=== PATIENT | female | born 1950 | race Caucasian/White ===

== ENCOUNTER 2017-02-06 09:18 | Inpatient (IN) | payer MEDICARE ==
[~2017-02-06] VITALS: Ht 154.9 cm; Wt 45.0 kg
[2017-02-06 09:20] VITALS: BP 134/80; PULSE 88; RESP 16; TEMP 98.4; O2SAT 97
--- NOTE | 2017-02-06 09:35 | PD ---
HPI Chief Complaint: General Weakness Time Seen by Provider: 09:32 Travel History International Travel<30 days: No Contact w/Intl Traveler<30days: No Traveled to known affect area: No History of Present Illness HPI 66-year-old female patient with history of anxiety, hypertension, presents to the ER today because she states that she hasn't moved to [place] from [place] 2 months ago and "things are not going right". She has been depressed, not feeling like eating, has decreased appetite, and states she has diarrhea although she states she only has one episode daily. She denies any black stools or blood in the stools, fevers, chest pains, shortness of breath, or any other symptoms. She does not yet have a primary care doctor in the area. She denies any suicidal or homicidal ideation. She states she rings more than she should at times, states she drinks wine. Modifying Factors: None Associated Signs & Symptoms: Depression, poor appetite, drinking alcohol Risk Factors: History of anxiety PFSH Social History Alcohol Use: Yes (daily/wine 1-2) Tobacco Use: Yes (1-1 1/2 ppd) Substance Use: No Allergies-Medications (Allergen,Severity, Reaction): Coded Allergies: Penicillins (Verified Allergy, Severe, Hives, 02/06/17) Sulfa (Sulfonamide Antibiotics) (Verified Adverse Reaction, Severe, Nausea /Vomiting, 02/06/17) diphenhydramine (Verified Adverse Reaction, Unknown, Drowsiness, 02/06/17) Review of Systems Except as stated in HPI: all other systems reviewed are Neg Physical Exam Narrative GENERAL: Well-developed elderly white female patient currently in mild distress at awake and oriented 3. Tearful on discussion of issues. SKIN: Focused skin assessment warm/dry. HEAD: Atraumatic. Normocephalic. EYES: Pupils equal and round. No scleral icterus. No injection or drainage. ENT: No nasal bleeding or discharge. Mucous membranes pink and moist. NECK: Trachea midline. No JVD. CARDIOVASCULAR: Regular rate and rhythm. No murmur appreciated. RESPIRATORY: No accessory muscle use. Clear to auscultation. Breath sounds equal bilaterally. GASTROINTESTINAL: Abdomen soft, non-tender, nondistended. Hepatic and splenic margins not palpable. MUSCULOSKELETAL: No obvious deformities. No clubbing. No cyanosis. No edema. NEUROLOGICAL: Awake and alert. No obvious cranial nerve deficits. Motor grossly within normal limits. Normal speech. PSYCHIATRIC: Appropriate mood and affect; insight and judgment normal. Data Data Last Documented VS Vital Signs Date Time Temp Pulse Resp B/P (MAP) Pulse Ox O2 Delivery O2 Flow Rate FiO2 02/06/17 09:20 98.4 88 16 134/80 (98) 97 Room Air Orders Orders Complete Blood Count With Diff (02/06/17 09:32) Comprehensive Metabolic Panel (02/06/17 09:32) Thyroid Stimulating Hormone (02/06/17 09:32) Urinalysis - C+S If Indicated (02/06/17 09:32) Psych Screen (02/06/17 09:32) Drug Screen, Random Urine (02/06/17 09:32) Alcohol (Ethanol) (02/06/17 09:32) Ns + Kcl 40 Meq Inj (Ns + Kcl 40 Meq Inj (02/06/17 10:30) Us Abdomen Gallbladder (02/06/17 10:30) Ondansetron Inj (Zofran Inj) (02/06/17 10:30) Labs Laboratory Tests Test 02/06/17 09:39 White Blood Count 8.2 TH/MM3 Red Blood Count 4.33 MIL/MM3 Hemoglobin 15.2 GM/DL Hematocrit 42.5 % Mean Corpuscular Volume 98.3 FL Mean Corpuscular Hemoglobin 35.1 PG Mean Corpuscular Hemoglobin Concent 35.8 % Red Cell Distribution Width 14.2 % Platelet Count 273 TH/MM3 Mean Platelet Volume 7.8 FL Neutrophils (%) (Auto) 71.5 % Lymphocytes (%) (Auto) 15.0 % Monocytes (%) (Auto) 12.5 % Eosinophils (%) (Auto) 0.4 % Basophils (%) (Auto) 0.6 % Neutrophils # (Auto) 5.9 TH/MM3 Lymphocytes # (Auto) 1.2 TH/MM3 Monocytes # (Auto) 1.0 TH/MM3 Eosinophils # (Auto) 0.0 TH/MM3 Basophils # (Auto) 0.0 TH/MM3 CBC Comment DIFF FINAL Differential Comment Blood Urea Nitrogen 4 MG/DL Creatinine 1.05 MG/DL Random Glucose 152 MG/DL Total Protein 7.8 GM/DL Albumin 4.1 GM/DL Calcium Level 9.8 MG/DL Alkaline Phosphatase 96 U/L Aspartate Amino Transf (AST/SGOT) 178 U/L Alanine Aminotransferase (ALT/SGPT) 135 U/L Total Bilirubin 1.6 MG/DL Sodium Level 120 MEQ/L Potassium Level 3.0 MEQ/L Chloride Level 79 MEQ/L Carbon Dioxide Level 32.8 MEQ/L Anion Gap 8 MEQ/L Estimat Glomerular Filtration Rate 52 ML/MIN Thyroid Stimulating Hormone 3rd Gen 0.844 uIU/ML Ethyl Alcohol Level LESS THAN 3 MG/DL MDM Medical Decision Making Medical Screen Exam Complete: Yes Emergency Medical Condition: Yes Medical Record Reviewed: Yes Interpretation(s) Laboratory Tests Test 02/06/17 09:39 Mean Corpuscular Hemoglobin 35.1 PG (27.0-34.0) Neutrophils (%) (Auto) 71.5 % (16.0-70.0) Monocytes (%) (Auto) 12.5 % (0.0-8.0) Monocytes # (Auto) 1.0 TH/MM3 (0-0.9) Blood Urea Nitrogen 4 MG/DL (7-18) Creatinine 1.05 MG/DL (0.50-1.00) Random Glucose 152 MG/DL (74-106) Aspartate Amino Transf (AST/SGOT) 178 U/L (15-37) Alanine Aminotransferase (ALT/SGPT) 135 U/L (10-53) Total Bilirubin 1.6 MG/DL (0.2-1.0) Sodium Level 120 MEQ/L (136-145) Potassium Level 3.0 MEQ/L (3.5-5.1) Chloride Level 79 MEQ/L (98-107) Carbon Dioxide Level 32.8 MEQ/L (21.0-32.0) Estimat Glomerular Filtration Rate 52 ML/MIN (>89) Differential Diagnosis Depression, poor appetite: Rule out metabolic issues versus dehydration Narrative Course Lab work shows significant hyponatremia and hypokalemia. IV fluids with normal saline and potassium has been given in the ER. Abdomen is fairly benign but liver enzymes are mildly elevated, questionable whether this is drinking related. Right upper quadrant ultrasound has also been ordered. At this point , my plan would be to medically admit her for further evaluation. She can receive psychiatric evaluation while she is here as well. She is not homicidal or suicidal, does not meet Rodgers act criteria. Case was at this point discussed with family practice resident service for admission. Diagnosis Primary Impression: Depression Additional Impressions: Poor appetite Hyponatremia Hypokalemia Admitting Information Admitting Physician Requests: Admit Michele Coleman MD Feb 06, 2017 09:35
[2017-02-06 09:52] LABS: AUTOMATED NEUTROPHIL # 5.9 TH/MM3 (1.8-7.7); BASOPHIL % 0.6 % (0.0-2.0); EOSINOPHIL % 0.4 % (0.0-4.0); HEMATOCRIT 42.5 % (35.0-46.0); HEMO FLAGS DIFF FINAL; LYMPHOCYTE # 1.2 TH/MM3 (1.0-4.8); MEAN CELL VOLUME 98.3 FL (80.0-100.0); MEAN CORPUSCULAR HEMOGLOBIN 35.1 PG (27.0-34.0); MEAN CORPUSCULAR HGB CONC 35.8 % (32.0-36.0); MONO % 12.5 % (0.0-8.0); NEUT % 71.5 % (16.0-70.0); PLATELET COUNT 273 TH/MM3 (150-450); RED BLOOD COUNT 4.33 MIL/MM3 (4.00-5.30); RED CELL DISTRIBUTION WIDTH 14.2 % (11.6-17.2); WHITE BLOOD COUNT 8.2 TH/MM3 (4.0-11.0)
[2017-02-06 10:19] LABS: ALKALINE PHOSPHATASE 96 U/L (45-117); ALT (GPT) 135 U/L (10-53); ANION GAP 8 MEQ/L (5-15); AST (GOT) 178 U/L (15-37); BICARBONATE 32.8 MEQ/L (21.0-32.0); BLOOD UREA NITROGEN 4 MG/DL (7-18); CHLORIDE 79 MEQ/L (98-107); GLOMERULAR FILTRATION RATE 52 ML/MIN (>89); TOTAL BILIRUBIN ADULT 1.6 MG/DL (0.2-1.0)
[2017-02-06 10:21] LABS: ALCOHOL LESS THAN 3 MG/DL (0-5)
[2017-02-06 10:23] LABS: SODIUM (NA) 120 MEQ/L (136-145)
[2017-02-06 10:30] VITALS: BP 149/77; PULSE 86; RESP 16; O2SAT 98
[2017-02-06] MEDS ORDERED: ONDANSETRON HCL 4 MG/2 ML VIAL IV PUSH ONE (10:30)
[2017-02-06] MEDS: NS + KCL 40 MEQ INJ 1,000 ML IV SCH ×2 (10:46→12:39)
--- NOTE | 2017-02-06 11:12 | HHI.HP ---
[facility] Service Family Medicine Primary Care Physician No Primary Care Physician Admission Diagnosis hyponatremia/hypokalemia/dehydration Diagnoses: International Travel<30 Days: No Contact w/Intl Traveler<30days: No Known Affected Area: No History of Present Illness Ms. Prieto is a 66-year-old white female with past medical history of depression and anxiety presenting today with generalized weakness. She states that this episode started 2 weeks ago with having no appetite and then progressed to feeling overall weak and shaky. She also states that she has been feeling nauseous, but not having any vomiting. She was dry heaving. She has had early satiety, but no trouble swallowing. She describes her weakness as generalized. No specificity to one particular side. She feels particularly weak in her knees. She states that she was afraid to decorator street and building her shower because it was slippery. No falls. No changes in gait. No vertigo or dizziness. She states that she has felt lightheaded. She admits that she has been drinking too much alcohol the past couple of weeks. She usually drinks white Zinfandel wine, about 4-5 glasses a day (36 ounces/day). She has been feeling unhappy and not quite right. She thought moving here from [place] would help her with her mood but it has not. She does not like her living situation. She lives alone. Lately, she has not felt like going anywhere or doing anything. She feels like drinking numbs her pain and limits her not feel as sad. She does have a history of alcohol which all 2 years ago. She was not hospitalized. No SI/HI. She does take citalopram for her anxiety. She has been diagnosed with depression before. Review of Systems Constitutional: DENIES: Fever, Weight gain, Weight loss, Chills, Night Sweats Endocrine: DENIES: Polydipsia, Polyuria Eyes: DENIES: Blurred vision Ears, nose, mouth, throat: COMPLAINS OF: Running Nose, DENIES: Vertigo Respiratory: COMPLAINS OF: Shortness of breath Cardiovascular: COMPLAINS OF: Dyspnea on Exertion, DENIES: Chest pain Gastrointestinal: COMPLAINS OF: Nausea, DENIES: Abdominal pain, Black stools, Bloody stools, Constipation, Diarrhea, Vomiting Musculoskeletal: DENIES: Muscle aches Integumentary: DENIES: Rash Hematologic/lymphatic: DENIES: Bruising Neurologic: COMPLAINS OF: Tremor, DENIES: Localized weakness, Paresthesias, Seizures Psychiatric: COMPLAINS OF: Depression, DENIES: Confusion, Hallucinations, Suicidal Ideation, Homicidal Ideation Past Family Social History Past Medical History Depression Anxiety HTN Past Surgical History Tonsillectomy at 6yo Cataract surgery with lens replacement bilaterally- Feb,Mar 2016 Reported Medications Atenolol-Chlorthalidone 50-25mg, 1/2 tab a day Citalopram 20mg qD Allergies: Coded Allergies: Penicillins (Verified Allergy, Severe, Hives, 02/06/17) Sulfa (Sulfonamide Antibiotics) (Verified Adverse Reaction, Severe, Nausea /Vomiting, 02/06/17) diphenhydramine (Verified Adverse Reaction, Unknown, Drowsiness, 02/06/17) Active Ordered Medications Current Medications Medications (Trade) Dose Ordered Sig/Juliet Route Start Time Stop Time Status Last Admin Potassium Chloride/Sodium Chloride 1,000 ml @ 125 mls/hr Q8H IV 02/06/17 10:30 02/06/17 10:46 Family History Sister- breast cancer, diagnosed at 50, now decreased at 59 Father- Alzheimer Mother- "rapid heart beat", DM, glaucoma, depression Social History Now , no children Does not have a health care surrogate designated Tobacco- 1/2-1ppd for 46 yrs, on and off Alcohol- had quit drinking 2 yrs ago, but started back up recently, interested in quitting Illicit drugs- None Physical Exam Vital Signs Vital Signs Date Time Temp Pulse Resp B/P (MAP) Pulse Ox O2 Delivery O2 Flow Rate FiO2 02/06/17 09:20 98.4 88 16 134/80 (98) 97 Room Air Physical Exam GENERAL: This is a well-nourished, well-developed patient, in no apparent distress. SKIN: No rashes, ecchymoses or lesions. Cool and dry. HEAD: Atraumatic. Normocephalic. No temporal or scalp tenderness. EYES: Pupils equal round and reactive. Extraocular motions intact. No scleral icterus. No injection or drainage. ENT: Nose without bleeding, purulent drainage or septal hematoma. Throat without erythema, tonsillar hypertrophy or exudate. Uvula midline. Airway patent. Tongue is dry NECK: Trachea midline. No JVD or lymphadenopathy. Supple, nontender, no meningeal signs. CARDIOVASCULAR: Regular rate and rhythm without murmurs, gallops, or rubs. RESPIRATORY: Clear to auscultation. Breath sounds equal bilaterally. No rales, or rhonchi. Diffuse soft wheezes bilaterally. GASTROINTESTINAL: Abdomen soft, non-tender, nondistended. No hepato-splenomegaly , or palpable masses. No guarding. MUSCULOSKELETAL: Extremities without clubbing, cyanosis, or edema. No joint tenderness, effusion, or edema noted. No calf tenderness. Negative Homans sign bilaterally. NEUROLOGICAL: Awake and alert. Motor and sensory grossly within normal limits. Five out of 5 muscle strength in all muscle groups. Normal speech. Laboratory Laboratory Tests Test 02/06/17 09:39 White Blood Count 8.2 Red Blood Count 4.33 Hemoglobin 15.2 Hematocrit 42.5 Mean Corpuscular Volume 98.3 Mean Corpuscular Hemoglobin 35.1 Mean Corpuscular Hemoglobin Concent 35.8 Red Cell Distribution Width 14.2 Platelet Count 273 Mean Platelet Volume 7.8 Neutrophils (%) (Auto) 71.5 Lymphocytes (%) (Auto) 15.0 Monocytes (%) (Auto) 12.5 Eosinophils (%) (Auto) 0.4 Basophils (%) (Auto) 0.6 Neutrophils # (Auto) 5.9 Lymphocytes # (Auto) 1.2 Monocytes # (Auto) 1.0 Eosinophils # (Auto) 0.0 Basophils # (Auto) 0.0 CBC Comment DIFF FINAL Differential Comment Blood Urea Nitrogen 4 Creatinine 1.05 Random Glucose 152 Total Protein 7.8 Albumin 4.1 Calcium Level 9.8 Alkaline Phosphatase 96 Aspartate Amino Transf (AST/SGOT) 178 Alanine Aminotransferase (ALT/SGPT) 135 Total Bilirubin 1.6 Sodium Level 120 Potassium Level 3.0 Chloride Level 79 Carbon Dioxide Level 32.8 Anion Gap 8 Estimat Glomerular Filtration Rate 52 Thyroid Stimulating Hormone 3rd Gen 0.844 Ethyl Alcohol Level LESS THAN 3 Result Diagram: 02/06/1739 02/06/1739 Imaging Last Impressions Gall Bladder Ultrasound 02/06/17 1030 Signed Impressions: Service Date/Time: Monday, February 06, 2017 15:09 - CONCLUSION: 1. The common bile duct is at the upper range of normal for patient of this age measuring 6 mm. No choledocholithiasis is appreciated. No intrahepatic ductal dilatation. Macho Neff Jr., MD Chest X-Ray 02/06/17 0000 Signed Impressions: Service Date/Time: Monday, February 06, 2017 11:39 - CONCLUSION: Hyperinflated lungs. MD Juan Rico VTE Risk Assessment Caprini VTE Risk Assessment: Mod/High Risk (score >= 2) Caprini Risk Assessment Model Point Value = 1 Point Value = 2 Point Value = 3 Point Value = 5 Age 41-60 Minor surgery BMI > 25 kg/m2 Swollen legs Varicose veins or History of unexplained or recurrent spontaneous Oral contraceptives or hormone replacement Sepsis (< 1 month) Serious lung disease, including pneumonia (< 1 month) Abnormal pulmonary function Acute myocardial infarction Congestive heart failure (< 1 month) History of inflammatory bowel disease Medical patient at bed rest Age 61-74 Arthroscopic surgery Major open surgery (> 45 min) Laparoscopic surgery (> 45 min) Malignancy Confined to bed (> 72 hours) Immobilizing plaster cast Central venous access Age >= 75 History of VTE Family history of VTE Factor V Leiden Prothrombin [id number] Lupus anticoagulant Anticardiolipin antibodies Elevated serum homocysteine Heparin-induced thrombocytopenia Other congenital or acquired thrombophilia Stroke (< 1 month) Elective arthroplasty Hip, pelvis, or leg fracture Acute spinal cord injury (< 1 month) Prophylaxis Regimen Total Risk Factor Score Risk Level Prophylaxis Regimen 0-1 Low Early ambulation 2 Moderate Order ONE of the following: *Sequential Compression Device (SCD) *Heparin 5000 units SQ BID 3-4 Higher Order ONE of the following medications: *Heparin 5000 units SQ TID *Enoxaparin/Lovenox 40 mg SQ daily (WT < 150 kg, CrCl > 30 mL/min) *Enoxaparin/Lovenox 30 mg SQ daily (WT < 150 kg, CrCl > 10-29 mL/min) *Enoxaparin/Lovenox 30 mg SQ BID (WT < 150 kg, CrCl > 30 mL/min) AND/OR *Sequential Compression Device (SCD) 5 or more Highest Order ONE of the following medications: *Heparin 5000 units SQ TID (Preferred with Epidurals) *Enoxaparin/Lovenox 40 mg SQ daily (WT < 150 kg, CrCl > 30 mL/min) *Enoxaparin/Lovenox 30 mg SQ daily (WT < 150 kg, CrCl > 10-29 mL/min) *Enoxaparin/Lovenox 30 mg SQ BID (WT < 150 kg, CrCl > 30 mL/min) AND *Sequential Compression Device (SCD) Assessment and Plan Assessment and Plan Ms. Prieto is a 66yo white friend with a PMH of HTN, anxiety, and depression presenting with generalized weakness. On CMP she was found to be hyponatremic at 120 which most likely is the contributing factor for her weakness. She admits to indulging in alcohol for the past few weeks and has a history of withdrawal so will monitor for her withdrawal during her hospital stay. Code Status Full code Discussed Condition With DSW: Dr. Samira Odonnell Problem List: (1) Hyponatremia ICD Codes: E87.1 - Hypo-osmolality and hyponatremia Status: Acute Plan: Sodium level 120 upon admission to ED. Patient has hypo-osmolarity at 250. * continue NS+KCl 40meq IV at 125 ml/hr * recheck BMP at 1400 to ensure Na level do not rise too quickly * check urine sodium * CXR to ensure no lesions that may be secreting ADH * negative * Fluid restriction to 1500ml (2) Hypokalemia ICD Codes: E87.6 - Hypokalemia Status: Acute Plan: Potassium level 3.0 upon admission to ED. * Pt receiving IVF with 40meq of K (3) Generalized weakness ICD Codes: R53.1 - Weakness Status: Acute Plan: Generalized weakness of 2 weeks duration. Pt has full strength and no signs of any neurological deficits on physical exam. May be due to hyponatremia. * see plan above * Neuro checks q4h (4) Alcohol abuse ICD Codes: F10.10 - Alcohol abuse, uncomplicated Status: Acute Plan: Pt admits to increasing her alcohol intake the past few weeks because of depressive sx. She has a hx of withdrawal. LFTs are elevated on labs, AST>ALT ( ED ordered gall bladder US to ensure no other etiology, showed common bile duct at upper range of normal, no choledocholithiasis). Total bilirubin elevated at 1.6. * EtOH level <3 * CIAZ protocol, continue to monitor, escalate care as needed * Oral multivitamins * Neuro checks (5) Anxiety and depression ICD Codes: F41.8 - Other specified anxiety disorders Status: Chronic Plan: Pt has a PMH of anxiety and depression. She is currently on Citalopram 20mg po QD. She states that her depression has gotten worse over the past few weeks with sx like low energy, anhedonia. No SI/HI * Continue at home medication of citalopram. * Consult psychiatry (6) Tobacco abuse ICD Codes: Z72.0 - Tobacco use Status: Chronic Plan: Pt has about a 46 pack year history. She is interested in quitting. * CXR shows hyperinflated lungs, suggesting possible COPD * Nicotine patch * Will refer to the [place] Quit line (7) Hypertension ICD Codes: I10 - Essential (primary) hypertension Status: Chronic Plan: * Continue at home medication of Atenolol- Chlorthalidone. (8) FEN, ppx Status: Acute Plan: Fluids: NS + KCl at 125 mls/hr Electrolytes: Monitor and replete as needed Nutrition: Heart healthy diet DVT ppx: Lovenox GI ppx: PRN meds Pain: Tylenol Physician Certification 2 Midnight Certification Type: Admission for Inpatient Services Order for Inpatient Services The services are ordered in accordance with Medicare regulations or non- Medicare payer requirements, as applicable. In the case of services not specified as inpatient-only, they are appropriately provided as inpatient services in accordance with the 2-midnight benchmark. Estimated LOS (days): 2 days is the estimated time the patient will need to remain in the hospital, assuming treatment plan goals are met and no additional complications. Post-Hospital Plan: Home Problem Qualifiers (1) Hypertension: Qualified Codes: I10 - Essential (primary) hypertension Alyssa Gonzalez MD R1 Feb 06, 2017 11:12
[2017-02-06 11:30] VITALS: BP 108/60; PULSE 76; RESP 18; O2SAT 99
[2017-02-06] MEDS ORDERED: LORazepam 2 MG TAB PO PRN (11:30)
[2017-02-06] MEDS ORDERED: LORazepam 2 MG/ML VIAL IV PUSH PRN ×4 (11:30)
[2017-02-06] MEDS ORDERED: SODIUM CHLORIDE 0.9% FLUSH 10 ML FLUSH IV FLUSH PRN (11:30)
[2017-02-06] MEDS ORDERED: BISACODYL 10 MG SUPP RECTAL PRN (11:30)
[2017-02-06] MEDS ORDERED: FLUMAZENIL 0.5 MG/5 ML VIAL IV PUSH PRN (11:30)
[2017-02-06] MEDS ORDERED: ONDANSETRON HCL 4 MG/2 ML VIAL IVP PRN (11:30)
[2017-02-06] MEDS ORDERED: LACTULOSE SYRUP 20 GM/30 ML CUP PO PRN (11:30)
[2017-02-06] MEDS ORDERED: NALOXONE HCL 0.4 MG/ML AMP IV PUSH PRN (11:30)
[2017-02-06] MEDS ORDERED: ACETAMINOPHEN 325 MG TAB PO PRN (11:30)
[2017-02-06] MEDS ORDERED: LORazepam 1 MG TAB PO PRN (11:30)
[2017-02-06] MEDS ORDERED: SENNOSIDES 8.6 MG TAB PO PRN (11:30)
[2017-02-06] MEDS ORDERED: ZOLPIDEM TARTRATE 5 MG TAB PO PRN (11:30)
[2017-02-06] MEDS ORDERED: MAGNESIUM HYDROXIDE SUSP 30 ML CUP PO PRN (11:30)
[2017-02-06] MEDS ORDERED: CITA20TA4 PO (11:41)
[2017-02-06] MEDS ORDERED: ATEN50TA7 PO (11:42)
--- NOTE | 2017-02-06 11:53 | RADRPT ---
EXAM DATE/TIME: 02/06/2017 11:39 [facility] COMPARISON: No previous studies available for comparison. INDICATIONS : Short of breath when she walks. MEDICAL HISTORY : None. SURGICAL HISTORY : None. ENCOUNTER: Initial ACUITY: 1 day PAIN SCORE: 0/10 LOCATION: Bilateral chest FINDINGS: The heart size is normal. The lungs are hyperinflated. The lungs do appear clear. No effusion is seen . CONCLUSION: Hyperinflated lungs. Mono Durán MD on February 06, 2017 at 11:51 Board Certified Radiologist. This report was verified electronically.
[2017-02-06] MEDS: ENOXAPARIN SODIUM 40 MG/0.4 ML SYRINGE SQ SCH (12:39)
[2017-02-06] MEDS: FOLIC ACID 1 MG TAB PO SCH (12:39)
[2017-02-06] MEDS: NICOTINE 14 MG/24 HR PATCH T-DERMAL SCH (12:39)
[2017-02-06] MEDS: MULTIVITAMIN TAB PO SCH (12:39)
[2017-02-06] MEDS: THIAMINE HCL 100 MG TAB PO SCH (12:40)
[2017-02-06] MEDS ORDERED: PILL SPLITTER OTHER PRN (13:45)
--- NOTE | 2017-02-06 15:43 | RADRPT ---
EXAM DATE/TIME: 02/06/2017 15:09 [facility] COMPARISON: No previous studies available for comparison. INDICATIONS : Right upper quadrant. MEDICAL HISTORY : Hypertension. Right upper quadrant pain. SURGICAL HISTORY : ENCOUNTER: Initial ACUITY: 1 day PAIN SCORE: 04/28 LOCATION: Right upper quadrant MEASUREMENTS: LIVER: 12.3 cm length COMMON DUCT: 7 mm RIGHT KIDNEY: 9.2 x 3.5 x 4.0 cm FINDINGS: LIVER: Normal echotexture without focal lesion or ductal dilatation. COMMON DUCT: No intraluminal mass or stone visualized. GALLBLADDER: Contains no stones, demonstrates no wall thickening or pericholecystic fluid. PANCREAS: The visualized portions are within normal limits. RIGHT KIDNEY: No evidence of hydronephrosis, stone, or mass. CONCLUSION: 1. The common bile duct is at the upper range of normal for patient of this age measuring 6 mm. No ch oledocholithiasis is appreciated. No intrahepatic ductal dilatation. Macho Neff Jr., MD on February 06, 2017 at 15:40 Board Certified Radiologist. This report was verified electronically.
[2017-02-06 16:00] VITALS: BP 100/60; PULSE 77; RESP 20; TEMP 98.1; O2SAT 97
[2017-02-06 16:56] LABS: BICARBONATE 29.9 MEQ/L (21.0-32.0)
[2017-02-06 17:03] LABS: BACTERIA, URINE RARE /hpf; BLOOD, URINE NEG (NEG); GLUCOSE,URINE NEG (NEG); KETONE, URINE TRACE mg/dL (NEG); MUCUS URINE FEW /lpf (OCC); NITRITE,URINE NEG (NEG); PH, URINE 7.5 (5.0-8.5); SQUAMOUS EPITHELIAL CELL URINE 3 /hpf (0-5); URINE COLOR YELLOW (YELLW/STRAW)
[2017-02-06 17:04] LABS: COMMENT (UR) CULT NOT INDICATED; CULTURE IF INDICATED CULT NOT INDICATED
[2017-02-06] MEDS ORDERED: POTASSIUM CHLORIDE 10 MEQ CONTROLLED RELEASE TAB PO ONE (19:30)
[2017-02-06 20:00] VITALS: BP 118/53; PULSE 78; RESP 18; TEMP 98.1; O2SAT 95
[2017-02-06 20:05] VITALS: PULSE 74
[2017-02-06] MEDS: SODIUM CHLORIDE 0.9% FLUSH 10 ML FLUSH IV FLUSH SCH (20:07)
[2017-02-06] MEDS: DOCUSATE SODIUM 50 MG/SENNA 8.6 MG TAB PO SCH (20:07)
[2017-02-07] VITALS (7 sets, daily range): BP systolic 101–127; BP diastolic 54–59; PULSE 71–83; RESP 16–18; TEMP 97.8–98.2; O2SAT 94–97
[2017-02-07] MEDS: DOCUSATE SODIUM 50 MG/SENNA 8.6 MG TAB PO SCH ×2 (08:35→20:17)
[2017-02-07] MEDS: ATENOLOL/CHLORTHALIDONE 50/25 TAB PO SCH (08:36)
[2017-02-07] MEDS: NICOTINE 14 MG/24 HR PATCH T-DERMAL SCH (08:36)
[2017-02-07] MEDS: REMOVE OLD PATCH T-DERMAL SCH (08:36)
[2017-02-07] MEDS: MULTIVITAMIN TAB PO SCH (08:37)
[2017-02-07] MEDS: FOLIC ACID 1 MG TAB PO SCH (08:37)
[2017-02-07] MEDS: THIAMINE HCL 100 MG TAB PO SCH (08:37)
[2017-02-07] MEDS: SODIUM CHLORIDE 0.9% FLUSH 10 ML FLUSH IV FLUSH SCH ×2 (08:38→20:17)
[2017-02-07] MEDS ORDERED: CITALOPRAM HYDROBROMIDE 20 MG TAB PO SCH (09:00)
[2017-02-07 09:09] LABS: AUTOMATED NEUTROPHIL # 3.9 TH/MM3 (1.8-7.7); BASOPHIL % 0.8 % (0.0-2.0); EOSINOPHIL % 0.6 % (0.0-4.0); HEMATOCRIT 38.9 % (35.0-46.0); HEMO FLAGS DIFF FINAL; LYMPH % 23.7 % (9.0-44.0); LYMPHOCYTE # 1.5 TH/MM3 (1.0-4.8); MEAN CELL VOLUME 99.7 FL (80.0-100.0); MEAN CORPUSCULAR HEMOGLOBIN 34.3 PG (27.0-34.0); MEAN CORPUSCULAR HGB CONC 34.4 % (32.0-36.0); MONO % 12.8 % (0.0-8.0); NEUT % 62.1 % (16.0-70.0); PLATELET COUNT 235 TH/MM3 (150-450); RED BLOOD COUNT 3.91 MIL/MM3 (4.00-5.30); RED CELL DISTRIBUTION WIDTH 14.2 % (11.6-17.2); WHITE BLOOD COUNT 6.2 TH/MM3 (4.0-11.0)
[2017-02-07 09:34] LABS: ALKALINE PHOSPHATASE 78 U/L (45-117); ALT (GPT) 103 U/L (10-53); ANION GAP 11 MEQ/L (5-15); AST (GOT) 119 U/L (15-37); BLOOD UREA NITROGEN 7 MG/DL (7-18); CHLORIDE 92 MEQ/L (98-107); GLOMERULAR FILTRATION RATE 80 ML/MIN (>89); MAGNESIUM 1.5 MG/DL (1.5-2.5); POTASSIUM 3.2 MEQ/L (3.5-5.1); SODIUM (NA) 128 MEQ/L (136-145); TOTAL BILIRUBIN ADULT 1.8 MG/DL (0.2-1.0)
--- NOTE | 2017-02-07 10:20 | PD.PSY.CON ---
Provisional Diagnosis Admission Date Feb 06, 2017 at 10:42 [place] I. 1. Major depressive disorder, single episode, currently moderate 2. Other anxiety disorder 3. Alcohol abuse [place] II. Deferred History of Present Illness Service Psychiatry Consult Requested By Dr. Gonzalez Reason for Consult History of anxiety and depression with worsening depressive symptoms. Self- medicating with alcohol. Primary Care Physician No Primary Care Physician HPI Paula kinney a 66-year-old female with a reported history of anxiety treated in the outpatient setting with Celexa 20 mg daily who presented to the emergency department with complaints of weakness. She was found to be significantly hypokalemic and hyponatremic. She has been admitted to the medical floor for further management. Reviewing the electronic medical record, I note this is patient's first visit to [facility]. Patient seen and examined. Chart reviewed. Case discussed with nursing staff. On my examination today, the patient reports that she came into the hospital because she was nauseated and couldn't eat. She says that she moved down from [place] about a month and a half ago and has limited supports in the area. She reports that her Celexa, which she has been on at stable doses for the last 15 years, stopped working about 6 months ago. She has been experiencing worsening mood with associated poor sleep and poor appetite. She describes anhedonia saying "I've lost a lot of interest in things." Endorses lack of motivation and low energy. No hopelessness. She does describe some morbid guilt and ruminates on having to put her elderly father with Alzheimer's into a nursing facility, although this occurred many years ago. She adamantly denies any suicidal ideation, intent or plan on direct questioning and contracts for safety. She says that she would never hurt herself because the idea of scares her and also because of her Yazidism fritz. She describes chiefly generalized anxiety at this point and says that she worries about being alone and getting sick and not having anyone to help. Some anxious rumination but no obsessive or compulsive symptoms. She denies any recent issues with panic. I can elicit no current or prior symptoms of hypomania/lazaro. She denies any audiovisual hallucinations and I can elicit no delusional material. She does describe a series of losses over the last several years including of her sister , her niece Zeina who of pancreatic cancer and Zeina's daughter who was killed by a drunk flatbed company driver in June. The remainder of the psychiatric ROS is negative. She presently complains of some nausea. Past psychiatric history: The patient reports a history of anxiety. From the history that she gives, it sounds like this was initially panicky in nature although it has grown generalized over the years. She was started on Celexa 20 mg daily by her primary care doctor 15 years ago and has done well with this medication until about 6 months ago as noted above. She denies any history of psychiatric admissions or suicide attempts. She denies any history of nonsuicidal self-injurious behavior. Besides the Celexa, she has only tried some Ativan in the past which made her markedly hypotensive and Valium which she did not like the way it made her feel. Family history: The patient reports that her sister struggle with depression and attempted suicide although she did not by suicide. She did receive electroconvulsive therapy. Mother also had depression. She denies any family history of substance use disorder. Chemical dependency history: Patient does admit to alcohol use, increased over the last 2 weeks or so. She estimates that she is drinking between a half and a full bottle of wine a day. She denies any history of blackouts, DTs or seizures. Her longest sober time is about 6 months. She smokes a pack a day of cigarettes. She denies any other substance use. Social history: The patient was born in [place] and raised in [place]. She lives alone. She is . She has no children. She has no pets. She has 2 years of college education. She had several jobs during her career before retiring. 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 She denies any or legal history. She denies any access to guns or firearms. She denies any history of trauma. She is a Yazidism. Review of Systems Except as stated in HPI: all other systems reviewed are Neg Past Family Social History Coded Allergies: Penicillins (Verified Allergy, Severe, Hives, 02/06/17) Sulfa (Sulfonamide Antibiotics) (Verified Adverse Reaction, Severe, Nausea /Vomiting, 02/06/17) diphenhydramine (Verified Adverse Reaction, Unknown, Drowsiness, 02/06/17) Past Medical History See electronic medical record Reported Medications Atenolol-Chlorthalidone (Atenolol-Chlorthalidone) 50-25 Mg Tab, 0.5 TAB PO DAILY for Blood Pressure Management, #30 TAB 0 Refills 02/06/17 Citalopram (Citalopram) 20 Mg Tab, 20 MG PO DAILY for Control Depression, #30 TAB 0 Refills 02/06/17 Current Medications Medications (Trade) Dose Ordered Sig/Juliet Route Start Time Stop Time Status Last Admin (NS Flush) 2 ml UNSCH PRN IV FLUSH 02/06/17 11:30 (NS Flush) 2 ml BID IV FLUSH 02/06/17 21:00 02/07/17 08:38 (Romazicon Inj) 0.2 mg Q1M PRN IV PUSH 02/06/17 11:30 (Ativan) 1 mg Q4H PRN PO 02/06/17 11:30 (Ativan Inj) 1 mg Q4H PRN IV PUSH 02/06/17 11:30 (Ativan) 2 mg Q2H PRN PO 02/06/17 11:30 (Ativan Inj) 2 mg Q2H PRN IV PUSH 02/06/17 11:30 (Ativan Inj) 2 mg Q1H PRN IV PUSH 02/06/17 11:30 (Ativan Inj) 2 mg Q15M PRN IV PUSH 02/06/17 11:30 (Theragran) 1 tab DAILY PO 02/06/17 12:00 02/07/17 08:37 (Vitamin B1) 100 mg DAILY PO 02/06/17 12:00 02/07/17 08:37 (Folate) 1 mg DAILY PO 02/06/17 12:00 02/07/17 08:37 (Tylenol) 650 mg Q4H PRN PO 02/06/17 11:30 (Zofran Inj) 4 mg Q6H PRN IVP 02/06/17 11:30 02/07/17 02:22 (Ambien) 5 mg HS PRN PO 02/06/17 11:30 (Lovenox Inj) 40 mg Q24H SQ 02/06/17 12:00 02/06/17 12:39 (Narcan Inj) 0.4 mg UNSCH PRN IV PUSH 02/06/17 11:30 (Tabatha-Colace) 1 tab BID PO 02/06/17 21:00 02/06/17 20:07 (Milk Of Magnesia Liq) 30 ml Q12H PRN PO 02/06/17 11:30 (Senokot) 17.2 mg Q12H PRN PO 02/06/17 11:30 (Dulcolax Supp) 10 mg DAILY PRN RECTAL 02/06/17 11:30 (Lactulose Liq) 30 ml DAILY PRN PO 02/06/17 11:30 (Habitrol 14 Mg Patch.24 Hr) 1 patch DAILY T-DERMAL 02/06/17 12:00 02/07/17 08:36 Miscellaneous Information 1 DAILY T-DERMAL 02/07/17 09:00 02/07/17 08:36 (Tenoretic 50-25 Mg) 0.5 tab DAILY PO 02/07/17 09:00 (CeleXA) 20 mg DAILY PO 02/07/17 09:00 02/07/17 08:37 (Pill Splitter) 1 ea UNSCH PRN OTHER 02/06/17 13:45 Family Psych History see above Social History See above Patient's Strengths (min. 2) Good response to antidepressant in past. Verbally fluent. Physical Exam Physical exam completed by primary team. On my examination today, the patient appears to be in no acute physical distress. No motor abnormalities noted. No signs of GABAergic withdrawal noted. Labs and vitals reviewed: Vital Signs Vital Signs Date Time Temp Pulse Resp B/P (MAP) Pulse Ox O2 Delivery O2 Flow Rate FiO2 02/07/17 08:00 97.8 83 18 103/55 (71) 94 02/07/17 08:00 Room Air Lab Results Test 02/06/17 15:46 02/06/17 16:05 02/07/17 08:00 Blood Urea Nitrogen 6 MG/DL 7 MG/DL Creatinine 0.85 MG/DL 0.73 MG/DL Random Glucose 103 MG/DL 84 MG/DL Calcium Level 9.0 MG/DL 9.1 MG/DL Sodium Level 124 MEQ/L 128 MEQ/L Potassium Level 3.0 MEQ/L 3.2 MEQ/L Chloride Level 86 MEQ/L 92 MEQ/L Carbon Dioxide Level 29.9 MEQ/L 25.0 MEQ/L Anion Gap 8 MEQ/L 11 MEQ/L Estimat Glomerular Filtration Rate 67 ML/MIN 80 ML/MIN Urine Color YELLOW Urine Turbidity CLEAR Urine pH 7.5 Urine Specific Dewitt 1.007 Urine Protein NEG mg/dL Urine Glucose (UA) NEG mg/dL Urine Ketones TRACE mg/dL Urine Occult Blood NEG Urine Nitrite NEG Urine Bilirubin NEG Urine Urobilinogen LESS THAN 2.0 MG/DL Urine Leukocyte Esterase NEG Urine RBC LESS THAN 1 /hpf Urine WBC 1 /hpf Urine Squamous Epithelial Cells 3 /hpf Urine Bacteria RARE /hpf Urine Mucus FEW /lpf Microscopic Urinalysis Comment CULT NOT INDICATED Urine Random Sodium 25 MEQ/L Urine Opiates Screen NEG Urine Barbiturates Screen NEG Urine Amphetamines Screen NEG Urine Benzodiazepines Screen NEG Urine Cocaine Screen NEG Urine Cannabinoids Screen NEG White Blood Count 6.2 TH/MM3 Red Blood Count 3.91 MIL/MM3 Hemoglobin 13.4 GM/DL Hematocrit 38.9 % Mean Corpuscular Volume 99.7 FL Mean Corpuscular Hemoglobin 34.3 PG Mean Corpuscular Hemoglobin Concent 34.4 % Red Cell Distribution Width 14.2 % Platelet Count 235 TH/MM3 Mean Platelet Volume 8.1 FL Neutrophils (%) (Auto) 62.1 % Lymphocytes (%) (Auto) 23.7 % Monocytes (%) (Auto) 12.8 % Eosinophils (%) (Auto) 0.6 % Basophils (%) (Auto) 0.8 % Neutrophils # (Auto) 3.9 TH/MM3 Lymphocytes # (Auto) 1.5 TH/MM3 Monocytes # (Auto) 0.8 TH/MM3 Eosinophils # (Auto) 0.0 TH/MM3 Basophils # (Auto) 0.0 TH/MM3 CBC Comment DIFF FINAL Differential Comment Total Protein 6.4 GM/DL Albumin 3.4 GM/DL Phosphorus Level 1.8 MG/DL Magnesium Level 1.5 MG/DL Alkaline Phosphatase 78 U/L Aspartate Amino Transf (AST/SGOT) 119 U/L Alanine Aminotransferase (ALT/SGPT) 103 U/L Total Bilirubin 1.8 MG/DL Electrolyte abnormalities noted. TSH within normal limits. Mental Status Examination Appearance: Appropriate Consciousness: Alert Orientation: x4 Motor Activity: Other (motor exam as above) Speech: Unremarkable Language: Adequate Fund of Knowledge: Adequate Attention and Concentration: Adequate Memory: Unremarkable (registration is 3 out of 3 in recall is 3 out of 3 at 3 minutes. She is oriented to person place and date. She is able to spell the word world forward and backwards with no errors. She is able to name 2 items and repeat a phrase. She is able to name the current president and the preceding president.) Mood: Anxious (anxious), Other (depressed) Affect: Other (somewhat restricted and consistent with stated mood) Thought Process & Associations: Logical, Goal directed, Linear Thought Content: Appropriate Hallucination Type: None Delusion Type: None Suicidal Ideation: No Suicidal Plan: No Suicidal Intention: No Homicidal Ideation: No Homicidal Plan: No Homicidal Intention: No Insight: Adequate Judgment: Adequate Assessment & Plan Problem List: (1) Major depressive disorder, single episode, moderate ICD Codes: F32.1 - Major depressive disorder, single episode, moderate (2) Other mixed anxiety disorders ICD Codes: F41.3 - Other mixed anxiety disorders (3) Alcohol abuse ICD Codes: F10.10 - Alcohol abuse, uncomplicated Status: Acute Assessment & Plan 66-year-old female with psychiatric history as detailed above who presents with generalized weakness, found to have significant electrolyte abnormalities. Presently admitted to the medical floor. Psychiatry is consulted for management of anxiety and depression. TSH within normal limits. Patient describes a history of antidepressant tachyphylaxis starting 6 months ago to her Celexa. She describes current depressive symptoms including poor sleep, lack of energy, anhedonia and morbid guilt. The last of these is the most disabling for her, she says. She denies suicidal ideation currently and articulates a fear of and says that she would not hurt herself on account of her life-affirming confucianist beliefs. Suicide risk assessment of the acute, chronic, and protective factors suggests lower imminent risk of harm to self at this time. She also describes chiefly generalized anxiety. She has had recent increase in her alcohol consumption. I have discussed with the patient her pharmacotherapeutic options for management of her current psychiatric symptoms including titration of her Celexa, augmentation with another agent, or transition to a different antidepressant entirely. I have spoken with the primary team, and there is some concern that her SSRI is contributing to her hyponatremia through the SIADH. After discussion of the risks and benefits of her various options, I think it is most prudent at this juncture to discontinue the Celexa and replace it with Remeron 15 mg at bedtime, and the patient agrees. I think that the patient would benefit from outpatient psychiatric referral, and I will ask our psychiatric discharge planners to assist after the weekend. I did offer her voluntary psychiatric hospitalization, for example transfer to the medical psychiatric unit, but she has declined, and I do not feel that inpatient psychiatric stabilization is obligatory at this juncture. I have also recommended outpatient chemical dependency evaluation and treatment. I have counseled the patient regarding warning signs for need to return to the psychiatric emergency room as part of a general safety plan, and the patient does contract for safety as I said. Case d/w primary team. Thank you very much for this consultation. Please call or page with questions. I will plan to follow up no later than Wednesday. Discharge Planning Per primary team. Request HC Surrog/Guard Advoc?: No Ricki Haywood MD Feb 07, 2017 10:20
--- NOTE | 2017-02-07 10:48 | HHI.FPPN ---
Subjective Remarks Patient is feeling better this morning. No more weakness. She has been getting up using the restroom by herself. PT saw her and said everything was fine. She denies dizziness or lightheadedness. Denies fevers chills, sob or chest pain. She denies tremors or visual hallucinations. No swelling in her extremities. She had just been seen by Psychiatry. She admits that the alcohol has made her depression worse. She reports it is hard being in [place] by herself. She hopes to get established with a psychiatrist as an outpatient. (Alyssa Gonzalez MD R1) Objective Vitals Vital Signs Date Time Temp Pulse Resp B/P (MAP) Pulse Ox O2 Delivery O2 Flow Rate FiO2 02/07/17 08:00 97.8 83 18 103/55 (71) 94 02/07/17 08:00 72 02/07/17 08:00 Room Air 02/07/17 04:00 Room Air 02/07/17 04:00 98.2 71 16 126/57 (80) 96 02/07/17 00:00 Room Air 02/07/17 00:00 98.2 74 18 101/54 (70) 96 02/06/17 20:05 74 02/06/17 20:00 98.1 78 18 118/53 (74) 95 02/06/17 20:00 Room Air 02/06/17 16:00 98.1 77 20 100/60 (73) 97 02/06/17 15:09 Room Air 02/06/17 12:00 02/06/17 11:30 76 18 108/60 (76) 99 Room Air I/O 02/06/17 02/06/17 02/06/17 02/07/17 02/07/17 02/07/17 07:00 15:00 23:00 07:00 15:00 23:00 Intake Total 194 ml Balance 194 ml Intake IV Total 194 ml # Voids 1 (Alyssa Gonzalez MD R1) Result Diagram: 02/07/17 0800 02/07/17 0800 Imaging Last Impressions Gall Bladder Ultrasound 02/06/17 1030 Signed Impressions: Service Date/Time: Monday, February 06, 2017 15:09 - CONCLUSION: 1. The common bile duct is at the upper range of normal for patient of this age measuring 6 mm. No choledocholithiasis is appreciated. No intrahepatic ductal dilatation. Macho Neff Jr., MD Chest X-Ray 02/06/17 0000 Signed Impressions: Service Date/Time: Wednesday, February 06, 2017 11:39 - CONCLUSION: Hyperinflated lungs. Mono Durán MD Objective Remarks GENERAL: Well-nourished, well-developed thin female patient, sitting in bed, in no acute distress. SKIN: Warm and dry. HEAD: Normocephalic. EYES: No scleral icterus. No injection or drainage. NECK: Supple, trachea midline. No JVD or lymphadenopathy. CARDIOVASCULAR: Regular rate and rhythm without murmurs, gallops, or rubs. RESPIRATORY: Breath sounds equal bilaterally. No accessory muscle use. Diffuse soft wheezes. GASTROINTESTINAL: Abdomen soft, non-tender, nondistended. EXTREMITIES: No cyanosis, or edema. NEUROLOGICAL: Awake, alert, and oriented x 3. Non-focal. (Alyssa Gonzalez MD R1) A/P Assessment and Plan Ms. Prieto is a 66yo white friend with a PMH of HTN, anxiety, and depression presenting with generalized weakness. On CMP she was found to be hyponatremic at 120 which most likely is the contributing factor for her weakness. She admits to indulging in alcohol for the past few weeks and has a history of withdrawal so will monitor for her withdrawal during her hospital stay. Discharge Planning Upon normalization of sodium levels. (Alyssa Gonzalez MD R1) Attending Attestation Table rounds were conducted about patients admission with Dr Fields, Dr Odonnell, Dr Gonzalez and Dr Hernández, EMR reviewed, patient was then seen and examined, Agree with contents os note, See Orders. (Riccardo Melchor MD) Problem List: (1) Hyponatremia ICD Codes: E87.1 - Hypo-osmolality and hyponatremia Status: Acute Plan: Sodium level 120 upon admission to ED. Patient has hypo-osmolarity at 250. Repeat BMP showed increase to 124. Urine sodium was 25, suggesting euvolemia. Sodium level 128 this morning. CXR showed hyperinflation of the lungs, but no lesions. Patient has been on Citalopram for 15 years. 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 Psychiatry has switched her medication, see below. Patient has also been increasing her alcohol intake which can contribute to hyponatremia. * continue NS+KCl 40meq IV at 125 ml/hr- d/c'd on 02/06 evening after 2nd BMP results of 124 * Continue fluid restriction to 1500ml * Citalopram d/c'd by psychiatry and switched to Remeron. (2) Hypokalemia ICD Codes: E87.6 - Hypokalemia Status: Resolved Plan: Potassium level 3.0 upon admission to ED. * Pt receiving IVF with 40meq of K (3) Generalized weakness ICD Codes: R53.1 - Weakness Status: Resolved Plan: Generalized weakness of 2 weeks duration. Pt has full strength and no signs of any neurological deficits on physical exam. May be due to hyponatremia. * see plan above * Neuro checks q4h (4) Alcohol abuse ICD Codes: F10.10 - Alcohol abuse, uncomplicated Status: Chronic Plan: Pt admits to increasing her alcohol intake the past few weeks because of depressive sx. She has a hx of withdrawal. LFTs are elevated on labs, AST>ALT ( ED ordered gall bladder US to ensure no other etiology, showed common bile duct at upper range of normal, no choledocholithiasis). Total bilirubin elevated at 1.6. * EtOH level <3 * [facility] protocol, continue to monitor, escalate care as needed- 0,0,1,0 overnight * Oral multivitamins * Neuro checks (5) Anxiety and depression ICD Codes: F41.8 - Other specified anxiety disorders Status: Chronic Plan: Pt has a PMH of anxiety and depression. She is currently on Citalopram 20mg po QD. She states that her depression has gotten worse over the past few weeks with sx like low energy, anhedonia. No SI/HI * Continue at home medication of citalopram. * Consult Psychiatry, I appreciate your recommendations * patient has experienced tachyphylaxis with Citalopram as of 6 months ago, will switch to Remeron * pt would benefit from outpatient psychiatric referral * offered hospitalization, but patient declined * recommended outpatient chemical dependency evaluation and treatment * will plan to follow up no later than Wednesday (6) Tobacco abuse ICD Codes: Z72.0 - Tobacco use Status: Chronic Plan: Pt has about a 46 pack year history. She is interested in quitting. * CXR shows hyperinflated lungs, suggesting possible COPD * Nicotine patch * Will refer to the [place] Quit line (7) Hypertension ICD Codes: I10 - Essential (primary) hypertension Status: Chronic Plan: * Continue at home medication of Atenolol- Chlorthalidone. (8) FEN, ppx Status: Acute Plan: Fluids: NS + KCl at 125 mls/hr Electrolytes: Monitor and replete as needed Nutrition: Heart healthy diet DVT ppx: Lovenox GI ppx: PRN meds Pain: Tylenol (Alyssa Gonzalez MD R1) Problem Qualifiers (1) Hypertension: Qualified Codes: I10 - Essential (primary) hypertension Alyssa Gonzalez MD R1 Feb 07, 2017 10:48 Riccardo Melchor MD Feb 08, 2017 18:47
[2017-02-07] MEDS ORDERED: POTASSIUM CHLORIDE 10 MEQ CONTROLLED RELEASE TAB PO ONE (12:45)
[2017-02-07] MEDS: ENOXAPARIN SODIUM 40 MG/0.4 ML SYRINGE SQ SCH (12:45)
[2017-02-07] MEDS ORDERED: POTASSIUM PHOSPHATE MONOBASIC 500 MG TAB PO ONE (13:00)
[2017-02-07 14:06] LABS: HEMOGLOBIN A1a 1.4 %; HEMOGLOBIN A1b 1.3 %; HEMOGLOBIN Ao 84.5 %; HEMOGLOBIN F 0.4 %; HEMOGLOBIN LA1C 2.7 %; HEMOGLOBIN P3 3.8 %
[2017-02-07] MEDS ORDERED: MIRTAZAPINE 15 MG TAB PO SCH (21:00)
[2017-02-08] VITALS: BP 117/70; PULSE 67; RESP 16; TEMP 98; O2SAT 95
[2017-02-08 04:00] VITALS: BP 106/54; PULSE 74; RESP 16; TEMP 98.2; O2SAT 95
[2017-02-08 08:00] VITALS: BP 137/66; PULSE 102; PULSE 106; RESP 20; TEMP 97.1; O2SAT 95
[2017-02-08 08:08] LABS: AUTOMATED NEUTROPHIL # 3.2 TH/MM3 (1.8-7.7); BASOPHIL # 0.1 TH/MM3 (0-0.2); BASOPHIL % 0.9 % (0.0-2.0); EOSINOPHIL # 0.1 TH/MM3 (0-0.4); EOSINOPHIL % 1.5 % (0.0-4.0); HEMATOCRIT 41.4 % (35.0-46.0); HEMO FLAGS DIFF FINAL; LYMPH % 27.4 % (9.0-44.0); LYMPHOCYTE # 1.6 TH/MM3 (1.0-4.8); MEAN CELL VOLUME 101.6 FL (80.0-100.0); MEAN CORPUSCULAR HEMOGLOBIN 34.8 PG (27.0-34.0); MEAN CORPUSCULAR HGB CONC 34.2 % (32.0-36.0); MONO % 14.2 % (0.0-8.0); PLATELET COUNT 216 TH/MM3 (150-450); RED BLOOD COUNT 4.07 MIL/MM3 (4.00-5.30); RED CELL DISTRIBUTION WIDTH 14.5 % (11.6-17.2); WHITE BLOOD COUNT 5.7 TH/MM3 (4.0-11.0)
[2017-02-08 08:59] LABS: ALT (GPT) 109 U/L (10-53); ANION GAP 8 MEQ/L (5-15); AST (GOT) 132 U/L (15-37); BICARBONATE 26.3 MEQ/L (21.0-32.0); BLOOD UREA NITROGEN 8 MG/DL (7-18); CHLORIDE 98 MEQ/L (98-107); GLOMERULAR FILTRATION RATE 85 ML/MIN (>89); MAGNESIUM 1.5 MG/DL (1.5-2.5); POTASSIUM 3.6 MEQ/L (3.5-5.1); SODIUM (NA) 132 MEQ/L (136-145)
[2017-02-08 09:01] LABS: ALKALINE PHOSPHATASE 74 U/L (45-117); TOTAL BILIRUBIN ADULT 1.3 MG/DL (0.2-1.0)
[2017-02-08] MEDS: MULTIVITAMIN TAB PO SCH (09:41)
[2017-02-08] MEDS: FOLIC ACID 1 MG TAB PO SCH (09:41)
[2017-02-08] MEDS: ATENOLOL/CHLORTHALIDONE 50/25 TAB PO SCH (09:41)
[2017-02-08] MEDS: THIAMINE HCL 100 MG TAB PO SCH (09:41)
[2017-02-08] MEDS: DOCUSATE SODIUM 50 MG/SENNA 8.6 MG TAB PO SCH (09:41)
[2017-02-08] MEDS: NICOTINE 14 MG/24 HR PATCH T-DERMAL SCH (09:42)
[2017-02-08] MEDS: REMOVE OLD PATCH T-DERMAL SCH (09:42)
[2017-02-08] MEDS: SODIUM CHLORIDE 0.9% FLUSH 10 ML FLUSH IV FLUSH SCH (09:44)
[2017-02-08] MEDS ORDERED: POTASSIUM CHLORIDE 10 MEQ CONTROLLED RELEASE TAB PO ONE (09:45)
--- NOTE | 2017-02-08 11:02 | HHI.FPPN ---
Subjective Remarks Patient was seen and examined this morning. She feels great and wants to go home today. She is eager to follow-up with a PCP and asks to follow-up with the [facility]. She saw psychiatrist yesterday and was switched to Remeron which she states might be improving her appetite. She denies fevers, chills, chest pain, shortness of breath. She is eating without any difficulty. No bowel or bladder issues. Objective Vitals Vital Signs Date Time Temp Pulse Resp B/P (MAP) Pulse Ox O2 Delivery O2 Flow Rate FiO2 02/08/17 08:00 102 02/08/17 08:00 97.1 106 20 137/66 (89) 95 02/08/17 08:00 Room Air 02/08/17 04:00 Room Air 02/08/17 04:00 98.2 74 16 106/54 (71) 95 02/08/17 00:00 Room Air 02/08/17 00:00 98.0 67 16 117/70 (86) 95 02/07/17 20:00 98.0 79 16 125/59 (81) 96 02/07/17 20:00 Room Air 02/07/17 19:51 76 02/07/17 16:00 Room Air 02/07/17 16:00 98.0 77 18 127/58 (81) 97 02/07/17 12:00 98.2 78 18 113/59 (77) 96 02/07/17 12:00 Room Air I/O 02/07/17 02/07/17 02/07/17 02/08/17 02/08/17 02/08/17 07:00 15:00 23:00 07:00 15:00 23:00 Intake Total 760 ml 240 ml Output Total 600 ml 500 ml Balance 160 ml -260 ml Intake Oral 760 ml 240 ml Output Urine Total 600 ml 500 ml # Bowel Movements 1 0 Result Diagram: 02/08/17 0700 02/08/17 07 Imaging Last Impressions Gall Bladder Ultrasound 02/06/17 1030 Signed Impressions: Service Date/Time: Monday, February 06, 2017 15:09 - CONCLUSION: 1. The common bile duct is at the upper range of normal for patient of this age measuring 6 mm. No choledocholithiasis is appreciated. No intrahepatic ductal dilatation. Macho Neff Jr., MD Chest X-Ray 02/06/17 0000 Signed Impressions: Service Date/Time: Monday, February 06, 2017 11:39 - CONCLUSION: Hyperinflated lungs. Mono Durán MD Objective Remarks GENERAL: Well-nourished, well-developed thin female patient, sitting in bed, in no acute distress. SKIN: Warm and dry. No rashes or ecchymosis. HEAD: Normocephalic. Atraumatic. EYES: No scleral icterus. No injection or drainage. NECK: Supple, trachea midline. No JVD or lymphadenopathy. CARDIOVASCULAR: Regular rate and rhythm without murmurs, gallops, or rubs. RESPIRATORY: Breath sounds equal bilaterally. No accessory muscle use. No wheezes or rhonchi. GASTROINTESTINAL: Abdomen soft, non-tender, nondistended. Normal bowel sounds. EXTREMITIES: No cyanosis, or edema. NEUROLOGICAL: Awake, alert, and oriented x 3. Non-focal. PSYCHIATRIC: Appropriate mood and affect; insight and judgment normal. Not responding to internal stimuli. Mood is better today. Medications and IVs Inpatient Medications Acetaminophen (Tylenol) 650 mg Q4H PRN PO TEMP > 100.4; Start 02/06/17 at 11: 30 Atenolol/ Chlorthalidone (Tenoretic 50-25 Mg) 0.5 tab DAILY PO Last administered on 02/08/17 09:41; Start 02/07/17 at 09:00 Bisacodyl (Dulcolax Supp) 10 mg DAILY PRN RECTAL SEVERE CONSITIPATION; Start 02/06/17 at 11:30 Citalopram Hydrobromide (CeleXA) 20 mg DAILY PO Last administered on 08:37; Start 02/07/17 at 09:00; Stop 02/07/17 at 10:33; Status DC Enoxaparin Sodium (Lovenox Inj) 40 mg Q24H SQ Last administered on 02/07/17 12:45; Start 02/06/17 at 12:00 Flumazenil (Romazicon Inj) 0.2 mg Q1M PRN IV PUSH SEE LABEL COMMENTS; Start at 11:30 Folic Acid (Folate) 1 mg DAILY PO Last administered on 02/08/17 09:41; Start 02/06/17 at 12:00 Lactulose (Lactulose Liq) 30 ml DAILY PRN PO SEVERE CONSITIPATION; Start 02/06 at 11:30 Lorazepam (Ativan Inj) 2 mg Q15M PRN IV PUSH CIWA > 20; Start 02/06/17 at 11: 30 Lorazepam (Ativan) 2 mg Q2H PRN PO CIWA 11-14; Start 02/06/17 at 11:30 Magnesium Hydroxide (Milk Of Magnesia Liq) 30 ml Q12H PRN PO Mild constipation ; Start 02/06/17 at 11:30 Mirtazapine (Remeron) 15 mg HS PO Last administered on 02/07/17 20:17; Start 02/07/17 at 21:00 Miscellaneous (Pill Splitter) 1 ea UNSCH PRN OTHER SEE LABEL COMMENTS; Start 02/06/17 at 13:45 Miscellaneous Information 1 DAILY T-DERMAL Last administered on 02/08/17 09: 42; Start 02/07/17 at 09:00 Multivitamins (Theragran) 1 tab DAILY PO Last administered on 02/08/17 09:41 ; Start 02/06/17 at 12:00 Naloxone HCl (Narcan Inj) 0.4 mg UNSCH PRN IV PUSH SEE LABEL COMMENTS; Start 02/06/17 at 11:30 Nicotine (Habitrol 14 Mg Patch.24 Hr) 1 patch DAILY T-DERMAL Last administered on 02/08/17 09:42; Start 02/06/17 at 12:00 Ondansetron HCl (Zofran Inj) 4 mg Q6H PRN IVP NAUSEA OR VOMITING Last administered on 02/07/17 02:22; Start 02/06/17 at 11:30 Potassium Chloride/Sodium Chloride 1,000 ml @ 125 mls/hr Q8H IV Last administered on 02/06/17 12:39; Start 02/06/17 at 10:30; Stop 02/06/17 at 19 :18; Status DC Potassium Phosphate (K-Phos) 500 mg ONCE ONCE PO Last administered on 12:45; Start 02/07/17 at 13:00; Stop 02/07/17 at 13:01; Status DC Potassium Chloride (KCl) 30 meq ONCE ONCE PO Last administered on 02/08/17 10:21; Start 02/08/17 at 09:45; Stop 02/08/17 at 10:13; Status DC Senna/Docusate Sodium (Tabatha-Colace) 1 tab BID PO Last administered on 20:17; Start 02/06/17 at 21:00 Sennosides (Senokot) 17.2 mg Q12H PRN PO Moderate constipation; Start at 11:30 Sodium Chloride (NS Flush) 2 ml BID IV FLUSH Last administered on 02/08/17 09 :44; Start 02/06/17 at 21:00 Thiamine HCl (Vitamin B1) 100 mg DAILY PO Last administered on 02/08/17 09:41 ; Start 02/06/17 at 12:00 Zolpidem Tartrate (Ambien) 5 mg HS PRN PO INSOMNIA; Start 02/06/17 at 11:30 Urinary Catheter: No Vascular Central Line Catheter: No A/P Assessment and Plan Ms. Prieto is a 66 year old female with a PMH of HTN, anxiety, and depression presenting with generalized weakness. On admission CMP she was found to be hyponatremic at 120 which most likely is the contributing factor for her weakness. She admits to indulging in alcohol for the past few weeks and has a history of withdrawal so will monitor for her withdrawal during her hospital stay. Discharge Planning She has sodium and potassium levels pending this afternoon. We will discharge to home this afternoon if continuing to improve. Problem List: (1) Hyponatremia ICD Codes: E87.1 - Hypo-osmolality and hyponatremia Status: Acute Plan: Sodium level is improving. We will monitor again this afternoon, discharge home if normalized. Etiology suspected to be SSRI versus alcohol use. Hospital course: Sodium level 120 upon admission to ED. Patient has hypo-osmolarity at 250. Repeat BMP showed increase to 124. Urine sodium was 25, suggesting euvolemia. Sodium level 128 this morning. CXR showed hyperinflation of the lungs, but no lesions. Patient has been on Citalopram for 15 years. 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 Psychiatry has switched her medication, see below. Patient has also been increasing her alcohol intake which can contribute to hyponatremia. * NS+KCl 40meq IV at 125 ml/hr- d/c'd on 02/06 evening after 2nd BMP results of 124 * Initially fluid restricted, now will continue regular diet * Citalopram d/c'd by psychiatry and switched to Remeron, tolerating (2) Hypokalemia ICD Codes: E87.6 - Hypokalemia Status: Resolved Plan: Potassium level 3.0 upon admission to ED. interventions included IV fluids with added potassium, by mouth supplementation. We'll continue to monitor , initial hypokalemia likely related to diet (3) Generalized weakness ICD Codes: R53.1 - Weakness Status: Resolved Plan: Generalized weakness of 2 weeks duration. Pt has full strength and no signs of any neurological deficits on physical exam. May be due to hyponatremia. * see plan above * Neuro checks q4h (4) Alcohol abuse ICD Codes: F10.10 - Alcohol abuse, uncomplicated Status: Chronic Plan: Pt admits to increasing her alcohol intake the past few weeks because of depressive sx. She has a hx of mild withdrawal. LFTs are elevated on labs, AST> ALT (ED ordered gall bladder US to ensure no other etiology, showed common bile duct at upper range of normal, no choledocholithiasis). Total bilirubin elevated at 1.6. * EtOH level <3 * [facility] protocol and place, not requiring any assistance with withdrawal * Oral multivitamins * Neuro checks (5) Anxiety and depression ICD Codes: F41.8 - Other specified anxiety disorders Status: Chronic Plan: Pt has a PMH of anxiety and depression. She is currently on Citalopram 20mg po QD. She states that her depression has gotten worse over the past few weeks with sx like low energy, anhedonia. No SI/HI * Continue at home medication of citalopram. * Consult Psychiatry, I appreciate your recommendations * patient has experienced tachyphylaxis with Citalopram as of 6 months ago, will switch to Remeron * pt would benefit from outpatient psychiatric referral * offered hospitalization, but patient declined * recommended outpatient chemical dependency evaluation and treatment * will plan to follow up no later than Wednesday (6) Tobacco abuse ICD Codes: Z72.0 - Tobacco use Status: Chronic Plan: Pt has about a 46 pack year history. She is interested in quitting. * CXR shows hyperinflated lungs, suggesting possible COPD * Nicotine patch * Will refer to the [place] Quit line (7) Hypertension ICD Codes: I10 - Essential (primary) hypertension Status: Chronic Plan: * Continue at home medication of Atenolol- Chlorthalidone. (8) FEN, ppx Status: Acute Plan: Fluids: By mouth hydration Electrolytes: Monitor and replete as needed Nutrition: Heart healthy diet DVT ppx: Lovenox GI ppx: PRN meds Pain: Tylenol Problem Qualifiers (1) Hypertension: Qualified Codes: I10 - Essential (primary) hypertension Samira Odonnell MD R2 Feb 08, 2017 11:02
[2017-02-08] MEDS ORDERED: NICO14DI23 T-DERMAL (11:04)
[2017-02-08] MEDS ORDERED: MIRTA15 PO (11:04)
[2017-02-08] MEDS ORDERED: ATEN50TA7 PO (11:04)
--- NOTE | 2017-02-08 11:04 | HHI.DCPOC ---
Discharge Care Plan Diagnosis: (1) Generalized weakness (2) Hypokalemia (3) Hyponatremia (4) Depression Goals to Promote Your Health * To prevent worsening of your condition and complications * To maintain your health at the optimal level Directions to Meet Your Goals Take your medications as prescribed Follow your dietary instruction Follow activity as directed Keep your appointments as scheduled Take your immunizations and boosters as scheduled If your symptoms worsen call your PCP, if no PCP go to Urgent Care Center or Emergency Room Smoking is Dangerous to Your Health. Avoid second hand smoke Call the 24-hour hour crisis hotline for domestic abuse at Samira Odonnell MD R2 Feb 08, 2017 11:04
[2017-02-08 12:00] VITALS: BP 106/56; PULSE 76; RESP 20; TEMP 98.4; O2SAT 92
[2017-02-08] MEDS: ENOXAPARIN SODIUM 40 MG/0.4 ML SYRINGE SQ SCH (12:37)
[2017-02-08 16:01] VITALS: BP 104/59; PULSE 84; RESP 20; TEMP 98.5; O2SAT 96
[2017-02-08 16:14] LABS: POTASSIUM 4.4 MEQ/L (3.5-5.1)
--- NOTE | 2017-02-08 16:31 | HHI.DS ---
Discharge Summary Admission Date Feb 06, 2017 at 10:42 Discharge Date: Feb 08, 2017 Admitting Diagnosis hyponatremia/hypokalemia/dehydration (1) Hyponatremia Plan: Sodium level is improving. We will monitor again this afternoon, discharge home if normalized. Etiology suspected to be SSRI versus alcohol use. Hospital course: Sodium level 120 upon admission to ED. Patient has hypo-osmolarity at 250. Repeat BMP showed increase to 124. Urine sodium was 25, suggesting euvolemia. Sodium level 128 this morning. CXR showed hyperinflation of the lungs, but no lesions. Patient has been on Citalopram for 15 years. 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 Psychiatry has switched her medication, see below. Patient has also been increasing her alcohol intake which can contribute to hyponatremia. * NS+KCl 40meq IV at 125 ml/hr- d/c'd on 02/06 evening after 2nd BMP results of 124 * Initially fluid restricted, now will continue regular diet * Citalopram d/c'd by psychiatry and switched to Remeron, tolerating ICD Codes: E87.1 - Hypo-osmolality and hyponatremia Status: Acute (2) Hypokalemia Plan: Potassium level 3.0 upon admission to ED. interventions included IV fluids with added potassium, by mouth supplementation. We'll continue to monitor , initial hypokalemia likely related to diet ICD Codes: E87.6 - Hypokalemia Status: Resolved (3) Generalized weakness Plan: Generalized weakness of 2 weeks duration. Pt has full strength and no signs of any neurological deficits on physical exam. May be due to hyponatremia. * see plan above * Neuro checks q4h ICD Codes: R53.1 - Weakness Status: Resolved (4) Alcohol abuse Plan: Pt admits to increasing her alcohol intake the past few weeks because of depressive sx. She has a hx of mild withdrawal. LFTs are elevated on labs, AST> ALT (ED ordered gall bladder US to ensure no other etiology, showed common bile duct at upper range of normal, no choledocholithiasis). Total bilirubin elevated at 1.6. * EtOH level <3 * [facility] protocol and place, not requiring any assistance with withdrawal * Oral multivitamins * Neuro checks ICD Codes: F10.10 - Alcohol abuse, uncomplicated Status: Chronic (5) Anxiety and depression Plan: Pt has a PMH of anxiety and depression. She is currently on Citalopram 20mg po QD. She states that her depression has gotten worse over the past few weeks with sx like low energy, anhedonia. No SI/HI * Continue at home medication of citalopram. * Consult Psychiatry, I appreciate your recommendations * patient has experienced tachyphylaxis with Citalopram as of 6 months ago, will switch to Remeron * pt would benefit from outpatient psychiatric referral * offered hospitalization, but patient declined * recommended outpatient chemical dependency evaluation and treatment * will plan to follow up no later than Wednesday ICD Codes: F41.8 - Other specified anxiety disorders Status: Chronic (6) Tobacco abuse Plan: Pt has about a 46 pack year history. She is interested in quitting. * CXR shows hyperinflated lungs, suggesting possible COPD * Nicotine patch * Will refer to the [place] Quit line ICD Codes: Z72.0 - Tobacco use Status: Chronic (7) Hypertension Plan: * Continue at home medication of Atenolol- Chlorthalidone. ICD Codes: I10 - Essential (primary) hypertension Status: Chronic (8) FEN, ppx Plan: Fluids: By mouth hydration Electrolytes: Monitor and replete as needed Nutrition: Heart healthy diet DVT ppx: Lovenox GI ppx: PRN meds Pain: Tylenol Status: Acute Brief History Ms. Prieto is a 66-year-old white female with past medical history of depression and anxiety presenting today with generalized weakness. She states that this episode started 2 weeks ago with having no appetite and then progressed to feeling overall weak and shaky. She also states that she has been feeling nauseous, but not having any vomiting. She was dry heaving. She has had early satiety, but no trouble swallowing. She describes her weakness as generalized. No specificity to one particular side. She feels particularly weak in her knees. 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 No falls. No changes in gait. No vertigo or dizziness. She states that she has felt lightheaded. She admits that she has been drinking too much alcohol the past couple of weeks. She usually drinks white Zinfandel wine, about 4-5 glasses a day (36 ounces/day). She has been feeling unhappy and not quite right. She thought moving here from [place] would help her with her mood but it has not. She does not like her living situation. She lives alone. Lately, she has not felt like going anywhere or doing anything. She feels like drinking numbs her pain and limits her not feel as sad. She does have a history of alcohol which all 2 years ago. She was not hospitalized. No SI/HI. She does take citalopram for her anxiety. She has been diagnosed with depression before. CBC/BMP: 02/08/17 0700 02/08/17 1456 Significant Findings Laboratory Tests Test 02/06/17 09:39 02/06/17 15:46 02/06/17 16:05 02/07/17 08:00 Mean Corpuscular Hemoglobin 35.1 PG (27.0-34.0) 34.3 PG (27.0-34.0) Neutrophils (%) (Auto) 71.5 % (16.0-70.0) Monocytes (%) (Auto) 12.5 % (0.0-8.0) 12.8 % (0.0-8.0) Monocytes # (Auto) 1.0 TH/MM3 (0-0.9) Blood Urea Nitrogen 4 MG/DL (7-18) 6 MG/DL (7-18) Creatinine 1.05 MG/DL (0.50-1.00) Random Glucose 152 MG/DL (74-106) Aspartate Amino Transf (AST/SGOT) 178 U/L (15-37) 119 U/L (15-37) Alanine Aminotransferase (ALT/SGPT) 135 U/L (10-53) 103 U/L (10-53) Total Bilirubin 1.6 MG/DL (0.2-1.0) 1.8 MG/DL (0.2-1.0) Sodium Level 120 MEQ/L (136-145) 124 MEQ/L (136-145) 128 MEQ/L (136-145) Potassium Level 3.0 MEQ/L (3.5-5.1) 3.0 MEQ/L (3.5-5.1) 3.2 MEQ/L (3.5-5.1) Chloride Level 79 MEQ/L (98-107) 86 MEQ/L (98-107) 92 MEQ/L (98-107) Carbon Dioxide Level 32.8 MEQ/L (21.0-32.0) Estimat Glomerular Filtration Rate 52 ML/MIN (>89) 67 ML/MIN (>89) 80 ML/MIN (>89) Urine Ketones TRACE mg/dL (NEG) Urine Bacteria RARE /hpf (NONE) Urine Mucus FEW /lpf (OCC) Red Blood Count 3.91 MIL/MM3 (4.00-5.30) Phosphorus Level 1.8 MG/DL (2.5-4.9) Acetaminophen Level LESS THAN 2.0 MCG/ML Test 02/08/17 07:00 02/08/17 14:56 Mean Corpuscular Volume 101.6 FL (80.0-100.0) Mean Corpuscular Hemoglobin 34.8 PG (27.0-34.0) Monocytes (%) (Auto) 14.2 % (0.0-8.0) Random Glucose 64 MG/DL (74-106) Total Protein 6.1 GM/DL (6.4-8.2) Albumin 3.1 GM/DL (3.4-5.0) Phosphorus Level 2.0 MG/DL (2.5-4.9) Aspartate Amino Transf (AST/SGOT) 132 U/L (15-37) Alanine Aminotransferase (ALT/SGPT) 109 U/L (10-53) Total Bilirubin 1.3 MG/DL (0.2-1.0) Sodium Level 132 MEQ/L (136-145) 130 MEQ/L (136-145) Estimat Glomerular Filtration Rate 85 ML/MIN (>89) PE at Discharge GENERAL: Well-nourished, well-developed thin female patient, sitting in bed, in no acute distress. SKIN: Warm and dry. No rashes or ecchymosis. HEAD: Normocephalic. Atraumatic. EYES: No scleral icterus. No injection or drainage. NECK: Supple, trachea midline. No JVD or lymphadenopathy. CARDIOVASCULAR: Regular rate and rhythm without murmurs, gallops, or rubs. RESPIRATORY: Breath sounds equal bilaterally. No accessory muscle use. No wheezes or rhonchi. GASTROINTESTINAL: Abdomen soft, non-tender, nondistended. Normal bowel sounds. EXTREMITIES: No cyanosis, or edema. NEUROLOGICAL: Awake, alert, and oriented x 3. Non-focal. PSYCHIATRIC: Appropriate mood and affect; insight and judgment normal. Not responding to internal stimuli. Mood is better today. Hospital Course Ms. Prieto is a 66yo white female with a PMH of HTN, anxiety, and depression presenting with generalized weakness. On CMP she was found to be hyponatremic at 120 which most likely is the contributing factor for her weakness. She admitted to indulging in alcohol for the past few weeks and has a history of withdrawal so she was monitored for withdrawal. She was placed on IVF until her Na increased to 124 then was placed on fluid restriction. We also consulted Psychiatry for her hx of anxiety and depression. She was switched from Citalopram to Remeron due to tachyphylaxis and the SSRI likely causing SIADH. She was discharged on 02/08 with her Na at 130 being advised to add more salt to her diet (up to 3g/day) and to follow up with me in the [facility] building. She should also follow up with Psych as an outpatient. Pt Condition on Discharge: Stable Discharge Disposition: Discharge Home Discharge Instructions DIET: Follow Instructions for: As Tolerated, No Restrictions Additional Diet Instructions: eat extra salt, about 3g of salt daily Activities you can perform: Regular-No Restrictions Follow up Referrals: PCP Follow-up - 1 Week with Alyssa Gonzalez MD R1 Psychiatry Adult - 2 Weeks New Orders: BASIC METABOLIC PROF - 3-5 Days New Medications: Mirtazapine (Mirtazapine) 15 Mg Tab 15 MG PO HS, #30 TAB Nicotine (Eq Nicotine) 14 Mg/24 Hour Dis 1 PATCH T-DERMAL DAILY, #30 PATCH Continued Medications: Atenolol-Chlorthalidone (Atenolol-Chlorthalidone) 50-25 Mg Tab 0.5 TAB PO DAILY for Blood Pressure Management, #30 TAB 0 Refills (This prescription has been renewed) Discontinued Medications: Citalopram (Citalopram) 20 Mg Tab 20 MG PO DAILY for Control Depression, #30 TAB 0 Refills Alyssa Gonzalez MD R1 Feb 08, 2017 16:31
== END 2017-02-08 17:56 | disposition home or self-care (01) | DRG 644 ==
LOC: NEPC 09:18 → NEDA 10:42 → N04B 12:10
PROVIDERS: ADMIT Family Medicine; ATTEND Family Medicine
DX: E22.2 Syndrome of inappropriate secretion of antidiuretic hormone (principal); F32.1 Major depressive disorder, single episode, moderate; I10 Essential (primary) hypertension; T43.225A Adverse effect of selective serotonin reuptake inhibitors, initial encounter; E86.0 Dehydration; E87.6 Hypokalemia; R63.0 Anorexia; R68.81 Early satiety; R79.89 Other specified abnormal findings of blood chemistry; F17.210 Nicotine dependence, cigarettes, uncomplicated; F41.3 Other mixed anxiety disorders; F10.10 Alcohol abuse, uncomplicated; Z81.8 Family history of other mental and behavioral disorders; Y90.0 Blood alcohol level of less than 20 mg/100 ml; Z88.0 Allergy status to penicillin; Z88.2 Allergy status to sulfonamides
CPT/HCPCS: 71020; 76705; 80048; 80053; 80307; 81001; 83036; 83735; 84100; 84132; 84295; 84300; 84443; 85025; J1650; J2405; J3480

== ENCOUNTER 2017-02-25 06:43 | Observation (INO) | payer MEDICARE ==
[~2017-02-25] VITALS: Ht 152.4 cm; Wt 45.5 kg
[2017-02-25] VITALS (13 sets, daily range): BP systolic 110–183; BP diastolic 55–95; PULSE 73–105; RESP 16–28; TEMP 97.5–98.5; O2SAT 95–98
[~2017-02-25 06:43] MED LIST: ATEN50TA7 PO; NICO14DI23 T-DERMAL; PROZ20CA11 PO
[2017-02-25] MEDS ORDERED: SODIUM CHLOR 0.9% 1000 ML INJ 1,000 ML IV SCH (07:01)
--- NOTE | 2017-02-25 07:06 | PD ---
HPI Chief Complaint: GI Complaint Time Seen by Provider: 06:51 Travel History International Travel<30 days: No Contact w/Intl Traveler<30days: No Traveled to known affect area: No History of Present Illness HPI The patient is a 66-year-old female who presents to the emergency department for nausea. The patient was admitted to the hospital January for decreased appetite with nausea. The patient was found to have hyponatremia and hypokalemia. The patient received IV fluids and was subsequent discharged home. The patient does note a history of depression and was on Remeron, was changed from Remeron to Prilosec by her general practitioner, Dr. Odonnell, last week. However, the patient notes 4 days of nausea with poor oral intake. She denies any vomiting, has been moving her bowels without difficulty. She denies any subsequent abdominal pain, dysuria, frequency, or urgency. She denies any associated chest pain, shortness of breath, fever, chills, or sweats. Symptoms are moderate, there are no current alleviating or exacerbating factors. The patient does state she drinks one to 2 glasses of wine per day, last glass of wine was last night. PFSH Past Medical History Anxiety: No Depression: No Cancer: No Cardiovascular Problems: No Endocrine: No Genitourinary: No Immune Disorder: No Musculoskeletal: No Neurologic: No Psychiatric: No Reproductive: No Respiratory: No ?: Not Past Surgical History Abdominal Surgery: Yes (tonselectomy) Eye Surgery: Yes (cataract surgery) Social History Alcohol Use: Yes (daily/wine 1-2) Tobacco Use: Yes (1-1 1/2 ppd) Substance Use: No Allergies-Medications (Allergen,Severity, Reaction): Coded Allergies: Penicillins (Verified Allergy, Severe, Hives, 02/25/17) Sulfa (Sulfonamide Antibiotics) (Verified Adverse Reaction, Severe, Nausea /Vomiting, 02/25/17) diphenhydramine (Verified Adverse Reaction, Unknown, Drowsiness, 02/25/17) Reported Meds & Prescriptions Reported Meds & Active Scripts Active Prozac (Fluoxetine HCl) 20 Mg Cap 20 Mg PO DAILY Atenolol-Chlorthalidone 50-25 Mg Tab 0.5 Tab PO DAILY Review of Systems Except as stated in HPI: all other systems reviewed are Neg General / Constitutional: No: Fever HENT: No: Lightheadedness Cardiovascular: No: Chest Pain or Discomfort Respiratory: No: Shortness of Breath Gastrointestinal: Positive: Nausea, No: Vomiting, Diarrhea, Abdominal Pain Genitourinary: No: Dysuria Musculoskeletal: Positive: Weakness Neurologic: No: Dizziness Psychiatric: Positive: Depression Physical Exam Narrative GENERAL: Awake, alert, pleasant 66-year-old female who appears her stated age and is in no acute respiratory distress. SKIN: Focused skin assessment warm/dry. HEAD: Atraumatic. Normocephalic. EYES: Pupils equal and round. No scleral icterus. No injection or drainage. ENT: No nasal bleeding or discharge. Upper dentures in place. Dry mucous membranes. NECK: Trachea midline. No JVD. CARDIOVASCULAR: Regular, tachycardic with a heart rate of 105. No audible murmur. RESPIRATORY: No accessory muscle use. Clear to auscultation. Breath sounds equal bilaterally. GASTROINTESTINAL: Abdomen soft, non-tender, nondistended. No rebound tenderness , guarding, or rigidity. MUSCULOSKELETAL: No obvious deformities. No clubbing. No cyanosis. No edema. NEUROLOGICAL: Awake and alert. No obvious cranial nerve deficits. Motor grossly within normal limits. Normal speech. Nonfocal. PSYCHIATRIC: Appropriate mood and affect; insight and judgment normal. Data Data Last Documented VS Vital Signs Date Time Temp Pulse Resp B/P (MAP) Pulse Ox O2 Delivery O2 Flow Rate FiO2 02/25/17 08:34 99 24 141/84 (103) 97 Room Air 02/25/17 06:45 97.5 Orders Orders Complete Blood Count With Diff (02/25/17 07:01) Comprehensive Metabolic Panel (02/25/17 07:01) Lipase (02/25/17 07:01) Lactic Acid (02/25/17 07:01) Urinalysis - C+S If Indicated (02/25/17 07:01) Iv Access Insert/Monitor (02/25/17 07:01) Ecg Monitoring (02/25/17 07:01) Oximetry (02/25/17 07:01) Ondansetron Inj (Zofran Inj) (02/25/17 07:15) Sodium Chlor 0.9% 1000 Ml Inj (Ns 1000 M (02/25/17 07:01) Sodium Chloride 0.9% Flush (Ns Flush) (02/25/17 07:15) Electrocardiogram (02/25/17 07:01) Famotidine Inj (Pepcid Inj) (02/25/17 07:15) Potassium Chlor 20 Meq Premix (Kcl 20 Me (02/25/17 08:15) Potassium Chloride Eff (K-Lyte Cl Eff) (02/25/17 08:15) Admit Order (Ed Use Only) (02/25/17 09:08) Labs Laboratory Tests Test 02/25/17 07:20 White Blood Count 7.1 TH/MM3 Red Blood Count 4.61 MIL/MM3 Hemoglobin 15.8 GM/DL Hematocrit 45.1 % Mean Corpuscular Volume 97.8 FL Mean Corpuscular Hemoglobin 34.2 PG Mean Corpuscular Hemoglobin Concent 35.0 % Red Cell Distribution Width 14.2 % Platelet Count 411 TH/MM3 Mean Platelet Volume 7.8 FL Neutrophils (%) (Auto) 75.5 % Lymphocytes (%) (Auto) 14.4 % Monocytes (%) (Auto) 8.7 % Eosinophils (%) (Auto) 0.6 % Basophils (%) (Auto) 0.8 % Neutrophils # (Auto) 5.4 TH/MM3 Lymphocytes # (Auto) 1.0 TH/MM3 Monocytes # (Auto) 0.6 TH/MM3 Eosinophils # (Auto) 0.0 TH/MM3 Basophils # (Auto) 0.1 TH/MM3 CBC Comment DIFF FINAL Differential Comment Blood Urea Nitrogen 5 MG/DL Creatinine 0.82 MG/DL Random Glucose 131 MG/DL Total Protein 7.9 GM/DL Albumin 4.0 GM/DL Calcium Level 9.8 MG/DL Alkaline Phosphatase 94 U/L Aspartate Amino Transf (AST/SGOT) 51 U/L Alanine Aminotransferase (ALT/SGPT) 47 U/L Total Bilirubin 1.4 MG/DL Sodium Level 125 MEQ/L Potassium Level 2.8 MEQ/L Chloride Level 84 MEQ/L Carbon Dioxide Level 28.5 MEQ/L Anion Gap 13 MEQ/L Estimat Glomerular Filtration Rate 70 ML/MIN Lactic Acid Level 1.9 mmol/L Lipase 168 U/L [facility] Medical Decision Making Medical Screen Exam Complete: Yes Emergency Medical Condition: Yes Medical Record Reviewed: Yes Interpretation(s) EKG reveals normal sinus rhythm with a rate in 92. No ischemic changes noted. Laboratory Tests Test 02/25/17 07:20 White Blood Count 7.1 TH/MM3 Red Blood Count 4.61 MIL/MM3 Hemoglobin 15.8 GM/DL Hematocrit 45.1 % Mean Corpuscular Volume 97.8 FL Mean Corpuscular Hemoglobin 34.2 PG Mean Corpuscular Hemoglobin Concent 35.0 % Red Cell Distribution Width 14.2 % Platelet Count 411 TH/MM3 Mean Platelet Volume 7.8 FL Neutrophils (%) (Auto) 75.5 % Lymphocytes (%) (Auto) 14.4 % Monocytes (%) (Auto) 8.7 % Eosinophils (%) (Auto) 0.6 % Basophils (%) (Auto) 0.8 % Neutrophils # (Auto) 5.4 TH/MM3 Lymphocytes # (Auto) 1.0 TH/MM3 Monocytes # (Auto) 0.6 TH/MM3 Eosinophils # (Auto) 0.0 TH/MM3 Basophils # (Auto) 0.1 TH/MM3 CBC Comment DIFF FINAL Differential Comment Blood Urea Nitrogen 5 MG/DL Creatinine 0.82 MG/DL Random Glucose 131 MG/DL Total Protein 7.9 GM/DL Albumin 4.0 GM/DL Calcium Level 9.8 MG/DL Alkaline Phosphatase 94 U/L Aspartate Amino Transf (AST/SGOT) 51 U/L Alanine Aminotransferase (ALT/SGPT) 47 U/L Total Bilirubin 1.4 MG/DL Sodium Level 125 MEQ/L Potassium Level 2.8 MEQ/L Chloride Level 84 MEQ/L Carbon Dioxide Level 28.5 MEQ/L Anion Gap 13 MEQ/L Estimat Glomerular Filtration Rate 70 ML/MIN Lactic Acid Level 1.9 mmol/L Lipase 168 U/L Differential Diagnosis Differential diagnosis includes hyponatremia, hypokalemia, gastritis, depression , hypothyroidism, UTI. Narrative Course IV was established, labs are drawn and sent, and the patient was placed on cardiac telemetry monitoring and continuous pulse oximetry monitoring. EKG was ordered and interpreted. The patient was administered Zofran, Pepcid, and IV fluids. The patient's potassium was 2.8, therefore, was replaced intravenously and orally. Patient's sodium was noted to be 125, previous admission was 120, when up to 132. However, her sodium is once again fallen with secondary nausea and vomiting. Patient does drink alcohol, unsure if the hyponatremia is related to alcohol use versus other underlying pathology. The patient's primary physician is Dr. Odonnell with the resident service, therefore, the residents were paged for 23 hour observation at 8 AM. Physician Communication Physician Communication The residents were paged for 23 hour observation. I discussed the patient with Dr. Curry who agrees with [address] White. Diagnosis Primary Impression: Hyponatremia Additional Impression: Hypokalemia Condition: Stable Kodi Perez MD Feb 25, 2017 07:06
[2017-02-25] MEDS ORDERED: SODIUM CHLORIDE 0.9% FLUSH 10 ML FLUSH IV FLUSH PRN ×3 (07:15→10:45)
[2017-02-25] MEDS ORDERED: ONDANSETRON HCL 4 MG/2 ML VIAL IVP ONE (07:15)
[2017-02-25] MEDS ORDERED: FAMOTIDINE 20 MG/2 ML VIAL IV PUSH ONE (07:15)
[2017-02-25 07:36] LABS: AUTOMATED NEUTROPHIL # 5.4 TH/MM3 (1.8-7.7); BASOPHIL # 0.1 TH/MM3 (0-0.2); BASOPHIL % 0.8 % (0.0-2.0); EOSINOPHIL % 0.6 % (0.0-4.0); HEMATOCRIT 45.1 % (35.0-46.0); HEMO FLAGS DIFF FINAL; LYMPH % 14.4 % (9.0-44.0); MEAN CELL VOLUME 97.8 FL (80.0-100.0); MEAN CORPUSCULAR HEMOGLOBIN 34.2 PG (27.0-34.0); MONO % 8.7 % (0.0-8.0); NEUT % 75.5 % (16.0-70.0); PLATELET COUNT 411 TH/MM3 (150-450); RED BLOOD COUNT 4.61 MIL/MM3 (4.00-5.30); RED CELL DISTRIBUTION WIDTH 14.2 % (11.6-17.2); WHITE BLOOD COUNT 7.1 TH/MM3 (4.0-11.0)
[2017-02-25 08:01] LABS: ALKALINE PHOSPHATASE 94 U/L (45-117); ALT (GPT) 47 U/L (10-53); ANION GAP 13 MEQ/L (5-15); AST (GOT) 51 U/L (15-37); BICARBONATE 28.5 MEQ/L (21.0-32.0); BLOOD UREA NITROGEN 5 MG/DL (7-18); CHLORIDE 84 MEQ/L (98-107); GLOMERULAR FILTRATION RATE 70 ML/MIN (>89); SODIUM (NA) 125 MEQ/L (136-145); TOTAL BILIRUBIN ADULT 1.4 MG/DL (0.2-1.0)
[2017-02-25 08:04] LABS: POTASSIUM 2.8 MEQ/L (3.5-5.1)
[2017-02-25] MEDS ORDERED: POTASSIUM CHLORIDE 25 MEQ EFFERVESCENT TAB PO ONE (08:15)
[2017-02-25] MEDS: POTASSIUM CHLOR 20 MEQ PREMIX 100 ML IV SCH ×2 (08:28→13:12)
--- NOTE | 2017-02-25 09:17 | HHI.HP ---
[facility] Service Family Medicine Primary Care Physician Satnam Odonnell MD Admission Diagnosis hyponatremia, hypokalemia, dehydration Diagnoses: International Travel<30 Days: No Contact w/Intl Traveler<30days: No Known Affected Area: No History of Present Illness Ms. Prieto is a 66-year-old female with a past medical history of depression and hypertension presenting to the emergency department with 4 days of anorexia secondary to nausea. She states that on Wednesday she started having intermittent episodes of nausea every 4 hours that continued until this morning. This morning she noticed that the nausea never went away has been continuous until presenting to the emergency department. She denies any vomiting with her nausea , but has had up to 2 episodes of diarrhea per day. She denies any fevers, chills, shortness of breath, chest pain, black/bloody stools, or calf tenderness. She states that ambulating makes the nausea worse, and nothing has alleviated her symptoms. She states that over the last 24 hours she is only been able to drink 2-4 glasses of wine for a total of approximately 30 ounces. She denies any withdrawal symptoms including hallucinations, tremor, weakness, or other neurological symptoms. Otherwise she has no complaints. Of note, patient was recently admitted to the hospital for hyponatremia with hypokalemia. She was admitted for 2 days and given IV fluids and potassium 2 resolved her electrolyte abnormalities. During that hospitalization she was evaluated by psychiatry who transitioned her from citalopram to Remeron to assist with her depression as well as increase her appetite. After discharge she followed up with Dr. Poppy Odonnell at the [facility] where the Remeron was discontinued secondary to nightmares. She was then started on Prozac for her depression. She states that the Remeron was "working better"than the Prozac, but she refuses to restart the Remeron as she "cannot stand the night terrors." Review of Systems Constitutional: DENIES: Fever, Weight gain, Weight loss Eyes: DENIES: Blurred vision Ears, nose, mouth, throat: COMPLAINS OF: Running Nose, DENIES: Throat pain Respiratory: DENIES: Cough, Shortness of breath Cardiovascular: DENIES: Chest pain Gastrointestinal: COMPLAINS OF: Diarrhea, Nausea, DENIES: Black stools, Bloody stools, Vomiting, Difficulty Swallowing Genitourinary: DENIES: Dysuria Musculoskeletal: DENIES: Back pain Integumentary: DENIES: Rash Hematologic/lymphatic: DENIES: Lymphadenopathy Neurologic: DENIES: Headache Psychiatric: COMPLAINS OF: Depression Past Family Social History Past Medical History Depression Anxiety HTN Past Surgical History Tonsillectomy at 6yo Cataract surgery with lens replacement bilaterally- Feb,Mar 2016 Reported Medications Reported Meds & Active Scripts Active Prozac (Fluoxetine HCl) 20 Mg Cap 20 Mg PO DAILY Atenolol-Chlorthalidone 50-25 Mg Tab 0.5 Tab PO DAILY Allergies: Coded Allergies: Penicillins (Verified Allergy, Severe, Hives, 02/25/17) Sulfa (Sulfonamide Antibiotics) (Verified Adverse Reaction, Severe, Nausea /Vomiting, 02/25/17) diphenhydramine (Verified Adverse Reaction, Unknown, Drowsiness, 02/25/17) Active Ordered Medications Inpatient Medications Albuterol/ Ipratropium (Duoneb Neb) 1 ampule Q6HR NEB PRN NEB SOB/WHEEZING; Start 02/25/17 at 10:45; Status UNV Atenolol (Tenormin) 50 mg DAILY PO ; Start 02/25/17 at 10:45; Status UNV Clonidine (Catapres) 0.1 mg Q6H PRN PO SBP> OR = 180, DBP> OR = 100; Start 02/25/17 at 10:45; Status UNV Famotidine (Pepcid Inj) 20 mg ONCE ONCE IV PUSH Last administered on t 07:49; Start 02/25/17 at 07:15; Stop 02/25/17 at 07:16; Status DC Flumazenil (Romazicon Inj) 0.2 mg Q1M PRN IV PUSH SEE LABEL COMMENTS; Start at 10:45; Status UNV Heparin Sodium (Porcine) (Heparin Inj) 5,000 units Q8H SQ ; Start 02/25/17 at 10 :45; Status UNV Hydroxyzine HCl (Atarax) 50 mg HS PRN PO INSOMNIA; Start 02/25/17 at 10:45; Status UNV Ibuprofen (Motrin) 400 mg Q6H PRN PO HEADACHE OR TEMP > 101 F; Start 02/25/17 at 10:45; Status UNV Lorazepam (Ativan Inj) 2 mg Q15M PRN IV PUSH CIWA > 20; Start 02/25/17 at 10:45 ; Status UNV Lorazepam (Ativan) 2 mg Q2H PRN PO CIWA 11-14; Start 02/25/17 at 10:45; Status UNV Naloxone HCl (Narcan Inj) 0.4 mg UNSCH PRN IV PUSH SEE LABEL COMMENTS; Start 02/25/17 at 10:45; Status UNV Ondansetron HCl (Zofran Odt) 4 mg Q4H PRN PO NAUSEA OR VOMITING; Start at 10:45; Status UNV Ondansetron HCl (Zofran Inj) 4 mg ONCE ONCE IVP Last administered on 07:26; Start 02/25/17 at 07:15; Stop 02/25/17 at 07:16; Status DC Potassium Bicarb/ Potassium Chloride (K-Lyte Cl Eff) 25 meq ONCE ONCE PO Last administered on 02/25/17t 08:28; Start 02/25/17 at 08:15; Stop 02/25/17 at 08:16; Status DC Potassium Chloride (KCl) 40 meq ONCE ONCE PO ; Start 02/25/17 at 14:00; Stop 02/25/17 at 14:01; Status UNV Psyllium Hydrophilic Mucilloid (Metamucil Smooth Texture Sf/ Gf Pkt) 1 pkt BID PO ; Start 02/25/17 at 21:00; Status UNV Ranitidine HCl (Zantac Liq) 150 mg Q12HR PO ; Start 02/25/17 at 21:00; Status UNV Sodium Chloride 1,000 ml @ 84 mls/hr [id number] IV ; Start 02/25/17 at 10:45; Status UNV Sodium Chloride (NS Flush) 2 ml BID IV FLUSH ; Start 02/25/17 at 21:00; Status UNV Family History Sister- breast cancer, diagnosed at 50, now decreased at 59 Father- Alzheimer Mother- "rapid heart beat", DM, glaucoma, depression Social History Now , no children Does not have a health care surrogate designated Tobacco- 1/2-1ppd for 46 yrs, on and off Alcohol- had quit drinking 2 yrs ago, but started back up recently, interested in quitting Illicit drugs- None Physical Exam Vital Signs Vital Signs Date Time Temp Pulse Resp B/P (MAP) Pulse Ox O2 Delivery O2 Flow Rate FiO2 02/25/17 08:34 99 24 141/84 (103) 97 Room Air 02/25/17 07:42 97 Room Air 02/25/17 07:42 94 22 140/95 (110) 97 Room Air 02/25/17 06:45 97.5 105 16 126/68 (87) 96 Room Air Physical Exam GENERAL: Well-nourished, well-developed elderly female lying in bed in no acute distress. SKIN: No rashes, ecchymoses or lesions. Cool and dry. HEENT: Atraumatic, normocephalic with EOMI. PERRLA. Oropharynx clear without erythema or exudate. Dry mucous membranes. No rhinorrhea. No LAD, JVD, or thyroid abnormality appreciated. CARDIOVASCULAR: Tachycardic with regular rhythm. No murmurs, gallops, or rubs. 2 + pulses in all 4 extremities. RESPIRATORY: Fine wheezes at the bilateral bases. No crackles or rhonchi. No increased work of breathing. GASTROINTESTINAL: Abdomen soft, non-tender, nondistended with positive bowel sounds. No masses appreciated. MUSCULOSKELETAL: Extremities without cyanosis or edema.. No joint tenderness, effusion, or edema noted. No calf tenderness. NEUROLOGICAL: AAO 3. Cranial nerves grossly intact. Motor and sensory grossly within normal limits. Five out of 5 muscle strength in all muscle groups. Normal speech and judgment. Laboratory Laboratory Tests Test 02/25/17 07:20 White Blood Count 7.1 Red Blood Count 4.61 Hemoglobin 15.8 Hematocrit 45.1 Mean Corpuscular Volume 97.8 Mean Corpuscular Hemoglobin 34.2 Mean Corpuscular Hemoglobin Concent 35.0 Red Cell Distribution Width 14.2 Platelet Count 411 Mean Platelet Volume 7.8 Neutrophils (%) (Auto) 75.5 Lymphocytes (%) (Auto) 14.4 Monocytes (%) (Auto) 8.7 Eosinophils (%) (Auto) 0.6 Basophils (%) (Auto) 0.8 Neutrophils # (Auto) 5.4 Lymphocytes # (Auto) 1.0 Monocytes # (Auto) 0.6 Eosinophils # (Auto) 0.0 Basophils # (Auto) 0.1 CBC Comment DIFF FINAL Differential Comment Blood Urea Nitrogen 5 Creatinine 0.82 Random Glucose 131 Total Protein 7.9 Albumin 4.0 Calcium Level 9.8 Alkaline Phosphatase 94 Aspartate Amino Transf (AST/SGOT) 51 Alanine Aminotransferase (ALT/SGPT) 47 Total Bilirubin 1.4 Sodium Level 125 Potassium Level 2.8 Chloride Level 84 Carbon Dioxide Level 28.5 Anion Gap 13 Estimat Glomerular Filtration Rate 70 Lactic Acid Level 1.9 Lipase 168 Result Diagram: 02/25/1771902/25/17719 Caprini VTE Risk Assessment Caprini VTE Risk Assessment: Mod/High Risk (score >= 2) Caprini Risk Assessment Model Point Value = 1 Point Value = 2 Point Value = 3 Point Value = 5 Age 41-60 Minor surgery BMI > 25 kg/m2 Swollen legs Varicose veins or History of unexplained or recurrent spontaneous Oral contraceptives or hormone replacement Sepsis (< 1 month) Serious lung disease, including pneumonia (< 1 month) Abnormal pulmonary function Acute myocardial infarction Congestive heart failure (< 1 month) History of inflammatory bowel disease Medical patient at bed rest Age 61-74 Arthroscopic surgery Major open surgery (> 45 min) Laparoscopic surgery (> 45 min) Malignancy Confined to bed (> 72 hours) Immobilizing plaster cast Central venous access Age >= 75 History of VTE Family history of VTE Factor V Leiden Prothrombin [id number] Lupus anticoagulant Anticardiolipin antibodies Elevated serum homocysteine Heparin-induced thrombocytopenia Other congenital or acquired thrombophilia Stroke (< 1 month) Elective arthroplasty Hip, pelvis, or leg fracture Acute spinal cord injury (< 1 month) Prophylaxis Regimen Total Risk Factor Score Risk Level Prophylaxis Regimen 0-1 Low Early ambulation 2 Moderate Order ONE of the following: *Sequential Compression Device (SCD) *Heparin 5000 units SQ BID 3-4 Higher Order ONE of the following medications: *Heparin 5000 units SQ TID *Enoxaparin/Lovenox 40 mg SQ daily (WT < 150 kg, CrCl > 30 mL/min) *Enoxaparin/Lovenox 30 mg SQ daily (WT < 150 kg, CrCl > 10-29 mL/min) *Enoxaparin/Lovenox 30 mg SQ BID (WT < 150 kg, CrCl > 30 mL/min) AND/OR *Sequential Compression Device (SCD) 5 or more Highest Order ONE of the following medications: *Heparin 5000 units SQ TID (Preferred with Epidurals) *Enoxaparin/Lovenox 40 mg SQ daily (WT < 150 kg, CrCl > 30 mL/min) *Enoxaparin/Lovenox 30 mg SQ daily (WT < 150 kg, CrCl > 10-29 mL/min) *Enoxaparin/Lovenox 30 mg SQ BID (WT < 150 kg, CrCl > 30 mL/min) AND *Sequential Compression Device (SCD) Assessment and Plan Assessment and Plan Ms. Prieto is a 66-year-old female with past medical history of depression and hypertension presenting to the emergency department with anorexia secondary to nausea and found to have hypokalemia with hyponatremia. Code Status FULL Discussed Condition With Dr. White Problem List: (1) Nausea ICD Codes: R11.0 - Nausea Status: Acute Plan: Patient presented to the ER with 4 days of anorexia and diarrhea secondary to nausea likely related to electrolyte abnormalities. -CMP: Total protein 7.9, albumin 4.0 -Lipase: 168 -Lactic acid: 1.9 -Regular diet as tolerated Medications: -Electrolyte replenishment as below -Zofran 4 mg every 4 hours when necessary for nausea or vomiting -Famotidine 20 mg given in ER -Ranitidine 150 mg twice a day -Metamucil twice a day to assist with bulking stool (2) Hyponatremia ICD Codes: E87.1 - Hypo-osmolality and hyponatremia Status: Acute Plan: Patient presenting with anorexia and nausea likely secondary to electrolyte abnormalities including hyponatremia to 125. -Exam: Patient is mildly dehydrated with dry mucous membranes and tachycardia on exam consistent with mild dehydration. Exam within normal limits otherwise without neurological symptoms -CMP: Sodium 125, potassium 2.8, glucose 131, bilirubin 1.4, AST 51 -EKG: Sinus tachycardia to 92 bpm. Regular intervals without ST elevation or depression. (Per Medical Team Read) -Neuro checks with vital signs every 4 hours -Repeat CMP 1600 Medications: -Patient given 1 L normal saline in ER -Repeat 1 L normal saline ordered (3) Hypokalemia ICD Codes: E87.6 - Hypokalemia Status: Acute Plan: Patient presenting with anorexia and nausea likely secondary to electrolyte abnormalities including hypokalemia to 2.8. -Exam: Patient currently with regular rate and rhythm, exam otherwise within normal limits -CMP: Sodium 125, potassium 2.8, glucose 131, bilirubin 1.4, AST 51 -EKG: Pending -Magnesium level added to blood in lab: Pending -Repeat CMP at 1600 Medications: -Patient given 25 mEq potassium by mouth and 40 mEq by IV -Potassium chloride 40 mEq to be administered at 1400 (4) Hypertension ICD Codes: I10 - Essential (primary) hypertension Status: Chronic Plan: Patient with history of hypertension currently on atenolol with chlorthalidone. -BP: 126/68-141/84 in ER -Discontinue chlorthalidone as it is likely contributing to hypokalemia and hyponatremia -Continue to monitor hypertension Medications: -Atenolol 50 mg daily ordered -Clonidine 0.1 mg every 6 hours when necessary for BP greater than 180/100 (5) Anxiety and depression ICD Codes: F41.8 - Other specified anxiety disorders Status: Chronic Plan: Patient with chronic history of anxiety with depression. -Patient with recent transition of medication from Remeron to Prozac as she was unable to tolerate the night terrors associated with Remeron administration -Patient states that currently her depression is "at its baseline" Medications: -Continue Prozac 20 mg daily (6) Alcohol abuse ICD Codes: F10.10 - Alcohol abuse, uncomplicated Status: Chronic Plan: Patient with history of alcohol abuse per chart review -Alcohol level: Pending -CIWA protocol in place (7) FEN, ppx Status: Acute Plan: Diet: Regular as tolerated Electrolytes: Please see above Fluids: Patient received 2 L normal saline, otherwise tolerating fluids by mouth Prophylaxis: DuoNeb's when necessary for shortness of breath, clonidine when necessary for hypertension, Zofran when necessary for nausea or vomiting, constipation protocol held due to diarrhea, ranitidine for reflux, hydroxyzine as needed for insomnia, ibuprofen as needed for headache or fever (8) No contraindication to deep vein thrombosis (DVT) prophylaxis ICD Codes: Z78.9 - Other specified health status Status: Acute Plan: -Heparin 5000 units every 8 hours -SCD/TEDs Problem Qualifiers (1) Hypertension: Qualified Codes: I10 - Essential (primary) hypertension Skyler Curry MD R2 Feb 25, 2017 09:17
[2017-02-25] MEDS ORDERED: LORazepam 1 MG TAB PO PRN (10:45)
[2017-02-25] MEDS ORDERED: NALOXONE HCL 0.4 MG/ML AMP IV PUSH PRN (10:45)
[2017-02-25] MEDS ORDERED: FLUMAZENIL 0.5 MG/5 ML VIAL IV PUSH PRN (10:45)
[2017-02-25] MEDS ORDERED: LORazepam 2 MG TAB PO PRN (10:45)
[2017-02-25] MEDS ORDERED: LORazepam 2 MG/ML VIAL IV PUSH PRN ×4 (10:45)
[2017-02-25 11:33] LABS: BACTERIA, URINE RARE /hpf; BLOOD, URINE NEG (NEG); COMMENT (UR) CULT NOT INDICATED; CULTURE IF INDICATED CULT NOT INDICATED; GLUCOSE,URINE NEG (NEG); HYALINE CAST, URINE 3 /lpf (RARE); KETONE, URINE 10 mg/dL (NEG); MUCUS URINE FEW /lpf (OCC); NITRITE,URINE NEG (NEG); PH, URINE 6.5 (5.0-8.5); SQUAMOUS EPITHELIAL CELL URINE 3 /hpf (0-5); URINE COLOR LIGHT-YELLOW (YELLW/STRAW)
[2017-02-25] MEDS ORDERED: RESP: ALBUTEROL 2.5 MG/IPRATROPIUM 0.5 MG NEB (PRN) NEB (12:00)
[2017-02-25] MEDS ORDERED: IBUPROFEN 400 MG TAB PO PRN (12:00)
[2017-02-25] MEDS ORDERED: ONDANSETRON ODT 4 MG TAB PO PRN (12:00)
[2017-02-25] MEDS: ATENOLOL 50 MG TAB PO SCH (12:00)
[2017-02-25] MEDS ORDERED: cloNIDine HCL 0.1 MG TAB PO PRN (12:00)
[2017-02-25] MEDS: SODIUM CHLOR 0.9% 1000 ML INJ 1,000 ML IV SCH (13:12)
[2017-02-25 13:13] LABS: MAGNESIUM 1.4 MG/DL (1.5-2.5)
[2017-02-25 13:15] LABS: ALCOHOL LESS THAN 3 MG/DL (0-5)
--- NOTE | 2017-02-25 13:54 | EKG ---
Date Performed: 02/25/2017 Time Performed: 07:33:54 PTAGE: 66 years EKG: Sinus rhythm POSSIBLE RIGHT ATRIAL ENLARGEMENT POSSIBLE LEFT ATRIAL ENLARGEMENT POSSIBLE RIGHT VENTRICULAR CONDUC TION DELAY BORDERLINE ECG NO PREVIOUS TRACING DOCTOR: Sergo Ramsey Interpretating Date/Time 02/25/2017 13:52:29
[2017-02-25] MEDS ORDERED: POTASSIUM CHLORIDE 10 MEQ CONTROLLED RELEASE TAB PO ONE (14:00)
[2017-02-25] MEDS: HEPARIN SODIUM - SQ 10,000 UNITS/ML VIAL SQ SCH ×3 (14:40→21:19)
[2017-02-25] MEDS: MAGNESIUM SULFATE 1 GM PREMIX 100 ML IV SCH ×3 (15:55→17:09)
[2017-02-25 16:27] LABS: ALKALINE PHOSPHATASE 85 U/L (45-117); ALT (GPT) 44 U/L (10-53); ANION GAP 9 MEQ/L (5-15); AST (GOT) 41 U/L (15-37); BICARBONATE 26.2 MEQ/L (21.0-32.0); BLOOD UREA NITROGEN 6 MG/DL (7-18); CHLORIDE 95 MEQ/L (98-107); GLOMERULAR FILTRATION RATE 75 ML/MIN (>89); POTASSIUM 4.4 MEQ/L (3.5-5.1); SODIUM (NA) 130 MEQ/L (136-145); TOTAL BILIRUBIN ADULT 1.5 MG/DL (0.2-1.0)
[2017-02-25] MEDS ORDERED: hydrOXYzine HCL 50 MG TAB PO PRN (21:00)
[2017-02-25] MEDS: PSYLLIUM FIBER SF/GF 6 GM POWD PKT PO SCH (21:00)
[2017-02-25] MEDS: SODIUM CHLORIDE 0.9% FLUSH 10 ML FLUSH IV FLUSH SCH (21:00)
[2017-02-25] MEDS ORDERED: SODIUM CHLORIDE 0.9% FLUSH 10 ML FLUSH IV FLUSH SCH (21:00)
[2017-02-25] MEDS ORDERED: MIRTAZAPINE 15 MG TAB PO SCH (21:00)
[2017-02-25] MEDS ORDERED: PRAZOSIN HCL 1 MG CAP PO SCH (21:00)
[2017-02-25] MEDS ORDERED: RANITIDINE HCL SYRUP 150 MG/10 ML UDC PO SCH (21:00)
[2017-02-25] MEDS: FAMOTIDINE 20 MG TAB PO SCH (21:15)
[2017-02-26 03:11] VITALS: BP 111/63; PULSE 84; RESP 16; TEMP 98.7; O2SAT 99
[2017-02-26] MEDS: HEPARIN SODIUM - SQ 10,000 UNITS/ML VIAL SQ SCH (06:39)
[2017-02-26 07:05] LABS: AUTOMATED NEUTROPHIL # 3.1 TH/MM3 (1.8-7.7); BASOPHIL % 0.9 % (0.0-2.0); EOSINOPHIL # 0.1 TH/MM3 (0-0.4); EOSINOPHIL % 1.6 % (0.0-4.0); HEMATOCRIT 36.9 % (35.0-46.0); HEMO FLAGS DIFF FINAL; LYMPHOCYTE # 1.6 TH/MM3 (1.0-4.8); MEAN CELL VOLUME 100.4 FL (80.0-100.0); MEAN CORPUSCULAR HEMOGLOBIN 34.9 PG (27.0-34.0); MEAN CORPUSCULAR HGB CONC 34.7 % (32.0-36.0); MONO % 12.1 % (0.0-8.0); NEUT % 56.4 % (16.0-70.0); PLATELET COUNT 288 TH/MM3 (150-450); RED BLOOD COUNT 3.67 MIL/MM3 (4.00-5.30); RED CELL DISTRIBUTION WIDTH 14.3 % (11.6-17.2); WHITE BLOOD COUNT 5.4 TH/MM3 (4.0-11.0)
[2017-02-26 07:23] VITALS: BP 138/72; PULSE 74; RESP 16; TEMP 97.9; O2SAT 97
[2017-02-26 07:42] LABS: BLOOD UREA NITROGEN 5 MG/DL (7-18); GLOMERULAR FILTRATION RATE 75 ML/MIN (>89)
[2017-02-26 07:43] LABS: ALKALINE PHOSPHATASE 64 U/L (45-117); ALT (GPT) 36 U/L (10-53); ANION GAP 6 MEQ/L (5-15); AST (GOT) 49 U/L (15-37); CHLORIDE 101 MEQ/L (98-107); MAGNESIUM 1.9 MG/DL (1.5-2.5); POTASSIUM 4.3 MEQ/L (3.5-5.1); SODIUM (NA) 134 MEQ/L (136-145); TOTAL BILIRUBIN ADULT 1.6 MG/DL (0.2-1.0)
[2017-02-26 08:31] VITALS: O2SAT 93
[2017-02-26] MEDS: SODIUM CHLORIDE 0.9% FLUSH 10 ML FLUSH IV FLUSH SCH (09:00)
[2017-02-26] MEDS: PSYLLIUM FIBER SF/GF 6 GM POWD PKT PO SCH (09:00)
[2017-02-26] MEDS ORDERED: FLUoxetine HCL 20 MG CAP PO SCH (09:00)
--- NOTE | 2017-02-26 09:17 | HHI.FPPN ---
Subjective Remarks Patient slept well overnight with remeron and prazosin. No nightmares. Mood is stable. No SI or HI. Sodium corrected from 125 --> 134 in past 24 hours, since stopping the Prozac ( SSRI) and chlorthalidone. Patient no longer nauseated. Will try eating breakfast this AM. Reports diarrhea for past 1-2 days which may be contributing to hyponatremia. AFVSS. (Faizan Avilez MD, R3) Objective Vitals Vital Signs Date Time Temp Pulse Resp B/P (MAP) Pulse Ox O2 Delivery O2 Flow Rate FiO2 02/26/17 08:31 93 21 02/26/17 07:23 97.9 74 16 138/72 (94) 97 02/26/17 03:11 98.7 84 16 111/63 (79) 99 02/25/17 23:49 98.3 73 17 110/69 (83) 97 02/25/17 20:57 96 21 02/25/17 20:35 98.5 80 18 124/59 (80) 97 02/25/17 18:50 97 02/25/17 18:33 02/25/17 16:30 92 28 124/55 (78) 97 Room Air 02/25/17 15:15 90 26 151/67 (95) 98 Room Air 02/25/17 13:00 100 24 122/68 (86) 98 Room Air 02/25/17 12:00 92 22 119/56 (77) 96 Room Air 02/25/17 11:00 98 27 183/73 (109) 96 Room Air 02/25/17 10:00 98 26 124/72 (89) 95 Room Air I/O 02/25/17 02/25/17 02/25/17 02/26/17 02/26/17 02/26/17 07:00 15:00 23:00 07:00 15:00 23:00 Intake Total 1100 ml 200 ml Balance 1100 ml 200 ml Intake IV Total 1100 ml 200 ml # Voids 1 (Faizan Avilez MD, R3) Result Diagram: 02/26/1760402/26/17604 Objective Remarks GEN: no acute distress resting comfortably HEENT: Missing several teeth, perrl, eomi CV: RRR, faint heart soudns RESP: Diffuse wheezes throughout on expiration, barrel chest, no crackles. EXT: No calf tenderness, no edema. (Faizan Avilez MD, R3) A/P Assessment and Plan Ms. Prieto is a 66-year-old female with past medical history of depression and hypertension presenting to the emergency department with anorexia secondary to nausea and found to have hypokalemia with hyponatremia. (Faizan Avilez MD, R3) Attending Attestation Patient seen and examined. Case reviewed and discussed with the resident team. Agree with plan of care as discussed with me and documented in the resident note. she is taking chlorthalidone plus an SSRI which both can cause hyponatremia. hopefully stopping both meds will work to prevent future problems (Yara White MD) Problem List: (1) Nausea ICD Codes: R11.0 - Nausea Status: Acute Plan: Patient presented to the ER with 4 days of anorexia and diarrhea secondary to nausea likely related to electrolyte abnormalities. Medications: -Electrolyte replenishment as below -Zofran 4 mg every 4 hours when necessary for nausea or vomiting -Famotidine 20 mg given in ER -Ranitidine 150 mg twice a day -Metamucil twice a day to assist with bulking stool (2) Hyponatremia ICD Codes: E87.1 - Hypo-osmolality and hyponatremia Status: Acute Plan: Patient presenting with anorexia and nausea likely secondary to electrolyte abnormalities including hyponatremia to 125. Corrected to 134 with IVF NS 1 L bolus. -Exam: Patient is mildly dehydrated with dry mucous membranes and tachycardia on exam consistent with mild dehydration. Exam within normal limits otherwise without neurological symptoms -CMP: Sodium 125, potassium 2.8. Repeat CMP showed sodium of 134 and K+ of 4.3. -EKG: Sinus tachycardia to 92 bpm. Regular intervals without ST elevation or depression. (Per Medical Team Read) Medications: -Patient given 1 L normal saline in ER -Stop chlorthalidone, and SSRI. (3) Hypokalemia ICD Codes: E87.6 - Hypokalemia Status: Acute Plan: Patient presenting with anorexia and nausea likely secondary to electrolyte abnormalities including hypokalemia to 2.8. -Exam: Patient currently with regular rate and rhythm, exam otherwise within normal limits -CMP: Sodium 125, potassium 2.8, corrected as above. Has received 40 meQ PO potassium, 40 mEq IV KCL, and 2 g IV magnesium. Mag improved from 1.4 --> 1.9. Sodium improved from 125 --> 134. (4) Hypertension ICD Codes: I10 - Essential (primary) hypertension Status: Chronic Plan: Patient with history of hypertension currently on atenolol with chlorthalidone. -BP: 126/68-141/84 in ER -Discontinue chlorthalidone as it is likely contributing to hypokalemia and hyponatremia -Continue to monitor hypertension Medications: -Atenolol 50 mg daily ordered -Clonidine 0.1 mg every 6 hours when necessary for BP greater than 180/100 (5) Anxiety and depression ICD Codes: F41.8 - Other specified anxiety disorders Status: Chronic Plan: Patient with chronic history of anxiety with depression. -Patient with recent transition of medication from Remeron to Prozac as she was unable to tolerate the night terrors associated with Remeron administration -Patient states that currently her depression is "at its baseline" Medications: -Discontinue Prozac 20 mg daily (6) Alcohol abuse ICD Codes: F10.10 - Alcohol abuse, uncomplicated Status: Chronic Plan: Patient with history of alcohol abuse per chart review -Alcohol level: <3 -CIWA protocol in place (7) FEN, ppx Status: Acute Plan: Diet: Regular as tolerated Electrolytes: Please see above Fluids: Patient received 2 L normal saline, otherwise tolerating fluids by mouth Prophylaxis: DuoNeb's when necessary for shortness of breath, clonidine when necessary for hypertension, Zofran when necessary for nausea or vomiting, constipation protocol held due to diarrhea, ranitidine for reflux, hydroxyzine as needed for insomnia, ibuprofen as needed for headache or fever. (8) No contraindication to deep vein thrombosis (DVT) prophylaxis ICD Codes: Z78.9 - Other specified health status Status: Acute Plan: -Heparin 5000 units every 8 hours -SCD/TEDs DW Dr. White. (Faizan Avilez MD, R3) Problem Qualifiers (1) Hypertension: Qualified Codes: I10 - Essential (primary) hypertension Faizan Avilez MD, R3 Feb 26, 2017 09:17 Yara White MD Feb 27, 2017 15:26
[2017-02-26] MEDS ORDERED: ONDA4TAB7 PO (09:20)
[2017-02-26] MEDS ORDERED: FAMO20TA2 PO (09:20)
[2017-02-26] MEDS ORDERED: PRAZ1 PO (09:20)
[2017-02-26] MEDS ORDERED: ATEN50TA PO (09:20)
[2017-02-26] MEDS ORDERED: MIRTA15 PO (09:20)
--- NOTE | 2017-02-26 09:20 | HHI.DCPOC ---
Discharge Care Plan Diagnosis: (1) Generalized weakness (2) Hypokalemia (3) Hyponatremia (4) Hypertension (5) Anxiety and depression (6) FEN, ppx Goals to Promote Your Health * To prevent worsening of your condition and complications * To maintain your health at the optimal level Directions to Meet Your Goals Take your medications as prescribed Follow your dietary instruction Follow activity as directed Keep your appointments as scheduled Take your immunizations and boosters as scheduled If your symptoms worsen call your PCP, if no PCP go to Urgent Care Center or Emergency Room Smoking is Dangerous to Your Health. Avoid second hand smoke Call the 24-hour hour crisis hotline for domestic abuse at Faizan Avilez MD, R3 Feb 26, 2017 09:20
[2017-02-26] MEDS ORDERED: SODI1TAB PO (09:24)
[2017-02-26] MEDS: SODIUM CHLOR 0.9% 1000 ML INJ 1,000 ML IV SCH (10:35)
[2017-02-26] MEDS: ATENOLOL 50 MG TAB PO SCH (11:05)
[2017-02-26] MEDS: FAMOTIDINE 20 MG TAB PO SCH (11:05)
[2017-02-26 17:00] VITALS: PULSE 69
== END 2017-02-26 14:03 | disposition home or self-care (01) ==
LOC: NEPC 06:43 → NEDA 09:09 → NEPGCP 18:53
PROVIDERS: ADMIT Family Medicine; ATTEND Family Medicine
DX: R11.2 Nausea with vomiting, unspecified (principal); E87.1 Hypo-osmolality and hyponatremia; E87.6 Hypokalemia; E86.0 Dehydration; R63.0 Anorexia; R19.7 Diarrhea, unspecified; I10 Essential (primary) hypertension; F41.8 Other specified anxiety disorders; F10.10 Alcohol abuse, uncomplicated; F32.9 Major depressive disorder, single episode, unspecified; F17.200 Nicotine dependence, unspecified, uncomplicated
CPT/HCPCS: 80053; 80307; 81001; 83605; 83690; 83735; 85025; 93005; 96361; 96365; 96366; 96367; 96368; 96372; 96375; 99285; G0378; J1644; J2405; J3475; J3480; J7030

== ENCOUNTER 2017-04-22 07:14 | Inpatient (IN) | payer MEDICARE ==
[~2017-04-22] VITALS: Ht 152.4 cm; Wt 45.9 kg
[~2017-04-22 07:14] MED LIST changes: +ATEN50TA PO; -ATEN50TA7 PO; +BUSP1TAB PO; +FAMO20TA2 PO; -NICO14DI23 T-DERMAL; +ONDA4TAB7 PO; -PROZ20CA11 PO; +SODI1TAB PO
[2017-04-22 07:16] VITALS: BP 168/104; PULSE 128; RESP 20; TEMP 98.2; O2SAT 98
[2017-04-22] MEDS ORDERED: SODIUM CHLOR 0.9% 1000 ML INJ 1,000 ML IV SCH (07:44)
[2017-04-22] MEDS ORDERED: SODIUM CHLORIDE 0.9% FLUSH 10 ML FLUSH IV FLUSH PRN ×2 (07:45→12:30)
[2017-04-22] MEDS ORDERED: ONDANSETRON HCL 4 MG/2 ML VIAL IVP ONE (07:45)
--- NOTE | 2017-04-22 07:47 | PD ---
HPI Chief Complaint: GI Complaint Time Seen by Provider: 07:44 Travel History International Travel<30 days: No Contact w/Intl Traveler<30days: No Traveled to known affect area: No History of Present Illness HPI 66-year-old female patient with history of hypertension, depression, presents to the ER today for a few days history of nausea, vomiting, watery diarrhea, states she has not been eating very well the last few days. She states that her teeth have recently been done and she is also having trouble eating because of that. She states that she doesn't feel like eating very much. She denies any fevers, abdominal pain, or other symptoms. She denies any homicidal or suicidal ideation. However, she states she is feeling depressed and is currently waiting for her primary care physician's office to get psychiatry set up. She is currently on antipsychotic medications but she states that that is not working well. Modifying Factors: None Associated Signs & Symptoms: Nausea, vomiting, diarrhea, poor by mouth intake, depression Risk Factors: History of depression PFSH Past Medical History Anxiety: No Depression: Yes Cancer: No Cardiovascular Problems: Yes Diminished Hearing: No Endocrine: No Genitourinary: No Hypertension: Yes Immune Disorder: No Musculoskeletal: No Neurologic: No Psychiatric: Yes Reproductive: No Respiratory: No Menopausal: Yes Past Surgical History Abdominal Surgery: Yes Eye Surgery: Yes (cataract surgery) Tonsillectomy: Yes Social History Alcohol Use: Yes (daily/wine 1-2) Tobacco Use: Yes (1/2 ppd) Substance Use: No Allergies-Medications (Allergen,Severity, Reaction): Coded Allergies: Penicillins (Verified Allergy, Severe, Hives, 04/22/17) Sulfa (Sulfonamide Antibiotics) (Verified Adverse Reaction, Severe, Nausea /Vomiting, 04/22/17) diphenhydramine (Verified Adverse Reaction, Unknown, Drowsiness, 04/22/17) Reported Meds & Prescriptions Reported Meds & Active Scripts Active Buspirone (Buspirone HCl) 7.5 Mg Tab 7.5 Mg PO BID Sodium Chloride 1 Gram Tab 1 Gm PO DAILY Famotidine 20 Mg Tab 20 Mg PO BID Atenolol 50 Mg Tab 50 Mg PO DAILY Ondansetron Odt 4 Mg Tab 4 Mg PO Q4H PRN Review of Systems Except as stated in HPI: all other systems reviewed are Neg Physical Exam Narrative GENERAL: Well-developed elderly white female patient currently in mild distress. Awake and oriented 3. SKIN: Focused skin assessment warm/dry. HEAD: Atraumatic. Normocephalic. EYES: Pupils equal and round. No scleral icterus. No injection or drainage. ENT: No nasal bleeding or discharge. Mucous membranes pink and moist. NECK: Trachea midline. No JVD. Supple. CARDIOVASCULAR: Regular rate and rhythm. No murmur appreciated. RESPIRATORY: No accessory muscle use. Clear to auscultation. Breath sounds equal bilaterally. GASTROINTESTINAL: Abdomen soft, non-tender, nondistended. Hepatic and splenic margins not palpable. MUSCULOSKELETAL: No obvious deformities. No clubbing. No cyanosis. No edema. NEUROLOGICAL: Awake and alert. No obvious cranial nerve deficits. Motor grossly within normal limits. Normal speech. PSYCHIATRIC: Appropriate mood and affect; insight and judgment normal. Data Data Last Documented VS Vital Signs Date Time Temp Pulse Resp B/P (MAP) Pulse Ox O2 Delivery O2 Flow Rate FiO2 04/22/17 08:32 114 18 157/106 (123) 97 Room Air 04/22/17 07:16 98.2 Orders Orders Complete Blood Count With Diff (04/22/17 07:44) Comprehensive Metabolic Panel (04/22/17 07:44) Lipase (04/22/17 07:44) Urinalysis - C+S If Indicated (04/22/17 07:44) Iv Access Insert/Monitor (04/22/17 07:44) Ecg Monitoring (04/22/17 07:44) Oximetry (04/22/17 07:44) Ondansetron Inj (Zofran Inj) (04/22/17 07:45) Sodium Chlor 0.9% 1000 Ml Inj (Ns 1000 M (04/22/17 07:44) Sodium Chloride 0.9% Flush (Ns Flush) (04/22/17 07:45) Hydromorphone Pf Inj (Dilaudid Pf Inj) (04/22/17 08:15) Us Abdomen Gallbladder (04/22/17 08:52) Ct Abd/Pel W Iv Contrast(Rout) (04/22/17 10:04) Iohexol 350 Inj (Omnipaque 350 Inj) (04/22/17 10:30) Labs Laboratory Tests Test 04/22/17 07:30 04/22/17 08:00 Urine Color YELLOW Urine Turbidity CLEAR Urine pH 5.0 Urine Specific Adrian 1.015 Urine Protein TRACE mg/dL Urine Glucose (UA) NEG mg/dL Urine Ketones NEG mg/dL Urine Occult Blood TRACE Urine Nitrite NEG Urine Bilirubin NEG Urine Urobilinogen 0.2 MG/DL Urine Leukocyte Esterase TRACE Urine RBC 2 /hpf Urine WBC 1 /hpf Urine Squamous Epithelial Cells 9 /hpf Urine Amorphous Sediment RARE Urine Bacteria FEW /hpf Urine Hyaline Casts 35 /lpf Urine Mucus FEW /lpf Microscopic Urinalysis Comment CULT NOT INDICATED White Blood Count 5.1 TH/MM3 Red Blood Count 3.90 MIL/MM3 Hemoglobin 14.1 GM/DL Hematocrit 40.7 % Mean Corpuscular Volume 104.3 FL Mean Corpuscular Hemoglobin 36.0 PG Mean Corpuscular Hemoglobin Concent 34.5 % Red Cell Distribution Width 15.9 % Platelet Count 319 TH/MM3 Mean Platelet Volume 7.9 FL Neutrophils (%) (Auto) 62.5 % Lymphocytes (%) (Auto) 21.3 % Monocytes (%) (Auto) 13.2 % Eosinophils (%) (Auto) 2.0 % Basophils (%) (Auto) 1.0 % Neutrophils # (Auto) 3.2 TH/MM3 Lymphocytes # (Auto) 1.1 TH/MM3 Monocytes # (Auto) 0.7 TH/MM3 Eosinophils # (Auto) 0.1 TH/MM3 Basophils # (Auto) 0.1 TH/MM3 CBC Comment DIFF FINAL Differential Comment Blood Urea Nitrogen 3 MG/DL Creatinine 0.97 MG/DL Random Glucose 100 MG/DL Total Protein 6.6 GM/DL Albumin 3.3 GM/DL Calcium Level 9.2 MG/DL Alkaline Phosphatase 125 U/L Aspartate Amino Transf (AST/SGOT) 407 U/L Alanine Aminotransferase (ALT/SGPT) 355 U/L Total Bilirubin 0.8 MG/DL Sodium Level 137 MEQ/L Potassium Level 3.8 MEQ/L Chloride Level 102 MEQ/L Carbon Dioxide Level 24.1 MEQ/L Anion Gap 11 MEQ/L Estimat Glomerular Filtration Rate 57 ML/MIN Lipase 216 U/L [facility] Medical Decision Making Medical Screen Exam Complete: Yes Emergency Medical Condition: Yes Medical Record Reviewed: Yes Interpretation(s) Laboratory Tests Test 04/22/17 07:30 04/22/17 08:00 Urine Occult Blood TRACE (NEG) Urine Bacteria FEW /hpf (NONE) Urine Mucus FEW /lpf (OCC) Red Blood Count 3.90 MIL/MM3 (4.00-5.30) Mean Corpuscular Volume 104.3 FL (80.0-100.0) Mean Corpuscular Hemoglobin 36.0 PG (27.0-34.0) Monocytes (%) (Auto) 13.2 % (0.0-8.0) Blood Urea Nitrogen 3 MG/DL (7-18) Albumin 3.3 GM/DL (3.4-5.0) Alkaline Phosphatase 125 U/L (45-117) Aspartate Amino Transf (AST/SGOT) 407 U/L (15-37) Alanine Aminotransferase (ALT/SGPT) 355 U/L (10-53) Estimat Glomerular Filtration Rate 57 ML/MIN (>89) Differential Diagnosis Nausea, vomiting, diarrhea, decreased by mouth intake: Gastroenteritis versus pancreatitis versus dehydration versus metabolic issues Narrative Course Lab work shows significant liver enzyme elevations concern etiology. An ultrasound was done which shows mild common bile duct dilatation. No obvious stones were found. Pancreatic head was not visualized. A CAT scan was done for further evaluation as well, shows fatty liver but did not show any other signs of acute intra-abdominal processes. At this point, patient has been doing poorly at home and came in tachycardic and I suspect underlying dehydration. IV fluids and nausea medications have been given in the ER. My plan would be to admit her for further evaluation of the nausea and vomiting and liver enzyme elevations, with possibility of biliary obstruction is still on the differential. At this point, case was discussed with family practice resident service for admission. Diagnosis Primary Impression: Nausea and vomiting Additional Impression: Liver enzyme elevation Admitting Information Admitting Physician Requests: Admit Michele Colemna MD Apr 22, 2017 07:46
[2017-04-22] MEDS ORDERED: HYDROmorphone HCL PF 2 MG/ML VIAL IV PUSH ONE (08:15)
[2017-04-22 08:32] VITALS: BP 157/106; PULSE 114; RESP 18; O2SAT 97
[2017-04-22 08:34] LABS: AUTOMATED NEUTROPHIL # 3.2 TH/MM3 (1.8-7.7); BASOPHIL # 0.1 TH/MM3 (0-0.2); EOSINOPHIL # 0.1 TH/MM3 (0-0.4); HEMATOCRIT 40.7 % (35.0-46.0); HEMOGLOBIN 14.1 GM/DL (11.6-15.3); LYMPH % 21.3 % (9.0-44.0); LYMPHOCYTE # 1.1 TH/MM3 (1.0-4.8); MEAN CELL VOLUME 104.3 FL (80.0-100.0); MEAN CORPUSCULAR HGB CONC 34.5 % (32.0-36.0); MEAN PLATELET VOLUME 7.9 FL (7.0-11.0); MONO % 13.2 % (0.0-8.0); MONOCYTE # 0.7 TH/MM3 (0-0.9); NEUT % 62.5 % (16.0-70.0); PLATELET COUNT 319 TH/MM3 (150-450); RED CELL DISTRIBUTION WIDTH 15.9 % (11.6-17.2); WHITE BLOOD COUNT 5.1 TH/MM3 (4.0-11.0)
[2017-04-22 08:42] LABS: ALBUMIN 3.3 GM/DL (3.4-5.0); AST (GOT) 407 U/L (15-37); BICARBONATE 24.1 MEQ/L (21.0-32.0); BLOOD UREA NITROGEN 3 MG/DL (7-18); CALCIUM 9.2 MG/DL (8.5-10.1); CHLORIDE 102 MEQ/L (98-107); CREATININE 0.97 MG/DL (0.50-1.00); GLOMERULAR FILTRATION RATE 57 ML/MIN (>89); GLUCOSE,RANDOM 100 MG/DL (74-106); SODIUM (NA) 137 MEQ/L (136-145)
[2017-04-22 08:45] LABS: BILIRUBIN, URINE NEG (NEG); GLUCOSE,URINE NEG (NEG); KETONE, URINE NEG (NEG); NITRITE,URINE NEG (NEG); URINE COLOR YELLOW (YELLW/STRAW); URINE LEUKOCYTE ESTERASE TRACE (NEG)
[2017-04-22 08:49] LABS: ALKALINE PHOSPHATASE 125 U/L (45-117); ALT (GPT) 355 U/L (10-53); LIPASE 216 U/L (73-393); TOTAL BILIRUBIN ADULT 0.8 MG/DL (0.2-1.0); TOTAL PROTEIN 6.6 GM/DL (6.4-8.2)
[2017-04-22 08:51] LABS: AMORPHOUS SEDIMENT, URINE RARE; BACTERIA, URINE FEW /hpf; HYALINE CAST, URINE 35 /lpf (RARE); MUCUS URINE FEW /lpf (OCC); SQUAMOUS EPITHELIAL CELL URINE 9 /hpf (0-5)
[2017-04-22 08:52] LABS: BLOOD, URINE TRACE (NEG)
--- NOTE | 2017-04-22 09:42 | RADRPT ---
EXAM DATE/TIME: 04/22/2017 09:18 [facility] COMPARISON: US ABDOMEN - GALLBLADDER, February 06, 2017, 15:09. INDICATIONS : Nausea and vomiting. MEDICAL HISTORY : Hypertension. SURGICAL HISTORY : Tonsillectomy. ENCOUNTER: Subsequent ACUITY: 3 days PAIN SCORE: 0/10 LOCATION: Right upper quadrant MEASUREMENTS: LIVER: 12.8 cm length COMMON DUCT: 7 mm RIGHT KIDNEY: 8.8 x 4.7 x 3.8 cm FINDINGS: Ultrasound of the upper abdomen demonstrates normal echogenicity of the liver. No intrahepatic or ext ra hepatic ductal dilatation is seen. There is hepatopedal flow through the portal vein. Only the ozzie dy and tail the pancreas are seen. The pancreatic head is not visualized secondary to bowel gas. Ther e is mild dilatation of the common duct without stones. The gallbladder is normal without wall thicke karlos or pericholecystic fluid. The right kidney is unremarkable. CONCLUSION: 1. Mild dilatation the common duct with nonvisualization of the pancreatic head. No evidence of ravi lithiasis. 2. CT scan can be performed for further evaluation of the pancreas. Ricki Pappas MD on April 22, 2017 at 9:35 Board Certified Radiologist. This report was verified electronically.
[2017-04-22] MEDS ORDERED: IOHEXOL 350 MG/ML 10 ML VIAL (for RAD DIAG) IVCONTRAST ONE (10:30)
--- NOTE | 2017-04-22 10:56 | RADRPT ---
EXAM DATE/TIME: 04/22/2017 10:26 [facility] COMPARISON: No previous studies available for comparison. INDICATIONS : Nausea and vomiting for three days. IV CONTRAST: 75 cc Omnipaque 350 (iohexol) IV ORAL CONTRAST: No oral contrast ingested. RADIATION DOSE: 4.49 CTDIvol (mGy) MEDICAL HISTORY : Hypertension. SURGICAL HISTORY : None. ENCOUNTER: Initial ACUITY: 1 day PAIN SCALE: 5/10 LOCATION: abdomen TECHNIQUE: Volumetric scanning of the abdomen and pelvis was performed. Using automated exposure control and adjustment of the mA and/or kV according to patient size, radiation dose was kept as low as reasonably achievable to obtain optimal diagnostic quality images. DICOM format image data is av ailable electronically for review and comparison. FINDINGS: CT Abdomen: The spleen, pancreas, kidneys, adrenals are unremarkable. The liver is fatty without foca l lesions or technique. There is no evidence for any appreciable pathological adenopathy, free fluid, or bowel obstruction. There may be a small sliding hiatal hernia. Chronic vascular calcifications a re present involving the aorta, iliac arteries without any significant stenosis or aneurysmal dilatat ions for technique. CT pelvis: There is an approximate 2.1 cm cyst in the left ovary nonspecific most likely benign with a calcified fibroid exophytic on the right posterolateral measures 1.5 cm. CONCLUSION: 1. Fatty liver. 2. Left ovarian cyst and calcified fibroid within the uterus. Raimundo Venegas MD on April 22, 2017 at 10:50 Board Certified Radiologist. This report was verified electronically.
--- NOTE | 2017-04-22 11:55 | HHI.HP ---
[facility] Service [facility] Medicine Primary Care Physician Satnam Odonnell MD Admission Diagnosis nausea vomiting/liver enzyme elevations Diagnoses: International Travel<30 Days: No Contact w/Intl Traveler<30days: No Known Affected Area: No History of Present Illness 66 year old female, patient of Dr. Satnam Odonnell in the [facility] , presents with nausea, diarrhea, decreased appetite, and poor PO intake. She notes that she has nausea and diarrhea intermittently over a long period of time and has not been diagnosed with any cause. Symptoms started three days ago. She is having 7 to 8 episodes of watery diarrhea without mucous or blood each day. She has no vomiting but has daily persistent nausea with dry heaving. She has been taking Zofran but with little benefit. She has poor appetite and poor PO intake over the last few days. She has no abdominal pain. She has no fevers, night sweats, or weight loss. She has no chest pain or shortness of breath. She has no calf swelling or tenderness. She also notes that she has increasing depression and anxiety. She is currently being treated with Buspirone and notes that the medication is not helping. She feels her moods are interfering with her sleep. She does not report a history of psychosis or lazaro. She does not have suicidal ideation or homicidal ideation. Depression has been present since 2008 and anxiety has been present since she was a child. She also notes that she had dental extraction of 6 bottom teeth on April 07 and is having some pain from that. She does not note any abscesses or drainage from her gingiva. She now has dentures but has not gotten used to using them and has difficulty eating. She is requesting a soft diet to accommodate. Review of Systems Constitutional: COMPLAINS OF: Fatigue, Change in appetite, DENIES: Fever, Weight gain, Weight loss, Night Sweats Endocrine: DENIES: Polydipsia, Polyuria Eyes: DENIES: Diplopia, Double Vision Ears, nose, mouth, throat: COMPLAINS OF: Running Nose, DENIES: Nasal discharge Respiratory: DENIES: Cough, Wheezing, Sputum production, Shortness of breath Cardiovascular: DENIES: Chest pain, Dyspnea on Exertion, Lower Extremity Edema Gastrointestinal: COMPLAINS OF: Diarrhea, Nausea, DENIES: Abdominal pain, Black stools, Bloody stools, Constipation, Vomiting, Difficulty Swallowing Genitourinary: DENIES: Urinary frequency, Urinary incontinence, Urgency, Hematuria, Dysuria Musculoskeletal: DENIES: Joint pain, Neck pain Integumentary: DENIES: Rash Hematologic/lymphatic: DENIES: Lymphadenopathy Immunologic/allergic: DENIES: Eczema Neurologic: DENIES: Abnormal gait, Localized weakness, Seizures, Poor Balance Psychiatric: COMPLAINS OF: Anxiety, Mood changes, Depression, DENIES: Confusion , Hallucinations, Suicidal Ideation, Homicidal Ideation Past Family Social History Past Medical History Depression Anxiety Hypertension Osteoporosis Hyponatremia chronic Health maintenance: Mammogram: in 2014, she had a biopsy done, benign Colonoscopy: Ordered 01/2017 Pap smear: 3 years ago, normal Flu shots: declined 01/2017 Pneumonia vaccine: Due Shingles vaccine: 2016 HIV test: Never Hep C: Never Dexa scan: 2003 Past Surgical History Dental extractions 6 teeth on bottom Cataracts removed last year Tonsillectomy Reported Medications Reported Meds & Active Scripts Active Buspirone (Buspirone HCl) 7.5 Mg Tab 7.5 Mg PO BID Sodium Chloride 1 Gram Tab 1 Gm PO DAILY Famotidine 20 Mg Tab 20 Mg PO BID Atenolol 50 Mg Tab 50 Mg PO DAILY Ondansetron Odt 4 Mg Tab 4 Mg PO Q4H PRN Allergies: Coded Allergies: Penicillins (Verified Allergy, Severe, Hives, 04/22/17) Sulfa (Sulfonamide Antibiotics) (Verified Adverse Reaction, Severe, Nausea /Vomiting, 04/22/17) diphenhydramine (Verified Adverse Reaction, Unknown, Drowsiness, 04/22/17) Active Ordered Medications Inpatient Medications Atenolol (Tenormin) 50 mg DAILY PO ; Start 04/22/17 at 13:00 Bisacodyl (Dulcolax Supp) 10 mg DAILY PRN RECTAL SEVERE CONSITIPATION; Start at 12:30 Buspirone HCl (Buspar) 7.5 mg BID PO ; Start 04/22/17 at 13:00 Enoxaparin Sodium (Lovenox Inj) 40 mg Q24H SQ ; Start 04/22/17 at 13:00 Famotidine (Pepcid) 20 mg BID PO ; Start 04/22/17 at 13:00 Flumazenil (Romazicon Inj) 0.2 mg Q1M PRN IV PUSH SEE LABEL COMMENTS; Start 04/22/17 at 12:45 Folic Acid (Folate) 1 mg DAILY PO ; Start 04/22/17 at 12:45; Stop 04/27/17 at 12: 44 Hydromorphone HCl (Dilaudid Pf Inj) 1 mg ONCE ONCE IV PUSH ; Start 04/22/17 at 08:15; Stop 04/22/17 at 08:22; Status DC Ibuprofen (Motrin) 400 mg Q6HR PO ; Start 04/22/17 at 12:45 Lactulose (Lactulose Liq) 30 ml DAILY PRN PO SEVERE CONSITIPATION; Start at 12:30 Lorazepam (Ativan Inj) 2 mg Q15M PRN IV PUSH CIWA > 20; Start 04/22/17 at 12:45 Lorazepam (Ativan) 2 mg Q2H PRN PO CIWA 11-14; Start 04/22/17 at 12:45 Magnesium Hydroxide (Milk Of Magnesia Liq) 30 ml Q12H PRN PO Mild constipation ; Start 04/22/17 at 12:30 Miscellaneous (Pill Splitter) 1 ea UNSCH PRN OTHER SEE LABEL COMMENTS; Start at 13:15 Multivitamins/ Minerals Therapeutic (Theragran M Tab) 1 tab DAILY PO ; Start 04/22/17 at 12:45; Stop 04/27/17 at 12:44 Naloxone HCl (Narcan Inj) 0.4 mg UNSCH PRN IV PUSH SEE LABEL COMMENTS; Start at 12:30 Ondansetron HCl (Zofran Inj) 4 mg Q6H PRN IVP NAUSEA OR VOMITING; Start at 12:30 Senna/Docusate Sodium (Tabatha-Colace) 1 tab BID PO ; Start 04/22/17 at 21:00 Sennosides (Senokot) 17.2 mg Q12H PRN PO Moderate constipation; Start 04/22/17 at 12:30 Sodium Chloride (NS Flush) 2 ml BID IV FLUSH ; Start 04/22/17 at 21:00 Thiamine HCl (Vitamin B1) 100 mg DAILY PO ; Start 04/22/17 at 12:45 Family History Mother: colon cancer age 50's, tachycardia, DM, glaucoma, depression, after gallbladder surgery at 88 Father: Alzheimers, at 79 Sister: breast cancer in her 50's, age 59 Social History Live in apartment in [facility] Lives by herself Retired: was automotive accounting office, tag and title, billing [place] Smoking: pack per day, tried patches, didn't work. 1/2 PPD for 25-30 years. Alcohol: 4 to 5 glasses of wine a day, sometimes more if depressed Drug use: none, no history of injections Physical Exam Vital Signs Vital Signs Date Time Temp Pulse Resp B/P (MAP) Pulse Ox O2 Delivery O2 Flow Rate FiO2 04/22/17 08:32 114 18 157/106 (123) 97 Room Air 04/22/17 07:16 98.2 128 20 168/104 (125) 98 Room Air Physical Exam General: Thin female, lying in bed, no distress Skin: No rashes or lesions, no jaundice, normal skin turgor HEENT: Normocephalic, no conjunctivitis or scleral icterus, no nasal discharge, normal pharynx, has lower teeth extractions, diffuse soft tissue swelling but no abscess or drainage, somewhat dry mucous membranes Neck: No thyromegaly or lymphadenopathy CV: tachycardic, regular rhythm, no murmurs, rubs, or gallops, rapid pulse, normal cap refill Lungs: CTAB Abdomen: Soft, nontender, nondistended, normal bowel sounds, no organomegaly, no masses, negative Ferguson sign Ext: No swelling, fair range of motion Neuro: Awake, alert, no distress Psych: Appropriate affect, no suicidal ideation, logical thought processes, fair insight Laboratory Laboratory Tests Test 04/22/17 07:30 04/22/17 08:00 Urine Color YELLOW Urine Turbidity CLEAR Urine pH 5.0 Urine Specific [place] 1.015 Urine Protein TRACE Urine Glucose (UA) NEG Urine Ketones NEG Urine Occult Blood TRACE Urine Nitrite NEG Urine Bilirubin NEG Urine Urobilinogen 0.2 Urine Leukocyte Esterase TRACE Urine RBC 2 Urine WBC 1 Urine Squamous Epithelial Cells 9 Urine Amorphous Sediment RARE Urine Bacteria FEW Urine Hyaline Casts 35 Urine Mucus FEW Microscopic Urinalysis Comment CULT NOT INDICATED White Blood Count 5.1 Red Blood Count 3.90 Hemoglobin 14.1 Hematocrit 40.7 Mean Corpuscular Volume 104.3 Mean Corpuscular Hemoglobin 36.0 Mean Corpuscular Hemoglobin Concent 34.5 Red Cell Distribution Width 15.9 Platelet Count 319 Mean Platelet Volume 7.9 Neutrophils (%) (Auto) 62.5 Lymphocytes (%) (Auto) 21.3 Monocytes (%) (Auto) 13.2 Eosinophils (%) (Auto) 2.0 Basophils (%) (Auto) 1.0 Neutrophils # (Auto) 3.2 Lymphocytes # (Auto) 1.1 Monocytes # (Auto) 0.7 Eosinophils # (Auto) 0.1 Basophils # (Auto) 0.1 CBC Comment DIFF FINAL Differential Comment Blood Urea Nitrogen 3 Creatinine 0.97 Random Glucose 100 Total Protein 6.6 Albumin 3.3 Calcium Level 9.2 Alkaline Phosphatase 125 Aspartate Amino Transf (AST/SGOT) 407 Alanine Aminotransferase (ALT/SGPT) 355 Total Bilirubin 0.8 Sodium Level 137 Potassium Level 3.8 Chloride Level 102 Carbon Dioxide Level 24.1 Anion Gap 11 Estimat Glomerular Filtration Rate 57 Lipase 216 Result Diagram: 04/22/17 0800 04/22/17 0800 Imaging Last 72 hours Impressions Abdomen/Pelvis CT 04/22/17 1004 Signed Impressions: Service Date/Time: April 10:26 - CONCLUSION: 1. Fatty liver. 2. Left ovarian cyst and calcified fibroid within the uterus. Raimundo Venegas MD Gall Bladder Ultrasound 04/22/17 0852 Signed Impressions: Service Date/Time: April 09:18 - CONCLUSION: 1. Mild dilatation the common duct with nonvisualization of the pancreatic head. No evidence of cholelithiasis. 2. CT scan can be performed for further evaluation of the pancreas. Ricki Pappas MD Septic Shock Reassessment Septic shock perfusion: reassessment completed Caprini VTE Risk Assessment Caprini VTE Risk Assessment: Mod/High Risk (score >= 2) Caprini Risk Assessment Model Point Value = 1 Point Value = 2 Point Value = 3 Point Value = 5 Age 41-60 Minor surgery BMI > 25 kg/m2 Swollen legs Varicose veins or History of unexplained or recurrent spontaneous Oral contraceptives or hormone replacement Sepsis (< 1 month) Serious lung disease, including pneumonia (< 1 month) Abnormal pulmonary function Acute myocardial infarction Congestive heart failure (< 1 month) History of inflammatory bowel disease Medical patient at bed rest Age 61-74 Arthroscopic surgery Major open surgery (> 45 min) Laparoscopic surgery (> 45 min) Malignancy Confined to bed (> 72 hours) Immobilizing plaster cast Central venous access Age >= 75 History of VTE Family history of VTE Factor V Leiden Prothrombin [id number] Lupus anticoagulant Anticardiolipin antibodies Elevated serum homocysteine Heparin-induced thrombocytopenia Other congenital or acquired thrombophilia Stroke (< 1 month) Elective arthroplasty Hip, pelvis, or leg fracture Acute spinal cord injury (< 1 month) Prophylaxis Regimen Total Risk Factor Score Risk Level Prophylaxis Regimen 0-1 Low Early ambulation 2 Moderate Order ONE of the following: *Sequential Compression Device (SCD) *Heparin 5000 units SQ BID 3-4 Higher Order ONE of the following medications: *Heparin 5000 units SQ TID *Enoxaparin/Lovenox 40 mg SQ daily (WT < 150 kg, CrCl > 30 mL/min) *Enoxaparin/Lovenox 30 mg SQ daily (WT < 150 kg, CrCl > 10-29 mL/min) *Enoxaparin/Lovenox 30 mg SQ BID (WT < 150 kg, CrCl > 30 mL/min) AND/OR *Sequential Compression Device (SCD) 5 or more Highest Order ONE of the following medications: *Heparin 5000 units SQ TID (Preferred with Epidurals) *Enoxaparin/Lovenox 40 mg SQ daily (WT < 150 kg, CrCl > 30 mL/min) *Enoxaparin/Lovenox 30 mg SQ daily (WT < 150 kg, CrCl > 10-29 mL/min) *Enoxaparin/Lovenox 30 mg SQ BID (WT < 150 kg, CrCl > 30 mL/min) AND *Sequential Compression Device (SCD) Assessment and Plan Assessment and Plan 66 year old female presents with Code Status FULL CODE Discussed Condition With Will discuss with Dr. Melchor Problem List: (1) Transaminitis ICD Codes: R74.0 - Nonspecific elevation of levels of transaminase and lactic acid dehydrogenase [LDH] Status: Acute Plan: New onset transaminitis. Initial AST/ALT is 407/355. ALP is 125, mildly elevated. Total bilirubin is normal. Gallbladder ultrasound shows mild dilatation of the common duct. CT abdomen shows fatty liver. She also has increased alcohol abuse lately. She does not report significant amounts of Tylenol use. No new recent medications. Does not report drug use. MCV elevated to 104. - Consult gastroenterology for new onset transaminitis, appreciate recommendations. - May benefit from ERCP or MRCP for further evaluation of the biliary tract, will defer to gastroenterology. - Follow up on coagulation panel. - Check iron profile, ferritin level. - Check tissue transglutaminase antibodies to rule out celiac disease. - Counseling on alcohol abuse, consult case management. - Avoid hepatotoxic agents. - Further workup depending on results of the above and liver functioning trends. (2) Dehydration, moderate ICD Codes: E86.0 - Dehydration Status: Acute Plan: Acute dehydration due to 7 to 8 episodes of diarrhea per day. Electrolytes stable, GFR somewhat reduced, likely prerenal. Urine specific gravity 1.015. Tachycardic on exam. Blood pressures actually high. - Received liter bolus of normal saline in ED. - Continue with NS at maintenance, assess hydration status. - Encourage good PO intake, monitor I's and O's. (3) Nausea alone ICD Codes: R11.0 - Nausea Status: Acute Plan: Acute nausea with diarrhea, no abdominal pain. Lipase normal. CT showing fatty liver, gallbladder ultrasound showing slightly dilated common duct. - Give Zofran 4 mg IV q6hrs for nausea. - See plans above. (4) Diarrhea ICD Codes: R19.7 - Diarrhea, unspecified Status: Acute Plan: 7-8 bouts of diarrhea daily for the past few days. Watery, no blood or mucous present. CT just showing fatty liver, gallbladder ultrasound showing dilated CBD. - Give NS at maintenance. - Monitor hydration status, encourage good PO intake. - Stool studies only if persistent. (5) Depression with anxiety ICD Codes: F41.8 - Other specified anxiety disorders Status: Chronic Plan: Recent increase in depression and anxiety, currently being treated with buspirone. Had good effect with citalopram in the past. - Will start low dose Citalopram at 20 mg daily. - Can continue Buspirone for augmentation with concomitant anxiety, but the evidence for augmentation with Buspirone being very effective is weak. May consider just discontinuing it. Could also contribute to nausea and diarrhea. - Temazepam at night for insomnia. (6) Pain, dental ICD Codes: K08.89 - Other specified disorders of teeth and supporting structures Status: Acute Plan: Acute dental pains secondary to bottom teeth extraction, 6 teeth on the bottom. No signs of dental infection. - Ibuprofen 400 mg [id number] scheduled for pain. - Titrate pain medication to effect. (7) Alcohol abuse ICD Codes: F10.10 - Alcohol abuse, uncomplicated Status: Chronic Plan: Recent increase in drinking habits, may help explain transaminitis and nausea episodes. - [facility] protocol - Thiamine, folic acid, multivitamin daily - Counseling on alcohol abuse - Consult case management, would benefit from outpatient services. (8) Smoker ICD Codes: F17.200 - Nicotine dependence, unspecified, uncomplicated Status: Chronic Plan: Chronic pack per day smoker, has tried patches in the past. - Encourage quitting smoking, educate on options for assistance. (9) Nutrition, metabolism, and development symptoms ICD Codes: R63.8 - Other symptoms and signs concerning food and fluid intake Status: Acute Plan: IV fluids with normal saline at maintenance, monitor hydration status Monitor electrolytes and renal function Soft regular diet for recent dental extraction (10) No contraindication to deep vein thrombosis (DVT) prophylaxis ICD Codes: Z78.9 - Other specified health status Status: Acute Plan: Continue Lovenox 40 mg daily Encourage mobilization Physician Certification 2 Midnight Certification Type: Admission for Inpatient Services Order for Inpatient Services The services are ordered in accordance with Medicare regulations or non- Medicare payer requirements, as applicable. In the case of services not specified as inpatient-only, they are appropriately provided as inpatient services in accordance with the 2-midnight benchmark. Estimated LOS (days): 3 days is the estimated time the patient will need to remain in the hospital, assuming treatment plan goals are met and no additional complications. Post-Hospital Plan: Home Problem Qualifiers (1) Diarrhea: Qualified Codes: R19.7 - Diarrhea, unspecified Ernie Singh MD R3 Apr 22, 2017 11:55
[2017-04-22] MEDS ORDERED: BISACODYL 10 MG SUPP RECTAL PRN (12:30)
[2017-04-22] MEDS ORDERED: NALOXONE HCL 0.4 MG/ML AMP IV PUSH PRN (12:30)
[2017-04-22] MEDS ORDERED: MAGNESIUM HYDROXIDE SUSP 30 ML CUP PO PRN (12:30)
[2017-04-22] MEDS ORDERED: LACTULOSE SYRUP 20 GM/30 ML CUP PO PRN (12:30)
[2017-04-22] MEDS ORDERED: SENNOSIDES 8.6 MG TAB PO PRN (12:30)
[2017-04-22 12:43] VITALS: O2SAT 97
[2017-04-22] MEDS ORDERED: FLUMAZENIL 0.5 MG/5 ML VIAL IV PUSH PRN (12:45)
[2017-04-22] MEDS ORDERED: LORazepam 2 MG TAB PO PRN (12:45)
[2017-04-22] MEDS ORDERED: LORazepam 2 MG/ML VIAL IV PUSH PRN ×4 (12:45)
[2017-04-22] MEDS ORDERED: busPIRone HCL 5 MG TAB PO SCH (13:00)
[2017-04-22] MEDS ORDERED: PILL SPLITTER OTHER PRN (13:15)
[2017-04-22 13:41] LABS: INTERNATIONAL NORMALIZED RATIO 1.1 RATIO; PROTHROMBIN TIME - PATIENT 10.7 SEC (9.8-11.6)
[2017-04-22] MEDS: FOLIC ACID 1 MG TAB PO SCH (13:53)
[2017-04-22] MEDS: ENOXAPARIN SODIUM 40 MG/0.4 ML SYRINGE SQ SCH (13:53)
[2017-04-22] MEDS: ONDANSETRON HCL 4 MG/2 ML VIAL IVP PRN ×2 (13:53→20:08)
[2017-04-22] MEDS: FAMOTIDINE 20 MG TAB PO SCH ×2 (13:54→20:08)
[2017-04-22] MEDS: IBUPROFEN 400 MG TAB PO SCH ×2 (13:54→17:07)
--- NOTE | 2017-04-22 14:15 | PD.CONS ---
HPI History of Present Illness This is a 66 year old F who presented to the emergency department this morning with complaints of nausea and diarrhea that has been ongoing for the past few days. She reports multiple episodes of diarrhea a day. Denies any BRBPPR or black, tarry stools. Denies abdominal pain, unintentional weight loss, acid reflux, vomiting. Recent travel to [place] approx a week ago, denies any travel out of the country. Denies fever, chills, sick contacts, recent antibiotic use. Pt was found to have elevated liver enzymes and CT showing fatty liver and this was the reason for the GI consult. Pt has never seen GI doctor before. Denies previous diagnosis of liver issues. Has never had EGD or colonoscopy. Has recently started seeing a PCP and had multiple medications changed. She was recently admitted to the hospital and found to have low sodium , she is now on sodium chloride tablets and her diuretics have been discontinued. Current list of medication include Buspirone, Zofran, Atenolol, Famotidine, and Sodium Chloride. She reports taking Advil as needed but not on a frequent basis. Denies taking Tylenol, herbs, or supplements. Does reports excessive ETOH intake, approx 4-5 glasses of wine since she was 21 years old. Also current smoker, pack a day. Denies illicit drug use. Does have family history significant for colon cancer, mother diagnosed in her early 50s, she was successfully treated. [facility] Past Medical History Depression Anxiety Hypertension Osteoporosis Hyponatremia Past Surgical History Dental extractions Cataracts Tonsillectomy Coded Allergies: Penicillins (Verified Allergy, Severe, Hives, 04/22/17) Sulfa (Sulfonamide Antibiotics) (Verified Adverse Reaction, Severe, Nausea /Vomiting, 04/22/17) diphenhydramine (Verified Adverse Reaction, Unknown, Drowsiness, 04/22/17) Medications Per attending Family History Mother- colon cancer Sister- breast cancer Social History ETOH- heavy- 4-5 drinks of glass a wine since 21 years old Smoker- pack a day Denies illicit drug use Review of Systems Gastrointestinal: COMPLAINS OF: Diarrhea, Nausea, DENIES: Abdominal pain, Black stools, Bloody stools, Constipation, Vomiting, Difficulty Swallowing, Anorexia, Odynophagia, Swelling of Abdomen, Heartburn, Hematemesis GI Exam Vitals I&O Vital Signs Date Time Temp Pulse Resp B/P (MAP) Pulse Ox O2 Delivery O2 Flow Rate FiO2 04/22/17 12:43 97 21 04/22/17 08:32 114 18 157/106 (123) 97 Room Air 04/22/17 07:16 98.2 128 20 168/104 (125) 98 Room Air I/O 04/21/17 04/21/17 04/21/17 04/22/17 04/22/17 04/22/17 07:00 15:00 23:00 07:00 15:00 23:00 Intake Total 1000 ml Balance 1000 ml Intake IV Total 1000 ml # Voids 1 Imaging Last Impressions Abdomen/Pelvis CT 04/22/17 1004 Signed Impressions: Service Date/Time: April 10:26 - CONCLUSION: 1. Fatty liver. 2. Left ovarian cyst and calcified fibroid within the uterus. Raimundo Venegas MD Gall Bladder Ultrasound 04/22/17 0852 Signed Impressions: Service Date/Time: April 09:18 - CONCLUSION: 1. Mild dilatation the common duct with nonvisualization of the pancreatic head. No evidence of cholelithiasis. 2. CT scan can be performed for further evaluation of the pancreas. Ricki Pappas MD Laboratory Test 04/22/17 07:30 04/22/17 08:00 04/22/17 13:05 Urine Color YELLOW Urine Turbidity CLEAR Urine pH 5.0 Urine Specific [place] 1.015 Urine Protein TRACE mg/dL Urine Glucose (UA) NEG mg/dL Urine Ketones NEG mg/dL Urine Occult Blood TRACE Urine Nitrite NEG Urine Bilirubin NEG Urine Urobilinogen 0.2 MG/DL Urine Leukocyte Esterase TRACE Urine RBC 2 /hpf Urine WBC 1 /hpf Urine Squamous Epithelial Cells 9 /hpf Urine Amorphous Sediment RARE Urine Bacteria FEW /hpf Urine Hyaline Casts 35 /lpf Urine Mucus FEW /lpf Microscopic Urinalysis Comment CULT NOT INDICATED White Blood Count 5.1 TH/MM3 Red Blood Count 3.90 MIL/MM3 Hemoglobin 14.1 GM/DL Hematocrit 40.7 % Mean Corpuscular Volume 104.3 FL Mean Corpuscular Hemoglobin 36.0 PG Mean Corpuscular Hemoglobin Concent 34.5 % Red Cell Distribution Width 15.9 % Platelet Count 319 TH/MM3 Mean Platelet Volume 7.9 FL Neutrophils (%) (Auto) 62.5 % Lymphocytes (%) (Auto) 21.3 % Monocytes (%) (Auto) 13.2 % Eosinophils (%) (Auto) 2.0 % Basophils (%) (Auto) 1.0 % Neutrophils # (Auto) 3.2 TH/MM3 Lymphocytes # (Auto) 1.1 TH/MM3 Monocytes # (Auto) 0.7 TH/MM3 Eosinophils # (Auto) 0.1 TH/MM3 Basophils # (Auto) 0.1 TH/MM3 CBC Comment DIFF FINAL Differential Comment Blood Urea Nitrogen 3 MG/DL Creatinine 0.97 MG/DL Random Glucose 100 MG/DL Total Protein 6.6 GM/DL Albumin 3.3 GM/DL Calcium Level 9.2 MG/DL Alkaline Phosphatase 125 U/L Aspartate Amino Transf (AST/SGOT) 407 U/L Alanine Aminotransferase (ALT/SGPT) 355 U/L Total Bilirubin 0.8 MG/DL Sodium Level 137 MEQ/L Potassium Level 3.8 MEQ/L Chloride Level 102 MEQ/L Carbon Dioxide Level 24.1 MEQ/L Anion Gap 11 MEQ/L Estimat Glomerular Filtration Rate 57 ML/MIN Lipase 216 U/L Prothrombin Time 10.7 SEC Prothromb Time International Ratio 1.1 RATIO Activated Partial Thromboplast Time 24.2 SEC Physical Examination HEENT: Normocephalic; atraumatic CHEST: Expiratory wheezing CARDIAC: RRR ABDOMEN: Soft, nondistended, nontender; bowel sounds active x 4 EXTREMITIES: No clubbing, cyanosis, or edema. SKIN: Normal; no rash UC ARCHITECT: No focal deficits; alert and oriented times three. Assessment and Plan Plan Assessment: - Transaminitis- Pt denies history of liver issues. However, just started seeing a PCP recently and has never seen a GI doctor. Reports heavy ETOH, 4-5 drinks of wine a day since she was 21 years old. Denies Tylenol use, herbs, supplements. Has recently been started on multiple new medications as per HPI. Symptoms currently nausea and diarrhea. Denies fever, chills, sick contacts, abdominal pain, vomiting. Recent travel to [place], denies out of the country travel. Currently AST-407 ALT-355 Alk phos-125 T bili- 0.8. CT abdomen and pelvis W IV contrast (04/22) --> Fatty liver. Left ovarian cyst and calcified fibroid within the uterus. Gallbladder US (04/22) --> Mild dilation of the common duct with nonvisualization of the pancreatic head. No evidence of cholelithiasis. DF is 5, no indication for steroids at this time. Lipase-216. Although elevation likely secondary to ETOH, will order further liver CHIU to rule out other causes Plan: - Liver work (VALERIO, ASMA, AMA, hepatitis panel, Ceruloplasmin, TIBC and ferritin , alpha-1 antitrypsin) - Avoid hepatotoxic agents - Discussed with patient importance of avoiding ETOH - Supportive care - Further recommendations to follow based on results of above Pt has been seen and examined by myself and Dr. Rhoades and this note is written on his behalf Luisa Ospina Apr 22, 2017 14:15
[2017-04-22] MEDS: THIAMINE HCL 100 MG TAB PO SCH (15:00)
[2017-04-22] MEDS: ATENOLOL 50 MG TAB PO SCH (15:00)
[2017-04-22] MEDS: MULTIVITAMINS/MINERALS THERAPEUTIC TAB PO SCH (15:00)
[2017-04-22] MEDS: SODIUM CHLOR 0.9% 1000 ML INJ 1,000 ML IV SCH (15:01)
[2017-04-22 15:02] VITALS: BP 202/83; PULSE 109; RESP 16; O2SAT 98
[2017-04-22 16:00] VITALS: BP 143/67; PULSE 79; RESP 18; TEMP 98.2; O2SAT 96
[2017-04-22] MEDS: CITALOPRAM HYDROBROMIDE 20 MG TAB PO SCH (17:04)
[2017-04-22 18:05] LABS: IRON (FE) 196 MCG/DL (50-170)
[2017-04-22 18:14] LABS: % SATURATION IRON PROFILE 90.9 % (20-50); FERRITIN 1302 NG/ML (8-252); TOTAL IRON BINDING CAPACITY 216 MCG/DL (250-450)
[2017-04-22 18:30] LABS: FOLATE GREATER THAN 20.0 NG/ML (3.1-17.5)
[2017-04-22 20:00] VITALS: BP 130/71; PULSE 80; RESP 19; TEMP 97; O2SAT 97
[2017-04-22] MEDS: SODIUM CHLORIDE 0.9% FLUSH 10 ML FLUSH IV FLUSH SCH (20:16)
[2017-04-22] MEDS: DOCUSATE SODIUM 50 MG/SENNA 8.6 MG TAB PO SCH (20:16)
[2017-04-22] MEDS ORDERED: TEMAZEPAM 15 MG CAP PO PRN (21:00)
[2017-04-23] VITALS (7 sets, daily range): BP systolic 109–165; BP diastolic 55–73; PULSE 69–76; RESP 16–18; TEMP 96.8–98; O2SAT 94–97
[2017-04-23] MEDS: SODIUM CHLOR 0.9% 1000 ML INJ 1,000 ML IV SCH ×3 (00:28→23:46)
[2017-04-23] MEDS: IBUPROFEN 400 MG TAB PO SCH ×4 (00:28→18:06)
[2017-04-23 07:32] LABS: AUTOMATED NEUTROPHIL # 2.9 TH/MM3 (1.8-7.7); BASOPHIL # 0.1 TH/MM3 (0-0.2); BASOPHIL % 1.1 % (0.0-2.0); EOSINOPHIL # 0.3 TH/MM3 (0-0.4); EOSINOPHIL % 5.4 % (0.0-4.0); HEMATOCRIT 35.5 % (35.0-46.0); HEMOGLOBIN 11.9 GM/DL (11.6-15.3); LYMPH % 23.4 % (9.0-44.0); LYMPHOCYTE # 1.2 TH/MM3 (1.0-4.8); MEAN CELL VOLUME 103.4 FL (80.0-100.0); MEAN CORPUSCULAR HEMOGLOBIN 34.8 PG (27.0-34.0); MEAN CORPUSCULAR HGB CONC 33.6 % (32.0-36.0); MONO % 14.1 % (0.0-8.0); MONOCYTE # 0.7 TH/MM3 (0-0.9); PLATELET COUNT 260 TH/MM3 (150-450); RED BLOOD COUNT 3.44 MIL/MM3 (4.00-5.30); RED CELL DISTRIBUTION WIDTH 15.6 % (11.6-17.2); WHITE BLOOD COUNT 5.2 TH/MM3 (4.0-11.0)
[2017-04-23 07:40] LABS: INTERNATIONAL NORMALIZED RATIO 1.1 RATIO; PROTHROMBIN TIME - PATIENT 10.7 SEC (9.8-11.6)
[2017-04-23 08:05] LABS: ALT (GPT) 221 U/L (10-53); AST (GOT) 178 U/L (15-37); BICARBONATE 23.6 MEQ/L (21.0-32.0); BLOOD UREA NITROGEN 5 MG/DL (7-18); CALCIUM 8.3 MG/DL (8.5-10.1); CHLORIDE 106 MEQ/L (98-107); CREATININE 0.81 MG/DL (0.50-1.00); GLOMERULAR FILTRATION RATE 71 ML/MIN (>89); GLUCOSE,RANDOM 77 MG/DL (74-106); SODIUM (NA) 138 MEQ/L (136-145)
[2017-04-23 08:14] LABS: ALKALINE PHOSPHATASE 100 U/L (45-117); TOTAL BILIRUBIN ADULT 1.7 MG/DL (0.2-1.0); TOTAL PROTEIN 5.6 GM/DL (6.4-8.2)
[2017-04-23] MEDS: SODIUM CHLORIDE 0.9% FLUSH 10 ML FLUSH IV FLUSH SCH ×2 (08:48→20:08)
[2017-04-23] MEDS: ATENOLOL 50 MG TAB PO SCH (08:48)
[2017-04-23] MEDS: DOCUSATE SODIUM 50 MG/SENNA 8.6 MG TAB PO SCH ×2 (08:48→20:13)
[2017-04-23] MEDS: FOLIC ACID 1 MG TAB PO SCH (08:48)
[2017-04-23] MEDS: MULTIVITAMINS/MINERALS THERAPEUTIC TAB PO SCH (08:48)
[2017-04-23] MEDS: FAMOTIDINE 20 MG TAB PO SCH ×2 (08:48→20:08)
[2017-04-23] MEDS: THIAMINE HCL 100 MG TAB PO SCH (08:48)
[2017-04-23] MEDS: CITALOPRAM HYDROBROMIDE 20 MG TAB PO SCH (08:48)
[2017-04-23] MEDS: ONDANSETRON HCL 4 MG/2 ML VIAL IVP PRN (09:00)
[2017-04-23] MEDS: LORazepam 1 MG TAB PO PRN ×2 (09:00→20:13)
[2017-04-23 10:16] LABS: HEPATITIS A AB IGM NEGATIVE (NEGATIVE); HEPATITIS B CORE AB IGM NEGATIVE (NEGATIVE); HEPATITIS B SURFACE ANTIGEN NEGATIVE (NEGATIVE); HEPATITIS C AB IgG NEGATIVE (NEGATIVE)
[2017-04-23] MEDS: ENOXAPARIN SODIUM 40 MG/0.4 ML SYRINGE SQ SCH (11:23)
--- NOTE | 2017-04-23 11:39 | HHI.FPPN ---
Subjective Remarks Sitting up in bed. Still feels nauseous but no vomiting. Continues to have watery diarrhea. Feels only slightly better. No headache, blurry vision, chest pain, shortness of breath, abdominal pain. No calf tenderness or swelling. Tachycardia resolved with IV fluids. (Ernie Singh MD R3) Objective Vitals Vital Signs Date Time Temp Pulse Resp B/P (MAP) Pulse Ox O2 Delivery O2 Flow Rate FiO2 04/23/17 08:00 97.9 72 18 109/55 (73) 96 04/23/17 03:20 20 04/23/17 00:26 97.7 76 16 133/73 (93) 94 04/22/17 20:00 97.0 80 19 130/71 (90) 97 04/22/17 16:00 98.2 79 18 143/67 (92) 96 04/22/17 15:06 04/22/17 15:02 109 16 202/83 (122) 98 Room Air 04/22/17 12:43 97 21 I/O 04/22/17 04/22/17 04/22/17 04/23/17 04/23/17 04/23/17 07:00 15:00 23:00 07:00 15:00 23:00 Intake Total 1000 ml 1100 ml 240 ml Output Total 600 ml Balance 1000 ml 500 ml 240 ml Intake Oral 1100 ml 240 ml IV Total 1000 ml Output Urine Total 600 ml # Voids 1 1 1 # Bowel Movements 5 (Ernie Singh MD R3) Result Diagram: 04/23/17 0654 04/23/17 0654 Imaging Last 72 hours Impressions Abdomen/Pelvis CT 04/22/17 1004 Signed Impressions: Service Date/Time: April 10:26 - CONCLUSION: 1. Fatty liver. 2. Left ovarian cyst and calcified fibroid within the uterus. K. Mitchell Venegas MD Gall Bladder Ultrasound 04/22/17 0852 Signed Impressions: Service Date/Time: April 09:18 - CONCLUSION: 1. Mild dilatation the common duct with nonvisualization of the pancreatic head. No evidence of cholelithiasis. 2. CT scan can be performed for further evaluation of the pancreas. Ricki Pappas MD Objective Remarks General: Thin female, lying in bed, no distress Skin: No rashes or lesions, no jaundice, normal skin turgor HEENT: Normocephalic, no conjunctivitis or scleral icterus, no nasal discharge, normal pharynx, has lower teeth extractions, diffuse soft tissue swelling but no abscess or drainage, somewhat dry mucous membranes. No Damaso-Heidy rings. Neck: No thyromegaly or lymphadenopathy CV: Regular rate, regular rhythm, no murmurs, rubs, or gallops, rapid pulse, normal cap refill Lungs: CTAB Abdomen: Soft, nontender, nondistended, normal bowel sounds, no organomegaly, no masses, negative Ferguson sign Ext: No swelling, fair range of motion Neuro: Awake, alert, no distress Psych: Appropriate affect, no suicidal ideation, logical thought processes, fair insight (Ernie Singh MD R3) A/P Assessment and Plan 66 year old female presents with nausea and diarrhea, transaminitis, found to have significantly elevated iron levels. Discharge Planning Pending recommendations by gastroenterology, resolved diarrhea and good hydration status. (Ernie Singh MD R3) Attending Attestation THIS CASE WAS DISCUSSED WITH THE RESIDENT PHYSICIAN Dr Keyla Singh, Patient seen and examined. I HAVE REVIEWED THE RECORD AND AGREE WITH THE ABOVE NOTE AND PLAN OF CARE WAS DISCUSSED. I HAVE AUTHORIZED THE ORDER SET (Riccardo Melchor MD) Problem List: (1) Elevated ferritin level ICD Codes: R79.89 - Other specified abnormal findings of blood chemistry Status: Acute Plan: Elevated ferritin and transferrin levels, in the setting of acute liver injury. Ferritin is 1302 and transferrin 91%. Concerning for possible hemochromatosis. - Follow up on hemochromatosis studies to confirm diagnosis. - If she has hemochromatosis will need weekly or biweekly phlebotomies. - Will need monitoring of her liver as an outpatient. (2) Transaminitis ICD Codes: R74.0 - Nonspecific elevation of levels of transaminase and lactic acid dehydrogenase [LDH] Status: Acute Plan: New onset transaminitis. Initial AST/ALT is 407/355. ALP is 125, trending down. Total bilirubin is normal. Gallbladder ultrasound shows mild dilatation of the common duct. CT abdomen shows fatty liver. She also has increased alcohol abuse lately. She does not report significant amounts of Tylenol use. No new recent medications. Does not report drug use. MCV elevated to 104. Ferritin and transferrin saturation are significantly elevated, concerning for possible hemochromatosis. Coag panel relatively normal. - Consult gastroenterology for new onset transaminitis, appreciate recommendations. - May benefit from ERCP or MRCP for further evaluation of the biliary tract, will defer to gastroenterology. - Check tissue transglutaminase antibodies to rule out celiac disease. - Counseling on alcohol abuse, consult case management. - Avoid hepatotoxic agents. - Further workup depending on results of the above and liver functioning trends. (3) Dehydration, moderate ICD Codes: E86.0 - Dehydration Status: Acute Plan: Acute dehydration due to 7 to 8 episodes of diarrhea per day. Electrolytes stable, GFR somewhat reduced, likely prerenal. Urine specific gravity 1.015. Tachycardic initially, now resolved. Blood pressures stable. - Received liter bolus of normal saline in ED. - Continue with NS at maintenance, assess hydration status. - Encourage good PO intake, monitor I's and O's. (4) Diarrhea ICD Codes: R19.7 - Diarrhea, unspecified Status: Acute Plan: 7-8 bouts of diarrhea daily for the past few days. Watery, no blood or mucous present. CT just showing fatty liver, gallbladder ultrasound showing dilated CBD. - Give NS at maintenance. - Monitor hydration status, encourage good PO intake. - Stool studies, c diff toxin (5) Nausea alone ICD Codes: R11.0 - Nausea Status: Acute Plan: Acute nausea with diarrhea, no abdominal pain. Lipase normal. CT showing fatty liver, gallbladder ultrasound showing slightly dilated common duct. - Give Zofran 4 mg IV q6hrs for nausea. - See plans above. (6) Depression with anxiety ICD Codes: F41.8 - Other specified anxiety disorders Status: Chronic Plan: Recent increase in depression and anxiety, currently being treated with buspirone. Had good effect with citalopram in the past. - Will start low dose Citalopram at 20 mg daily. - Can continue Buspirone for augmentation with concomitant anxiety, but the evidence for augmentation with Buspirone being very effective is weak. May consider just discontinuing it. Could also contribute to nausea and diarrhea. - Temazepam at night for insomnia. (7) Pain, dental ICD Codes: K08.89 - Other specified disorders of teeth and supporting structures Status: Acute Plan: Acute dental pains secondary to bottom teeth extraction, 6 teeth on the bottom. No signs of dental infection. - Ibuprofen 400 mg [id number] scheduled for pain. - Titrate pain medication to effect. (8) Alcohol abuse ICD Codes: F10.10 - Alcohol abuse, uncomplicated Status: Chronic Plan: Recent increase in drinking habits, may help explain transaminitis and nausea episodes. - [facility] protocol - Thiamine, folic acid, multivitamin daily - Counseling on alcohol abuse - Consult case management, would benefit from outpatient services. (9) Smoker ICD Codes: F17.200 - Nicotine dependence, unspecified, uncomplicated Status: Chronic Plan: Chronic pack per day smoker, has tried patches in the past. - Encourage quitting smoking, educate on options for assistance. (10) Nutrition, metabolism, and development symptoms ICD Codes: R63.8 - Other symptoms and signs concerning food and fluid intake Status: Acute Plan: IV fluids with normal saline at maintenance, monitor hydration status Monitor electrolytes and renal function Soft regular diet for recent dental extraction (11) No contraindication to deep vein thrombosis (DVT) prophylaxis ICD Codes: Z78.9 - Other specified health status Status: Acute Plan: Continue Lovenox 40 mg daily Encourage mobilization (Ernie Singh MD R3) Problem Qualifiers (1) Diarrhea: Qualified Codes: R19.7 - Diarrhea, unspecified Ernie Singh MD R3 Apr 23, 2017 11:39 Riccardo Melchor MD Apr 23, 2017 15:32
--- NOTE | 2017-04-23 13:32 | HHI.GIFU ---
Subjective Remarks Pt resting in bed, in no apparent distress. She does report poor appetite due to some nausea. Has been able to eat a few bites of every meal. Was having some "shakiness" but improved after Ativan. Denies vomiting and abdominal pain. Still experiencing diarrhea. Objective Vitals I&O Vital Signs Date Time Temp Pulse Resp B/P (MAP) Pulse Ox O2 Delivery O2 Flow Rate FiO2 04/23/17 12:00 97.9 74 16 130/62 (84) 96 04/23/17 08:00 97.9 72 18 109/55 (73) 96 04/23/17 03:20 20 04/23/17 00:26 97.7 76 16 133/73 (93) 94 04/22/17 20:00 97.0 80 19 130/71 (90) 97 04/22/17 16:00 98.2 79 18 143/67 (92) 96 04/22/17 15:06 04/22/17 15:02 109 16 202/83 (122) 98 Room Air I/O 04/22/17 04/22/17 04/22/17 04/23/17 04/23/17 04/23/17 07:00 15:00 23:00 07:00 15:00 23:00 Intake Total 1000 ml 1100 ml 240 ml Output Total 600 ml Balance 1000 ml 500 ml 240 ml Intake Oral 1100 ml 240 ml IV Total 1000 ml Output Urine Total 600 ml # Voids 1 1 1 # Bowel Movements 5 Laboratory Laboratory Tests Test 04/22/17 16:54 04/23/17 06:45 04/23/17 06:54 Iron Level 196 Total Iron Binding Capacity 216 Percent Iron Saturation 90.9 Ferritin 1302 Vitamin B12 Level 766 Folate GREATER THAN 20.0 Thyroid Stimulating Hormone 3rd Gen 1.290 Hepatitis A IgM Antibody NEGATIVE Hepatitis B Surface Antigen NEGATIVE Hepatitis B Core IgM Antibody NEGATIVE Hepatitis C Antibody NEGATIVE Prothrombin Time 10.7 Prothromb Time International Ratio 1.1 White Blood Count 5.2 Red Blood Count 3.44 Hemoglobin 11.9 Hematocrit 35.5 Mean Corpuscular Volume 103.4 Mean Corpuscular Hemoglobin 34.8 Mean Corpuscular Hemoglobin Concent 33.6 Red Cell Distribution Width 15.6 Platelet Count 260 Mean Platelet Volume 8.0 Neutrophils (%) (Auto) 56.0 Lymphocytes (%) (Auto) 23.4 Monocytes (%) (Auto) 14.1 Eosinophils (%) (Auto) 5.4 Basophils (%) (Auto) 1.1 Neutrophils # (Auto) 2.9 Lymphocytes # (Auto) 1.2 Monocytes # (Auto) 0.7 Eosinophils # (Auto) 0.3 Basophils # (Auto) 0.1 CBC Comment DIFF FINAL Differential Comment Blood Urea Nitrogen 5 Creatinine 0.81 Random Glucose 77 Total Protein 5.6 Albumin 3.0 Calcium Level 8.3 Alkaline Phosphatase 100 Aspartate Amino Transf (AST/SGOT) 178 Alanine Aminotransferase (ALT/SGPT) 221 Total Bilirubin 1.7 Sodium Level 138 Potassium Level 3.9 Chloride Level 106 Carbon Dioxide Level 23.6 Anion Gap 8 Estimat Glomerular Filtration Rate 71 Imaging Last Impressions Abdomen/Pelvis CT 04/22/17 1004 Signed Impressions: Service Date/Time: April 10:26 - CONCLUSION: 1. Fatty liver. 2. Left ovarian cyst and calcified fibroid within the uterus. KKumar Venegas MD Gall Bladder Ultrasound 04/22/17 0852 Signed Impressions: Service Date/Time: April 09:18 - CONCLUSION: 1. Mild dilatation the common duct with nonvisualization of the pancreatic head. No evidence of cholelithiasis. 2. CT scan can be performed for further evaluation of the pancreas. Ricki Pappas MD Physical Exam HEENT: Normocephalic; atraumatic CHEST: Even/unlabored CARDIAC: RRR ABDOMEN: Soft, nontender; bowel sounds active x 4 EXTREMITIES: No clubbing, cyanosis, or edema. SKIN: Normal; no rash SLD INCLUSION TEACHER: No focal deficits; alert and oriented times three. Assessment and Plan Plan Assessment: - Transaminitis- Pt denies history of liver issues. However, just started seeing a PCP recently and has never seen a GI doctor. Reports heavy ETOH, 4-5 drinks of wine a day since she was 21 years old. Denies Tylenol use, herbs, supplements. Has recently been started on multiple new medications as per HPI. Symptoms currently nausea and diarrhea. Denies fever, chills, sick contacts, abdominal pain, vomiting. Recent travel to [place], denies out of the country travel. Currently AST-407 ALT-355 Alk phos-125 T bili- 0.8. CT abdomen and pelvis W IV contrast (04/22) --> Fatty liver. Left ovarian cyst and calcified fibroid within the uterus. Gallbladder US (04/22) --> Mild dilation of the common duct with nonvisualization of the pancreatic head. No evidence of cholelithiasis. DF is 5, no indication for steroids at this time. Lipase-216. 04/23 LFTs improving today. AST-178 ALT-221 Alk phos-100. Hepatitis panel negative. Rest of liver CHIU pending. Pt reports some nausea today and was experiencing some shakiness but improved with Ativan. Plan to continue to monitor labs. Pt is also complaining of diarrhea, will order stool studies. Consider colonoscopy on Wednesday if pt is still admitted. Stool studies pending. Plan: - Liver work (VALERIO, ASMA, AMA, hepatitis panel, Ceruloplasmin, TIBC and ferritin , alpha-1 antitrypsin) - Stool studies pending - Possible colonoscopy on Wednesday if pt is still admitted - Avoid hepatotoxic agents - Discussed with patient importance of avoiding ETOH - Supportive care - Further recommendations to follow based on results of above Pt has been seen and examined by myself and Dr. Rhoades and this note is written on his behalf Luisa Ospina Apr 23, 2017 13:32
[2017-04-23 14:53] LABS: ANA SCREEN POS (NEG)
[2017-04-24] VITALS: BP 130/71; PULSE 64; RESP 18; TEMP 96.2; O2SAT 94
[2017-04-24] MEDS: IBUPROFEN 400 MG TAB PO SCH ×2 (00:41→06:02)
[2017-04-24 08:00] VITALS: BP 115/66; PULSE 78; RESP 17; TEMP 97.3; O2SAT 98
[2017-04-24 09:08] LABS: HEMATOCRIT 35.5 % (35.0-46.0); HEMOGLOBIN 11.9 GM/DL (11.6-15.3); MEAN CELL VOLUME 104.2 FL (80.0-100.0); MEAN CORPUSCULAR HEMOGLOBIN 34.9 PG (27.0-34.0); MEAN CORPUSCULAR HGB CONC 33.5 % (32.0-36.0); MEAN PLATELET VOLUME 8.2 FL (7.0-11.0); PLATELET COUNT 253 TH/MM3 (150-450); RED CELL DISTRIBUTION WIDTH 15.9 % (11.6-17.2); WHITE BLOOD COUNT 5.2 TH/MM3 (4.0-11.0)
[2017-04-24] MEDS: SODIUM CHLOR 0.9% 1000 ML INJ 1,000 ML IV SCH ×2 (09:35→20:12)
[2017-04-24] MEDS: THIAMINE HCL 100 MG TAB PO SCH (09:36)
[2017-04-24] MEDS: MULTIVITAMINS/MINERALS THERAPEUTIC TAB PO SCH (09:36)
[2017-04-24] MEDS: CITALOPRAM HYDROBROMIDE 20 MG TAB PO SCH (09:36)
[2017-04-24] MEDS: ATENOLOL 50 MG TAB PO SCH (09:37)
[2017-04-24] MEDS: FOLIC ACID 1 MG TAB PO SCH (09:37)
[2017-04-24] MEDS: DOCUSATE SODIUM 50 MG/SENNA 8.6 MG TAB PO SCH ×2 (09:37→20:12)
[2017-04-24] MEDS: FAMOTIDINE 20 MG TAB PO SCH ×2 (09:37→20:11)
[2017-04-24] MEDS: SODIUM CHLORIDE 0.9% FLUSH 10 ML FLUSH IV FLUSH SCH ×2 (09:38→20:12)
[2017-04-24 09:41] LABS: CALCIUM 8.2 MG/DL (8.5-10.1); CREATININE 0.71 MG/DL (0.50-1.00)
[2017-04-24] MEDS ORDERED: DIAZEPAM 2 MG TAB PO ONE (10:00)
--- NOTE | 2017-04-24 11:26 | HHI.FPPN ---
Subjective Remarks Sitting up in bed, no distress. Continuing to have nausea but is improving. No vomiting overnight. Continuing to have diarrhea but it is improving. No abdominal pain. No chest pain or shortness of breath. No calf pain or swelling. Still with poor appetite and PO intake. Eating triggers feelings of nausea. Objective Vitals Vital Signs Date Time Temp Pulse Resp B/P (MAP) Pulse Ox O2 Delivery O2 Flow Rate FiO2 04/24/17 08:00 97.3 78 17 115/66 (82) 98 04/24/17 07:02 20 04/24/17 00:00 96.2 64 18 130/71 (90) 94 04/23/17 20:00 96.8 69 16 165/73 (103) 97 04/23/17 17:36 97 21 04/23/17 16:00 98.0 75 18 135/62 (86) 97 04/23/17 12:00 97.9 74 16 130/62 (84) 96 04/23/17 11:30 96 I/O 04/23/17 04/23/17 04/23/17 04/24/17 04/24/17 04/24/17 07:00 15:00 23:00 07:00 15:00 23:00 Intake Total 240 ml 1000 ml 2280 ml 120 ml Output Total 900 ml 300 ml Balance 240 ml 1000 ml 1380 ml -180 ml Intake Oral 240 ml 2280 ml 120 ml IV Total 1000 ml Output Urine Total 900 ml 300 ml # Voids 1 # Bowel Movements 1 2 Result Diagram: 04/24/17 0844 04/24/17 0844 Imaging Last 72 hours Impressions Abdomen/Pelvis CT 04/22/17 1004 Signed Impressions: Service Date/Time: April 10:26 - CONCLUSION: 1. Fatty liver. 2. Left ovarian cyst and calcified fibroid within the uterus. KKumar Venegas MD Gall Bladder Ultrasound 04/22/17 0852 Signed Impressions: Service Date/Time: April 09:18 - CONCLUSION: 1. Mild dilatation the common duct with nonvisualization of the pancreatic head. No evidence of cholelithiasis. 2. CT scan can be performed for further evaluation of the pancreas. Ricki Pappas MD Objective Remarks General: Thin female, sitting up in bed, no distress Skin: No rashes or lesions, no jaundice, normal skin turgor HEENT: Normocephalic, no conjunctivitis or scleral icterus, no nasal discharge, normal pharynx, has lower teeth extractions, diffuse soft tissue swelling but no abscess or drainage, somewhat dry mucous membranes. No Damaso-Heidy rings. Neck: No thyromegaly or lymphadenopathy CV: Regular rate, regular rhythm, no murmurs, rubs, or gallops, rapid pulse, normal cap refill Lungs: CTAB Abdomen: Soft, nontender, nondistended, normal bowel sounds, no organomegaly, no masses, negative Ferguson sign Ext: No swelling, fair range of motion Neuro: Awake, alert, no distress, mild intention tremor. Psych: Appropriate affect, no suicidal ideation, logical thought processes, fair insight. Appears more anxious this morning. A/P Assessment and Plan 66 year old female presents with nausea and diarrhea, poor appetite, dehdyration , transaminitis, found to have significantly elevated iron levels. Discharge Planning Pending recommendations by gastroenterology, resolved diarrhea and good hydration status. Likely will undergo colonoscopy on 04/26/17. Following up on hemochromatosis studies. Problem List: (1) Elevated ferritin level ICD Codes: R79.89 - Other specified abnormal findings of blood chemistry Status: Acute Plan: Elevated ferritin and transferrin levels, in the setting of acute liver injury. Ferritin is 1302 and transferrin 91%. Concerning for possible hemochromatosis. - Follow up on hemochromatosis studies to confirm diagnosis. - If she has hemochromatosis will need weekly or biweekly phlebotomies. - Will need monitoring of her liver as an outpatient. (2) Transaminitis ICD Codes: R74.0 - Nonspecific elevation of levels of transaminase and lactic acid dehydrogenase [LDH] Status: Acute Plan: New onset transaminitis. Initial AST/ALT is 407/355. ALP is 125, trending down. Total bilirubin is normal. Gallbladder ultrasound shows mild dilatation of the common duct. CT abdomen shows fatty liver. She also has increased alcohol abuse lately. She does not report significant amounts of Tylenol use. No new recent medications. Does not report drug use. MCV elevated to 104. Ferritin and transferrin saturation are significantly elevated, concerning for possible hemochromatosis. Coag panel relatively normal. VALERIO is positive. - Consult gastroenterology for new onset transaminitis, appreciate recommendations. - May benefit from MRCP/ERCP, defer to gastroenterology. - Check tissue transglutaminase antibodies to rule out celiac disease. - VALERIO is positive, awaiting titers and further delineation of type. - Counseling on alcohol abuse, consult case management. - Avoid hepatotoxic agents. - Further workup depending on results of the above and liver functioning trends. - Will likely undergo colonoscopy on 04/26/17. (3) Dehydration, moderate ICD Codes: E86.0 - Dehydration Status: Acute Plan: Acute dehydration due to 7 to 8 episodes of diarrhea per day. Electrolytes stable, GFR somewhat reduced, likely prerenal. Urine specific gravity 1.015. Tachycardic initially, now resolved. Blood pressures stable. Diarrhea starting to improve. - Received liter bolus of normal saline in ED. - Continue with NS at maintenance, assess hydration status. - Encourage good PO intake, monitor I's and O's. - Stood studies pending. (4) Diarrhea ICD Codes: R19.7 - Diarrhea, unspecified Status: Acute Plan: 7-8 bouts of diarrhea daily for the past few days. Watery, no blood or mucous present. CT just showing fatty liver, gallbladder ultrasound showing dilated CBD. - Give NS at maintenance. - Monitor hydration status, encourage good PO intake. - Stool studies, c diff toxin (5) Nausea alone ICD Codes: R11.0 - Nausea Status: Acute Plan: Acute nausea with diarrhea, no abdominal pain. Lipase normal. CT showing fatty liver, gallbladder ultrasound showing slightly dilated common duct. - Give Zofran 4 mg IV q6hrs for nausea. - See plans above. (6) Depression with anxiety ICD Codes: F41.8 - Other specified anxiety disorders Status: Chronic Plan: Recent increase in depression and anxiety, currently being treated with buspirone. Had good effect with citalopram in the past. - Will start low dose Citalopram at 20 mg daily. - Can continue Buspirone for augmentation with concomitant anxiety, but the evidence for augmentation with Buspirone being very effective is weak. May consider just discontinuing it. Could also contribute to nausea and diarrhea. - Temazepam at night for insomnia. - Recommend counseling as an outpatient. - Will give low dose Diazepam while in hospital for acute anxiety. (7) Pain, dental ICD Codes: K08.89 - Other specified disorders of teeth and supporting structures Status: Acute Plan: Acute dental pains secondary to bottom teeth extraction, 6 teeth on the bottom. No signs of dental infection. - Ibuprofen 400 mg [id number] scheduled for pain. - Titrate pain medication to effect. (8) Alcohol abuse ICD Codes: F10.10 - Alcohol abuse, uncomplicated Status: Chronic Plan: Recent increase in drinking habits, may help explain transaminitis and nausea episodes. CIWA scores mostly low so far. Has mild intention tremor. - CIWA protocol - Thiamine, folic acid, multivitamin daily - Counseling on alcohol abuse - Consult case management, would benefit from outpatient services. (9) Smoker ICD Codes: F17.200 - Nicotine dependence, unspecified, uncomplicated Status: Chronic Plan: Chronic pack per day smoker, has tried patches in the past. - Encourage quitting smoking, educate on options for assistance. (10) Nutrition, metabolism, and development symptoms ICD Codes: R63.8 - Other symptoms and signs concerning food and fluid intake Status: Acute Plan: IV fluids with normal saline at maintenance, monitor hydration status Monitor electrolytes and renal function Soft regular diet for recent dental extraction (11) No contraindication to deep vein thrombosis (DVT) prophylaxis ICD Codes: Z78.9 - Other specified health status Status: Acute Plan: Continue Lovenox 40 mg daily Encourage mobilization Problem Qualifiers (1) Diarrhea: Qualified Codes: R19.7 - Diarrhea, unspecified Ernie Singh MD R3 Apr 24, 2017 11:26
[2017-04-24] MEDS: ENOXAPARIN SODIUM 40 MG/0.4 ML SYRINGE SQ SCH (11:39)
[2017-04-24 12:00] VITALS: BP 129/81; PULSE 66; RESP 17; TEMP 97.5; O2SAT 97
[2017-04-24 12:00] LABS: ALPHA-1-ANTITRYPSIN 128 mg/dL (100 - 190)
[2017-04-24 13:46] LABS: SMOOTH MUSCLE TOTAL AUTOABS Negative (Negative)
[2017-04-24 16:00] VITALS: BP 136/65; PULSE 73; RESP 17; TEMP 97.2; O2SAT 97
[2017-04-24 17:35] VITALS: O2SAT 97
[2017-04-24 20:33] VITALS: BP 131/61; PULSE 70; RESP 17; TEMP 97.6; O2SAT 94
[2017-04-25 00:25] VITALS: BP 127/73; PULSE 79; RESP 18; TEMP 97.9; O2SAT 96
[2017-04-25] MEDS: ONDANSETRON HCL 4 MG/2 ML VIAL IVP PRN (04:17)
[2017-04-25 08:00] VITALS: BP 133/63; PULSE 72; RESP 17; TEMP 96.4; O2SAT 96
[2017-04-25] MEDS: SODIUM CHLOR 0.9% 1000 ML INJ 1,000 ML IV SCH ×2 (08:17→19:27)
[2017-04-25] MEDS: SODIUM CHLORIDE 0.9% FLUSH 10 ML FLUSH IV FLUSH SCH ×2 (08:18→19:27)
[2017-04-25] MEDS: THIAMINE HCL 100 MG TAB PO SCH (08:18)
[2017-04-25] MEDS: CITALOPRAM HYDROBROMIDE 20 MG TAB PO SCH (08:18)
[2017-04-25] MEDS: FAMOTIDINE 20 MG TAB PO SCH (08:18)
[2017-04-25] MEDS: DOCUSATE SODIUM 50 MG/SENNA 8.6 MG TAB PO SCH ×2 (08:18→19:27)
[2017-04-25] MEDS: FOLIC ACID 1 MG TAB PO SCH (08:18)
[2017-04-25] MEDS: ATENOLOL 50 MG TAB PO SCH (08:18)
[2017-04-25] MEDS: MULTIVITAMINS/MINERALS THERAPEUTIC TAB PO SCH (08:18)
[2017-04-25 09:25] VITALS: O2SAT 98
--- NOTE | 2017-04-25 10:25 | HHI.FPPN ---
Subjective Remarks Resting in bed, no distress. Diarrhea has resolved. Ate a good meal last night but then had nausea overnight. No vomiting. No abdominal pain. No chest pain or shortness of breath. No calf swelling or tenderness. Eager to have colonoscopy tomorrow. Objective Vitals Vital Signs Date Time Temp Pulse Resp B/P (MAP) Pulse Ox O2 Delivery O2 Flow Rate FiO2 04/25/17 08:00 96.4 72 17 133/63 (86) 96 04/25/17 00:25 97.9 79 18 127/73 (91) 96 04/24/17 20:33 97.6 70 17 131/61 (84) 94 04/24/17 17:35 97 21 04/24/17 16:00 97.2 73 17 136/65 (88) 97 04/24/17 12:00 97.5 66 17 129/81 (97) 97 I/O 04/24/17 04/24/17 04/24/17 04/25/17 04/25/17 04/25/17 07:00 15:00 23:00 07:00 15:00 23:00 Intake Total 120 ml 2200 ml 580 ml Output Total 300 ml 1000 ml Balance -180 ml 2200 ml -420 ml Intake Oral 120 ml 1200 ml 580 ml IV Total 1000 ml Output Urine Total 300 ml 1000 ml # Voids 4 # Bowel Movements 2 1 Result Diagram: 04/24/17 0844 04/24/17 0844 Objective Remarks General: Thin female, sitting up in bed, no distress Skin: No rashes or lesions, no jaundice, normal skin turgor HEENT: Normocephalic, no conjunctivitis or scleral icterus, no nasal discharge, normal pharynx, has lower teeth extractions, diffuse soft tissue swelling but no abscess or drainage, somewhat dry mucous membranes. No Damaso-Heidy rings. Neck: No thyromegaly or lymphadenopathy CV: Regular rate, regular rhythm, no murmurs, rubs, or gallops, rapid pulse, normal cap refill Lungs: CTAB Abdomen: Soft, nontender, nondistended, normal bowel sounds, no organomegaly, no masses, negative Ferguson sign Ext: No swelling, fair range of motion Neuro: Awake, alert, no distress, mild intention tremor. Psych: Appropriate affect, no suicidal ideation, logical thought processes, fair insight. Anxiety much improved. Procedures Pending colonoscopy on 04/26/17. A/P Assessment and Plan 66 year old female presents with nausea and diarrhea, poor appetite, dehydration , transaminitis, found to have significantly elevated iron levels. Discharge Planning Pending recommendations by gastroenterology, resolved diarrhea and good hydration status. Likely will undergo colonoscopy on 04/26/17. Following up on hemochromatosis studies. Problem List: (1) Elevated ferritin level ICD Codes: R79.89 - Other specified abnormal findings of blood chemistry Status: Acute Plan: Elevated ferritin and transferrin levels, in the setting of acute liver injury. Ferritin is 1302 and transferrin 91%. Concerning for possible hemochromatosis. - Follow up on hemochromatosis studies to confirm diagnosis. - If she has hemochromatosis will need weekly or every other week phlebotomies. - Will need monitoring of her liver as an outpatient. - Per patient, she has no living first degree relatives, therefore no one that would need to be checked for hemochromatosis should she be positive. (2) Transaminitis ICD Codes: R74.0 - Nonspecific elevation of levels of transaminase and lactic acid dehydrogenase [LDH] Status: Acute Plan: New onset transaminitis. Initial AST/ALT is 407/355. ALP is 125, trending down. Total bilirubin is normal. Gallbladder ultrasound shows mild dilatation of the common duct. CT abdomen shows fatty liver. She also has increased alcohol abuse lately. She does not report significant amounts of Tylenol use. No new recent medications. Does not report drug use. MCV elevated to 104. Ferritin and transferrin saturation are significantly elevated, concerning for possible hemochromatosis. Coag panel relatively normal. VALERIO is positive. ASMA negative. - Consult gastroenterology for new onset transaminitis, appreciate recommendations. - May benefit from MRCP/ERCP, defer to gastroenterology. - Check tissue transglutaminase antibodies to rule out celiac disease. - VALERIO is positive, awaiting titers and further delineation of type. - Counseling on alcohol abuse, consult case management. - Avoid hepatotoxic agents. - Follow up further studies on liver injury. - Will likely undergo colonoscopy on 04/26/17. (3) Dehydration, moderate ICD Codes: E86.0 - Dehydration Status: Acute Plan: Acute dehydration due to 7 to 8 episodes of diarrhea per day. Electrolytes stable, GFR somewhat reduced, likely prerenal. Urine specific gravity 1.015. Tachycardic initially, now resolved. Blood pressures stable. Diarrhea starting to improve. - Received liter bolus of normal saline in ED. - Continue with NS at maintenance, assess hydration status. - Encourage good PO intake, monitor I's and O's. - Stood studies pending. (4) Diarrhea ICD Codes: R19.7 - Diarrhea, unspecified Status: Acute Plan: 7-8 bouts of diarrhea daily for the past few days. Watery, no blood or mucous present. CT just showing fatty liver, gallbladder ultrasound showing dilated CBD. Now diarrhea resolved. - Give NS at maintenance. - Monitor hydration status, encourage good PO intake. - Stool studies, c diff toxin pending (5) Nausea alone ICD Codes: R11.0 - Nausea Status: Acute Plan: Acute nausea with diarrhea, no abdominal pain. Lipase normal. CT showing fatty liver, gallbladder ultrasound showing slightly dilated common duct. - Give Zofran 4 mg IV q6hrs for nausea. - See plans above. (6) Depression with anxiety ICD Codes: F41.8 - Other specified anxiety disorders Status: Chronic Plan: Recent increase in depression and anxiety, currently being treated with buspirone. Had good effect with citalopram in the past. - Will start low dose Citalopram at 20 mg daily. - Can continue Buspirone for augmentation with concomitant anxiety, but the evidence for augmentation with Buspirone being very effective is weak. May consider just discontinuing it. Could also contribute to nausea and diarrhea. - Temazepam at night for insomnia. - Recommend counseling as an outpatient. - Will give low dose Diazepam while in hospital for acute anxiety. (7) Alcohol abuse ICD Codes: F10.10 - Alcohol abuse, uncomplicated Status: Chronic Plan: Recent increase in drinking habits, may help explain transaminitis and nausea episodes. CIWA scores mostly low so far. Has mild intention tremor. - CIWA protocol - Thiamine, folic acid, multivitamin daily - Counseling on alcohol abuse - Consult case management, would benefit from outpatient services. (8) Smoker ICD Codes: F17.200 - Nicotine dependence, unspecified, uncomplicated Status: Chronic Plan: Chronic pack per day smoker, has tried patches in the past. - Encourage quitting smoking, educate on options for assistance. (9) Nutrition, metabolism, and development symptoms ICD Codes: R63.8 - Other symptoms and signs concerning food and fluid intake Status: Acute Plan: IV fluids with normal saline at maintenance, monitor hydration status Monitor electrolytes and renal function Soft regular diet for recent dental extraction, NPO after midnight for colonoscopy tomorrow (10) No contraindication to deep vein thrombosis (DVT) prophylaxis ICD Codes: Z78.9 - Other specified health status Status: Acute Plan: Continue Lovenox 40 mg daily Encourage mobilization Problem Qualifiers (1) Diarrhea: Qualified Codes: R19.7 - Diarrhea, unspecified Ernie Singh MD R3 Apr 25, 2017 10:25
[2017-04-25 10:36] LABS: ALBUMIN 2.7 GM/DL (3.4-5.0); ALT (GPT) 162 U/L (10-53); AST (GOT) 127 U/L (15-37); BICARBONATE 21.4 MEQ/L (21.0-32.0); BLOOD UREA NITROGEN 5 MG/DL (7-18); CALCIUM 8.2 MG/DL (8.5-10.1); CHLORIDE 102 MEQ/L (98-107); CREATININE 0.67 MG/DL (0.50-1.00); GLOMERULAR FILTRATION RATE 88 ML/MIN (>89); GLUCOSE,RANDOM 75 MG/DL (74-106); SODIUM (NA) 134 MEQ/L (136-145)
[2017-04-25 10:37] LABS: ALKALINE PHOSPHATASE 86 U/L (45-117); TOTAL BILIRUBIN ADULT 1.1 MG/DL (0.2-1.0); TOTAL PROTEIN 5.3 GM/DL (6.4-8.2)
[2017-04-25 12:00] VITALS: BP 129/62; PULSE 68; RESP 17; TEMP 97.3; O2SAT 97
[2017-04-25] MEDS: ENOXAPARIN SODIUM 40 MG/0.4 ML SYRINGE SQ SCH (12:43)
--- NOTE | 2017-04-25 15:27 | HHI.GIFU ---
Subjective Remarks Pt sitting up in bed. diarrhea improved somewhat. still nauseous but controlled with zofran. Objective Vitals I&O Vital Signs Date Time Temp Pulse Resp B/P (MAP) Pulse Ox O2 Delivery O2 Flow Rate FiO2 04/25/17 12:00 97.3 68 17 129/62 (84) 97 04/25/17 09:25 98 21 04/25/17 08:00 96.4 72 17 133/63 (86) 96 04/25/17 00:25 97.9 79 18 127/73 (91) 96 04/24/17 20:33 97.6 70 17 131/61 (84) 94 04/24/17 17:35 97 21 04/24/17 16:00 97.2 73 17 136/65 (88) 97 I/O 04/24/17 04/24/17 04/24/17 04/25/17 04/25/17 04/25/17 07:00 15:00 23:00 07:00 15:00 23:00 Intake Total 120 ml 2200 ml 580 ml 1000 ml Output Total 300 ml 1000 ml Balance -180 ml 2200 ml -420 ml 1000 ml Intake Oral 120 ml 1200 ml 580 ml IV Total 1000 ml 1000 ml Output Urine Total 300 ml 1000 ml # Voids 4 # Bowel Movements 2 1 Laboratory Laboratory Tests Test 04/25/17 09:53 04/25/17 10:40 Blood Urea Nitrogen 5 Creatinine 0.67 Random Glucose 75 Total Protein 5.3 Albumin 2.7 Calcium Level 8.2 Alkaline Phosphatase 86 Aspartate Amino Transf (AST/SGOT) 127 Alanine Aminotransferase (ALT/SGPT) 162 Total Bilirubin 1.1 Sodium Level 134 Potassium Level 3.0 Chloride Level 102 Carbon Dioxide Level 21.4 Anion Gap 11 Estimat Glomerular Filtration Rate 88 Stool C. difficile Toxin (PCR) NEGATIVE Stl C. difficile Toxin Epiderm 027 PRESUMPTIVE NEGATIVE Date/Time Source Procedure Growth Status 04/25/17 10:40 Stool Stool Cyclospora Exam Pending Received 04/25/17 10:40 Stool Stool Cryptosporidium Exam Pending Received 04/25/17 10:40 Stool Stool Giardia Antigen (DWAYNE) Pending Received Imaging Last Impressions Abdomen/Pelvis CT 04/22/17 1004 Signed Impressions: Service Date/Time: April 10:26 - CONCLUSION: 1. Fatty liver. 2. Left ovarian cyst and calcified fibroid within the uterus. Raimundo Venegas MD Gall Bladder Ultrasound 04/22/17 0852 Signed Impressions: Service Date/Time: April 09:18 - CONCLUSION: 1. Mild dilatation the common duct with nonvisualization of the pancreatic head. No evidence of cholelithiasis. 2. CT scan can be performed for further evaluation of the pancreas. Ricki Pappas MD Physical Exam HEENT: Normocephalic; atraumatic CHEST: Even/unlabored CARDIAC: RRR ABDOMEN: Soft, nontender; bowel sounds active x 4 EXTREMITIES: No clubbing, cyanosis, or edema. SKIN: Normal; no rash STRAWHAT BLOCKING OPERATOR: No focal deficits; alert and oriented times three. Assessment and Plan Plan Assessment: - nausea, diarrhea, reflux - unclear etiology stool studies pending, c diff neg. still with nausea diarrhea improved somewhat. hx heavy drinking denies sick contacts, abdominal pain, vomiting. Recent travel to [place], denies out of the country travel. CT abdomen and pelvis W IV contrast (04/22) --> Fatty liver. Left ovarian cyst and calcified fibroid within the uterus. Gallbladder US (04/22) --> Mild dilation of the common duct with nonvisualization of the pancreatic head. No evidence of cholelithiasis. never had EGD or colonoscopy will get EGD r/o gastritis, pud, sorto's; and colonoscopy - Transaminitis- Pt denies history of liver issues. However, just started seeing a PCP recently and has never seen a GI doctor. Reports heavy ETOH, 4-5 drinks of wine a day since she was 21 years old. Denies Tylenol use, herbs, supplements. Has recently been started on multiple new medications as per HPI. DF is 5, no indication for steroids at this time. Lipase-216. LFTs trending down. pos VALERIO rest of w/u pending hfe genes pending. CT as above Plan: - EGD colonoscopy in am - await liver w/u - Stool studies pending - ETOH cessation - Supportive care - Further recommendations to follow based on results of above Pt d/w Dr. Rhoades and this note is written on his behalf Brittni Amaya Apr 25, 2017 15:27
[2017-04-25 16:00] VITALS: BP 131/61; PULSE 65; RESP 17; TEMP 98.6; O2SAT 98
[2017-04-25] MEDS ORDERED: MAGNESIUM CITRATE SOLN 300 ML BTL PO ONE ×2 (16:00→18:00)
[2017-04-25] MEDS: PANTOPRAZOLE SOD 40 MG DELAYED RELEASE TAB PO SCH (17:02)
[2017-04-25 20:00] VITALS: BP 136/63; PULSE 68; RESP 17; TEMP 97.2; O2SAT 96
[2017-04-25] MEDS ORDERED: LACTATED RINGER'S 1000 ML IV PRN (23:30)
[2017-04-25] MEDS ORDERED: CHLORHEXIDINE GLUCONATE 2 % 1 PACK (2 CLOTHS) TOPICAL PRN (23:30)
[2017-04-25] MEDS ORDERED: POVIDONE IODINE 5% (ANTISEPSIS KIT) 4 APPLICATIONS EACH NARE PRN (23:30)
[2017-04-26] VITALS (7 sets, daily range): BP systolic 126–153; BP diastolic 62–83; PULSE 69–71; RESP 14–17; TEMP 96.8–97.6; O2SAT 95–97
[2017-04-26 07:35] LABS: HEMATOCRIT 33.3 % (35.0-46.0); HEMOGLOBIN 11.4 GM/DL (11.6-15.3); MEAN CORPUSCULAR HGB CONC 34.3 % (32.0-36.0); MEAN PLATELET VOLUME 8.8 FL (7.0-11.0); PLATELET COUNT 229 TH/MM3 (150-450); RED BLOOD COUNT 3.18 MIL/MM3 (4.00-5.30); RED CELL DISTRIBUTION WIDTH 15.9 % (11.6-17.2); WHITE BLOOD COUNT 5.5 TH/MM3 (4.0-11.0)
[2017-04-26 07:47] LABS: ALKALINE PHOSPHATASE 73 U/L (45-117); TOTAL BILIRUBIN ADULT 1.2 MG/DL (0.2-1.0); TOTAL PROTEIN 5.2 GM/DL (6.4-8.2)
[2017-04-26 07:57] LABS: ALBUMIN 2.5 GM/DL (3.4-5.0); ALT (GPT) 153 U/L (10-53); AST (GOT) 142 U/L (15-37); BICARBONATE 21.5 MEQ/L (21.0-32.0); BLOOD UREA NITROGEN 3 MG/DL (7-18); CHLORIDE 105 MEQ/L (98-107); CREATININE 0.63 MG/DL (0.50-1.00); GLOMERULAR FILTRATION RATE 95 ML/MIN (>89); GLUCOSE,RANDOM 57 MG/DL (74-106); SODIUM (NA) 137 MEQ/L (136-145)
[2017-04-26] MEDS: SODIUM CHLORIDE 0.9% FLUSH 10 ML FLUSH IV FLUSH SCH ×2 (08:33→20:47)
[2017-04-26] MEDS: MULTIVITAMINS/MINERALS THERAPEUTIC TAB PO SCH (08:34)
[2017-04-26] MEDS: DOCUSATE SODIUM 50 MG/SENNA 8.6 MG TAB PO SCH ×2 (08:34→20:47)
[2017-04-26] MEDS: CITALOPRAM HYDROBROMIDE 20 MG TAB PO SCH (08:34)
[2017-04-26] MEDS: FOLIC ACID 1 MG TAB PO SCH (08:34)
[2017-04-26] MEDS: ATENOLOL 50 MG TAB PO SCH (08:34)
[2017-04-26] MEDS: PANTOPRAZOLE SOD 40 MG DELAYED RELEASE TAB PO SCH (08:34)
[2017-04-26] MEDS: THIAMINE HCL 100 MG TAB PO SCH (08:35)
[2017-04-26] MEDS: DIAZEPAM 2 MG TAB PO PRN (09:46)
[2017-04-26] MEDS: SODIUM CHLOR 0.9% 1000 ML INJ 1,000 ML IV SCH (10:36)
--- NOTE | 2017-04-26 11:15 | GIPROC ---
[facility] [address] [facility]. [facility], [address] EGD PROCEDURE REPORT EXAM DATE: 04/26/2017 PATIENT NAME: Prabha Prieto MR #: [id number] BIRTHDATE: 1950 ATTENDING: Angelique Walls MD ORDER #: [id number] [employer] THREE: Jesus Barney and Nova Wagner STATUS: inpatient INDICATIONS: The patient is a 66 yr old female here for an EGD due to diarrhea, nausea, vomiting PROCEDURE PERFORMED: EGD w/ biopsy MEDICATIONS: None and Per Anesthesia. TOPICAL ANESTHETIC: none CONSENT: The patient understands the risks and benefits of the procedure and understands that these risks include, but are not limited to: sedation, allergic reaction, infection, perforation and/or bleeding. Alternative means of evaluation and treatment include, among others: physical exam, x-rays, and/or surgical intervention. The patient elects to proceed with this endoscopic procedure. medical equipment was checked for proper function. Hand hygiene and appropriate measures for infection prevention was taken. After the risks, benefits and alternatives of the procedure were thoroughly explained, Informed consent was verified, confirmed and timeout was successfully executed by the treatment team. The patient was anesthetized with topical anesthesia and the Pentax EG-[id number] endoscope was introduced through the mouth and advanced to the second portion of the duodenum. Retroflexed views revealed a hiatal hernia The gastroscope was then slowly withdrawn and removed. Gastritis antrum-biopsy duodenitis second portion-biopsy esophagitis distal esophagus -biopsy inlet patch upper esophagus -biopsy. ADVERSE EVENTS: There were no complications. IMPRESSIONS: 1. Gastritis antrum-biopsy duodenitis second portion-biopsy esophagitis distal esophagus -biopsy inlet patch upper esophagus -biopsy 2. Retroflexed views revealed a hiatal hernia RECOMMENDATIONS: 1. Await biopsy results. Biopsy results will not be ready for 7-10 days. If you don't hear from us in two weeks, call our office for biopsy results. 2. Anti-reflux regimen 3. Continue PPI 4. Avoid NSAIDS 5. Colonoscopy in am if agrees PATIENT CONDITION: stable DISPOSITION: Inpatient REPEAT EXAM: Return 1 year EGD Angelique Walls MD eSigned: Angelique Walls MD 04/26/2017 11:15 AM cc: PATIENT NAME: Prabha Prieto MR#: [id number]
[2017-04-26 11:34] LABS: ANA PATTERN DIFFUSE
[2017-04-26] MEDS ORDERED: PROPOFOL 200 MG/20 ML AMP IV ONE (12:00)
[2017-04-26] MEDS ORDERED: MAGNESIUM CITRATE SOLN 300 ML BTL PO ONE ×2 (12:00→19:00)
[2017-04-26] MEDS ORDERED: LIDOCAINE HCL 1% PF 5 ML SYRINGE OTHER ONE (12:00)
--- NOTE | 2017-04-26 14:20 | HHI.FPPN ---
Subjective Remarks DELAYED DOCUMENTATION, PATIENT SEEN THIS MORNING No acute events overnight. Vital signs unremarkable. This morning patient states that she is doing well. Denies any recurrence of vomiting and nausea. Bowel movements are becoming more firm with last episode of diarrhea being yesterday but this was also more formed. Denies chest pain, SOB. Patient does report initially declining EGD and colonoscopy as she was scared of the procedure but is now agreeable. (Bri Espana MD, R3) Objective Vitals Vital Signs Date Time Temp Pulse Resp B/P (MAP) Pulse Ox O2 Delivery O2 Flow Rate FiO2 04/26/17 12:00 96.8 69 16 128/67 (87) 97 04/26/17 11:21 98.0 60 18 123/60 (81) 97 04/26/17 09:30 97.1 69 17 153/69 (97) 97 04/26/17 08:00 97.5 69 17 138/83 (101) 96 04/26/17 00:38 97.4 70 17 126/76 (93) 97 04/25/17 20:00 97.2 68 17 136/63 (87) 96 04/25/17 16:00 98.6 65 17 131/61 (84) 98 I/O 04/25/17 04/25/17 04/25/17 04/26/17 04/26/17 04/26/17 07:00 15:00 23:00 07:00 15:00 23:00 Intake Total 580 ml 1000 ml 2680 ml 480 ml 640 ml Output Total 1000 ml 800 ml Balance -420 ml 1000 ml 2680 ml -320 ml 640 ml Intake Oral 580 ml 1680 ml 480 ml IV Total 1000 ml 1000 ml 340 ml Other 300 ml Output Urine Total 1000 ml 800 ml # Voids 4 # Bowel Movements 2 1 (Bri Espana MD, R3) Result Diagram: 04/26/17 0610 04/26/17 0610 Objective Remarks GEN: Thin female in no acute distress. CV: Regular rate and rhythm without obvious murmurs LUNGS: Clear to auscultation bilaterally. Normal respiratory effort. No wheezes , rales, rhonchi. GI: Nondistended EXT: No edema. No calf tenderness. NEURO/PSYCH: Awake, alert. Appropriate insight and judgment. Normal speech. Minimal hand tremors. (Bri Espana MD, R3) A/P Assessment and Plan 66 year old female presents with nausea and diarrhea, poor appetite, dehydration , transaminitis, found to have significantly elevated iron levels. Admitted for persistent diarrhea, nausea, and transaminitis. Discharge Planning Pending recommendations by gastroenterology after EGD/colonoscopy * hemochromatosis studies will need to be followed up as outpatient. sdw Dr. Melchor (Bri Espana MD, R3) Attending Attestation THIS CASE WAS DISCUSSED WITH THE RESIDENT PHYSICIAN DR Keyla ROBLES.PATIENT SEEN AND EXAMINED, I HAVE REVIEWED THE RECORD AND AGREE WITH THE ABOVE NOTE AND PLAN OF CARE WAS DISCUSSED. I HAVE AUTHORIZED THE ORDER SET (Riccardo Melchor MD) Problem List: (1) Transaminitis ICD Codes: R74.0 - Nonspecific elevation of levels of transaminase and lactic acid dehydrogenase [LDH] Status: Acute Plan: New onset transaminitis. No prior hx of liver issues. GI note does state heavy alcohol use. No other known sources of acute insult to include excessive tylenol use, new medications, herbs/supplements, drug use. Ferritin and transferrin significant elevated. Concern for possible hemochromatosis. -VALERIO positive -ASMA negative -Mitochondria, IgA/IgG, hemochromatosis studies pending -Hepatitis panel negative. -alcohol abuse counseling provided -Avoid hepatotoxic agents. GI consulted: appreciate recommendations * EGD performed 04/26/17 * Colonoscopy scheduled for 04/26/18 * awaiting liver w/u (2) Elevated ferritin level ICD Codes: R79.89 - Other specified abnormal findings of blood chemistry Status: Acute Plan: Elevated ferritin and transferrin levels, in the setting of acute liver injury. Ferritin is 1302 and transferrin 91%. Concerning for possible hemochromatosis. No living first degree relatives, therefore no one that would need to be checked for hemochromatosis should she be positive. -Please see more detailed plan above (3) Diarrhea ICD Codes: R19.7 - Diarrhea, unspecified Status: Acute Plan: Improving diarrhea and becoming more formed. CT just showing fatty liver , gallbladder ultrasound showing dilated CBD. C. diff negative -stool studies negative -good hydration status (4) Nausea alone ICD Codes: R11.0 - Nausea Status: Resolved Plan: Resolved. -Zofran 4 mg IV q6hrs for nausea. (5) Depression with anxiety ICD Codes: F41.8 - Other specified anxiety disorders Status: Chronic Plan: Recent increase in depression and anxiety, currently being treated with buspirone. Had good effect with citalopram in the past. - start low dose Citalopram at 20 mg daily. - D/C home buspirone - Temazepam at night for insomnia. - Recommend counseling as an outpatient. - Will give low dose Diazepam while in hospital for acute anxiety. (6) Alcohol abuse ICD Codes: F10.10 - Alcohol abuse, uncomplicated Status: Chronic Plan: Recent increase in drinking habits, may help explain transaminitis and nausea episodes. Has not needed ativan since 04/23/17. - [facility] protocol - Thiamine, folic acid, multivitamin daily - Counseling on alcohol abuse - Consult case management, would benefit from outpatient services. (7) Nutrition, metabolism, and development symptoms ICD Codes: R63.8 - Other symptoms and signs concerning food and fluid intake Status: Acute Plan: Diet: Clear liquids, NPO after midnight for colonoscopy on 04/27/17 Fluids: continue with NS at 85 until after colonoscopy Electrolytes: unremarkable, continue to monitor DVT PPX: SCDs, Lovenox on hold until after colonoscopy GI PPX: not indicated (Bri Espana MD, R3) Problem Qualifiers (1) Diarrhea: Qualified Codes: R19.7 - Diarrhea, unspecified Bri Espana MD, R3 Apr 26, 2017 14:20 Riccardo Melchor MD Apr 27, 2017 09:54
[2017-04-26 16:04] LABS: TRANSGLUTAMINASE IGA AB <1.2 U/mL; TRANSGLUTAMINASE IGG AB <1.2 U/mL
[2017-04-26] MEDS: ONDANSETRON HCL 4 MG/2 ML VIAL IVP PRN (17:57)
[2017-04-26 19:52] LABS: CERULOPLASMIN 27 mg/dL (18-53)
[2017-04-27] VITALS: BP 113/65; PULSE 64; RESP 16; TEMP 97.3; O2SAT 94
[2017-04-27] MEDS: SODIUM CHLOR 0.9% 1000 ML INJ 1,000 ML IV SCH (00:26)
[2017-04-27 00:49] LABS: HEREDITARY HEMOCHROM SPECIMEN WB Whole Blood
[2017-04-27] MEDS: ATENOLOL 50 MG TAB PO SCH (07:48)
[2017-04-27] MEDS: DIAZEPAM 2 MG TAB PO PRN (07:48)
[2017-04-27 08:00] VITALS: BP 142/69; PULSE 76; RESP 16; TEMP 97.5; O2SAT 97
[2017-04-27] MEDS: DOCUSATE SODIUM 50 MG/SENNA 8.6 MG TAB PO SCH ×2 (09:00→21:00)
[2017-04-27] MEDS: SODIUM CHLORIDE 0.9% FLUSH 10 ML FLUSH IV FLUSH SCH ×2 (09:00→21:00)
--- NOTE | 2017-04-27 10:49 | HHI.FPPN ---
Subjective Remarks No acute events overnight. VS unremarkable. This morning patient reports feeling very light headed and weak as she has not eaten for quite some time due to EGD the day prior and colonoscopy today. Patient otherwise feels okay. Reports no reoccurence of nausea. Diarrhea unable to be assessed due to colon prep for colonoscopy. Otherwise denies chest pain, SOB. (Bri Espana MD, R3) Objective Vitals Vital Signs Date Time Temp Pulse Resp B/P (MAP) Pulse Ox O2 Delivery O2 Flow Rate FiO2 04/27/17 10:12 62 18 100/55 (70) 100 Room Air 04/27/17 00:00 97.3 64 16 113/65 (81) 94 04/26/17 20:00 97.4 71 16 132/62 (85) 96 04/26/17 16:00 97.6 70 14 132/74 (93) 97 04/26/17 15:50 95 21 04/26/17 12:00 96.8 69 16 128/67 (87) 97 04/26/17 11:21 98.0 60 18 123/60 (81) 97 I/O 04/26/17 04/26/17 04/26/17 04/27/17 04/27/17 04/27/17 07:00 15:00 23:00 07:00 15:00 23:00 Intake Total 480 ml 640 ml 800 ml 1422 ml 200 ml Output Total 800 ml 350 ml Balance -320 ml 640 ml 800 ml 1072 ml 200 ml Intake Oral 480 ml 800 ml IV Total 340 ml 1422 ml Other 300 ml 200 ml Output Urine Total 800 ml 350 ml # Voids 3 # Bowel Movements 1 1 (Bri Espana MD, R3) Result Diagram: 04/26/17 0610 04/26/17 0610 Objective Remarks GEN: Thin female in no acute distress. CV: Regular rate and rhythm without obvious murmurs LUNGS: Clear to auscultation bilaterally. Normal respiratory effort. No wheezes , rales, rhonchi. GI: Nondistended EXT: No edema. No calf tenderness. NEURO/PSYCH: Awake, alert. Appropriate insight and judgment. Normal speech. Minimal hand tremors. (Bri Espana MD, R3) A/P Assessment and Plan 66 year old female presents with nausea and diarrhea, poor appetite, dehydration , transaminitis, found to have significantly elevated iron levels. Admitted for persistent diarrhea, nausea, and transaminitis. Discharge Planning Tomorrow pending pt recovery from colonoscopy and any recommendations from GI. * hemochromatosis studies will need to be followed up as outpatient. sdw Dr. Melchor (Bri Espana MD, R3) Attending Attestation Medical rounds were performed with Dr Lee, Patient was interviewed and examined, Agree with the contents of this note, See Assessment and Plan (Riccardo Melchor MD) Problem List: (1) Diarrhea ICD Codes: R19.7 - Diarrhea, unspecified Status: Resolved Plan: Improving diarrhea and becoming more formed prior to colonoscopy prep. CT just showing fatty liver, gallbladder ultrasound showing dilated CBD. C. diff negative -stool studies negative -good hydration status GI consulted: appreciate recommendations * EGD performed 04/26/17: duodenitis, gastritis, esophagitis * Colonoscopy performed 04/27/17: colon polyp, internal and external hemorrhoids * awaiting liver w/u * PPI (2) Transaminitis ICD Codes: R74.0 - Nonspecific elevation of levels of transaminase and lactic acid dehydrogenase [LDH] Status: Acute Plan: New onset transaminitis. No prior hx of liver issues. GI note does state heavy alcohol use. No other known sources of acute insult to include excessive tylenol use, new medications, herbs/supplements, drug use. Ferritin and transferrin significant elevated. Concern for possible hemochromatosis. -VALERIO positive -ASMA, IgA/IgG negative -hemochromatosis studies negative for C282Y and H63D -Mitochondria, pending -Hepatitis panel negative. -alcohol abuse counseling provided -Avoid hepatotoxic agents. (3) Elevated ferritin level ICD Codes: R79.89 - Other specified abnormal findings of blood chemistry Status: Acute Plan: Elevated ferritin and transferrin levels, in the setting of acute liver injury. Ferritin is 1302 and transferrin 91%. Concerning for possible hemochromatosis. No living first degree relatives, therefore no one that would need to be checked for hemochromatosis should she be positive. -Please see more detailed plan above (4) Nausea alone ICD Codes: R11.0 - Nausea Status: Resolved Plan: Resolved. -Zofran 4 mg IV q6hrs for nausea. (5) Depression with anxiety ICD Codes: F41.8 - Other specified anxiety disorders Status: Chronic Plan: Recent increase in depression and anxiety, currently being treated with buspirone. Had good effect with citalopram in the past. - start low dose Citalopram at 20 mg daily. - D/C home buspirone - Temazepam at night for insomnia. - Recommend counseling as an outpatient. - Will give low dose Diazepam while in hospital for acute anxiety. (6) Alcohol abuse ICD Codes: F10.10 - Alcohol abuse, uncomplicated Status: Chronic Plan: Recent increase in drinking habits, may help explain transaminitis and nausea episodes. Has not needed ativan since 04/23/17. - [facility] protocol - Thiamine, folic acid, multivitamin daily - Counseling on alcohol abuse - Consult case management, would benefit from outpatient services. (7) Nutrition, metabolism, and development symptoms ICD Codes: R63.8 - Other symptoms and signs concerning food and fluid intake Status: Acute Plan: Diet: regular Fluids: none Electrolytes: unremarkable, continue to monitor DVT PPX: SCDs, Lovenox on hold until after colonoscopy GI PPX: PPI (Bri Espana MD, R3) Problem Qualifiers (1) Diarrhea: Qualified Codes: R19.7 - Diarrhea, unspecified Bri Espana MD, R3 Apr 27, 2017 10:49 Riccardo Melchor MD Apr 28, 2017 14:51
--- NOTE | 2017-04-27 10:59 | GIPROC ---
[facility] [address] [facility]. [facility], [id number] COLONOSCOPY PROCEDURE REPORT EXAM DATE: 04/27/2017 PATIENT NAME: Prabha Prieto MR #: [id number] BIRTHDATE: 1950 ENDOSCOPIST: Angelique Walls MD ORDER #: [id number] SLEEPING CAR PORTER: Penny Constantino and Sidney Matthews STATUS: inpatient INDICATIONS: The patient is a 66 yr old female here for a colonoscopy due to diarrhea, abdominal pain PROCEDURE PERFORMED: Colonoscopy with biopsy MEDICATIONS: None and Per Anesthesia. PREP QUALITY: good PREP TYPE:Other: ESTIMATED BLOOD LOSS: None CONSENT: The patient understands the risks and benefits of the procedure and understands that these risks include, but are not limited to: sedation, allergic reaction, infection, perforation and/or bleeding. Alternative means of evaluation and treatment include, among others: physical exam, x-rays, and/or surgical intervention. The patient elects to proceed with this endoscopic procedure. medical equipment was checked for proper function. Hand hygiene and appropriate measures for infection prevention was taken. After the risks, benefits and alternatives of the procedure were thoroughly explained, Informed consent was verified, confirmed and timeout was successfully executed by the treatment team. A digital exam revealed external hemorrhoids The Pentax [id number] endoscope was introduced through the anus and advanced to the cecum, which was identified by both the appendix and ileocecal valve. The instrument was then slowly withdrawn as the colon was fully examined. COLON FINDINGS: Polyp diminutive descending-cold biopsy with complete removal biopsy ascending and descending colon r/o microscopic colitis. Retroflexed views revealed internal hemorrhoids and Retroflexed views revealed small internal hemorrhoids The scope was then completely withdrawn from the patient and the procedure terminated. PROCEDURE WITHDRAWAL TIME:6minutes ADVERSE EVENTS: There were no complications. IMPRESSIONS: 1. Polyp diminutive descending-cold biopsy with complete removal biopsy ascending and descending colon r/o microscopic colitis 2. Retroflexed views revealed internal hemorrhoids 3. Retroflexed views revealed small internal hemorrhoids 4. Revealed external hemorrhoids RECOMMENDATIONS: 1. Await biopsy results. Biopsy results will not be ready for 7-10 days. If you don't hear from us in two weeks, call our office for results. 2. Benefiber 2 tsp daily 3. Continue surveillance 4. Probiotics from any [employer] or health food store 5. Yearly rectal exams 6. Ok to dc home from [facility] 2 weeks RECALL: Return 5 years Colonoscopy Angelique Walls MD eSigned: Angelique Walls MD 04/27/2017 10:59 AM cc: PATIENT NAME: Prabha Prieto MR#: [id number]
[2017-04-27 12:00] VITALS: BP 132/63; PULSE 62; RESP 16; TEMP 96.9; O2SAT 96
[2017-04-27] MEDS: MULTIVITAMINS/MINERALS THERAPEUTIC TAB PO SCH (12:06)
[2017-04-27] MEDS: CITALOPRAM HYDROBROMIDE 20 MG TAB PO SCH (12:06)
[2017-04-27] MEDS: THIAMINE HCL 100 MG TAB PO SCH (12:06)
[2017-04-27] MEDS: FOLIC ACID 1 MG TAB PO SCH (12:06)
[2017-04-27] MEDS: PANTOPRAZOLE SOD 40 MG DELAYED RELEASE TAB PO SCH (12:06)
[2017-04-27 15:50] LABS: MITOCHONDRIAL ABS LESS THAN 20.0 U (<=20.0)
[2017-04-27 16:00] VITALS: BP 111/61; PULSE 66; RESP 18; TEMP 97.6; O2SAT 96
[2017-04-27 20:00] VITALS: BP 122/59; PULSE 66; RESP 16; TEMP 97.4; O2SAT 95
[2017-04-28] VITALS: BP 140/76; PULSE 65; RESP 16; TEMP 97.2; O2SAT 96
[2017-04-28] MEDS ORDERED: CELE20TA PO (07:22)
[2017-04-28] MEDS ORDERED: PANT40TA3 PO (07:22)
--- NOTE | 2017-04-28 07:23 | HHI.DCPOC ---
Discharge Care Plan Diagnosis: (1) Diarrhea (2) Nausea alone (3) Gastritis (4) Elevated ferritin level (5) Transaminitis Goals to Promote Your Health * To prevent worsening of your condition and complications * To maintain your health at the optimal level Directions to Meet Your Goals Take your medications as prescribed Follow your dietary instruction Follow activity as directed Keep your appointments as scheduled Take your immunizations and boosters as scheduled If your symptoms worsen call your PCP, if no PCP go to Urgent Care Center or Emergency Room Smoking is Dangerous to Your Health. Avoid second hand smoke Call the 24-hour hour crisis hotline for domestic abuse at Bri Espana MD, R3 Apr 28, 2017 07:23
[2017-04-28 08:00] VITALS: BP 126/71; PULSE 66; RESP 21; TEMP 97; O2SAT 96
[2017-04-28] MEDS: DOCUSATE SODIUM 50 MG/SENNA 8.6 MG TAB PO SCH (09:00)
[2017-04-28] MEDS: THIAMINE HCL 100 MG TAB PO SCH (09:19)
[2017-04-28] MEDS: ATENOLOL 50 MG TAB PO SCH (09:19)
[2017-04-28] MEDS: CITALOPRAM HYDROBROMIDE 20 MG TAB PO SCH (09:19)
[2017-04-28] MEDS: PANTOPRAZOLE SOD 40 MG DELAYED RELEASE TAB PO SCH (09:20)
[2017-04-28] MEDS: SODIUM CHLORIDE 0.9% FLUSH 10 ML FLUSH IV FLUSH SCH (09:21)
--- NOTE | 2017-04-28 09:50 | HHI.FPPN ---
Subjective Remarks No acute events overnight. VS unremarkable. This morning patient reports that she is feeling well. No acute concerns and feels ready to be discharged. No further episodes of nausea or diarrhea. (Bri Espana MD, R3) Objective Vitals Vital Signs Date Time Temp Pulse Resp B/P (MAP) Pulse Ox O2 Delivery O2 Flow Rate FiO2 04/28/17 08:00 97.0 66 21 126/71 (89) 96 04/28/17 00:00 97.2 65 16 140/76 (97) 96 04/27/17 20:00 97.4 66 16 122/59 (80) 95 04/27/17 16:00 97.6 66 18 111/61 (78) 96 04/27/17 12:00 96.9 62 16 132/63 (86) 96 04/27/17 10:12 62 18 100/55 (70) 100 Room Air I/O 04/27/17 04/27/17 04/27/17 04/28/17 04/28/17 04/28/17 07:00 15:00 23:00 07:00 15:00 23:00 Intake Total 1422 ml 200 ml 620 ml Output Total 350 ml 5 ml 200 ml Balance 1072 ml 195 ml 620 ml -200 ml Intake Oral 620 ml IV Total 1422 ml Other 200 ml Output Urine Total 350 ml 200 ml Drainage Total 5 ml # Voids 3 # Bowel Movements 1 (Bri Espana MD, R3) Result Diagram: 04/26/17 0610 04/26/17 0610 Objective Remarks GEN: Thin female in no acute distress. CV: Regular rate and rhythm without obvious murmurs LUNGS: Clear to auscultation bilaterally. Normal respiratory effort. No wheezes , rales, rhonchi. GI: Nondistended EXT: Moves lower extremities without issues. NEURO/PSYCH: Awake, alert. Appropriate insight and judgment. Normal speech. Minimal hand tremors. (Bri Espana MD, R3) A/P Assessment and Plan 66 year old female presents with nausea and diarrhea, poor appetite, dehydration , transaminitis, found to have significantly elevated iron levels. Admitted for persistent diarrhea, nausea, and transaminitis. Discharge Planning Today sdw Dr. Melchor (Bri Espana MD, R3) Attending Attestation Medical rounds were performed with Dr Lee, Patient was interviewed and examined, Agree with the contents of this note, See Assessment and Plan (Riccardo Melchor MD) Problem List: (1) Diarrhea ICD Codes: R19.7 - Diarrhea, unspecified Status: Resolved Plan: Diarrhea resolved. CT just showing fatty liver, gallbladder ultrasound showing dilated CBD. C. diff negative -stool studies negative -good hydration status GI consulted: appreciate recommendations * EGD performed 04/26/17: duodenitis, gastritis, esophagitis * Colonoscopy performed 04/27/17: colon polyp, internal and external hemorrhoids * liver w/u negative except for positive VALERIO * PPI (2) Transaminitis ICD Codes: R74.0 - Nonspecific elevation of levels of transaminase and lactic acid dehydrogenase [LDH] Status: Acute Plan: New onset transaminitis. No prior hx of liver issues. GI note does state heavy alcohol use. No other known sources of acute insult to include excessive tylenol use, new medications, herbs/supplements, drug use. Ferritin and transferrin significant elevated. Hemochromatosis w/u negative. Likely related to alcohol use. -VALERIO positive -ASMA, IgA/IgG, Mitochondria, Hepatitis panel negative -hemochromatosis studies negative for C282Y and H63D -alcohol abuse counseling provided -Avoid hepatotoxic agents. (3) Elevated ferritin level ICD Codes: R79.89 - Other specified abnormal findings of blood chemistry Status: Acute Plan: Elevated ferritin and transferrin levels, in the setting of acute liver injury. Ferritin is 1302 and transferrin 91%. Concerning for possible hemochromatosis but work up was negative. No living first degree relatives. -Please see more detailed plan above (4) Nausea alone ICD Codes: R11.0 - Nausea Status: Resolved Plan: Resolved. -Zofran 4 mg IV q6hrs for nausea. (5) Depression with anxiety ICD Codes: F41.8 - Other specified anxiety disorders Status: Chronic Plan: Recent increase in depression and anxiety, currently being treated with buspirone. Had good effect with citalopram in the past. - start low dose Citalopram at 20 mg daily. - D/C home buspirone - Temazepam at night for insomnia. - Recommend counseling as an outpatient. (6) Alcohol abuse ICD Codes: F10.10 - Alcohol abuse, uncomplicated Status: Chronic Plan: Recent increase in drinking habits, may help explain transaminitis and nausea episodes. Has not needed ativan since 04/23/17. - [facility] protocol - Thiamine, folic acid, multivitamin daily - Counseling on alcohol abuse - Consult case management, would benefit from outpatient services. (7) Nutrition, metabolism, and development symptoms ICD Codes: R63.8 - Other symptoms and signs concerning food and fluid intake Status: Acute Plan: Diet: regular Fluids: none Electrolytes: unremarkable, continue to monitor DVT PPX: SCDs, d/c today GI PPX: PPI (Bri Espana MD, R3) Problem Qualifiers (1) Diarrhea: Qualified Codes: R19.7 - Diarrhea, unspecified Bri Espana MD, R3 Apr 28, 2017 09:50 Riccardo Melchor MD Apr 28, 2017 14:52
--- NOTE | 2017-04-28 09:50 | HHI.DS ---
Discharge Summary Admission Date Apr 22, 2017 at 11:16 Discharge Date: Apr 28, 2017 Admitting Diagnosis nausea vomiting/liver enzyme elevations (1) Diarrhea Plan: Diarrhea resolved. CT just showing fatty liver, gallbladder ultrasound showing dilated CBD. C. diff negative -stool studies negative -good hydration status GI consulted: appreciate recommendations * EGD performed 04/26/17: duodenitis, gastritis, esophagitis * Colonoscopy performed 04/27/17: colon polyp, internal and external hemorrhoids * liver w/u negative except for positive VALERIO * PPI ICD Codes: R19.7 - Diarrhea, unspecified Status: Resolved (2) Transaminitis Plan: New onset transaminitis. No prior hx of liver issues. GI note does state heavy alcohol use. No other known sources of acute insult to include excessive tylenol use, new medications, herbs/supplements, drug use. Ferritin and transferrin significant elevated. Hemochromatosis w/u negative. Likely related to alcohol use. -VALERIO positive -ASMA, IgA/IgG, Mitochondria, Hepatitis panel negative -hemochromatosis studies negative for C282Y and H63D -alcohol abuse counseling provided -Avoid hepatotoxic agents. ICD Codes: R74.0 - Nonspecific elevation of levels of transaminase and lactic acid dehydrogenase [LDH] Status: Acute (3) Elevated ferritin level Plan: Elevated ferritin and transferrin levels, in the setting of acute liver injury. Ferritin is 1302 and transferrin 91%. Concerning for possible hemochromatosis but work up was negative. No living first degree relatives. -Please see more detailed plan above ICD Codes: R79.89 - Other specified abnormal findings of blood chemistry Status: Acute (4) Nausea alone Plan: Resolved. -Zofran 4 mg IV q6hrs for nausea. ICD Codes: R11.0 - Nausea Status: Resolved (5) Depression with anxiety Plan: Recent increase in depression and anxiety, currently being treated with buspirone. Had good effect with citalopram in the past. - start low dose Citalopram at 20 mg daily. - D/C home buspirone - Temazepam at night for insomnia. - Recommend counseling as an outpatient. ICD Codes: F41.8 - Other specified anxiety disorders Status: Chronic (6) Alcohol abuse Plan: Recent increase in drinking habits, may help explain transaminitis and nausea episodes. Has not needed ativan since 04/23/17. - [facility] protocol - Thiamine, folic acid, multivitamin daily - Counseling on alcohol abuse - Consult case management, would benefit from outpatient services. ICD Codes: F10.10 - Alcohol abuse, uncomplicated Status: Chronic (7) Nutrition, metabolism, and development symptoms Plan: Diet: regular Fluids: none Electrolytes: unremarkable, continue to monitor DVT PPX: SCDs, d/c today GI PPX: PPI ICD Codes: R63.8 - Other symptoms and signs concerning food and fluid intake Status: Acute Consultants GI Procedures Colonoscopy and EGD Brief History 66 year old female, patient of Dr. Satnam Odonnell in the [facility] , presents with nausea, diarrhea, decreased appetite, and poor PO intake. She notes that she has nausea and diarrhea intermittently over a long period of time and has not been diagnosed with any cause. Symptoms started three days ago. She is having 7 to 8 episodes of watery diarrhea without mucous or blood each day. She has no vomiting but has daily persistent nausea with dry heaving. She has been taking Zofran but with little benefit. She has poor appetite and poor PO intake over the last few days. She has no abdominal pain. She has no fevers, night sweats, or weight loss. She has no chest pain or shortness of breath. She has no calf swelling or tenderness. She also notes that she has increasing depression and anxiety. She is currently being treated with Buspirone and notes that the medication is not helping. She feels her moods are interfering with her sleep. She does not report a history of psychosis or lazaro. She does not have suicidal ideation or homicidal ideation. Depression has been present since 2008 and anxiety has been present since she was a child. She also notes that she had dental extraction of 6 bottom teeth on April 07 and is having some pain from that. She does not note any abscesses or drainage from her gingiva. She now has dentures but has not gotten used to using them and has difficulty eating. She is requesting a soft diet to accommodate. CBC/BMP: 04/26/17 0610 04/26/17 0610 Significant Findings Laboratory Tests Test 04/25/17 09:53 04/25/17 10:40 04/26/17 06:10 Blood Urea Nitrogen 5 MG/DL (-18) 3 MG/DL (7-18) Total Protein 5.3 GM/DL (6.4-8.2) 5.2 GM/DL (6.4-8.2) Albumin 2.7 GM/DL (3.4-5.0) 2.5 GM/DL (3.4-5.0) Calcium Level 8.2 MG/DL (8.5-10.1) 8.0 MG/DL (8.5-10.1) Aspartate Amino Transf (AST/SGOT) 127 U/L (15-37) 142 U/L (15-37) Alanine Aminotransferase (ALT/SGPT) 162 U/L (10-53) 153 U/L (10-53) Total Bilirubin 1.1 MG/DL (0.2-1.0) 1.2 MG/DL (0.2-1.0) Sodium Level 134 MEQ/L (136-145) Potassium Level 3.0 MEQ/L (3.5-5.1) Estimat Glomerular Filtration Rate 88 ML/MIN (>89) Red Blood Count 3.18 MIL/MM3 (4.00-5.30) Hemoglobin 11.4 GM/DL (11.6-15.3) Hematocrit 33.3 % (35.0-46.0) Mean Corpuscular Volume 105.0 FL (80.0-100.0) Mean Corpuscular Hemoglobin 36.0 PG (27.0-34.0) Random Glucose 57 MG/DL (74-106) PE at Discharge GEN: Thin female in no acute distress. CV: Regular rate and rhythm without obvious murmurs LUNGS: Clear to auscultation bilaterally. Normal respiratory effort. No wheezes , rales, rhonchi. GI: Nondistended EXT: Moves lower extremities without issues. NEURO/PSYCH: Awake, alert. Appropriate insight and judgment. Normal speech. Minimal hand tremors. Hospital Course 66 year old female presents with nausea and diarrhea, poor appetite, dehydration , transaminitis, found to have significantly elevated iron levels. Admitted for persistent diarrhea, nausea, and transaminitis. In relation to the diarrhea, C. difficile was negative and CT abdomen was unremarkable. Gallbladder ultrasound did show dilated common bile duct. Symptoms improved spontaneously but GI was consulted and performed colonoscopy which showed colon polyp, internal/external hemorrhoids. For the nausea, symptoms also resolved spontaneously with just Zofran. EGD showed 190s, gastritis, esophagitis for which patient was started on a PPI. Transaminitis was identified on admission that was attributed to alcohol abuse. Hemachromatosis workup was unremarkable. Patient was also started on citalopram for depression and anxiety which did help her mood. Patient was discharged in stable condition and understood that she must refrain from alcohol use and excessive Tylenol use. Pt Condition on Discharge: Stable Discharge Disposition: Discharge Home Discharge Instructions DIET: Follow Instructions for: As Tolerated, No Restrictions Additional Diet Instructions: No alcohol use Activities you can perform: Regular-No Restrictions Follow up Referrals: Appointment for Follow Up Gastroenterology - 1 Week with Angelique Walls MD PCP Follow-up - 1 Week with Satnam Odonnell MD R3 PCP Follow-up New Medications: Citalopram (Celexa) 20 Mg Tab 20 MG PO DAILY, #30 TAB Pantoprazole (Pantoprazole) 40 Mg Tab 40 MG PO DAILY, #30 TAB Continued Medications: Atenolol (Atenolol) 50 Mg Tab 50 MG PO DAILY, #30 TAB 5 Refills Discontinued Medications: Buspirone (Buspirone) 7.5 Mg Tab 7.5 MG PO BID for Anxiety, #60 TAB 2 Refills Famotidine (Famotidine) 20 Mg Tab 20 MG PO BID, #60 TAB 3 Refills Ondansetron Odt (Ondansetron Odt) 4 Mg Tab 4 MG PO Q4H PRN for NAUSEA OR VOMITING, #30 TAB 0 Refills Sodium Chloride (Sodium Chloride) 1 Gram Tab 1 GM PO DAILY for Electrolyte Replacement, #30 TAB 3 Refills Bri Espana MD, R3 Apr 28, 2017 09:50
== END 2017-04-28 11:47 | disposition home or self-care (01) | DRG 433 ==
LOC: NEPE 07:14 → NEDA 11:16 → N07B 15:11
PROVIDERS: ADMIT Family Medicine; ATTEND Family Medicine
PROC: 0DB78ZX Excision of Stomach, Pylorus, Via Natural or Artificial Opening Endoscopic, Diagnostic (ICD-10-PCS; 2017-04-26)
PROC: 0DB18ZX Excision of Upper Esophagus, Via Natural or Artificial Opening Endoscopic, Diagnostic (ICD-10-PCS; 2017-04-26)
PROC: 0DB38ZX Excision of Lower Esophagus, Via Natural or Artificial Opening Endoscopic, Diagnostic (ICD-10-PCS; 2017-04-26)
PROC: 0DB98ZX Excision of Duodenum, Via Natural or Artificial Opening Endoscopic, Diagnostic (ICD-10-PCS; principal; 2017-04-26 10:59)
PROC: 0DBK8ZX Excision of Ascending Colon, Via Natural or Artificial Opening Endoscopic, Diagnostic (ICD-10-PCS; 2017-04-27)
PROC: 0DBM8ZX Excision of Descending Colon, Via Natural or Artificial Opening Endoscopic, Diagnostic (ICD-10-PCS; 2017-04-27)
PROC: 0DBM8ZX Excision of Descending Colon, Via Natural or Artificial Opening Endoscopic, Diagnostic (ICD-10-PCS; 2017-04-27)
DX: K70.9 Alcoholic liver disease, unspecified (principal); Z68.1 Body mass index [BMI] 19.9 or less, adult; I10 Essential (primary) hypertension; E86.0 Dehydration; N83.202 Unspecified ovarian cyst, left side; R00.0 Tachycardia, unspecified; K08.89 Other specified disorders of teeth and supporting structures; F41.8 Other specified anxiety disorders; K29.00 Acute gastritis without bleeding; K29.80 Duodenitis without bleeding; K20.9 Esophagitis, unspecified; K63.5 Polyp of colon; K64.8 Other hemorrhoids; K64.4 Residual hemorrhoidal skin tags; R63.0 Anorexia; K76.0 Fatty (change of) liver, not elsewhere classified; K82.8 Other specified diseases of gallbladder; D25.9 Leiomyoma of uterus, unspecified; G25.2 Other specified forms of tremor; G47.00 Insomnia, unspecified; M81.0 Age-related osteoporosis without current pathological fracture; F10.10 Alcohol abuse, uncomplicated; F17.210 Nicotine dependence, cigarettes, uncomplicated; Z80.0 Family history of malignant neoplasm of digestive organs; Z88.0 Allergy status to penicillin; Z88.2 Allergy status to sulfonamides
CPT/HCPCS: 74177; 76705; 80048; 80053; 80074; 81001; 81256; 82103; 82390; 82607; 82728; 82746; 83516; 83520; 83540; 83550; 83690; 84443; 85025; 85027; 85610; 85730; 86038; 86039; 86255; 87207; 87328; 87329; 87493; 87506; 88305; 88312; 96361; 96374; J1650; J2405; J7030; J7120; Q9967

== ENCOUNTER 2017-07-30 15:03 | Emergency (ER) | payer MEDICARE ==
[~2017-07-30] VITALS: Ht 152.4 cm; Wt 45.5 kg
[~2017-07-30 15:03] MED LIST changes: -BUSP1TAB PO; +CELE20TA PO; -FAMO20TA2 PO; -ONDA4TAB7 PO; +PANT40TA3 PO; -SODI1TAB PO
[2017-07-30 15:08] VITALS: BP 107/61; PULSE 78; RESP 18; TEMP 98.4; O2SAT 99
[2017-07-30] MEDS ORDERED: SODIUM CHLOR 0.9% 1000 ML INJ 1,000 ML IV SCH (16:58)
[2017-07-30] MEDS ORDERED: SODIUM CHLORIDE 0.9% FLUSH 10 ML FLUSH IV FLUSH PRN (17:00)
[2017-07-30] MEDS ORDERED: ONDANSETRON HCL 4 MG/2 ML VIAL IVP ONE (17:00)
--- NOTE | 2017-07-30 17:13 | PD ---
HPI Chief Complaint: Anxiety Time Seen by Provider: 16:54 Travel History International Travel<30 days: No Contact w/Intl Traveler<30days: No Traveled to known affect area: No History of Present Illness HPI 67-year-old female presents therapy department with generalized malaise, weakness, decreased appetite, nausea, and weight loss over the past several weeks. Patient is depressed, and is requesting psychiatric evaluation. Patient denies specific suicidal ideation or plan. Patient denies fever, chills, vomiting, diarrhea, or changes in urine. She has no significant shortness of breath or cough. Patient admits to drinking 2 glasses of wine daily. She denies other substance abuse other than cigarettes. Patient is allergic to codeine, penicillin, sulfa, and diphenhydramine. PFSH Past Medical History Anxiety: No Depression: Yes Cancer: No Cardiovascular Problems: No Diminished Hearing: No Endocrine: No Genitourinary: No Hypertension: Yes Immune Disorder: No Musculoskeletal: No Neurologic: No Psychiatric: Yes Reproductive: No Respiratory: No Menopausal: Yes Past Surgical History Abdominal Surgery: Yes Eye Surgery: Yes (cataract surgery) Tonsillectomy: Yes Social History Alcohol Use: Yes (daily/wine 1-2) Tobacco Use: Yes (1/2 ppd) Substance Use: No Allergies-Medications (Allergen,Severity, Reaction): Coded Allergies: Penicillins (Verified Allergy, Severe, Hives, 07/30/17) Sulfa (Sulfonamide Antibiotics) (Verified Adverse Reaction, Severe, Nausea /Vomiting, 07/30/17) diphenhydramine (Verified Adverse Reaction, Unknown, Drowsiness, 07/30/17) Uncoded Allergies: CODIENE (Allergy, Unknown, 04/27/17) Reported Meds & Prescriptions Reported Meds & Active Scripts Active Celexa (Citalopram Hydrobromide) 20 Mg Tab 20 Mg PO DAILY Pantoprazole (Pantoprazole Sodium) 40 Mg Tab 40 Mg PO DAILY Atenolol 50 Mg Tab 50 Mg PO DAILY Review of Systems Except as stated in HPI: all other systems reviewed are Neg General / Constitutional: No: Fever Eyes: No: Visual changes HENT: No: Headaches Cardiovascular: No: Chest Pain or Discomfort Respiratory: No: Shortness of Breath Gastrointestinal: No: Abdominal Pain Genitourinary: No: Dysuria Musculoskeletal: Positive: Weakness, No: Pain Skin: No Rash Neurologic: No: Weakness Psychiatric: Positive: Anxiety, Depression, No: Suicidal Ideations, Homicidal Ideation Endocrine: No: Polydipsia Hematologic/Lymphatic: No: Easy Bruising Physical Exam Narrative GENERAL: Cachectic appearing female who appears depressed and downtrodden. SKIN: Warm and dry. Decreased pallor. Somewhat decreased turgor. No rash. HEAD: Atraumatic. Normocephalic. EYES: Pupils equal and round. No scleral icterus. No injection or drainage. ENT: No nasal bleeding or discharge. Mucous membranes pink and moist. Pharynx is clear. Airways patent. NECK: Trachea midline. No JVD. Supple and nontender. CARDIOVASCULAR: Regular rate and rhythm. RESPIRATORY: No accessory muscle use. Clear to auscultation. Breath sounds equal bilaterally. GASTROINTESTINAL: Abdomen soft, non-tender, nondistended. Hepatic and splenic margins not palpable. MUSCULOSKELETAL: Extremities without clubbing, cyanosis, or edema. No obvious deformities. NEUROLOGICAL: Awake and alert. No obvious cranial nerve deficits. Motor grossly within normal limits. Five out of 5 muscle strength in the arms and legs. Normal speech. PSYCHIATRIC: Appropriate mood and affect; insight and judgment normal. Data Data Last Documented VS Vital Signs Date Time Temp Pulse Resp B/P (MAP) Pulse Ox O2 Delivery O2 Flow Rate FiO2 07/30/17 17:29 73 20 115/61 (79) 99 Room Air 07/30/17 15:08 98.4 Orders Orders Complete Blood Count With Diff (07/30/17 16:58) Comprehensive Metabolic Panel (07/30/17 16:58) Lipase (07/30/17 16:58) Lactic Acid (07/30/17 16:58) Prothrombin Time / Inr (Pt) (07/30/17 16:58) Act Partial Throm Time (Ptt) (07/30/17 16:58) Urinalysis - C+S If Indicated (07/30/17 16:58) Iv Access Insert/Monitor (07/30/17 16:58) Ecg Monitoring (07/30/17 16:58) Oximetry (07/30/17 16:58) Ondansetron Inj (Zofran Inj) (07/30/17 17:00) Sodium Chlor 0.9% 1000 Ml Inj (Ns 1000 M (07/30/17 16:58) Sodium Chloride 0.9% Flush (Ns Flush) (07/30/17 17:00) Electrocardiogram (07/30/17 16:58) Chest, Single Ap (07/30/17 16:58) Magnesium (Mg) (07/30/17 16:58) Psych Screen (07/30/17 16:58) Drug Screen, Random Urine (07/30/17 16:58) Alcohol (Ethanol) (07/30/17 16:58) Labs Laboratory Tests Test 07/30/17 17:45 White Blood Count 9.1 TH/MM3 Red Blood Count 4.29 MIL/MM3 Hemoglobin 14.5 GM/DL Hematocrit 42.6 % Mean Corpuscular Volume 99.4 FL Mean Corpuscular Hemoglobin 33.8 PG Mean Corpuscular Hemoglobin Concent 34.0 % Red Cell Distribution Width 19.3 % Platelet Count 260 TH/MM3 Mean Platelet Volume 8.5 FL Neutrophils (%) (Auto) 67.4 % Lymphocytes (%) (Auto) 17.2 % Monocytes (%) (Auto) 13.4 % Eosinophils (%) (Auto) 1.4 % Basophils (%) (Auto) 0.6 % Neutrophils # (Auto) 6.2 TH/MM3 Lymphocytes # (Auto) 1.6 TH/MM3 Monocytes # (Auto) 1.2 TH/MM3 Eosinophils # (Auto) 0.1 TH/MM3 Basophils # (Auto) 0.1 TH/MM3 CBC Comment DIFF FINAL Differential Comment Prothrombin Time 10.7 SEC Prothromb Time International Ratio 1.1 RATIO Activated Partial Thromboplast Time 23.6 SEC Blood Urea Nitrogen 7 MG/DL Creatinine 1.11 MG/DL Random Glucose 72 MG/DL Total Protein 6.9 GM/DL Albumin 3.5 GM/DL Calcium Level 9.3 MG/DL Magnesium Level 1.5 MG/DL Alkaline Phosphatase 127 U/L Aspartate Amino Transf (AST/SGOT) 168 U/L Alanine Aminotransferase (ALT/SGPT) 190 U/L Total Bilirubin 2.0 MG/DL Sodium Level 127 MEQ/L Potassium Level 3.4 MEQ/L Chloride Level 88 MEQ/L Carbon Dioxide Level 25.3 MEQ/L Anion Gap 14 MEQ/L Estimat Glomerular Filtration Rate 49 ML/MIN Lactic Acid Level 2.7 mmol/L Lipase 383 U/L Ethyl Alcohol Level LESS THAN 3 MG/DL MDM Medical Decision Making Medical Screen Exam Complete: Yes Emergency Medical Condition: Yes Differential Diagnosis Depression. Anxiety. Weight loss. Malaise. Nausea. Dehydration. Electrolyte imbalance. UTI. Narrative Course Patient appears sad but medically stable at time of exam. EKG is ordered as well as chest x-ray. Psychiatric labs were ordered per protocol Other labs include CBC, CMP, lipase, magnesium, lactic acid, coagulation studies , and urinalysis. IV access is obtained, and patient is given 4 mg Zofran IV as well as 1000 mL of normal saline bolus. Psychiatric screen is ordered. EKG shows left atrial enlargement, possible right ventricular conduction delay, but no significant findings suggestive of acute cardiac injury. Chest x-ray showed no acute process per radiologist. CBC is unremarkable. Coagulation studies are unremarkable Chemistries significant for sodium 127, potassium 3.4, chloride of 88. Creatinine is 1.11, GFR is 49, random glucose 72, lactic acid is elevated at 2.7. Total bilirubin is 2.0, LFTs elevated at 168, ALT is 190, alk phos is 127 per Toxicology is less than 3 of alcohol currently Urinalysis is pending. 1900 hrs. patient's care is turned over to Dr. Willy Sigala as it is change of shift. He will determine final disposition. Condition: Stable Jonn Santos Jul 30, 2017 17:12
--- NOTE | 2017-07-30 17:18 | RADRPT ---
EXAM DATE/TIME: 07/30/2017 17:07 [facility] COMPARISON: CHEST PA & LAT, February 06, 2017, 11:39. INDICATIONS : Cough for 3 days MEDICAL HISTORY : Hypertension. SURGICAL HISTORY : None. ENCOUNTER: Initial ACUITY: 3 days PAIN SCORE: 0/10 LOCATION: Bilateral chest FINDINGS: Lungs are hyper expanded but are otherwise clear. No new focal pleural or parenchymal opacities. Card iomediastinal contours are within normal limits. Bony thorax is intact. CONCLUSION: 1. No acute cardiopulmonary disease. Skyler Sabillon MD on July 30, 2017 at 17:16 Board Certified Radiologist. This report was verified electronically.
[2017-07-30 17:28] VITALS: O2SAT 99
[2017-07-30 17:29] VITALS: BP 115/61; PULSE 73; RESP 20; O2SAT 99
[2017-07-30 18:30] LABS: AUTOMATED NEUTROPHIL # 6.2 TH/MM3 (1.8-7.7); BASOPHIL # 0.1 TH/MM3 (0-0.2); BASOPHIL % 0.6 % (0.0-2.0); EOSINOPHIL # 0.1 TH/MM3 (0-0.4); EOSINOPHIL % 1.4 % (0.0-4.0); HEMATOCRIT 42.6 % (35.0-46.0); HEMOGLOBIN 14.5 GM/DL (11.6-15.3); LYMPH % 17.2 % (9.0-44.0); LYMPHOCYTE # 1.6 TH/MM3 (1.0-4.8); MEAN CELL VOLUME 99.4 FL (80.0-100.0); MEAN CORPUSCULAR HEMOGLOBIN 33.8 PG (27.0-34.0); MEAN PLATELET VOLUME 8.5 FL (7.0-11.0); MONO % 13.4 % (0.0-8.0); MONOCYTE # 1.2 TH/MM3 (0-0.9); NEUT % 67.4 % (16.0-70.0); PLATELET COUNT 260 TH/MM3 (150-450); RED BLOOD COUNT 4.29 MIL/MM3 (4.00-5.30); RED CELL DISTRIBUTION WIDTH 19.3 % (11.6-17.2); WHITE BLOOD COUNT 9.1 TH/MM3 (4.0-11.0)
[2017-07-30 18:41] LABS: INTERNATIONAL NORMALIZED RATIO 1.1 RATIO; PROTHROMBIN TIME - PATIENT 10.7 SEC (9.8-11.6)
[2017-07-30 18:55] LABS: ALBUMIN 3.5 GM/DL (3.4-5.0); AST (GOT) 168 U/L (15-37); BICARBONATE 25.3 MEQ/L (21.0-32.0); BLOOD UREA NITROGEN 7 MG/DL (7-18); CALCIUM 9.3 MG/DL (8.5-10.1); CHLORIDE 88 MEQ/L (98-107); CREATININE 1.11 MG/DL (0.50-1.00); GLOMERULAR FILTRATION RATE 49 ML/MIN (>89); GLUCOSE,RANDOM 72 MG/DL (74-106); MAGNESIUM 1.5 MG/DL (1.5-2.5); SODIUM (NA) 127 MEQ/L (136-145)
[2017-07-30 18:56] LABS: ALT (GPT) 190 U/L (10-53)
[2017-07-30 18:59] LABS: ALKALINE PHOSPHATASE 127 U/L (45-117); TOTAL PROTEIN 6.9 GM/DL (6.4-8.2)
[2017-07-30 19:22] VITALS: BP 105/65; PULSE 75; RESP 18; O2SAT 98
[2017-07-30] MEDS ORDERED: POTASSIUM BICARBONATE 25 MEQ EFFERVESCENT TAB PO ONE (19:30)
[2017-07-30] MEDS ORDERED: SODIUM CHLOR 0.9% 1000 ML INJ 1,000 ML IV ONE (19:30)
[2017-07-30 20:54] LABS: BILIRUBIN, URINE NEG (NEG); BLOOD, URINE NEG (NEG); GLUCOSE,URINE NEG (NEG); KETONE, URINE 10 mg/dL (NEG); NITRITE,URINE NEG (NEG); PH, URINE 6.5 (5.0-8.5); SQUAMOUS EPITHELIAL CELL URINE 1 /hpf (0-5); URINE COLOR YELLOW (YELLW/STRAW); URINE LEUKOCYTE ESTERASE NEG (NEG)
--- NOTE | 2017-07-30 21:00 | PD ---
Data Data Last Documented VS Vital Signs Date Time Temp Pulse Resp B/P (MAP) Pulse Ox O2 Delivery O2 Flow Rate FiO2 07/30/17 19:22 75 18 105/65 (78) 98 Room Air 07/30/17 15:08 98.4 Orders Orders Complete Blood Count With Diff (07/30/17 16:58) Comprehensive Metabolic Panel (07/30/17 16:58) Lipase (07/30/17 16:58) Lactic Acid (07/30/17 16:58) Prothrombin Time / Inr (Pt) (07/30/17 16:58) Act Partial Throm Time (Ptt) (07/30/17 16:58) Urinalysis - C+S If Indicated (07/30/17 16:58) Iv Access Insert/Monitor (07/30/17 16:58) Ecg Monitoring (07/30/17 16:58) Oximetry (07/30/17 16:58) Ondansetron Inj (Zofran Inj) (07/30/17 17:00) Sodium Chlor 0.9% 1000 Ml Inj (Ns 1000 M (07/30/17 16:58) Sodium Chloride 0.9% Flush (Ns Flush) (07/30/17 17:00) Electrocardiogram (07/30/17 16:58) Chest, Single Ap (07/30/17 16:58) Magnesium (Mg) (07/30/17 16:58) Psych Screen (07/30/17 16:58) Drug Screen, Random Urine (07/30/17 16:58) Alcohol (Ethanol) (07/30/17 16:58) Sodium Chlor 0.9% 1000 Ml Inj (Ns 1000 M (07/30/17 19:30) Potassium Bicarb Eff (Effer-K Eff) (07/30/17 19:30) Labs Laboratory Tests Test 07/30/17 17:45 07/30/17 20:25 White Blood Count 9.1 TH/MM3 Red Blood Count 4.29 MIL/MM3 Hemoglobin 14.5 GM/DL Hematocrit 42.6 % Mean Corpuscular Volume 99.4 FL Mean Corpuscular Hemoglobin 33.8 PG Mean Corpuscular Hemoglobin Concent 34.0 % Red Cell Distribution Width 19.3 % Platelet Count 260 TH/MM3 Mean Platelet Volume 8.5 FL Neutrophils (%) (Auto) 67.4 % Lymphocytes (%) (Auto) 17.2 % Monocytes (%) (Auto) 13.4 % Eosinophils (%) (Auto) 1.4 % Basophils (%) (Auto) 0.6 % Neutrophils # (Auto) 6.2 TH/MM3 Lymphocytes # (Auto) 1.6 TH/MM3 Monocytes # (Auto) 1.2 TH/MM3 Eosinophils # (Auto) 0.1 TH/MM3 Basophils # (Auto) 0.1 TH/MM3 CBC Comment DIFF FINAL Differential Comment Prothrombin Time 10.7 SEC Prothromb Time International Ratio 1.1 RATIO Activated Partial Thromboplast Time 23.6 SEC Blood Urea Nitrogen 7 MG/DL Creatinine 1.11 MG/DL Random Glucose 72 MG/DL Total Protein 6.9 GM/DL Albumin 3.5 GM/DL Calcium Level 9.3 MG/DL Magnesium Level 1.5 MG/DL Alkaline Phosphatase 127 U/L Aspartate Amino Transf (AST/SGOT) 168 U/L Alanine Aminotransferase (ALT/SGPT) 190 U/L Total Bilirubin 2.0 MG/DL Sodium Level 127 MEQ/L Potassium Level 3.4 MEQ/L Chloride Level 88 MEQ/L Carbon Dioxide Level 25.3 MEQ/L Anion Gap 14 MEQ/L Estimat Glomerular Filtration Rate 49 ML/MIN Lactic Acid Level 2.7 mmol/L Lipase 383 U/L Ethyl Alcohol Level LESS THAN 3 MG/DL Urine Color YELLOW Urine Turbidity CLEAR Urine pH 6.5 Urine Specific [place] 1.003 Urine Protein NEG mg/dL Urine Glucose (UA) NEG mg/dL Urine Ketones 10 mg/dL Urine Occult Blood NEG Urine Nitrite NEG Urine Bilirubin NEG Urine Urobilinogen LESS THAN 2.0 MG/DL Urine Leukocyte Esterase NEG Urine WBC 1 /hpf Urine Squamous Epithelial Cells 1 /hpf Microscopic Urinalysis Comment CULT NOT INDICATED Urine Opiates Screen NEG Urine Barbiturates Screen NEG Urine Amphetamines Screen NEG Urine Benzodiazepines Screen NEG Urine Cocaine Screen NEG Urine Cannabinoids Screen NEG MDM Supervised Visit with JACEK: No Narrative Course This case was checked out to me at 7 PM, initially evaluated by TIMOTHY Lunsford. I evaluated the patient. She is ambulatory in the department. She is a bit unsteady and I am recommending walker use. She is here for psychiatric evaluation. She has not had that yet. CBC is normal. She does have some electrolyte abnormalities. Has sodium of 127. It has been as low as 120 before. I gave her 2 full liters of normal saline IV. Potassium is a bit low and she had 50 mg oral replacement. She has no vomiting. She is elevation of LFTs but this is chronic and usually worse than today Patient has some deconditioning and is weak and is an alcohol abuser. However I do not think her condition rises to the level of medical admission Diagnosis Primary Impression: Generalized weakness Additional Impressions: Hyponatremia Hypokalemia Depression with anxiety Condition: Stable Pablito Agustin MD Jul 30, 2017 21:00
[2017-07-31 00:05] VITALS: BP 110/67; PULSE 77; RESP 18; O2SAT 98
[2017-07-31 09:00] VITALS: BP 113/72; PULSE 75; RESP 19; O2SAT 97
[2017-07-31 09:34] VITALS: BP 125/61; PULSE 73; RESP 18; TEMP 98.3; O2SAT 96
--- NOTE | 2017-07-31 11:40 | PD ---
History of Present Illness Chief Complaint: Anxiety Time Seen by Provider: 11:23 Travel History International Travel<30 Days: No Contact w/Intl Traveler<30days: No Known affected area: No Legal Status Legal Status: Voluntary History of Present Illness: 67-year-old female presents to the Emergency Department on a voluntary basis seeking help for her depression. She states that June 2017 was the anniversary of her nieces ( car accident). She states ," I am really struggling with the loss of my niece she was so young." In addition, she has had three other significant losses within the past few years to include her mother, sister and another niece. She has a history of alcohol use and started drinking again (2-4 avril a day) . She originally lived in [facility] and moved to [place] in 1991. She has been and twice and moved back to [place] in November 2017. 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 She does not have family in this area. She admits that she is lonely and sad. She states, " all I can think about is the loss of my family members." She denies suicidal or homicidal ideation. She is attentive and engaging in conversation. She acknowledges that she needs help to deal with her depression. The patient feels that she could be managed on an outpatient basis. The patient does not meet inpatient criteria and will be discharged with a referral to [facility] for outpatient management. Dx: Major Depression Alcohol Use PFSH Past Medical History Anxiety: No Depression: Yes Cancer: No Cardiovascular Problems: No Diminished Hearing: No Endocrine: No Genitourinary: No Hypertension: Yes Immune Disorder: No Musculoskeletal: No Neurologic: No Psychiatric: Yes Reproductive: No Respiratory: No Menopausal: Yes Past Surgical History Abdominal Surgery: Yes Eye Surgery: Yes (cataract surgery) Tonsillectomy: Yes Other Surgery: Yes (bilat catatract and lense resplacement) Psychiatric History Psychiatric History Hx Psychiatric Treatment: HX: ANXIETY NO INPATIENT/OUTPATIENT TREATMENT. PCP PRESCRIBING PSYCHIATRIC MEDICATION. History of Inpatient Treatment: No Social History Hx Alcohol Use: Yes (daily/wine 1-2) Hx Tobacco Use: Yes (1 PPD) Hx Substance Use: Yes Substance Use Type: Alcohol Other Substances Used: 2-3 GLASSES OF WINE DAILY. "I'VE BEEN DRINKING MORE AND MORE." Hx of Substance Use Treatment: No Allergies-Medications (Allergen,Severity, Reaction): Coded Allergies: Penicillins (Verified Allergy, Severe, Hives, 07/30/17) Sulfa (Sulfonamide Antibiotics) (Verified Adverse Reaction, Severe, Nausea /Vomiting, 07/30/17) diphenhydramine (Verified Adverse Reaction, Unknown, Drowsiness, 07/30/17) Uncoded Allergies: CODIENE (Allergy, Unknown, 04/27/17) Reported Meds & Prescriptions Reported Meds & Active Scripts Active Celexa (Citalopram Hydrobromide) 20 Mg Tab 20 Mg PO DAILY Pantoprazole (Pantoprazole Sodium) 40 Mg Tab 40 Mg PO DAILY Atenolol 50 Mg Tab 50 Mg PO DAILY Mental Status Examination Appearance: Appropriate Consciousness: Alert Orientation: x4 Motor Activity: Normal gait Speech: Unremarkable Language: Adequate Fund of Knowledge: Adequate Attention and Concentration: Adequate Memory: Unremarkable Mood: Sad Affect: Appropriate, Sad Thought Process & Associations: Intact Thought Content: Appropriate Hallucination Type: None Delusion Type: None Suicidal Ideation: No Suicidal Plan: No Suicidal Intention: No Homicidal Ideation: No Homicidal Plan: No Homicidal Intention: No Insight: Adequate Judgment: Adequate MDM Medical Decision Making Assessment/Plan Patient is stable. She is working through the recent of her niece and other family member. Denies suicidal and homicidal ideations. She came to the hospital on a voluntary basis looking for medications to treat her depression. She feels comfortable seeking treatment on an outpatient basis and does not feel she needs to be admitted. Patient does not meet inpatient criterial. Will discharge patient with referral to [facility] for outpatient management. Dx: Major Depression Alcohol Use Orders Orders Complete Blood Count With Diff (07/30/17 16:58) Comprehensive Metabolic Panel (07/30/17 16:58) Lipase (07/30/17 16:58) Lactic Acid (07/30/17 16:58) Prothrombin Time / Inr (Pt) (07/30/17 16:58) Act Partial Throm Time (Ptt) (07/30/17 16:58) Urinalysis - C+S If Indicated (07/30/17 16:58) Iv Access Insert/Monitor (07/30/17 16:58) Ecg Monitoring (07/30/17 16:58) Oximetry (07/30/17 16:58) Ondansetron Inj (Zofran Inj) (07/30/17 17:00) Sodium Chlor 0.9% 1000 Ml Inj (Ns 1000 M (07/30/17 16:58) Sodium Chloride 0.9% Flush (Ns Flush) (07/30/17 17:00) Electrocardiogram (07/30/17 16:58) Chest, Single Ap (07/30/17 16:58) Magnesium (Mg) (07/30/17 16:58) Psych Screen (07/30/17 16:58) Drug Screen, Random Urine (07/30/17 16:58) Alcohol (Ethanol) (07/30/17 16:58) Sodium Chlor 0.9% 1000 Ml Inj (Ns 1000 M (07/30/17 19:30) Potassium Bicarb Eff (Effer-K Eff) (07/30/17 19:30) Diet Regular Basic (07/31/17 Lunch) Results Vital Signs Date Time Temp Pulse Resp B/P (MAP) Pulse Ox O2 Delivery O2 Flow Rate FiO2 07/31/17 09:34 98.3 73 18 125/61 (82) 96 Room Air 07/31/17 09:00 75 19 113/72 (86) 97 Room Air 07/31/17 00:05 77 18 110/67 (81) 98 Room Air 07/30/17 19:22 75 18 105/65 (78) 98 Room Air 07/30/17 17:29 73 20 115/61 (79) 99 Room Air 07/30/17 17:28 99 Room Air 07/30/17 15:08 98.4 78 18 107/61 (76) 99 Laboratory Tests Test 07/30/17 17:45 07/30/17 20:25 White Blood Count 9.1 Red Blood Count 4.29 Hemoglobin 14.5 Hematocrit 42.6 Mean Corpuscular Volume 99.4 Mean Corpuscular Hemoglobin 33.8 Mean Corpuscular Hemoglobin Concent 34.0 Red Cell Distribution Width 19.3 Platelet Count 260 Mean Platelet Volume 8.5 Neutrophils (%) (Auto) 67.4 Lymphocytes (%) (Auto) 17.2 Monocytes (%) (Auto) 13.4 Eosinophils (%) (Auto) 1.4 Basophils (%) (Auto) 0.6 Neutrophils # (Auto) 6.2 Lymphocytes # (Auto) 1.6 Monocytes # (Auto) 1.2 Eosinophils # (Auto) 0.1 Basophils # (Auto) 0.1 CBC Comment DIFF FINAL Differential Comment Prothrombin Time 10.7 Prothromb Time International Ratio 1.1 Activated Partial Thromboplast Time 23.6 Blood Urea Nitrogen 7 Creatinine 1.11 Random Glucose 72 Total Protein 6.9 Albumin 3.5 Calcium Level 9.3 Magnesium Level 1.5 Alkaline Phosphatase 127 Aspartate Amino Transf (AST/SGOT) 168 Alanine Aminotransferase (ALT/SGPT) 190 Total Bilirubin 2.0 Sodium Level 127 Potassium Level 3.4 Chloride Level 88 Carbon Dioxide Level 25.3 Anion Gap 14 Estimat Glomerular Filtration Rate 49 Lactic Acid Level 2.7 Lipase 383 Ethyl Alcohol Level LESS THAN 3 Urine Color YELLOW Urine Turbidity CLEAR Urine pH 6.5 Urine Specific [place] 1.003 Urine Protein NEG Urine Glucose (UA) NEG Urine Ketones 10 Urine Occult Blood NEG Urine Nitrite NEG Urine Bilirubin NEG Urine Urobilinogen LESS THAN 2.0 Urine Leukocyte Esterase NEG Urine WBC 1 Urine Squamous Epithelial Cells 1 Microscopic Urinalysis Comment CULT NOT INDICATED Urine Opiates Screen NEG Urine Barbiturates Screen NEG Urine Amphetamines Screen NEG Urine Benzodiazepines Screen NEG Urine Cocaine Screen NEG Urine Cannabinoids Screen NEG Diagnosis Primary Impression: Generalized weakness Additional Impressions: Hyponatremia Depression with anxiety Hypokalemia Condition: Stable Problem Qualifiers Tammy Mehta Jul 31, 2017 11:40
--- NOTE | 2017-07-31 12:37 | PD ---
Data Data Last Documented VS Vital Signs Date Time Temp Pulse Resp B/P (MAP) Pulse Ox O2 Delivery O2 Flow Rate FiO2 07/31/17 09:34 98.3 73 18 125/61 (82) 96 Room Air Orders Orders Complete Blood Count With Diff (07/30/17 16:58) Comprehensive Metabolic Panel (07/30/17 16:58) Lipase (07/30/17 16:58) Lactic Acid (07/30/17 16:58) Prothrombin Time / Inr (Pt) (07/30/17 16:58) Act Partial Throm Time (Ptt) (07/30/17 16:58) Urinalysis - C+S If Indicated (07/30/17 16:58) Iv Access Insert/Monitor (07/30/17 16:58) Ecg Monitoring (07/30/17 16:58) Oximetry (07/30/17 16:58) Ondansetron Inj (Zofran Inj) (07/30/17 17:00) Sodium Chlor 0.9% 1000 Ml Inj (Ns 1000 M (07/30/17 16:58) Sodium Chloride 0.9% Flush (Ns Flush) (07/30/17 17:00) Electrocardiogram (07/30/17 16:58) Chest, Single Ap (07/30/17 16:58) Magnesium (Mg) (07/30/17 16:58) Psych Screen (07/30/17 16:58) Drug Screen, Random Urine (07/30/17 16:58) Alcohol (Ethanol) (07/30/17 16:58) Sodium Chlor 0.9% 1000 Ml Inj (Ns 1000 M (07/30/17 19:30) Potassium Bicarb Eff (Effer-K Eff) (07/30/17 19:30) Diet Regular Basic (07/31/17 Lunch) Labs Laboratory Tests Test 07/30/17 17:45 07/30/17 20:25 White Blood Count 9.1 TH/MM3 Red Blood Count 4.29 MIL/MM3 Hemoglobin 14.5 GM/DL Hematocrit 42.6 % Mean Corpuscular Volume 99.4 FL Mean Corpuscular Hemoglobin 33.8 PG Mean Corpuscular Hemoglobin Concent 34.0 % Red Cell Distribution Width 19.3 % Platelet Count 260 TH/MM3 Mean Platelet Volume 8.5 FL Neutrophils (%) (Auto) 67.4 % Lymphocytes (%) (Auto) 17.2 % Monocytes (%) (Auto) 13.4 % Eosinophils (%) (Auto) 1.4 % Basophils (%) (Auto) 0.6 % Neutrophils # (Auto) 6.2 TH/MM3 Lymphocytes # (Auto) 1.6 TH/MM3 Monocytes # (Auto) 1.2 TH/MM3 Eosinophils # (Auto) 0.1 TH/MM3 Basophils # (Auto) 0.1 TH/MM3 CBC Comment DIFF FINAL Differential Comment Prothrombin Time 10.7 SEC Prothromb Time International Ratio 1.1 RATIO Activated Partial Thromboplast Time 23.6 SEC Blood Urea Nitrogen 7 MG/DL Creatinine 1.11 MG/DL Random Glucose 72 MG/DL Total Protein 6.9 GM/DL Albumin 3.5 GM/DL Calcium Level 9.3 MG/DL Magnesium Level 1.5 MG/DL Alkaline Phosphatase 127 U/L Aspartate Amino Transf (AST/SGOT) 168 U/L Alanine Aminotransferase (ALT/SGPT) 190 U/L Total Bilirubin 2.0 MG/DL Sodium Level 127 MEQ/L Potassium Level 3.4 MEQ/L Chloride Level 88 MEQ/L Carbon Dioxide Level 25.3 MEQ/L Anion Gap 14 MEQ/L Estimat Glomerular Filtration Rate 49 ML/MIN Lactic Acid Level 2.7 mmol/L Lipase 383 U/L Ethyl Alcohol Level LESS THAN 3 MG/DL Urine Color YELLOW Urine Turbidity CLEAR Urine pH 6.5 Urine Specific [place] 1.003 Urine Protein NEG mg/dL Urine Glucose (UA) NEG mg/dL Urine Ketones 10 mg/dL Urine Occult Blood NEG Urine Nitrite NEG Urine Bilirubin NEG Urine Urobilinogen LESS THAN 2.0 MG/DL Urine Leukocyte Esterase NEG Urine WBC 1 /hpf Urine Squamous Epithelial Cells 1 /hpf Microscopic Urinalysis Comment CULT NOT INDICATED Urine Opiates Screen NEG Urine Barbiturates Screen NEG Urine Amphetamines Screen NEG Urine Benzodiazepines Screen NEG Urine Cocaine Screen NEG Urine Cannabinoids Screen NEG MDM Medical Record Reviewed: Yes Supervised Visit with JACEK: No Narrative Course Please see previous providers notes. The patient has been cleared by psychiatry and she has no further medical issues that would warrant additional hospitalization. Stable for discharge. Diagnosis Primary Impression: Generalized weakness Additional Impressions: Hyponatremia Depression with anxiety Hypokalemia Med/Other Pt SpecificInfo: No Change to Meds Disposition: 01 DISCHARGE HOME Condition: Stable Harley Bravo Jul 31, 2017 12:37
--- NOTE | 2017-07-31 16:53 | EKG ---
Date Performed: 07/30/2017 Time Performed: 17:31:08 PTAGE: 67 years EKG: Sinus rhythm POSSIBLE LEFT ATRIAL ENLARGEMENT POSSIBLE RIGHT VENTRICULAR CONDUCTION DELAY ABNORMAL QRS-T ANGLE AB NORMAL ECG Since the PREVIOUS TRACING , no significant change noted PREVIOUS TRACIN02/25/2017 07.33 DOCTOR: Juanita Obrien Interpretating Date/Time 07/31/2017 16:50:58
== END 2017-07-31 12:54 | disposition home or self-care (01) ==
LOC: NEPD 15:03 → NEPJ 07-31 12:54
DX: R53.1 Weakness (principal); E87.1 Hypo-osmolality and hyponatremia; E87.6 Hypokalemia; F32.9 Major depressive disorder, single episode, unspecified; F41.8 Other specified anxiety disorders; R94.31 Abnormal electrocardiogram [ECG] [EKG]; I10 Essential (primary) hypertension; F17.210 Nicotine dependence, cigarettes, uncomplicated; Z88.0 Allergy status to penicillin; Z88.2 Allergy status to sulfonamides; Z72.89 Other problems related to lifestyle; Z79.899 Other long term (current) drug therapy
CPT/HCPCS: 71045; 80053; 80307; 81001; 83605; 83690; 83735; 85025; 85610; 85730; 93005; 96361; 96374; 99285; J2405; J7030

== ENCOUNTER 2017-08-17 12:47 | Inpatient (IN) | payer MEDICARE ==
[~2017-08-17] VITALS: Ht 152.4 cm; Wt 39.4 kg
[2017-08-17 12:51] VITALS: BP 106/77; PULSE 94; RESP 17; TEMP 97; O2SAT 98
[2017-08-17] MEDS ORDERED: SODIUM CHLOR 0.9% 1000 ML INJ 1,000 ML IV SCH (13:26)
[2017-08-17] MEDS ORDERED: ONDANSETRON HCL 4 MG/2 ML VIAL IVP ONE (13:30)
[2017-08-17] MEDS ORDERED: SODIUM CHLORIDE 0.9% FLUSH 10 ML FLUSH IV FLUSH PRN ×2 (13:30→17:45)
[2017-08-17 13:58] LABS: AUTOMATED NEUTROPHIL # 5.9 TH/MM3 (1.8-7.7); BASOPHIL # 0.1 TH/MM3 (0-0.2); BASOPHIL % 0.6 % (0.0-2.0); EOSINOPHIL # 0.1 TH/MM3 (0-0.4); EOSINOPHIL % 0.8 % (0.0-4.0); HEMATOCRIT 39.6 % (35.0-46.0); HEMOGLOBIN 13.9 GM/DL (11.6-15.3); LYMPH % 13.5 % (9.0-44.0); LYMPHOCYTE # 1.1 TH/MM3 (1.0-4.8); MEAN CELL VOLUME 96.4 FL (80.0-100.0); MEAN CORPUSCULAR HEMOGLOBIN 33.7 PG (27.0-34.0); MEAN CORPUSCULAR HGB CONC 34.9 % (32.0-36.0); MONO % 13.5 % (0.0-8.0); MONOCYTE # 1.1 TH/MM3 (0-0.9); NEUT % 71.6 % (16.0-70.0); PLATELET COUNT 369 TH/MM3 (150-450); RED BLOOD COUNT 4.11 MIL/MM3 (4.00-5.30); RED CELL DISTRIBUTION WIDTH 18.9 % (11.6-17.2); WHITE BLOOD COUNT 8.2 TH/MM3 (4.0-11.0)
[2017-08-17 14:16] VITALS: BP 122/72; PULSE 72; RESP 22; O2SAT 100
[2017-08-17 14:42] LABS: ALBUMIN 3.1 GM/DL (3.4-5.0); ALKALINE PHOSPHATASE 82 U/L (45-117); ALT (GPT) 94 U/L (10-53); AST (GOT) 81 U/L (15-37); BICARBONATE 28.9 MEQ/L (21.0-32.0); BLOOD UREA NITROGEN 6 MG/DL (7-18); CALCIUM 9.5 MG/DL (8.5-10.1); CHLORIDE 92 MEQ/L (98-107); CREATININE 0.98 MG/DL (0.50-1.00); GLOMERULAR FILTRATION RATE 57 ML/MIN (>89); GLUCOSE,RANDOM 96 MG/DL (74-106); SODIUM (NA) 131 MEQ/L (136-145); TOTAL BILIRUBIN ADULT 0.7 MG/DL (0.2-1.0); TOTAL PROTEIN 6.6 GM/DL (6.4-8.2)
[2017-08-17] MEDS ORDERED: POTASSIUM CHLORIDE 20 MEQ CONTROLLED RELEASE TAB PO ONE (15:15)
--- NOTE | 2017-08-17 15:16 | PD ---
HPI Chief Complaint: GI Complaint Time Seen by Provider: 13:24 Travel History International Travel<30 days: No Contact w/Intl Traveler<30days: No Traveled to known affect area: No History of Present Illness HPI 67-year-old female presents to the emergency department with complaint of nausea and decreased appetite for the past couple weeks. Reports some dry heaving, otherwise denies vomiting. Denies fevers. Denies recent illness. Denies chest pain, shortness breath, abdominal pain. Denies constipation, diarrhea. Denies dysuria. Reports feeling lightheaded and dizzy. Says she has tried eating and she gets nauseated. She can drink fluids and they do not make her feel nauseated. Said she saw her primary care provider, Dr. Odonnell, about a month ago and she was fine. She has been drinking richelle macie and other fluids for symptom management. Aggravated with eating. Symptoms are moderate to severe in severity. No known relieving factors. Primary CARE providers Dr. Odonnell. Allergies to penicillin, codeine, sulfa, Benadryl. History of hypertension. Has no other medical complaints. No other modifying factors or associated signs and symptoms. PFSH Past Medical History Anxiety: No Depression: Yes Cancer: No Cardiovascular Problems: No Diminished Hearing: No Endocrine: No Genitourinary: No Hypertension: Yes Immune Disorder: No Musculoskeletal: No Neurologic: No Psychiatric: Yes Reproductive: No Respiratory: No Tetanus Vaccination: Unknown Influenza Vaccination: No ?: Not Menopausal: Yes Past Surgical History Abdominal Surgery: Yes Eye Surgery: Yes (cataract surgery) Tonsillectomy: Yes Other Surgery: Yes (bilat catatract and lense resplacement) Social History Alcohol Use: No (STOPPED 2 WEEKS AGO 07/29/17) Tobacco Use: Yes (1 PPD) Substance Use: No Allergies-Medications (Allergen,Severity, Reaction): Coded Allergies: Penicillins (Verified Allergy, Severe, Hives, 08/17/17) Sulfa (Sulfonamide Antibiotics) (Verified Adverse Reaction, Severe, Nausea /Vomiting, 08/17/17) diphenhydramine (Verified Adverse Reaction, Unknown, Drowsiness, 08/17/17) Uncoded Allergies: CODIENE (Allergy, Unknown, 04/27/17) Reported Meds & Prescriptions Reported Meds & Active Scripts Active Celexa (Citalopram Hydrobromide) 20 Mg Tab 20 Mg PO DAILY Pantoprazole (Pantoprazole Sodium) 40 Mg Tab 40 Mg PO DAILY Atenolol 50 Mg Tab 50 Mg PO DAILY Review of Systems Except as stated in HPI: all other systems reviewed are Neg Physical Exam Narrative GENERAL: Thin, female patient, in no acute distress; afebrile, nontoxic-appearing SKIN: Warm and dry. HEAD: Atraumatic. Normocephalic. EYES: Pupils equal and round. No scleral icterus. No injection or drainage. ENT: Mucosa pink and moist. Airway patent. NECK: Trachea midline. CARDIOVASCULAR: Regular rate and rhythm. No murmur appreciated. RESPIRATORY: No accessory muscle use. Breath sounds clear and equal bilaterally. No retractions or tachypnea. GASTROINTESTINAL: Abdomen soft, non-tender, nondistended. Bowel sounds active x 4 quadrants. Nonrigid. No guarding. MUSCULOSKELETAL: No obvious deformities. No clubbing. No cyanosis. No edema. NEUROLOGICAL: Awake and alert. Oriented 3. No obvious cranial nerve deficits. Motor grossly within normal limits. Normal speech. PSYCHIATRIC: Appropriate mood and affect; insight and judgment normal. Data Data Last Documented VS Vital Signs Date Time Temp Pulse Resp B/P (MAP) Pulse Ox O2 Delivery O2 Flow Rate FiO2 08/17/17 14:16 72 22 122/72 (89) 100 Room Air 08/17/17 12:51 97.0 Orders Orders Complete Blood Count With Diff (08/17/17 13:26) Comprehensive Metabolic Panel (08/17/17 13:26) Lipase (08/17/17 13:26) Urinalysis - C+S If Indicated (08/17/17 13:26) Iv Access Insert/Monitor (08/17/17 13:26) Ondansetron Inj (Zofran Inj) (08/17/17 13:30) Sodium Chlor 0.9% 1000 Ml Inj (Ns 1000 M (08/17/17 13:26) Sodium Chloride 0.9% Flush (Ns Flush) (08/17/17 13:30) Chest, Single Ap (08/17/17 13:46) Potassium Chloride (Kcl) (08/17/17 15:15) Ct Abd/Pel W Iv Contrast(Rout) (08/17/17 15:12) Iohexol 350 Inj (Omnipaque 350 Inj) (08/17/17 15:46) Labs Laboratory Tests Test 08/17/17 13:47 08/17/17 15:15 White Blood Count 8.2 TH/MM3 Red Blood Count 4.11 MIL/MM3 Hemoglobin 13.9 GM/DL Hematocrit 39.6 % Mean Corpuscular Volume 96.4 FL Mean Corpuscular Hemoglobin 33.7 PG Mean Corpuscular Hemoglobin Concent 34.9 % Red Cell Distribution Width 18.9 % Platelet Count 369 TH/MM3 Mean Platelet Volume 8.0 FL Neutrophils (%) (Auto) 71.6 % Lymphocytes (%) (Auto) 13.5 % Monocytes (%) (Auto) 13.5 % Eosinophils (%) (Auto) 0.8 % Basophils (%) (Auto) 0.6 % Neutrophils # (Auto) 5.9 TH/MM3 Lymphocytes # (Auto) 1.1 TH/MM3 Monocytes # (Auto) 1.1 TH/MM3 Eosinophils # (Auto) 0.1 TH/MM3 Basophils # (Auto) 0.1 TH/MM3 CBC Comment DIFF FINAL Differential Comment Blood Urea Nitrogen 6 MG/DL Creatinine 0.98 MG/DL Random Glucose 96 MG/DL Total Protein 6.6 GM/DL Albumin 3.1 GM/DL Calcium Level 9.5 MG/DL Alkaline Phosphatase 82 U/L Aspartate Amino Transf (AST/SGOT) 81 U/L Alanine Aminotransferase (ALT/SGPT) 94 U/L Total Bilirubin 0.7 MG/DL Sodium Level 131 MEQ/L Potassium Level 2.9 MEQ/L Chloride Level 92 MEQ/L Carbon Dioxide Level 28.9 MEQ/L Anion Gap 10 MEQ/L Estimat Glomerular Filtration Rate 57 ML/MIN Lipase 1215 U/L Urine Color LIGHT-YELLOW Urine Turbidity CLEAR Urine pH 7.0 Urine Specific [place] 1.002 Urine Protein NEG mg/dL Urine Glucose (UA) NEG mg/dL Urine Ketones NEG mg/dL Urine Occult Blood NEG Urine Nitrite NEG Urine Bilirubin NEG Urine Urobilinogen LESS THAN 2.0 MG/DL Urine Leukocyte Esterase SMALL Urine RBC 1 /hpf Urine WBC 2 /hpf Urine Squamous Epithelial Cells 3 /hpf Urine Bacteria RARE /hpf Microscopic Urinalysis Comment CULT NOT INDICATED MDM Medical Decision Making Medical Screen Exam Complete: Yes Emergency Medical Condition: Yes Medical Record Reviewed: Yes Differential Diagnosis Failure to thrive, electrolyte imbalance, dehydration, malignancy Narrative Course 67-year-old female complaining of decreased appetite and nausea for the past couple weeks. Patient is cachectic appearing otherwise physical exam is unremarkable. Vital signs are stable. I discussed patient with Dr. Blanca and plan of care discussed. CBC, CMP, lipase, urinalysis, chest x-ray ordered. 1513: CBC unremarkable. Sodium 131. Potassium 2.9. AST 81. ALT 94. Lipase 1215. 40 M EQ of potassium chloride ordered. Dr. Blanca reviewed labs with de and he recommends CT abdomen/pelvis secondary to elevated lipase. CT abdomen/ pelvis ordered. 1539: Chest x-ray concluded: Chest X-Ray 08/17/17 1346 Signed Impressions: Service Date/Time: Thursday, August 17, 2017 13:55 - CONCLUSION: 1. COPD changes. No acute abnormality. Arthur Kaplan MD Patient provided copy of the x-ray report. Abdomen/Pelvis CT 08/17/17 1512 Signed Impressions: Service Date/Time: Thursday, August 17, 2017 15:34 - CONCLUSION: 1. No acute finding is identified to explain the clinical symptoms. 2. There is a stable mild wall thickening of the distal esophagus. An esophagitis could have this appearance. 3. There is a left ovarian cystic lesion measuring 1.9 cm. It has a simple appearance and is stable. Since the patient is postmenopausal, longer term followup should be performed. Consider transabdominal and transvaginal pelvis ultrasound in 6 months. Mono Britton MD Call placed for patient admission. 1755: I spoke with Dr. Delacruz and report was given for patient admission. Physician Communication Physician Communication Dr. Delacruz, Diagnosis Primary Impression: Pancreatitis Qualified Codes: K85.90 - Acute pancreatitis without necrosis or infection, unspecified Admitting Information Admitting Physician Requests: Admit Diana Bone [facility] August 17, 2017 15:16
--- NOTE | 2017-08-17 15:18 | RADRPT ---
EXAM DATE/TIME: 08/17/2017 13:55 [place] COMPARISON: CHEST SINGLE AP, July 30, 2017, 17:07. INDICATIONS : Dizziness, lightheaded, vomitting, and shortness of breath. MEDICAL HISTORY : Hypertension. SURGICAL HISTORY : Tonsillectomy. ENCOUNTER: Initial ACUITY: 3 weeks PAIN SCORE: 0/10 LOCATION: Bilateral chest FINDINGS: The examination demonstrates COPD changes. The heart is normal in size. The mediastinal contours are within normal limits. Visualized bony structures are intact. The exam is stable compared to previous dated . CONCLUSION: 1. COPD changes. No acute abnormality. Arthur Kaplan MD on August 17, 2017 at 15:16 Board Certified Radiologist. This report was verified electronically.
[2017-08-17] MEDS ORDERED: IOHEXOL 350 MG/ML 10 ML VIAL (for RAD DIAG) IVCONTRAST ONE (15:46)
[2017-08-17 15:52] LABS: BACTERIA, URINE RARE /hpf; BILIRUBIN, URINE NEG (NEG); BLOOD, URINE NEG (NEG); GLUCOSE,URINE NEG (NEG); KETONE, URINE NEG (NEG); NITRITE,URINE NEG (NEG); SQUAMOUS EPITHELIAL CELL URINE 3 /hpf (0-5); URINE COLOR LIGHT-YELLOW (YELLW/STRAW); URINE LEUKOCYTE ESTERASE SMALL (NEG)
--- NOTE | 2017-08-17 16:13 | RADRPT ---
EXAM DATE/TIME: 08/17/2017 15:34 [facility] COMPARISON: CT ABDOMEN & PELVIS W CONTRAST, April 22, 2017, 10:26. INDICATIONS : Decreased nausea and appetite for 2 weeks IV CONTRAST: 75 cc Omnipaque 350 (iohexol) IV ORAL CONTRAST: No oral contrast ingested. RADIATION DOSE: 4.76 CTDIvol (mGy) MEDICAL HISTORY : Hypertension. SURGICAL HISTORY : None. ENCOUNTER: Initial ACUITY: 2 weeks PAIN SCALE: 0/10 LOCATION: abdomen TECHNIQUE: Volumetric scanning of the abdomen and pelvis was performed. Using automated exposure control and ad justment of the mA and/or kV according to patient size, radiation dose was kept as low as reasonably achievable to obtain optimal diagnostic quality images. DICOM format image data is available electro nically for review and comparison. FINDINGS: LOWER LUNGS: The visualized lower lungs are clear. LIVER: Homogeneous density without lesion. There is no dilation of the biliary tree. No calcified gallston es. SPLEEN: Normal size without lesion. PANCREAS: Within normal limits. KIDNEYS: Normal in size and shape. There is no mass, stone or hydronephrosis. ADRENAL GLANDS: Within normal limits. VASCULAR: There is no aortic aneurysm. There is moderate atherosclerotic disease. BOWEL/MESENTERY: The stomach, small bowel, and colon demonstrate no acute abnormality. There is circumferential wall thickening of the distal esophagus similar to the prior examination. There is no free intraperitoneal air or fluid. ABDOMINAL WALL: Within normal limits. RETROPERITONEUM: There is no lymphadenopathy. BLADDER: No wall thickening or mass. REPRODUCTIVE: There is a coarse calcification in the right fundus of the uterus measuring 15 mm and there is a stab le left ovarian cystic lesion measuring 19 mm. It has a simple appearance on this examination. INGUINAL: There is no lymphadenopathy or hernia. MUSCULOSKELETAL: There are degenerative changes of the lumbar spine with mild dextroscoliosis. CONCLUSION: 1. No acute finding is identified to explain the clinical symptoms. 2. There is a stable mild wall thickening of the distal esophagus. An esophagitis could have this jonnie earance. 3. There is a left ovarian cystic lesion measuring 1.9 cm. It has a simple appearance and is stable. Since the patient is postmenopausal, longer term followup should be performed. Consider transabdomina l and transvaginal pelvis ultrasound in 6 months. Mono Britton MD on August 17, 2017 at 16:05 Board Certified Radiologist. This report was verified electronically.
[2017-08-17] MEDS ORDERED: LORazepam 2 MG TAB PO PRN (17:45)
[2017-08-17] MEDS ORDERED: LORazepam 2 MG/ML VIAL IV PUSH PRN ×4 (17:45)
[2017-08-17] MEDS ORDERED: ONDANSETRON HCL 4 MG/2 ML VIAL IV PUSH PRN (17:45)
[2017-08-17] MEDS ORDERED: LORazepam 1 MG TAB PO PRN (17:45)
[2017-08-17] MEDS ORDERED: FLUMAZENIL 0.5 MG/5 ML VIAL IV PUSH PRN (17:45)
[2017-08-17] MEDS: HEPARIN SODIUM - SQ 10,000 UNITS/ML VIAL SQ SCH (18:04)
[2017-08-17] MEDS: LACTATED RINGER'S 1000 ML INJ 1,000 ML IV SCH (18:04)
[2017-08-17] MEDS: PANTOPRAZOLE SOD 40 MG DELAYED RELEASE TAB PO SCH (18:04)
[2017-08-17 18:08] VITALS: BP 104/73; PULSE 75; RESP 22; O2SAT 100
--- NOTE | 2017-08-17 19:53 | HHI.HP ---
[facility] Service [facility] Primary Care Physician Satnam Odonnell MD Admission Diagnosis Pancreatitis Diagnoses: Chief Complaint: Nausea and vomiting. Travel History International Travel<30 Days: No Contact w/Intl Traveler <30 Da: No Traveled to Known Affected Are: No History of Present Illness 67 Y/O female alcoholic who presented to the ED with complaints of persistent nausea and dry heaving. Patient rpeorts that her symptoms started 2 weeks ago. She reprotedly stopped drinking when she could no longer tolerated alcohol. She has been drinking 2+ glasses of wine daily. She actually denies abdominal pain. No constipation or diarrhea. Workup in the emergency room consistent with pancreatitis. Lipase over a thousand. Review of Systems Constitutional: DENIES: Fever, Chills Gastrointestinal: COMPLAINS OF: Nausea, DENIES: Abdominal pain Except as stated in HPI: all other systems reviewed are Neg Past Family Social History Past Medical History Depression Hypertension Past Surgical History cataract surgery Reported Medications Reported Meds & Active Scripts Active Celexa (Citalopram Hydrobromide) 20 Mg Tab 20 Mg PO DAILY Pantoprazole (Pantoprazole Sodium) 40 Mg Tab 40 Mg PO DAILY Atenolol 50 Mg Tab 50 Mg PO DAILY Allergies: Coded Allergies: Penicillins (Verified Allergy, Severe, Hives, 08/17/17) Sulfa (Sulfonamide Antibiotics) (Verified Adverse Reaction, Severe, Nausea /Vomiting, 08/17/17) diphenhydramine (Verified Adverse Reaction, Unknown, Drowsiness, 08/17/17) Uncoded Allergies: CODIENE (Allergy, Unknown, 04/27/17) Family History Reviewed and is noncontributory. Social History Chronic alcoholic with periods of sobriety. Started drinking again a few months back. Drinking 2+ glasses of wine daily. Reportedly quit when current symptoms started two weeks ago. Lifelong smoker at least 1 PPD. Physical Exam Vital Signs Vital Signs Date Time Temp Pulse Resp B/P (MAP) Pulse Ox O2 Delivery O2 Flow Rate FiO2 08/17/17 19:22 08/17/17 18:08 75 22 104/73 (83) 100 Room Air 5/1/18 14:16 72 22 122/72 (89) 100 Room Air 08/17/17 12:51 97.0 94 17 106/77 (87) 98 Physical Exam GENERAL: This is a well-nourished, well-developed patient, in no apparent distress. SKIN: No rashes, ecchymoses or lesions. Cool and dry. HEAD: Atraumatic. Normocephalic. No temporal or scalp tenderness. EYES: Pupils equal round and reactive. Extraocular motions intact. No scleral icterus. No injection or drainage. ENT: Nose without bleeding, purulent drainage or septal hematoma. Throat without erythema, tonsillar hypertrophy or exudate. Uvula midline. Airway patent. NECK: Trachea midline. No JVD or lymphadenopathy. Supple, nontender, no meningeal signs. CARDIOVASCULAR: Regular rate and rhythm without murmurs, gallops, or rubs. RESPIRATORY: Clear to auscultation. Breath sounds equal bilaterally. No wheezes , rales, or rhonchi. GASTROINTESTINAL: Abdomen soft, non-tender, nondistended. No hepato-splenomegaly , or palpable masses. No guarding. MUSCULOSKELETAL: Extremities without clubbing, cyanosis, or edema. No joint tenderness, effusion, or edema noted. No calf tenderness. Negative Homans sign bilaterally. NEUROLOGICAL: Awake and alert. Cranial nerves II through XII intact. Motor and sensory grossly within normal limits. Five out of 5 muscle strength in all muscle groups. Normal speech. Laboratory Laboratory Tests Test 08/17/17 13:47 08/17/17 15:15 White Blood Count 8.2 Red Blood Count 4.11 Hemoglobin 13.9 Hematocrit 39.6 Mean Corpuscular Volume 96.4 Mean Corpuscular Hemoglobin 33.7 Mean Corpuscular Hemoglobin Concent 34.9 Red Cell Distribution Width 18.9 Platelet Count 369 Mean Platelet Volume 8.0 Neutrophils (%) (Auto) 71.6 Lymphocytes (%) (Auto) 13.5 Monocytes (%) (Auto) 13.5 Eosinophils (%) (Auto) 0.8 Basophils (%) (Auto) 0.6 Neutrophils # (Auto) 5.9 Lymphocytes # (Auto) 1.1 Monocytes # (Auto) 1.1 Eosinophils # (Auto) 0.1 Basophils # (Auto) 0.1 CBC Comment DIFF FINAL Differential Comment Blood Urea Nitrogen 6 Creatinine 0.98 Random Glucose 96 Total Protein 6.6 Albumin 3.1 Calcium Level 9.5 Alkaline Phosphatase 82 Aspartate Amino Transf (AST/SGOT) 81 Alanine Aminotransferase (ALT/SGPT) 94 Total Bilirubin 0.7 Sodium Level 131 Potassium Level 2.9 Chloride Level 92 Carbon Dioxide Level 28.9 Anion Gap 10 Estimat Glomerular Filtration Rate 57 Lipase 1215 Urine Color LIGHT-YELLOW Urine Turbidity CLEAR Urine pH 7.0 Urine Specific [place] 1.002 Urine Protein NEG Urine Glucose (UA) NEG Urine Ketones NEG Urine Occult Blood NEG Urine Nitrite NEG Urine Bilirubin NEG Urine Urobilinogen LESS THAN 2.0 Urine Leukocyte Esterase SMALL Urine RBC 1 Urine WBC 2 Urine Squamous Epithelial Cells 3 Urine Bacteria RARE Microscopic Urinalysis Comment CULT NOT INDICATED Result Diagram: 08/17/17 1347 08/17/17 1347 Imaging Last Impressions Abdomen/Pelvis CT 08/17/17 1512 Signed Impressions: Service Date/Time: Thursday, August 17, 2017 15:34 - CONCLUSION: 1. No acute finding is identified to explain the clinical symptoms. 2. There is a stable mild wall thickening of the distal esophagus. An esophagitis could have this appearance. 3. There is a left ovarian cystic lesion measuring 1.9 cm. It has a simple appearance and is stable. Since the patient is postmenopausal, longer term followup should be performed. Consider transabdominal and transvaginal pelvis ultrasound in 6 months. Mono Britton MD Chest X-Ray 08/17/17 1346 Signed Impressions: Service Date/Time: Thursday, August 17, 2017 13:55 - CONCLUSION: 1. COPD changes. No acute abnormality. Arthur Kaplan MD Caprini VTE Risk Assessment Caprini VTE Risk Assessment: Mod/High Risk (score >= 2) Caprini Risk Assessment Model Point Value = 1 Point Value = 2 Point Value = 3 Point Value = 5 Age 41-60 Minor surgery BMI > 25 kg/m2 Swollen legs Varicose veins or History of unexplained or recurrent spontaneous Oral contraceptives or hormone replacement Sepsis (< 1 month) Serious lung disease, including pneumonia (< 1 month) Abnormal pulmonary function Acute myocardial infarction Congestive heart failure (< 1 month) History of inflammatory bowel disease Medical patient at bed rest Age 61-74 Arthroscopic surgery Major open surgery (> 45 min) Laparoscopic surgery (> 45 min) Malignancy Confined to bed (> 72 hours) Immobilizing plaster cast Central venous access Age >= 75 History of VTE Family history of VTE Factor V Leiden Prothrombin [id number] Lupus anticoagulant Anticardiolipin antibodies Elevated serum homocysteine Heparin-induced thrombocytopenia Other congenital or acquired thrombophilia Stroke (< 1 month) Elective arthroplasty Hip, pelvis, or leg fracture Acute spinal cord injury (< 1 month) Prophylaxis Regimen Total Risk Factor Score Risk Level Prophylaxis Regimen 0-1 Low Early ambulation 2 Moderate Order ONE of the following: *Sequential Compression Device (SCD) *Heparin 5000 units SQ BID 3-4 Higher Order ONE of the following medications: *Heparin 5000 units SQ TID *Enoxaparin/Lovenox 40 mg SQ daily (WT < 150 kg, CrCl > 30 mL/min) *Enoxaparin/Lovenox 30 mg SQ daily (WT < 150 kg, CrCl > 10-29 mL/min) *Enoxaparin/Lovenox 30 mg SQ BID (WT < 150 kg, CrCl > 30 mL/min) AND/OR *Sequential Compression Device (SCD) 5 or more Highest Order ONE of the following medications: *Heparin 5000 units SQ TID (Preferred with Epidurals) *Enoxaparin/Lovenox 40 mg SQ daily (WT < 150 kg, CrCl > 30 mL/min) *Enoxaparin/Lovenox 30 mg SQ daily (WT < 150 kg, CrCl > 10-29 mL/min) *Enoxaparin/Lovenox 30 mg SQ BID (WT < 150 kg, CrCl > 30 mL/min) AND *Sequential Compression Device (SCD) Assessment and Plan Problem List: (1) Pancreatitis ICD Code: K85.90 - Acute pancreatitis without necrosis or infection, unspecified Status: Acute Plan: Probably alcoholic pancreatitis Keep NPO overnight. Trial of low fat diet in AM if stable Antiemetics as needed IVF (2) Depression with anxiety ICD Code: F41.8 - Other specified anxiety disorders Status: Chronic Plan: Continue Celexa (3) Hyponatremia ICD Code: E87.1 - Hypo-osmolality and hyponatremia Status: Acute Plan: Probably secondary to chronic alcohol. IVF Monitor. (4) Alcohol abuse ICD Code: F10.10 - Alcohol abuse, uncomplicated Status: Chronic Plan: Patient extensively counseled. She said she is quitting for good. [place] protocol. (5) Smoker ICD Code: F17.200 - Nicotine dependence, unspecified, uncomplicated Status: Chronic Plan: Patient counseled. She does not believe she can quit. (6) Hypokalemia ICD Code: E87.6 - Hypokalemia Plan: Replace and monitor. Discussed Condition With ED staff and patient. Physician Certification 2 Midnight Certification Type: Admission for Inpatient Services Order for Inpatient Services The services are ordered in accordance with Medicare regulations or non- Medicare payer requirements, as applicable. In the case of services not specified as inpatient-only, they are appropriately provided as inpatient services in accordance with the 2-midnight benchmark. Estimated LOS (days): 2 days is the estimated time the patient will need to remain in the hospital, assuming treatment plan goals are met and no additional complications. Post-Hospital Plan: Home Problem Qualifiers (1) Pancreatitis: Qualified Codes: K85.20 - Alcohol induced acute pancreatitis without necrosis or infection Arcadio Delacruz MD August 17, 2017 19:53
[2017-08-17 20:30] VITALS: BP 120/56; PULSE 78; RESP 17; TEMP 97.6; O2SAT 96
[2017-08-17] MEDS: SODIUM CHLORIDE 0.9% FLUSH 10 ML FLUSH IV FLUSH SCH (21:00)
[2017-08-18 00:20] VITALS: BP 125/59; PULSE 67; RESP 19; TEMP 98; O2SAT 97
[2017-08-18] MEDS: LACTATED RINGER'S 1000 ML INJ 1,000 ML IV SCH (03:39)
[2017-08-18 05:33] LABS: AUTOMATED NEUTROPHIL # 3.2 TH/MM3 (1.8-7.7); BASOPHIL # 0.1 TH/MM3 (0-0.2); BASOPHIL % 0.9 % (0.0-2.0); EOSINOPHIL # 0.2 TH/MM3 (0-0.4); HEMATOCRIT 35.1 % (35.0-46.0); HEMOGLOBIN 12.2 GM/DL (11.6-15.3); LYMPH % 28.9 % (9.0-44.0); LYMPHOCYTE # 1.7 TH/MM3 (1.0-4.8); MEAN CELL VOLUME 98.1 FL (80.0-100.0); MEAN CORPUSCULAR HGB CONC 34.7 % (32.0-36.0); MEAN PLATELET VOLUME 8.5 FL (7.0-11.0); MONO % 14.2 % (0.0-8.0); MONOCYTE # 0.9 TH/MM3 (0-0.9); PLATELET COUNT 323 TH/MM3 (150-450); RED BLOOD COUNT 3.58 MIL/MM3 (4.00-5.30); RED CELL DISTRIBUTION WIDTH 19.6 % (11.6-17.2)
[2017-08-18 05:40] VITALS: BP 118/60; PULSE 66; RESP 17; TEMP 98.6; O2SAT 97
[2017-08-18 05:57] LABS: BICARBONATE 26.7 MEQ/L (21.0-32.0); CALCIUM 8.8 MG/DL (8.5-10.1); CREATININE 0.73 MG/DL (0.50-1.00)
[2017-08-18 07:39] VITALS: BP 121/60; PULSE 69; RESP 17; TEMP 97.7; O2SAT 97
[2017-08-18] MEDS: CITALOPRAM HYDROBROMIDE 20 MG TAB PO SCH (08:03)
[2017-08-18] MEDS: PANTOPRAZOLE SOD 40 MG DELAYED RELEASE TAB PO SCH (08:03)
[2017-08-18] MEDS: ATENOLOL 50 MG TAB PO SCH (08:03)
[2017-08-18] MEDS: HEPARIN SODIUM - SQ 10,000 UNITS/ML VIAL SQ SCH ×2 (08:04→20:55)
[2017-08-18] MEDS: SODIUM CHLORIDE 0.9% FLUSH 10 ML FLUSH IV FLUSH SCH ×2 (08:04→21:23)
[2017-08-18 11:50] VITALS: BP 123/64; PULSE 65; RESP 18; TEMP 98; O2SAT 98
--- NOTE | 2017-08-18 14:24 | HHI.PR ---
Subjective Remarks No clinical improvement in symptoms. Lipase has worsened overnight. Etiology is suspicious to be related to virus versus obstruction in this setting. Objective Vital Signs Date Time Temp Pulse Resp B/P (MAP) Pulse Ox O2 Delivery O2 Flow Rate FiO2 08/18/17 11:50 98.0 65 18 123/64 (83) 98 08/18/17 07:39 97.7 69 17 121/60 (80) 97 08/18/17 05:40 98.6 66 17 118/60 (79) 97 08/18/17 00:20 98.0 67 19 125/59 (81) 97 08/17/17 20:30 97.6 78 17 120/56 (77) 96 08/17/17 19:22 08/17/17 18:08 75 22 104/73 (83) 100 Room Air I/O 08/17/17 08/17/17 08/17/17 08/18/17 08/18/17 08/18/17 07:00 15:00 23:00 07:00 15:00 23:00 Intake Total 1000 ml 1053 ml Balance 1000 ml 1053 ml Intake Oral 0 ml 0 ml IV Total 1000 ml 1053 ml # Voids 0 2 # Bowel Movements 0 0 Result Diagram: 08/18/17 0342 08/18/17 0342 Objective Remarks GENERAL: NAD, A&Ox3 HEAD: Normocephalic. NECK: Supple, trachea midline. No lymphadenopathy. EYES: No scleral icterus. No injection or drainage. CARDIOVASCULAR: Regular rate and rhythm without murmurs, gallops, or rubs. RESPIRATORY: Breath sounds equal bilaterally. No accessory muscle use. GASTROINTESTINAL: Abdomen soft, nondistended. Moderate abdominal tenderness without guarding. MUSCULOSKELETAL: No cyanosis, or edema. SKIN: Warm and dry. NEURO: No focal neurological deficitis. A/P Problem List: (1) Pancreatitis ICD Code: K85.90 - Acute pancreatitis without necrosis or infection, unspecified Status: Acute (2) Hyponatremia ICD Code: E87.1 - Hypo-osmolality and hyponatremia Status: Acute (3) Hypokalemia ICD Code: E87.6 - Hypokalemia (4) Depression with anxiety ICD Code: F41.8 - Other specified anxiety disorders Status: Chronic Assessment and Plan 67-year-old female admitted secondary to acute pancreatitis Lipase is worsened overnight. HIDA scan ordered. Continue to monitor lipase. Labs ordered for further monitoring. Acute pancreatitis Viral versus obstructive Possible alcohol correlation Clear liquid diet Continue antiemetics Continue IV fluids Continue to monitor lipase Depression General anxiety disorder Continue Celexa Hyponatremia Continue to follow sodium levels IV hydration as above Alcohol abuse Patient intends to quit Continue CIWA protocol Nicotine dependence Patient counseled to quit Hypokalemia Monitor potassium levels Replace as needed DVT prophylaxis SCDs Problem Qualifiers (1) Pancreatitis: Qualified Codes: K85.20 - Alcohol induced acute pancreatitis without necrosis or infection Arthur Del Cid MD August 18, 2017 14:24
[2017-08-18] MEDS ORDERED: SINCALIDE 5 MCG/5 ML VIAL IV ONE (14:36)
--- NOTE | 2017-08-18 15:07 | RADRPT ---
EXAM DATE/TIME: 08/18/2017 13:08 [facility] COMPARISON: CT ABDOMEN & PELVIS W CONTRAST, August 17, 2017, 15:34. INDICATIONS : Nausea for 2 weeks. DOSE: 4.1 mCi Tc99m Mebrofenin IV MEDICATION: 1 mcg Cholecystokinin IV; Indential symptomatic response. Cholecystokinin was administered by slow infusion over 8 minutes beginning at 60 minutes. MEDICAL HISTORY : Hypertension. SURGICAL HISTORY : None. ENCOUNTER: Initial ACUITY: 2 weeks PAIN SCALE: 3/10 LOCATION: Right upper quadrant TECHNIQUE: Following the intravenous administration of radiotracer, dynamic sequential image were performed with continuous acquisition. Time-activity curves were generated. FINDINGS: HEPATIC KINETICS: There is prompt uptake of radiotracer in the liver. No focal defects are seen. There is normal rate of washout from the hepatic parenchyma. BILIARY CLEARANCE: Activity is first seen in the extrahepatic biliary system at 10 minutes. There is normal excretion i nto the small bowel. GALLBLADDER: Activity is first seen in the gallbladder at 55 minutes. POST CHOLECYSTOKININ: After Cholecystokinin administration, there is poor emptying of the gallbladder with a 5 % ejection f raction. Common bile duct kinetics are normal and there is no evidence of biliary obstruction. BILIARY ENTERIC REFLUX: None observed. CLINICAL: The patient was asymptomatic after Cholecystokinin administration. CONCLUSION: 1. There is a poor gallbladder ejection fraction following Kinevac. Ejection fraction is approximate 5%. Also, there is some delayed filling of the gallbladder. This can be seen with chronic gallbladder disease. 2. No mechanical biliary tract obstruction. Kam Baker MD on August 18, 2017 at 15:03 Board Certified Radiologist. This report was verified electronically.
[2017-08-18 16:02] VITALS: BP 137/62; PULSE 69; RESP 18; TEMP 97.6; O2SAT 98
[2017-08-18] MEDS: SODIUM CHLOR 0.9% 1000 ML INJ 1,000 ML IV SCH (18:30)
[2017-08-18 20:00] VITALS: BP 99/50; PULSE 72; RESP 16; TEMP 97.8; O2SAT 98
[2017-08-18] MEDS ORDERED: HALOPERIDOL LACTATE 5 MG/ML AMP IM ONE (20:00)
[2017-08-19] VITALS: BP 125/58; PULSE 68; RESP 18; TEMP 97.9; O2SAT 97
[2017-08-19] MEDS: SODIUM CHLOR 0.9% 1000 ML INJ 1,000 ML IV SCH (03:00)
[2017-08-19 05:50] VITALS: BP 135/65; PULSE 66; RESP 19; TEMP 98; O2SAT 97
[2017-08-19 07:33] VITALS: BP 141/65; PULSE 65; RESP 17; TEMP 97.5; O2SAT 97
[2017-08-19] MEDS: PANTOPRAZOLE SOD 40 MG DELAYED RELEASE TAB PO SCH (08:11)
[2017-08-19] MEDS: ATENOLOL 50 MG TAB PO SCH (08:11)
[2017-08-19] MEDS: HEPARIN SODIUM - SQ 10,000 UNITS/ML VIAL SQ SCH ×2 (08:11→20:59)
[2017-08-19] MEDS: CITALOPRAM HYDROBROMIDE 20 MG TAB PO SCH (08:11)
[2017-08-19] MEDS: SODIUM CHLORIDE 0.9% FLUSH 10 ML FLUSH IV FLUSH SCH ×2 (08:11→21:01)
[2017-08-19 09:50] LABS: AUTOMATED NEUTROPHIL # 3.3 TH/MM3 (1.8-7.7); BASOPHIL # 0.1 TH/MM3 (0-0.2); BASOPHIL % 1.2 % (0.0-2.0); EOSINOPHIL # 0.2 TH/MM3 (0-0.4); EOSINOPHIL % 3.4 % (0.0-4.0); HEMATOCRIT 36.1 % (35.0-46.0); HEMOGLOBIN 12.2 GM/DL (11.6-15.3); LYMPH % 25.7 % (9.0-44.0); LYMPHOCYTE # 1.5 TH/MM3 (1.0-4.8); MEAN CELL VOLUME 99.1 FL (80.0-100.0); MEAN CORPUSCULAR HEMOGLOBIN 33.4 PG (27.0-34.0); MEAN CORPUSCULAR HGB CONC 33.7 % (32.0-36.0); MEAN PLATELET VOLUME 8.7 FL (7.0-11.0); MONO % 12.7 % (0.0-8.0); MONOCYTE # 0.7 TH/MM3 (0-0.9); PLATELET COUNT 369 TH/MM3 (150-450); RED BLOOD COUNT 3.64 MIL/MM3 (4.00-5.30); RED CELL DISTRIBUTION WIDTH 19.1 % (11.6-17.2); WHITE BLOOD COUNT 5.7 TH/MM3 (4.0-11.0)
[2017-08-19 10:24] LABS: ALBUMIN 2.5 GM/DL (3.4-5.0); ALKALINE PHOSPHATASE 63 U/L (45-117); ALT (GPT) 70 U/L (10-53); AST (GOT) 64 U/L (15-37); BICARBONATE 22.8 MEQ/L (21.0-32.0); BLOOD UREA NITROGEN 7 MG/DL (7-18); CALCIUM 8.3 MG/DL (8.5-10.1); CHLORIDE 100 MEQ/L (98-107); CREATININE 0.56 MG/DL (0.50-1.00); GLOMERULAR FILTRATION RATE 108 ML/MIN (>89); SODIUM (NA) 135 MEQ/L (136-145); TOTAL BILIRUBIN ADULT 0.7 MG/DL (0.2-1.0); TOTAL PROTEIN 5.1 GM/DL (6.4-8.2)
[2017-08-19 10:36] LABS: GLUCOSE,RANDOM 39 MG/DL (74-106)
[2017-08-19 11:35] VITALS: BP 142/65; PULSE 67; RESP 18; TEMP 97.7; O2SAT 99
[2017-08-19] MEDS ORDERED: POTASSIUM CHLORIDE 10 MEQ CONTROLLED RELEASE TAB PO ONE (11:45)
[2017-08-19] MEDS: DEXTROSE 5% IN WATE 1000ML INJ 1,000 ML IV SCH ×2 (12:16→23:40)
--- NOTE | 2017-08-19 14:37 | HHI.PR ---
Subjective Remarks Improving and lipase is seen today. Nausea still present. Hypoglycemia present this morning. Hypokalemia present. Objective Vital Signs Date Time Temp Pulse Resp B/P (MAP) Pulse Ox O2 Delivery O2 Flow Rate FiO2 08/19/17 11:35 97.7 67 18 142/65 (90) 99 08/19/17 07:33 97.5 65 17 141/65 (90) 97 08/19/17 05:50 98.0 66 19 135/65 (88) 97 08/19/17 00:00 97.9 68 18 125/58 (80) 97 08/18/17 20:00 97.8 72 16 99/50 (66) 98 08/18/17 16:02 97.6 69 18 137/62 (87) 98 I/O 08/18/17 08/18/17 08/18/17 08/19/17 08/19/17 08/19/17 07:00 15:00 23:00 07:00 15:00 23:00 Intake Total 1053 ml Balance 1053 ml Intake Oral 0 ml IV Total 1053 ml # Voids 2 # Bowel Movements 0 1 Result Diagram: 08/19/17 0645 08/19/17 0645 Objective Remarks GENERAL: NAD, A&Ox3 HEAD: Normocephalic. NECK: Supple, trachea midline. No lymphadenopathy. EYES: No scleral icterus. No injection or drainage. CARDIOVASCULAR: Regular rate and rhythm without murmurs, gallops, or rubs. RESPIRATORY: Breath sounds equal bilaterally. No accessory muscle use. GASTROINTESTINAL: Abdomen soft, nondistended. Moderate abdominal tenderness without guarding. MUSCULOSKELETAL: No cyanosis, or edema. SKIN: Warm and dry. NEURO: No focal neurological deficitis. A/P Problem List: (1) Pancreatitis ICD Code: K85.90 - Acute pancreatitis without necrosis or infection, unspecified Status: Acute (2) Hyponatremia ICD Code: E87.1 - Hypo-osmolality and hyponatremia Status: Acute (3) Hypokalemia ICD Code: E87.6 - Hypokalemia (4) Depression with anxiety ICD Code: F41.8 - Other specified anxiety disorders Status: Chronic Assessment and Plan 67-year-old female admitted secondary to acute pancreatitis HIDA scan shows no etiology for pancreatitis. Lipase shows improvement. Patient is not yet metabolically stable. Further monitoring and treatment as needed. D5 started for hypoglycemia. Potassium replacements provided. Acute pancreatitis Viral versus obstructive Possible alcohol correlation Clear liquid diet Continue antiemetics Continue IV fluids Continue to monitor lipase Depression General anxiety disorder Continue Celexa Hyponatremia Continue to follow sodium levels IV hydration as above Alcohol abuse Patient intends to quit Continue CIWA protocol Nicotine dependence Patient counseled to quit Hypokalemia Monitor potassium levels Replace as needed DVT prophylaxis SCDs Problem Qualifiers (1) Pancreatitis: Qualified Codes: K85.20 - Alcohol induced acute pancreatitis without necrosis or infection Arthur Del Cid MD August 19, 2017 14:36
[2017-08-19 15:34] VITALS: BP_SYST 97; BP_DIAS 50; BP_DIAS 52; PULSE 73; RESP 18; TEMP 97.8; O2SAT 97
[2017-08-19 21:12] VITALS: BP 129/60; PULSE 68; RESP 18; TEMP 98.2; O2SAT 97
[2017-08-20 00:58] VITALS: BP 144/70; PULSE 63; RESP 20; TEMP 98.2; O2SAT 99
[2017-08-20 05:01] VITALS: BP 127/69; PULSE 63; RESP 20; TEMP 97.6; O2SAT 97
[2017-08-20 06:31] LABS: AUTOMATED NEUTROPHIL # 3.2 TH/MM3 (1.8-7.7); BASOPHIL % 0.7 % (0.0-2.0); EOSINOPHIL # 0.2 TH/MM3 (0-0.4); EOSINOPHIL % 3.5 % (0.0-4.0); HEMATOCRIT 34.8 % (35.0-46.0); LYMPH % 28.3 % (9.0-44.0); LYMPHOCYTE # 1.7 TH/MM3 (1.0-4.8); MEAN CORPUSCULAR HEMOGLOBIN 33.8 PG (27.0-34.0); MEAN CORPUSCULAR HGB CONC 34.5 % (32.0-36.0); MEAN PLATELET VOLUME 8.2 FL (7.0-11.0); MONO % 14.1 % (0.0-8.0); MONOCYTE # 0.8 TH/MM3 (0-0.9); NEUT % 53.4 % (16.0-70.0); PLATELET COUNT 358 TH/MM3 (150-450); RED BLOOD COUNT 3.56 MIL/MM3 (4.00-5.30); RED CELL DISTRIBUTION WIDTH 19.2 % (11.6-17.2)
[2017-08-20 06:54] LABS: ALBUMIN 2.5 GM/DL (3.4-5.0); ALT (GPT) 58 U/L (10-53); AST (GOT) 45 U/L (15-37); BICARBONATE 25.7 MEQ/L (21.0-32.0); BLOOD UREA NITROGEN 5 MG/DL (7-18); CALCIUM 8.3 MG/DL (8.5-10.1); CHLORIDE 100 MEQ/L (98-107); GLUCOSE,RANDOM 100 MG/DL (74-106); SODIUM (NA) 136 MEQ/L (136-145)
[2017-08-20 06:56] LABS: ALKALINE PHOSPHATASE 58 U/L (45-117); TOTAL BILIRUBIN ADULT 0.5 MG/DL (0.2-1.0); TOTAL PROTEIN 5.2 GM/DL (6.4-8.2)
[2017-08-20 08:33] VITALS: BP 118/61; PULSE 67; RESP 18; TEMP 97.9; O2SAT 95
[2017-08-20] MEDS: CITALOPRAM HYDROBROMIDE 20 MG TAB PO SCH (09:40)
[2017-08-20] MEDS: ATENOLOL 50 MG TAB PO SCH (09:40)
[2017-08-20] MEDS: HEPARIN SODIUM - SQ 10,000 UNITS/ML VIAL SQ SCH ×2 (09:41→21:39)
[2017-08-20] MEDS: PANTOPRAZOLE SOD 40 MG DELAYED RELEASE TAB PO SCH (09:41)
[2017-08-20] MEDS: SODIUM CHLORIDE 0.9% FLUSH 10 ML FLUSH IV FLUSH SCH ×2 (09:42→21:00)
--- NOTE | 2017-08-20 10:55 | PD.CONS ---
HPI History of Present Illness This is a 67 year old F who presented to the [facility] two days ago with complaints of nausea and vomiting for the past two weeks. She states mostly dry heaving, some liquid emesis but denies any hematemesis. Was previously drinking 3-4 glasses of wine daily but had to stop 2 weeks ago because of the nausea and vomiting. Initially denied any associated abdominal pain but today states some pain in her epigastric area that radiates through to her back. Describes pain as aching. Our service has been consulted to evaluate pt for elevated lipase. Pt denies history of pancreatitis, CT done reveals pancreas to be WNL. Pt has been previously evaluated by our service for transaminitis, nausea, diarrhea, and reflux. She had an EGD and colonoscopy in April of this year --> Gastritis in the antrum, duodenitis second portion, esophagitis in the distal esophagus, inlet patch upper esophagus, hiatal hernia. Pathology revealed gastritis, GE mucosa with mild chronic inflammatory changes consistent with reflux negative for intestinal metaplasia. Diminutive polyp in the descending colon, internal and external hemorrhoids. Pathology revealed hyperplastic polyp. Previous liver work up with no specific cause for transaminitis, noted to probably be secondary to ETOH. Pt denies NSAID use. Currently PPD smoker. (Luisa Ospina) PFSH Past Medical History Depression Hypertension Transaminitis Past Surgical History cataract surgery (Luisa Ospina) Coded Allergies: Penicillins (Verified Allergy, Severe, Hives, 08/17/17) Sulfa (Sulfonamide Antibiotics) (Verified Adverse Reaction, Severe, Nausea /Vomiting, 08/17/17) diphenhydramine (Verified Adverse Reaction, Unknown, Drowsiness, 08/17/17) Uncoded Allergies: CODIENE (Allergy, Unknown, 04/27/17) Family History Reviewed and is noncontributory. Social History ETOH- 3-4 glasses of wine a day, last drink two weeks ago Smokes 1 PPD (Luisa Ospina) Review of Systems Gastrointestinal: COMPLAINS OF: Abdominal pain, Nausea, Vomiting, DENIES: Black stools, Bloody stools, Constipation, Difficulty Swallowing, Odynophagia, Swelling of Abdomen, Heartburn, Hematemesis (Luisa Ospina) GI Exam Vitals I&O Vital Signs Date Time Temp Pulse Resp B/P (MAP) Pulse Ox O2 Delivery O2 Flow Rate FiO2 08/20/17 08:33 97.9 67 18 118/61 (80) 95 08/20/17 05:01 97.6 63 20 127/69 (88) 97 08/20/17 00:58 98.2 63 20 144/70 (94) 99 08/19/17 21:12 98.2 68 18 129/60 (83) 97 08/19/17 15:34 97.8 73 18 97/50 (66) 97 08/19/17 15:34 97/52 (67) 08/19/17 11:35 97.7 67 18 142/65 (90) 99 I/O 08/19/17 08/19/17 08/19/17 08/20/17 08/20/17 08/20/17 07:00 15:00 23:00 07:00 15:00 23:00 Intake Total 1760 ml Balance 1760 ml IV Total 1760 ml # Voids 5 # Bowel Movements 1 Imaging Last Impressions Hepatobiliary Scan Nuclear Medicine 08/18/17 0000 Signed Impressions: Service Date/Time: Friday, August 18, 2017 13:08 - CONCLUSION: 1. There is a poor gallbladder ejection fraction following Kinevac. Ejection fraction is approximate 5%%. Also, there is some delayed filling of the gallbladder. This can be seen with chronic gallbladder disease. 2. No mechanical biliary tract obstruction. Kam Baker MD Abdomen/Pelvis CT 08/17/17 1512 Signed Impressions: Service Date/Time: Thursday, August 17, 2017 15:34 - CONCLUSION: 1. No acute finding is identified to explain the clinical symptoms. 2. There is a stable mild wall thickening of the distal esophagus. An esophagitis could have this appearance. 3. There is a left ovarian cystic lesion measuring 1.9 cm. It has a simple appearance and is stable. Since the patient is postmenopausal, longer term followup should be performed. Consider transabdominal and transvaginal pelvis ultrasound in 6 months. Mono Britton MD Chest X-Ray 08/17/17 1346 Signed Impressions: Service Date/Time: Thursday, August 17, 2017 13:55 - CONCLUSION: 1. COPD changes. No acute abnormality. Arthur Kaplan MD Laboratory Test 08/20/17 04:30 White Blood Count 6.0 TH/MM3 Red Blood Count 3.56 MIL/MM3 Hemoglobin 12.0 GM/DL Hematocrit 34.8 % Mean Corpuscular Volume 98.0 FL Mean Corpuscular Hemoglobin 33.8 PG Mean Corpuscular Hemoglobin Concent 34.5 % Red Cell Distribution Width 19.2 % Platelet Count 358 TH/MM3 Mean Platelet Volume 8.2 FL Neutrophils (%) (Auto) 53.4 % Lymphocytes (%) (Auto) 28.3 % Monocytes (%) (Auto) 14.1 % Eosinophils (%) (Auto) 3.5 % Basophils (%) (Auto) 0.7 % Neutrophils # (Auto) 3.2 TH/MM3 Lymphocytes # (Auto) 1.7 TH/MM3 Monocytes # (Auto) 0.8 TH/MM3 Eosinophils # (Auto) 0.2 TH/MM3 Basophils # (Auto) 0.0 TH/MM3 CBC Comment DIFF FINAL Differential Comment Blood Urea Nitrogen 5 MG/DL Creatinine 0.70 MG/DL Random Glucose 100 MG/DL Total Protein 5.2 GM/DL Albumin 2.5 GM/DL Calcium Level 8.3 MG/DL Alkaline Phosphatase 58 U/L Aspartate Amino Transf (AST/SGOT) 45 U/L Alanine Aminotransferase (ALT/SGPT) 58 U/L Total Bilirubin 0.5 MG/DL Sodium Level 136 MEQ/L Potassium Level 3.4 MEQ/L Chloride Level 100 MEQ/L Carbon Dioxide Level 25.7 MEQ/L Anion Gap 10 MEQ/L Lipase 1734 U/L Physical Examination HEENT: Normocephalic; atraumatic CHEST: Even/unlabored CARDIAC: RRR ABDOMEN: Soft, nondistended, mild epigastric TTP, negative [place] sign, bowel sounds active. EXTREMITIES: No clubbing, cyanosis, or edema. SKIN: Normal; no rash; no jaundice. STOCKFEED MILLER: No focal deficits; alert and oriented times three. (Luisa Ospina) Assessment and Plan Plan Assessment: - Acute pancreatitis Elevated lipase with CT scan showing pancreas to be WNL. Lipase has fluctuated since admission. Pt denies history of pancreatitis Complaining of nausea and vomiting for the past two weeks, initially denies abdominal pain but states today has some epigastric pain radiating through to her back. Also reports no appetite due to nausea. Risk factors: ETOH 3-4 glasses of wine a day, last drink was 2 weeks ago due to above mentioned symptoms Pt denies any new medications CT abdomen and pelvis W IV contrast (08/17) --> No acute finding is identified to explain the clinical symptoms.There is a stable mild wall thickening of the distal esophagus. An esophagitis could have this appearance. HIDA scan (08/18) --> There is a poor gallbladder ejection fraction following Kinevac. Ejection fraction is approximate 5%. Also, there is some delayed filling of the gallbladder. This can be seen with chronic gallbladder disease. No mechanical biliary tract obstruction. - Transaminitis Previously seen by our service for the same in April of this year: At that time LFTs as high as AST-407 ALT-355 Alk phos-125 T bili-1.7 Previous liver work up: (April 2017) Hepatitis panel negative. AMA<20 ASMA negative. Celiac clera panel negative. Iron-196 TIBC-216 %sat-90.9 Ferritin-1302 HFE negative. Ceruloplasmin-27 S0W-561 VALERIO positive with weak titer 1:80 Current labs (08/20) --> AST-45 ALT-58 Alk phos-58 T bili-0.5 - EGD and colonoscopy in April of this year --> Gastritis in the antrum, duodenitis second portion, esophagitis in the distal esophagus, inlet patch upper esophagus, hiatal hernia. Pathology revealed gastritis, GE mucosa with mild chronic inflammatory changes consistent with reflux negative for intestinal metaplasia. Diminutive polyp in the descending colon, internal and external hemorrhoids. Pathology revealed hyperplastic polyp. Plan: GS consult regarding HIDA scan results MRCP Would likely benefit from repeat EGD depending on results from above, tentatively on Wednesday Clear liquid diet Repeat hepatitis panel IVF Supportive care with pain control and antiemetics Monitor labs Further recommendations based on findings of above and clinical course Pt has been seen and examined by myself and Dr. Martinez and this not is written on his behalf (Luisa Ospina) Plan Patient was seen and examined, agree with above note, await surgical input, possible endoscopy on Wednesday (Andressa Martinez MD) Luisa Ospina August 20, 2017 10:55 Andressa Martinez MD August 20, 2017 22:52
[2017-08-20 12:00] VITALS: BP 102/53; PULSE 66; RESP 18; TEMP 98; O2SAT 100
[2017-08-20] MEDS: DEXTROSE 5% IN WATE 1000ML INJ 1,000 ML IV SCH (12:24)
[2017-08-20] MEDS ORDERED: LORazepam 2 MG/ML VIAL IV PUSH PRN (14:00)
[2017-08-20 16:00] VITALS: BP 131/52; PULSE 67; RESP 18; TEMP 98.5; O2SAT 98
--- NOTE | 2017-08-20 16:11 | PD.CONS ---
HPI Service General surgery Consult Requested By GI service Reason for Consult Abnormal HIDA scan Primary Care Physician Satnam Odonnell MD History of Present Illness The patient is off the floor an MRI. I was consulted to see her due to an abnormal HIDA scan. She has a history of elevated transaminases. She has a history of alcohol abuse. She presently is admitted and has persistently elevated lipase consistent with pancreatitis. Patient with pancreatitis will likely have an abnormal functioning gallbladder. Prior ultrasound of the gallbladder demonstrated no evidence of gallstones or gallbladder wall thickening. CT scan does not demonstrate thickening of the gallbladder wall or pericholecystic fluid. Past Family Social History Allergies: Coded Allergies: Penicillins (Verified Allergy, Severe, Hives, 08/17/17) Sulfa (Sulfonamide Antibiotics) (Verified Adverse Reaction, Severe, Nausea /Vomiting, 08/17/17) diphenhydramine (Verified Adverse Reaction, Unknown, Drowsiness, 08/17/17) Uncoded Allergies: CODIENE (Allergy, Unknown, 04/27/17) Active Ordered Medications Current Medications Medications (Trade) Dose Ordered Sig/Juliet Route Start Time Stop Time Status Last Admin (NS Flush) 2 ml UNSCH PRN IV FLUSH 08/17/17 13:30 (Tenormin) 50 mg DAILY PO 08/18/17 09:00 08/20/17 09:40 (CeleXA) 20 mg DAILY PO 08/18/17 09:00 08/20/17 09:40 (Protonix) 40 mg DAILY PO 08/17/17 17:45 08/20/17 09:41 (NS Flush) 2 ml UNSCH PRN IV FLUSH 08/17/17 17:45 (NS Flush) 2 ml BID IV FLUSH 08/17/17 21:00 08/20/17 09:42 (Morphine Inj) 2 mg Q3H PRN IV PUSH 08/17/17 17:45 (Zofran Inj) 4 mg Q6H PRN IV PUSH 08/17/17 17:45 08/19/17 07:04 (Heparin Inj) 5,000 units Q12HR SQ 08/17/17 17:45 08/20/17 09:41 (Romazicon Inj) 0.2 mg Q1M PRN IV PUSH 08/17/17 17:45 (Ativan) 1 mg Q4H PRN PO 08/17/17 17:45 (Ativan Inj) 1 mg Q4H PRN IV PUSH 08/17/17 17:45 (Ativan) 2 mg Q2H PRN PO 08/17/17 17:45 (Ativan Inj) 2 mg Q2H PRN IV PUSH 08/17/17 17:45 (Ativan Inj) 2 mg Q1H PRN IV PUSH 08/17/17 17:45 (Ativan Inj) 2 mg Q15M PRN IV PUSH 08/17/17 17:45 Dextrose 1,000 ml @ 84 mls/hr [id number] IV 08/19/17 11:45 08/20/17 12:24 (Ativan Inj) 2 mg ONCE PRN IV PUSH 08/20/17 14:00 08/21/17 13:59 08/20/17 15:38 Physical Exam Vital Signs Vital Signs Date Time Temp Pulse Resp B/P (MAP) Pulse Ox O2 Delivery O2 Flow Rate FiO2 08/20/17 12:00 98.0 66 18 102/53 (69) 100 08/20/17 08:33 97.9 67 18 118/61 (80) 95 08/20/17 05:01 97.6 63 20 127/69 (88) 97 08/20/17 00:58 98.2 63 20 144/70 (94) 99 08/19/17 21:12 98.2 68 18 129/60 (83) 97 Laboratory Laboratory Tests Test 08/20/17 04:30 08/20/17 11:57 White Blood Count 6.0 Red Blood Count 3.56 Hemoglobin 12.0 Hematocrit 34.8 Mean Corpuscular Volume 98.0 Mean Corpuscular Hemoglobin 33.8 Mean Corpuscular Hemoglobin Concent 34.5 Red Cell Distribution Width 19.2 Platelet Count 358 Mean Platelet Volume 8.2 Neutrophils (%) (Auto) 53.4 Lymphocytes (%) (Auto) 28.3 Monocytes (%) (Auto) 14.1 Eosinophils (%) (Auto) 3.5 Basophils (%) (Auto) 0.7 Neutrophils # (Auto) 3.2 Lymphocytes # (Auto) 1.7 Monocytes # (Auto) 0.8 Eosinophils # (Auto) 0.2 Basophils # (Auto) 0.0 CBC Comment DIFF FINAL Differential Comment Blood Urea Nitrogen 5 Creatinine 0.70 Random Glucose 100 Total Protein 5.2 Albumin 2.5 Calcium Level 8.3 Alkaline Phosphatase 58 Aspartate Amino Transf (AST/SGOT) 45 Alanine Aminotransferase (ALT/SGPT) 58 Total Bilirubin 0.5 Sodium Level 136 Potassium Level 3.4 Chloride Level 100 Carbon Dioxide Level 25.7 Anion Gap 10 Lipase 1734 Hepatitis A IgM Antibody NONREACTIVE Hepatitis B Surface Antigen NONREACTIVE Hepatitis B Core IgM Antibody NONREACTIVE Hepatitis C IgG Antibody NONREACTIVE Result Diagram: 08/20/17 0430 08/20/17 0430 Assessment and Plan Assessment and Plan Patient off the floor and MRI. General surgery consultation unable to be completed due to the patient not being here. Review of the chart demonstrates that the patient has active pancreatitis with an elevated lipase of 1743. An abnormal HIDA scan would be expected in the face of active pancreatitis. Active pancreatitis would give the patient abdominal pain as well as nausea. Given the fact that the patient has a history of alcohol use alcoholic pancreatitis would be the most likely etiology. The patient has had prior ultrasounds of the gallbladder which demonstrate no evidence of gallstones or gallbladder sludge. At this time it is unlikely the patient will benefit from HIDA scan. If I am back at the hospital today I will see her in complete the consultation. If I am not back to the hospital today I will ask Dr. Montana to see the patient in consultation since he is street contractor tomorrow. Again in general we do not operate to remove the gallbladder during active pancreatitis. Thank you Ricki Mcgovern MD August 20, 2017 16:11
--- NOTE | 2017-08-20 17:15 | RADRPT ---
EXAM DATE/TIME: 08/20/2017 15:54 [facility] COMPARISON: CT ABDOMEN & PELVIS W CONTRAST, August 17, 2017, 15:34. INDICATIONS : Abdominal pain. MEDICAL HISTORY : Hypertension. SURGICAL HISTORY : Tonsillectomy. Cataracts. ENCOUNTER: Initial ACUITY: 1 day PAIN SCORE: 0/10 LOCATION: Abdominal TECHNIQUE: Multiplanar, multisequence magnetic resonance imaging of the abdomen was performed. High-resolution 3D dataset was utilized to reconstruct maximum-intensity projection (MIP) images. FINDINGS: Many sequences are significantly degraded by motion. INTRAHEPATIC BILE DUCTS: Within normal limits. No significant anatomical variant is present. EXTRAHEPATIC BILE DUCTS: The common bile duct measures 5 mm. No stone or filling defect is identified. GALLBLADDER: Mildly distended. No stones, wall thickening, or pericholecystic fluid. LIVER: Normal size and signal intensity. No concerning liver lesion is identified on this non-contrast exam. PANCREAS: The main pancreatic duct is normal in size. There is no significant anatomical variant. Signal inte nsity is within normal limits. No mass is visualized on this non-contrast exam. OTHER: Tortuous descending portion of the duodenum. The remaining visualized structures demonstrate no acute abnormality on this non-contrast exam. CONCLUSION: 1. Mildly distended gallbladder. Otherwise, unremarkable MRCP examination. 2. No biliary or pancreatic ductal dilatation or evidence for intraluminal abnormality. Skyler Sabillon MD on August 20, 2017 at 17:08 Board Certified Radiologist. This report was verified electronically.
--- NOTE | 2017-08-20 17:55 | HHI.PR ---
Subjective Remarks Lipase has worsened again today. Patient symptoms are not worsening but are also not improving. She has no new complaints today. Objective Vital Signs Date Time Temp Pulse Resp B/P (MAP) Pulse Ox O2 Delivery O2 Flow Rate FiO2 08/20/17 16:00 98.5 67 18 131/52 (78) 98 08/20/17 12:00 98.0 66 18 102/53 (69) 100 08/20/17 08:33 97.9 67 18 118/61 (80) 95 08/20/17 05:01 97.6 63 20 127/69 (88) 97 08/20/17 00:58 98.2 63 20 144/70 (94) 99 08/19/17 21:12 98.2 68 18 129/60 (83) 97 I/O 08/19/17 08/19/17 08/19/17 08/20/17 08/20/17 08/20/17 07:00 15:00 23:00 07:00 15:00 23:00 Intake Total 1760 ml 240 ml Balance 1760 ml 240 ml Intake Oral 240 ml IV Total 1760 ml # Voids 5 6 # Bowel Movements 1 Result Diagram: 08/20/17 0430 08/20/17 0430 Objective Remarks GENERAL: NAD, A&Ox3 HEAD: Normocephalic. NECK: Supple, trachea midline. No lymphadenopathy. EYES: No scleral icterus. No injection or drainage. CARDIOVASCULAR: Regular rate and rhythm without murmurs, gallops, or rubs. RESPIRATORY: Breath sounds equal bilaterally. No accessory muscle use. GASTROINTESTINAL: Abdomen soft, nondistended. Moderate abdominal tenderness without guarding. MUSCULOSKELETAL: No cyanosis, or edema. SKIN: Warm and dry. NEURO: No focal neurological deficitis. A/P Problem List: (1) Pancreatitis ICD Code: K85.90 - Acute pancreatitis without necrosis or infection, unspecified Status: Acute (2) Hyponatremia ICD Code: E87.1 - Hypo-osmolality and hyponatremia Status: Acute (3) Hypokalemia ICD Code: E87.6 - Hypokalemia (4) Depression with anxiety ICD Code: F41.8 - Other specified anxiety disorders Status: Chronic Assessment and Plan 67-year-old female admitted secondary to acute pancreatitis Worsening pancreatitis, again. Findings on HIDA scan could be contributory. GI consulted. MRCP ordered. Acute pancreatitis Viral versus obstructive Possible alcohol correlation Clear liquid diet Continue antiemetics Continue IV fluids Continue to monitor lipase Not improving GI consulted Depression General anxiety disorder Continue Celexa Hyponatremia Continue to follow sodium levels IV hydration as above Alcohol abuse Patient intends to quit Continue CIWA protocol Nicotine dependence Patient counseled to quit Hypokalemia Monitor potassium levels Replace as needed DVT prophylaxis SCDs Problem Qualifiers (1) Pancreatitis: Qualified Codes: K85.20 - Alcohol induced acute pancreatitis without necrosis or infection Arthur Del Cid MD August 20, 2017 17:54
--- NOTE | 2017-08-20 17:58 | PQ ---
Physician Query Response Document PATIENT: JACKSON ADAM : 1950 ADMIT DATE: 08/17/2017 5:24 PM DISCH DATE: RESPONDING PROVIDER #: [email or web address] QUERY TEXT: CDS Clarification Severe protein-calorie malnutrition in the setting of BMI 19.4, treated with IVF and diet advanced to regular. Other explanation of clinical findings. Unable to determine (no explanation for clinical findings). The patient's Clinical Indicators include: The medical record reflects the following clinical findings, treatment, and risk factors. * Clinical Indicators: "decreased appetite for the past couple weeks", "cachectic appearing" "Failure to thrive" * Risk Factors: Pancreatitis, alcohol abuse per hx * Treatment: IVF, I Please clarify and document your clinical opinion in the progress notes and discharge summary includi ng the definitive and/or presumptive diagnosis (suspected or probable), related to the above clinical findings. Please include clinical findings supporting your diagnosis. Thank you, Deysi Frankel : CDS/RN ext. [phone] Query created by: Deysi Frankel on 08/19/2017 3:04 PM RESPONSE TEXT: Provider disagreed with this CDI query. No reported malnutrition from the patient to me. Electronically signed by: Jesus Del Cid 08/20/2017 5:53 PM
[2017-08-20 20:09] VITALS: BP 118/72; PULSE 64; RESP 18; TEMP 97.8; O2SAT 98
[2017-08-21 00:22] VITALS: BP 112/56; PULSE 56; RESP 18; TEMP 97.4; O2SAT 95
[2017-08-21] MEDS: DEXTROSE 5% IN WATE 1000ML INJ 1,000 ML IV SCH ×2 (04:21→09:38)
[2017-08-21 08:31] LABS: ALBUMIN 2.2 GM/DL (3.4-5.0); ALKALINE PHOSPHATASE 59 U/L (45-117); ALT (GPT) 50 U/L (10-53); AST (GOT) 52 U/L (15-37); BICARBONATE 26.2 MEQ/L (21.0-32.0); BLOOD UREA NITROGEN 3 MG/DL (7-18); CALCIUM 8.3 MG/DL (8.5-10.1); CHLORIDE 99 MEQ/L (98-107); CREATININE 0.66 MG/DL (0.50-1.00); GLOMERULAR FILTRATION RATE 89 ML/MIN (>89); GLUCOSE,RANDOM 86 MG/DL (74-106); PHOSPHORUS 2.5 MG/DL (2.5-4.9); SODIUM (NA) 134 MEQ/L (136-145); TOTAL BILIRUBIN ADULT 0.4 MG/DL (0.2-1.0); TOTAL PROTEIN 5.2 GM/DL (6.4-8.2)
[2017-08-21 09:01] VITALS: BP 108/56; PULSE 64; RESP 16; TEMP 97.6; O2SAT 98
[2017-08-21] MEDS: ATENOLOL 50 MG TAB PO SCH (09:16)
[2017-08-21] MEDS: CITALOPRAM HYDROBROMIDE 20 MG TAB PO SCH (09:17)
[2017-08-21] MEDS: PANTOPRAZOLE SOD 40 MG DELAYED RELEASE TAB PO SCH (09:17)
[2017-08-21] MEDS: HEPARIN SODIUM - SQ 10,000 UNITS/ML VIAL SQ SCH ×2 (09:32→21:00)
[2017-08-21] MEDS: SODIUM CHLORIDE 0.9% FLUSH 10 ML FLUSH IV FLUSH SCH ×2 (09:32→21:00)
[2017-08-21 11:24] LABS: AUTOMATED NEUTROPHIL # 2.9 TH/MM3 (1.8-7.7); BASOPHIL # 0.1 TH/MM3 (0-0.2); BASOPHIL % 1.1 % (0.0-2.0); EOSINOPHIL # 0.1 TH/MM3 (0-0.4); EOSINOPHIL % 2.6 % (0.0-4.0); HEMATOCRIT 33.2 % (35.0-46.0); LYMPH % 26.3 % (9.0-44.0); LYMPHOCYTE # 1.4 TH/MM3 (1.0-4.8); MEAN CELL VOLUME 98.3 FL (80.0-100.0); MEAN CORPUSCULAR HEMOGLOBIN 35.3 PG (27.0-34.0); MEAN PLATELET VOLUME 7.8 FL (7.0-11.0); MONO % 15.2 % (0.0-8.0); MONOCYTE # 0.8 TH/MM3 (0-0.9); NEUT % 54.8 % (16.0-70.0); PLATELET COUNT 331 TH/MM3 (150-450); RED BLOOD COUNT 3.38 MIL/MM3 (4.00-5.30); RED CELL DISTRIBUTION WIDTH 19.3 % (11.6-17.2); WHITE BLOOD COUNT 5.3 TH/MM3 (4.0-11.0)
[2017-08-21 12:00] VITALS: BP 116/55; PULSE 74; RESP 18; TEMP 97.8; O2SAT 98
--- NOTE | 2017-08-21 12:24 | HHI.PR ---
Subjective Remarks Downward transition and lipase. This is on a clear liquid diet. Patient is not complaining of any new complaints. She still has some decreased appetite but no longer complains of nausea. Objective Vital Signs Date Time Temp Pulse Resp B/P (MAP) Pulse Ox O2 Delivery O2 Flow Rate FiO2 08/21/17 09:01 97.6 64 16 108/56 (73) 98 08/21/17 00:22 97.4 56 18 112/56 (74) 95 08/20/17 20:09 97.8 64 18 118/72 (87) 98 08/20/17 16:00 98.5 67 18 131/52 (78) 98 I/O 08/20/17 08/20/17 08/20/17 08/21/17 08/21/17 08/21/17 07:00 15:00 23:00 07:00 15:00 23:00 Intake Total 1760 ml 240 ml 1985 ml Balance 1760 ml 240 ml 1985 ml Intake Oral 240 ml IV Total 1760 ml 1985 ml # Voids 5 6 2 # Bowel Movements 1 Result Diagram: 08/21/17 1052 08/21/17 0725 Objective Remarks GENERAL: NAD, A&Ox3 HEAD: Normocephalic. NECK: Supple, trachea midline. No lymphadenopathy. EYES: No scleral icterus. No injection or drainage. CARDIOVASCULAR: Regular rate and rhythm without murmurs, gallops, or rubs. RESPIRATORY: Breath sounds equal bilaterally. No accessory muscle use. GASTROINTESTINAL: Abdomen soft, nondistended. Moderate abdominal tenderness without guarding. MUSCULOSKELETAL: No cyanosis, or edema. SKIN: Warm and dry. NEURO: No focal neurological deficitis. A/P Problem List: (1) Pancreatitis ICD Code: K85.90 - Acute pancreatitis without necrosis or infection, unspecified Status: Acute (2) Hyponatremia ICD Code: E87.1 - Hypo-osmolality and hyponatremia Status: Acute (3) Hypokalemia ICD Code: E87.6 - Hypokalemia (4) Depression with anxiety ICD Code: F41.8 - Other specified anxiety disorders Status: Chronic Assessment and Plan 67-year-old female admitted secondary to acute pancreatitis No immediate intervention planned. We will continue to monitor lipase and continue clear liquid diet for now. Monitor through tomorrow and if she continues to have a downward trend will resume regular diet and see if her pancreatic enzymes remain stable. Acute pancreatitis Viral versus obstructive Possible alcohol correlation Clear liquid diet Continue antiemetics Continue IV fluids Continue to monitor lipase Not improving GI consulted Depression General anxiety disorder Continue Celexa Hyponatremia Continue to follow sodium levels IV hydration as above Alcohol abuse Patient intends to quit Continue CIWA protocol Nicotine dependence Patient counseled to quit Hypokalemia Monitor potassium levels Replace as needed DVT prophylaxis SCDs Problem Qualifiers (1) Pancreatitis: Qualified Codes: K85.20 - Alcohol induced acute pancreatitis without necrosis or infection Arthur Del Cid MD August 21, 2017 12:24
--- NOTE | 2017-08-21 12:37 | HHI.PR ---
cc: Dwayne Montana MD Subjective Subjective Notes DAILY PROGRESS NOTE FOR SURGICAL ATTENDING, DR. DWAYNE MONTANA Patient resting comfortably Objective Vitals/I&O Vital Signs Date Time Temp Pulse Resp B/P (MAP) Pulse Ox O2 Delivery O2 Flow Rate FiO2 08/21/17 09:01 97.6 64 16 108/56 (73) 98 08/17/17 18:08 Room Air Labs Laboratory Tests Test 08/21/17 07:25 08/21/17 10:52 Blood Urea Nitrogen 3 Creatinine 0.66 Random Glucose 86 Total Protein 5.2 Albumin 2.2 Calcium Level 8.3 Phosphorus Level 2.5 Magnesium Level 1.0 Alkaline Phosphatase 59 Aspartate Amino Transf (AST/SGOT) 52 Alanine Aminotransferase (ALT/SGPT) 50 Total Bilirubin 0.4 Sodium Level 134 Potassium Level 4.8 Chloride Level 99 Carbon Dioxide Level 26.2 Anion Gap 9 Estimat Glomerular Filtration Rate 89 Amylase Level 116 Lipase 853 White Blood Count 5.3 Red Blood Count 3.38 Hemoglobin 12.0 Hematocrit 33.2 Mean Corpuscular Volume 98.3 Mean Corpuscular Hemoglobin 35.3 Mean Corpuscular Hemoglobin Concent 36.0 Red Cell Distribution Width 19.3 Platelet Count 331 Mean Platelet Volume 7.8 Neutrophils (%) (Auto) 54.8 Lymphocytes (%) (Auto) 26.3 Monocytes (%) (Auto) 15.2 Eosinophils (%) (Auto) 2.6 Basophils (%) (Auto) 1.1 Neutrophils # (Auto) 2.9 Lymphocytes # (Auto) 1.4 Monocytes # (Auto) 0.8 Eosinophils # (Auto) 0.1 Basophils # (Auto) 0.1 CBC Comment AUTO DIFF Differential Comment AUTO DIFF CONFIRMED Radiology Last Impressions Cholangiopancreatography MRI 08/20/17 0000 Signed Impressions: Service Date/Time: Sunday, August 20, 2017 15:54 - CONCLUSION: 1. Mildly distended gallbladder. Otherwise, unremarkable MRCP examination. 2. No biliary or pancreatic ductal dilatation or evidence for intraluminal abnormality. Skyler Sabillon MD Hepatobiliary Scan Nuclear Medicine 08/18/17 0000 Signed Impressions: Service Date/Time: Friday, August 18, 2017 13:08 - CONCLUSION: 1. There is a poor gallbladder ejection fraction following Kinevac. Ejection fraction is approximate 5%%. Also, there is some delayed filling of the gallbladder. This can be seen with chronic gallbladder disease. 2. No mechanical biliary tract obstruction. Kam Baker MD Abdomen/Pelvis CT 08/17/17 1512 Signed Impressions: Service Date/Time: Thursday, August 17, 2017 15:34 - CONCLUSION: 1. No acute finding is identified to explain the clinical symptoms. 2. There is a stable mild wall thickening of the distal esophagus. An esophagitis could have this appearance. 3. There is a left ovarian cystic lesion measuring 1.9 cm. It has a simple appearance and is stable. Since the patient is postmenopausal, longer term followup should be performed. Consider transabdominal and transvaginal pelvis ultrasound in 6 months. Mono Britton MD Chest X-Ray 08/17/17 1346 Signed Impressions: Service Date/Time: Thursday, August 17, 2017 13:55 - CONCLUSION: 1. COPD changes. No acute abnormality. Arthur Kaplan MD Cardiovascular: Regular Abdomen: Non-distended, Other (Midepigastric tenderness), BS normal Narrative Exam Thin lady Mid abdominal discomfort No Ferguson sign A/P Problem List: (1) Acute alcoholic pancreatitis ICD Codes: K85.20 - Alcohol induced acute pancreatitis without necrosis or infection Status: Acute (2) Chronic alcoholic pancreatitis ICD Codes: K86.0 - Alcohol-induced chronic pancreatitis Status: Chronic Assessment and Plan 67-year-old female known to be an alcoholic who has attempted to stop drinking but recently started drinking again and had an exacerbation of her alcoholic pancreatitis. Ultrasound MRCP does not demonstrate any stones At this time no surgical intervention I advised her to avoid out all alcohol products Attending Statement NOTE FOR SURGICAL ATTENDING, DR. DWAYNE MONTANA I attest that I had a [id number] encounter with the patient on the same day, and personally performed and documented my assessment and findings in the medical record. The following services were provided during this hospital visit: Chart data review, vital sign assessments/reviewing monitor data Review of consultations notes if present. Medication orders/review and/or management Ordering and/or reviewing lab tests Ordering and/or interpreting/reviewing x-rays and/or diagnostic studies Care of the patient and discussion of the patient with the care team Documentation time To help prompt me to consider important information that might be impacting today's encounter and assessment, Information from prior notes written by myself or my colleagues may have been "brought forward/copy and pasted" into today's note. Problem Qualifiers (1) Acute alcoholic pancreatitis: Qualified Codes: K85.20 - Alcohol induced acute pancreatitis without necrosis or infection Dwayne Montana MD August 21, 2017 12:37
--- NOTE | 2017-08-21 14:04 | HHI.GIFU ---
Subjective Remarks Pt reports mild improvement in abdominal pain Denies nausea, vomiting Tolerating clear liquids (Luisa Ospina) Objective Vitals I&O Vital Signs Date Time Temp Pulse Resp B/P (MAP) Pulse Ox O2 Delivery O2 Flow Rate FiO2 08/21/17 12:00 97.8 74 18 116/55 (75) 98 08/21/17 09:01 97.6 64 16 108/56 (73) 98 08/21/17 00:22 97.4 56 18 112/56 (74) 95 08/20/17 20:09 97.8 64 18 118/72 (87) 98 08/20/17 16:00 98.5 67 18 131/52 (78) 98 I/O 08/20/17 08/20/17 08/20/17 08/21/17 08/21/17 08/21/17 06:59 14:59 22:59 06:59 14:59 22:59 Intake Total 1760 ml 240 ml 1985 ml Balance 1760 ml 240 ml 1985 ml Intake Oral 240 ml IV Total 1760 ml 1985 ml # Voids 5 6 2 # Bowel Movements 1 Laboratory Laboratory Tests Test 08/21/17 07:25 08/21/17 10:52 Blood Urea Nitrogen 3 Creatinine 0.66 Random Glucose 86 Total Protein 5.2 Albumin 2.2 Calcium Level 8.3 Phosphorus Level 2.5 Magnesium Level 1.0 Alkaline Phosphatase 59 Aspartate Amino Transf (AST/SGOT) 52 Alanine Aminotransferase (ALT/SGPT) 50 Total Bilirubin 0.4 Sodium Level 134 Potassium Level 4.8 Chloride Level 99 Carbon Dioxide Level 26.2 Anion Gap 9 Estimat Glomerular Filtration Rate 89 Amylase Level 116 Lipase 853 White Blood Count 5.3 Red Blood Count 3.38 Hemoglobin 12.0 Hematocrit 33.2 Mean Corpuscular Volume 98.3 Mean Corpuscular Hemoglobin 35.3 Mean Corpuscular Hemoglobin Concent 36.0 Red Cell Distribution Width 19.3 Platelet Count 331 Mean Platelet Volume 7.8 Neutrophils (%) (Auto) 54.8 Lymphocytes (%) (Auto) 26.3 Monocytes (%) (Auto) 15.2 Eosinophils (%) (Auto) 2.6 Basophils (%) (Auto) 1.1 Neutrophils # (Auto) 2.9 Lymphocytes # (Auto) 1.4 Monocytes # (Auto) 0.8 Eosinophils # (Auto) 0.1 Basophils # (Auto) 0.1 CBC Comment AUTO DIFF Differential Comment AUTO DIFF CONFIRMED Imaging Last Impressions Cholangiopancreatography MRI 08/20/17 0000 Signed Impressions: Service Date/Time: Sunday, August 20, 2017 15:54 - CONCLUSION: 1. Mildly distended gallbladder. Otherwise, unremarkable MRCP examination. 2. No biliary or pancreatic ductal dilatation or evidence for intraluminal abnormality. Skyler Sabillon MD Hepatobiliary Scan Nuclear Medicine 08/18/17 0000 Signed Impressions: Service Date/Time: Friday, August 18, 2017 13:08 - CONCLUSION: 1. There is a poor gallbladder ejection fraction following Kinevac. Ejection fraction is approximate 5%%. Also, there is some delayed filling of the gallbladder. This can be seen with chronic gallbladder disease. 2. No mechanical biliary tract obstruction. Kam Baker MD Abdomen/Pelvis CT 08/17/17 1512 Signed Impressions: Service Date/Time: Thursday, August 17, 2017 15:34 - CONCLUSION: 1. No acute finding is identified to explain the clinical symptoms. 2. There is a stable mild wall thickening of the distal esophagus. An esophagitis could have this appearance. 3. There is a left ovarian cystic lesion measuring 1.9 cm. It has a simple appearance and is stable. Since the patient is postmenopausal, longer term followup should be performed. Consider transabdominal and transvaginal pelvis ultrasound in 6 months. Mono Britton MD Chest X-Ray 08/17/17 1346 Signed Impressions: Service Date/Time: Thursday, August 17, 2017 13:55 - CONCLUSION: 1. COPD changes. No acute abnormality. Arthur Kaplan MD Physical Exam HEENT: Normocephalic; atraumatic CHEST: Even/unlabored CARDIAC: RRR ABDOMEN: Soft, nondistended, mild diffuse tenderness, bowel sounds active EXTREMITIES: No clubbing, cyanosis, or edema. SKIN: Normal; no rash; no jaundice. HYDROBLASTER: No focal deficits; alert and oriented times three. (Luisa Ospina) Assessment and Plan Plan Assessment - Acute pancreatitis Elevated lipase with CT scan showing pancreas to be WNL. Lipase has fluctuated since admission. Pt denies history of pancreatitis Complaining of nausea and vomiting for the past two weeks, initially denies abdominal pain but states today has some epigastric pain radiating through to her back. Also reports no appetite due to nausea. Risk factors: ETOH 3-4 glasses of wine a day, last drink was 2 weeks ago due to above mentioned symptoms Pt denies any new medications CT abdomen and pelvis W IV contrast (08/17) --> No acute finding is identified to explain the clinical symptoms.There is a stable mild wall thickening of the distal esophagus. An esophagitis could have this appearance. HIDA scan (08/18) --> There is a poor gallbladder ejection fraction following Kinevac. Ejection fraction is approximate 5%. Also, there is some delayed filling of the gallbladder. This can be seen with chronic gallbladder disease. No mechanical biliary tract obstruction. - Transaminitis Previously seen by our service for the same in April of this year: At that time LFTs as high as AST-407 ALT-355 Alk phos-125 T bili-1.7 Previous liver work up: (April 2017) Hepatitis panel negative. AMA<20 ASMA negative. Celiac panel negative. Iron-196 TIBC-216 %sat-90.9 Ferritin-1302 HFE negative. Ceruloplasmin-27 [id number] VALERIO positive with weak titer 1:80 Current labs (08/20) --> AST-45 ALT-58 Alk phos-58 T bili-0.5 - EGD and colonoscopy in April of this year --> Gastritis in the antrum, duodenitis second portion, esophagitis in the distal esophagus, inlet patch upper esophagus, hiatal hernia. Pathology revealed gastritis, GE mucosa with mild chronic inflammatory changes consistent with reflux negative for intestinal metaplasia. Diminutive polyp in the descending colon, internal and external hemorrhoids. Pathology revealed hyperplastic polyp. (08/21) --> MRCP (08/20) --> Mildly distended gallbladder. Otherwise, unremarkable MRCP examination. No biliary or pancreatic ductal dilatation or evidence for intraluminal abnormality. S/P GS consult who states abnormal HIDA would be expected during acute pancreatitis - no surgical plans at this time Lipase is trending down as well as LFTs Pt tolerating clear liquid diet Reports mild improvement in abdominal pain today Plan: Possible EGD depending on clinical course Clear liquid diet IVF Supportive care with pain control and antiemetics Monitor labs Needs to avoid ETOH Further recommendations based on findings of above and clinical course Pt has been seen and examined by myself and Dr. Walls and this note is written on her behalf (Luisa Ospina) Physician Comments seen,examined agree with above (Angelique Walls MD) Luisa Ospina August 21, 2017 14:04 Angelique Walls MD August 21, 2017 17:44
[2017-08-21 22:15] VITALS: BP 111/60; PULSE 67; RESP 16; TEMP 98.8; O2SAT 97
[2017-08-22 00:20] VITALS: BP 115/65; PULSE 69; RESP 18; TEMP 97.8; O2SAT 98
[2017-08-22] MEDS: DEXTROSE 5% IN WATE 1000ML INJ 1,000 ML IV SCH ×2 (01:56→15:16)
[2017-08-22 04:45] VITALS: BP 109/65; PULSE 62; RESP 18; TEMP 97; O2SAT 97
[2017-08-22 08:00] VITALS: BP 131/60; PULSE 71; RESP 18; TEMP 97.8; O2SAT 96
[2017-08-22 08:05] LABS: EOSINOPHIL # 0.1 TH/MM3 (0-0.4); EOSINOPHIL % 3.1 % (0.0-4.0); HEMATOCRIT 37.1 % (35.0-46.0); HEMOGLOBIN 12.6 GM/DL (11.6-15.3); LYMPH % 35.7 % (9.0-44.0); LYMPHOCYTE # 1.6 TH/MM3 (1.0-4.8); MEAN CELL VOLUME 98.5 FL (80.0-100.0); MEAN CORPUSCULAR HEMOGLOBIN 33.4 PG (27.0-34.0); MEAN CORPUSCULAR HGB CONC 33.9 % (32.0-36.0); MEAN PLATELET VOLUME 7.8 FL (7.0-11.0); MONO % 17.4 % (0.0-8.0); MONOCYTE # 0.8 TH/MM3 (0-0.9); NEUT % 42.8 % (16.0-70.0); PLATELET COUNT 355 TH/MM3 (150-450); RED BLOOD COUNT 3.76 MIL/MM3 (4.00-5.30); WHITE BLOOD COUNT 4.6 TH/MM3 (4.0-11.0)
[2017-08-22] MEDS: HEPARIN SODIUM - SQ 10,000 UNITS/ML VIAL SQ SCH ×2 (08:34→23:50)
[2017-08-22] MEDS: SODIUM CHLORIDE 0.9% FLUSH 10 ML FLUSH IV FLUSH SCH ×2 (08:34→21:00)
[2017-08-22] MEDS: ATENOLOL 50 MG TAB PO SCH (08:34)
[2017-08-22] MEDS: PANTOPRAZOLE SOD 40 MG DELAYED RELEASE TAB PO SCH (08:34)
[2017-08-22] MEDS: CITALOPRAM HYDROBROMIDE 20 MG TAB PO SCH (08:34)
[2017-08-22 08:37] LABS: ALBUMIN 2.3 GM/DL (3.4-5.0); ALKALINE PHOSPHATASE 59 U/L (45-117); ALT (GPT) 47 U/L (10-53); AST (GOT) 35 U/L (15-37); BICARBONATE 27.2 MEQ/L (21.0-32.0); CALCIUM 8.5 MG/DL (8.5-10.1); CHLORIDE 101 MEQ/L (98-107); CREATININE 0.66 MG/DL (0.50-1.00); GLOMERULAR FILTRATION RATE 89 ML/MIN (>89); GLUCOSE,RANDOM 85 MG/DL (74-106); SODIUM (NA) 138 MEQ/L (136-145); TOTAL BILIRUBIN ADULT 0.4 MG/DL (0.2-1.0); TOTAL PROTEIN 5.1 GM/DL (6.4-8.2)
[2017-08-22 08:51] LABS: BLOOD UREA NITROGEN 2 MG/DL (7-18)
[2017-08-22] MEDS ORDERED: POTASSIUM CHLORIDE 10 MEQ CONTROLLED RELEASE TAB PO ONE (10:30)
[2017-08-22] MEDS: MORPHINE SULFATE 4 MG/ML INJ IV PUSH PRN ×2 (10:40→15:10)
--- NOTE | 2017-08-22 11:22 | HHI.PR ---
Subjective Remarks Two days of graduating improvement in Lipase. No new complaints. Hypokalemia this morning. Objective Vital Signs Date Time Temp Pulse Resp B/P (MAP) Pulse Ox O2 Delivery O2 Flow Rate FiO2 08/22/17 08:00 97.8 71 18 131/60 (83) 96 08/22/17 04:45 97.0 62 18 109/65 (80) 97 08/22/17 00:20 97.8 69 18 115/65 (82) 98 08/21/17 22:15 98.8 67 16 111/60 (77) 97 08/21/17 12:00 97.8 74 18 116/55 (75) 98 I/O 08/21/17 08/21/17 08/21/17 08/22/17 08/22/17 08/22/17 07:00 15:00 23:00 07:00 15:00 23:00 Intake Total 1985 ml 900 ml 700 ml Balance 1985 ml 900 ml 700 ml Intake Oral 900 ml 700 ml IV Total 1985 ml # Voids 2 5 2 # Bowel Movements 0 0 Result Diagram: 08/22/17 0650 08/22/17 0650 Objective Remarks GENERAL: NAD, A&Ox3 HEAD: Normocephalic. NECK: Supple, trachea midline. No lymphadenopathy. EYES: No scleral icterus. No injection or drainage. CARDIOVASCULAR: Regular rate and rhythm without murmurs, gallops, or rubs. RESPIRATORY: Breath sounds equal bilaterally. No accessory muscle use. GASTROINTESTINAL: Abdomen soft, nondistended. Moderate abdominal tenderness without guarding. MUSCULOSKELETAL: No cyanosis, or edema. SKIN: Warm and dry. NEURO: No focal neurological deficitis. A/P Problem List: (1) Pancreatitis ICD Code: K85.90 - Acute pancreatitis without necrosis or infection, unspecified Status: Acute (2) Hyponatremia ICD Code: E87.1 - Hypo-osmolality and hyponatremia Status: Acute (3) Hypokalemia ICD Code: E87.6 - Hypokalemia (4) Depression with anxiety ICD Code: F41.8 - Other specified anxiety disorders Status: Chronic Assessment and Plan 67-year-old female admitted secondary to acute pancreatitis Replace potassium levels today. Follow potassium levels. Plan to provide a trial of Regular diet (increases in lipase with increases in diet may represent obstruction) and monitor lipase. EGD possible based on future course. Continue to Monitor lipase. Acute pancreatitis Viral versus obstructive Possible alcohol correlation Clear liquid diet Continue antiemetics Continue IV fluids Continue to monitor lipase Not improving GI consulted Depression General anxiety disorder Continue Celexa Hyponatremia Continue to follow sodium levels IV hydration as above Alcohol abuse Patient intends to quit Continue CIWA protocol Nicotine dependence Patient counseled to quit Hypokalemia Monitor potassium levels Replace as needed DVT prophylaxis SCDs Problem Qualifiers (1) Pancreatitis: Qualified Codes: K85.20 - Alcohol induced acute pancreatitis without necrosis or infection Arthur Del Cid MD August 22, 2017 11:22
[2017-08-22 12:00] VITALS: BP 108/54; PULSE 65; RESP 18; TEMP 97.9; O2SAT 96
--- NOTE | 2017-08-22 14:52 | HHI.GIFU ---
Subjective Remarks Pt sitting up in bed Ate lunch 15 mins prior to my exam, denies any worsening of the pain Still having some mild pain in her upper abdomen Denies nausea, vomiting (Luisa Ospina) Objective Vitals I&O Vital Signs Date Time Temp Pulse Resp B/P (MAP) Pulse Ox O2 Delivery O2 Flow Rate FiO2 08/22/17 12:00 97.9 65 18 108/54 (72) 96 08/22/17 08:00 97.8 71 18 131/60 (83) 96 08/22/17 04:45 97.0 62 18 109/65 (80) 97 08/22/17 00:20 97.8 69 18 115/65 (82) 98 08/21/17 22:15 98.8 67 16 111/60 (77) 97 I/O 08/21/17 08/21/17 08/21/17 08/22/17 08/22/17 08/22/17 07:00 15:00 23:00 07:00 15:00 23:00 Intake Total 1985 ml 900 ml 700 ml Balance 1985 ml 900 ml 700 ml Intake Oral 900 ml 700 ml IV Total 1985 ml # Voids 2 5 2 # Bowel Movements 0 0 Laboratory Laboratory Tests Test 08/22/17 06:50 08/22/17 12:02 White Blood Count 4.6 Red Blood Count 3.76 Hemoglobin 12.6 Hematocrit 37.1 Mean Corpuscular Volume 98.5 Mean Corpuscular Hemoglobin 33.4 Mean Corpuscular Hemoglobin Concent 33.9 Red Cell Distribution Width 19.0 Platelet Count 355 Mean Platelet Volume 7.8 Neutrophils (%) (Auto) 42.8 Lymphocytes (%) (Auto) 35.7 Monocytes (%) (Auto) 17.4 Eosinophils (%) (Auto) 3.1 Basophils (%) (Auto) 1.0 Neutrophils # (Auto) 2.0 Lymphocytes # (Auto) 1.6 Monocytes # (Auto) 0.8 Eosinophils # (Auto) 0.1 Basophils # (Auto) 0.0 CBC Comment DIFF FINAL Differential Comment Blood Urea Nitrogen 2 Creatinine 0.66 Random Glucose 85 Total Protein 5.1 Albumin 2.3 Calcium Level 8.5 Alkaline Phosphatase 59 Aspartate Amino Transf (AST/SGOT) 35 Alanine Aminotransferase (ALT/SGPT) 47 Total Bilirubin 0.4 Sodium Level 138 Potassium Level 2.8 3.5 Chloride Level 101 Carbon Dioxide Level 27.2 Anion Gap 10 Estimat Glomerular Filtration Rate 89 Lipase 717 Imaging Last Impressions Cholangiopancreatography MRI 08/20/17 0000 Signed Impressions: Service Date/Time: Sunday, August 20, 2017 15:54 - CONCLUSION: 1. Mildly distended gallbladder. Otherwise, unremarkable MRCP examination. 2. No biliary or pancreatic ductal dilatation or evidence for intraluminal abnormality. Skyler Sabillon MD Hepatobiliary Scan Nuclear Medicine 08/18/17 0000 Signed Impressions: Service Date/Time: Friday, August 18, 2017 13:08 - CONCLUSION: 1. There is a poor gallbladder ejection fraction following Kinevac. Ejection fraction is approximate 5%%. Also, there is some delayed filling of the gallbladder. This can be seen with chronic gallbladder disease. 2. No mechanical biliary tract obstruction. Kam Baker MD Abdomen/Pelvis CT 08/17/17 1512 Signed Impressions: Service Date/Time: Thursday, August 17, 2017 15:34 - CONCLUSION: 1. No acute finding is identified to explain the clinical symptoms. 2. There is a stable mild wall thickening of the distal esophagus. An esophagitis could have this appearance. 3. There is a left ovarian cystic lesion measuring 1.9 cm. It has a simple appearance and is stable. Since the patient is postmenopausal, longer term followup should be performed. Consider transabdominal and transvaginal pelvis ultrasound in 6 months. Mono Britton MD Chest X-Ray 08/17/17 1346 Signed Impressions: Service Date/Time: Thursday, August 17, 2017 13:55 - CONCLUSION: 1. COPD changes. No acute abnormality. Arthur Kaplan MD Physical Exam HEENT: Normocephalic; atraumatic CHEST: Even/unlabored CARDIAC: RRR ABDOMEN: Soft, nondistended, upper abdominal tenderness, bowel sounds active EXTREMITIES: No clubbing, cyanosis, or edema. SKIN: Normal; no rash; no jaundice. CINETECHNICIAN: No focal deficits; alert and oriented times three. (Luisa Ospina) Assessment and Plan Plan Assessment - Acute pancreatitis Elevated lipase with CT scan showing pancreas to be WNL. Lipase has fluctuated since admission. Pt denies history of pancreatitis Complaining of nausea and vomiting for the past two weeks, initially denies abdominal pain but states today has some epigastric pain radiating through to her back. Also reports no appetite due to nausea. Risk factors: ETOH 3-4 glasses of wine a day, last drink was 2 weeks ago due to above mentioned symptoms Pt denies any new medications CT abdomen and pelvis W IV contrast (08/17) --> No acute finding is identified to explain the clinical symptoms.There is a stable mild wall thickening of the distal esophagus. An esophagitis could have this appearance. HIDA scan (08/18) --> There is a poor gallbladder ejection fraction following Kinevac. Ejection fraction is approximate 5%. Also, there is some delayed filling of the gallbladder. This can be seen with chronic gallbladder disease. No mechanical biliary tract obstruction. - Transaminitis Previously seen by our service for the same in April of this year: At that time LFTs as high as AST-407 ALT-355 Alk phos-125 T bili-1.7 Previous liver work up: (April 2017) Hepatitis panel negative. AMA<20 ASMA negative. Celiac panel negative. Iron-196 TIBC-216 %sat-90.9 Ferritin-1302 HFE negative. Ceruloplasmin-27 [id number] VALERIO positive with weak titer 1:80 Current labs (08/20) --> AST-45 ALT-58 Alk phos-58 T bili-0.5 - EGD and colonoscopy in April of this year --> Gastritis in the antrum, duodenitis second portion, esophagitis in the distal esophagus, inlet patch upper esophagus, hiatal hernia. Pathology revealed gastritis, GE mucosa with mild chronic inflammatory changes consistent with reflux negative for intestinal metaplasia. Diminutive polyp in the descending colon, internal and external hemorrhoids. Pathology revealed hyperplastic polyp. (08/21) --> MRCP (08/20) --> Mildly distended gallbladder. Otherwise, unremarkable MRCP examination. No biliary or pancreatic ductal dilatation or evidence for intraluminal abnormality. S/P GS consult who states abnormal HIDA would be expected during acute pancreatitis - no surgical plans at this time Lipase is trending down as well as LFTs Pt tolerating clear liquid diet Reports mild improvement in abdominal pain today (5/6) Pt reports continued upper abdominal pain, states that it is not worse with food. Attending advanced her to regular diet today. Denies nausea, vomiting. No repeat labs from today. Plan: EGD tomorrow Obtain consent NPO after MN Supportive care with pain control and antiemetics Monitor labs Needs to avoid ETOH Further recommendations based on findings of above and clinical course Pt has been seen and examined by myself and Dr. Walls and this note is written on her behalf (Luisa Ospina) Physician Comments agree with above (Angelique Walls MD) Luisa Ospina August 22, 2017 14:52 Angelique Walls MD August 22, 2017 17:21
[2017-08-22 16:00] VITALS: BP 85/47; PULSE 64; RESP 18; TEMP 97.5; O2SAT 96
--- NOTE | 2017-08-22 16:25 | HHI.PR ---
Subjective Remarks NOT SEEN Objective Vitals Vital Signs Date Time Temp Pulse Resp B/P (MAP) Pulse Ox O2 Delivery O2 Flow Rate FiO2 08/22/17 12:00 97.9 65 18 108/54 (72) 96 08/22/17 08:00 97.8 71 18 131/60 (83) 96 08/22/17 04:45 97.0 62 18 109/65 (80) 97 08/22/17 00:20 97.8 69 18 115/65 (82) 98 08/21/17 22:15 98.8 67 16 111/60 (77) 97 I/O 08/21/17 08/21/17 08/21/17 08/22/17 08/22/17 08/22/17 07:00 15:00 23:00 07:00 15:00 23:00 Intake Total 1985 ml 900 ml 700 ml Balance 1985 ml 900 ml 700 ml Intake Oral 900 ml 700 ml IV Total 1985 ml # Voids 2 5 2 # Bowel Movements 0 0 Result Diagram: 08/22/17 0650 08/22/17 1202 Imaging Last Impressions Cholangiopancreatography MRI 08/20/17 0000 Signed Impressions: Service Date/Time: Sunday, August 20, 2017 15:54 - CONCLUSION: 1. Mildly distended gallbladder. Otherwise, unremarkable MRCP examination. 2. No biliary or pancreatic ductal dilatation or evidence for intraluminal abnormality. Skyler Sabillon MD Hepatobiliary Scan Nuclear Medicine 08/18/17 0000 Signed Impressions: Service Date/Time: Friday, August 18, 2017 13:08 - CONCLUSION: 1. There is a poor gallbladder ejection fraction following Kinevac. Ejection fraction is approximate 5%%. Also, there is some delayed filling of the gallbladder. This can be seen with chronic gallbladder disease. 2. No mechanical biliary tract obstruction. Kam Baker MD Abdomen/Pelvis CT 08/17/17 1512 Signed Impressions: Service Date/Time: Thursday, August 17, 2017 15:34 - CONCLUSION: 1. No acute finding is identified to explain the clinical symptoms. 2. There is a stable mild wall thickening of the distal esophagus. An esophagitis could have this appearance. 3. There is a left ovarian cystic lesion measuring 1.9 cm. It has a simple appearance and is stable. Since the patient is postmenopausal, longer term followup should be performed. Consider transabdominal and transvaginal pelvis ultrasound in 6 months. Mono Britton MD Chest X-Ray 08/17/17 1346 Signed Impressions: Service Date/Time: Thursday, August 17, 2017 13:55 - CONCLUSION: 1. COPD changes. No acute abnormality. Arthur Kaplan MD Objective Remarks GENERAL: NAD, A&Ox3 HEAD: Normocephalic. NECK: Supple, trachea midline. No lymphadenopathy. EYES: No scleral icterus. No injection or drainage. CARDIOVASCULAR: Regular rate and rhythm without murmurs, gallops, or rubs. RESPIRATORY: Breath sounds equal bilaterally. No accessory muscle use. GASTROINTESTINAL: Abdomen soft, nondistended. Moderate abdominal tenderness without guarding. MUSCULOSKELETAL: No cyanosis, or edema. SKIN: Warm and dry. NEURO: No focal neurological deficits. Procedures NONE A/P Problem List: (1) Pancreatitis ICD Code: K85.90 - Acute pancreatitis without necrosis or infection, unspecified Status: Acute (2) Depression with anxiety ICD Code: F41.8 - Other specified anxiety disorders Status: Chronic (3) Hyponatremia ICD Code: E87.1 - Hypo-osmolality and hyponatremia Status: Acute (4) Alcohol abuse ICD Code: F10.10 - Alcohol abuse, uncomplicated Status: Chronic (5) Smoker ICD Code: F17.200 - Nicotine dependence, unspecified, uncomplicated Status: Chronic (6) Hypokalemia ICD Code: E87.6 - Hypokalemia Assessment and Plan 67-year-old female admitted secondary to acute pancreatitis Hypokalemia. Replace potassium levels . Follow potassium levels. Acute pancreatitis Viral versus obstructive Possible alcohol correlation Plan to provide a trial of Regular diet (increases in lipase with increases in diet may represent obstruction) and monitor lipase. EGD today. Continue to Monitor lipase. Continue antiemetics Continue IV fluids Continue to monitor lipase GI consulted GS recommended no surgical intervention Depression General anxiety disorder Continue Celexa Hyponatremia Continue to follow sodium levels IV hydration as above Alcohol abuse Patient intends to quit Continue CIWA protocol Nicotine dependence Patient counseled to quit Hypokalemia Monitor potassium levels Replace as needed DVT prophylaxis SCDs Problem Qualifiers (1) Pancreatitis: Qualified Codes: K85.20 - Alcohol induced acute pancreatitis without necrosis or infection Chau Wang MD August 22, 2017 16:25
[2017-08-22] MEDS ORDERED: SODIUM CHLORID 0.9% 500 ML INJ 500 ML IV ONE (19:15)
[2017-08-22 21:30] VITALS: BP 98/58; PULSE 68; RESP 16; TEMP 97; O2SAT 97
[2017-08-23 00:40] VITALS: BP 105/60; PULSE 72; RESP 17; TEMP 97.8; O2SAT 97
[2017-08-23 04:45] VITALS: BP 108/65; PULSE 67; RESP 17; TEMP 98.3; O2SAT 98
[2017-08-23 05:22] LABS: AUTOMATED NEUTROPHIL # 2.1 TH/MM3 (1.8-7.7); BASOPHIL # 0.1 TH/MM3 (0-0.2); EOSINOPHIL # 0.1 TH/MM3 (0-0.4); EOSINOPHIL % 2.8 % (0.0-4.0); HEMATOCRIT 32.8 % (35.0-46.0); HEMOGLOBIN 11.2 GM/DL (11.6-15.3); LYMPH % 39.6 % (9.0-44.0); MEAN CELL VOLUME 98.8 FL (80.0-100.0); MEAN CORPUSCULAR HEMOGLOBIN 33.6 PG (27.0-34.0); MEAN PLATELET VOLUME 7.6 FL (7.0-11.0); MONO % 14.6 % (0.0-8.0); MONOCYTE # 0.7 TH/MM3 (0-0.9); PLATELET COUNT 340 TH/MM3 (150-450); RED BLOOD COUNT 3.32 MIL/MM3 (4.00-5.30); RED CELL DISTRIBUTION WIDTH 19.1 % (11.6-17.2); WHITE BLOOD COUNT 5.1 TH/MM3 (4.0-11.0)
[2017-08-23 05:40] LABS: ALBUMIN 2.2 GM/DL (3.4-5.0); ALT (GPT) 43 U/L (10-53); AST (GOT) 36 U/L (15-37); BICARBONATE 28.6 MEQ/L (21.0-32.0); BLOOD UREA NITROGEN 6 MG/DL (7-18); CALCIUM 8.4 MG/DL (8.5-10.1); CHLORIDE 104 MEQ/L (98-107); CREATININE 0.83 MG/DL (0.50-1.00); GLOMERULAR FILTRATION RATE 69 ML/MIN (>89); GLUCOSE,RANDOM 77 MG/DL (74-106); SODIUM (NA) 138 MEQ/L (136-145)
[2017-08-23 05:41] LABS: ALKALINE PHOSPHATASE 55 U/L (45-117); TOTAL BILIRUBIN ADULT 0.3 MG/DL (0.2-1.0); TOTAL PROTEIN 4.9 GM/DL (6.4-8.2)
[2017-08-23] MEDS ORDERED: SODIUM CHLORID 0.9% 500 ML IV PRN (07:45)
[2017-08-23] MEDS ORDERED: POVIDONE IODINE 5% (ANTISEPSIS KIT) 4 APPLICATIONS EACH NARE PRN (07:45)
[2017-08-23] MEDS ORDERED: CHLORHEXIDINE GLUCONATE 2 % 1 PACK (2 CLOTHS) TOPICAL PRN (07:45)
[2017-08-23] MEDS ORDERED: LACTATED RINGER'S 1000 ML IV PRN (07:45)
[2017-08-23] MEDS ORDERED: METOPROLOL TARTRATE 25 MG TAB PO PRN (07:45)
[2017-08-23 07:54] VITALS: BP 136/63; PULSE 65; RESP 20; TEMP 98.3; O2SAT 97
[2017-08-23] MEDS: SODIUM CHLORIDE 0.9% FLUSH 10 ML FLUSH IV FLUSH SCH ×2 (09:00→20:36)
[2017-08-23] MEDS: ATENOLOL 50 MG TAB PO SCH ×2 (09:00→10:37)
[2017-08-23] MEDS: HEPARIN SODIUM - SQ 10,000 UNITS/ML VIAL SQ SCH ×2 (09:00→20:36)
--- NOTE | 2017-08-23 10:03 | GIPROC ---
[facility] [address] [facility]. [facility], [id number] EGD PROCEDURE REPORT EXAM DATE: 08/23/2017 PATIENT NAME: Prabha Prieto MR #: [id number] BIRTHDATE: 1950 ATTENDING: Kita Whalen MD ORDER #: [id number] BORING MACHINE OPERATOR HELPER: Jesus Barney and Aida Stevens STATUS: inpatient INDICATIONS: The patient is a 67 yr old female here for an EGD due to epigastric abdominal pain and abnormal CT of the GI tract PROCEDURE PERFORMED: EGD w/ biopsy MEDICATIONS: None and Per Anesthesia. TOPICAL ANESTHETIC: CONSENT: The patient understands the risks and benefits of the procedure and understands that these risks include, but are not limited to: sedation, allergic reaction, infection, perforation and/or bleeding. Alternative means of evaluation and treatment include, among others: physical exam, x-rays, and/or surgical intervention. The patient elects to proceed with this endoscopic procedure. medical equipment was checked for proper function. Hand hygiene and appropriate measures for infection prevention was taken. After the risks, benefits and alternatives of the procedure were thoroughly explained, Informed consent was verified, confirmed and timeout was successfully executed by the treatment team. The patient was anesthetized with topical anesthesia and the Pentax [id number] endoscope was introduced through the mouth and advanced to the second portion of the duodenum. Retroflexed views revealed a hiatal hernia The gastroscope was then slowly withdrawn and removed. ESOPHAGUS: There was LA Class A esophagitis noted. A biopsy was performed using cold forceps. Sample sent for histology. STOMACH: There was erythematous moderate gastritis in the gastric antrum. A biopsy was performed using cold forceps. Sample sent for histology. DUODENUM: The duodenal mucosa appeared normal in the 2nd part of the duodenum. Moderate duodenal inflammation was found in the duodenal bulb. ADVERSE EVENTS: There were no complications. IMPRESSIONS: 1. There was LA Class A esophagitis noted; biopsy was performed 2. There was erythematous gastritis in the gastric antrum; biopsy was performed 3. Normal duodenal mucosa in the 2nd part of the duodenum 4. Duodenal inflammation was found in the duodenal bulb 5. Retroflexed views revealed a hiatal hernia RECOMMENDATIONS: 1. Await biopsy results. Biopsy results will not be ready for 7-10 days. If you don't hear from us in two weeks, call our office for biopsy results. 2. Anti-reflux regimen 3. Continue PPI 4. Avoid NSAIDS PATIENT CONDITION: stable DISPOSITION: Inpatient REPEAT EXAM: Return 1 year EGD pending biopsy results Kita Whalen MD eSigned: Kita Whalen MD 08/23/2017 10:03 AM cc: PATIENT NAME: Prabha Prieto MR#: [id number]
[2017-08-23] MEDS: DEXTROSE 5% IN WATE 1000ML INJ 1,000 ML IV SCH (10:37)
[2017-08-23] MEDS: CITALOPRAM HYDROBROMIDE 20 MG TAB PO SCH (10:37)
[2017-08-23] MEDS: PANTOPRAZOLE SOD 40 MG DELAYED RELEASE TAB PO SCH (10:37)
[2017-08-23 11:32] VITALS: BP 127/60; PULSE 63; RESP 20; TEMP 97.5; O2SAT 98
[2017-08-23] MEDS ORDERED: PROPOFOL 200 MG/20 ML AMP IV ONE (12:00)
[2017-08-23] MEDS ORDERED: LIDOCAINE HCL 1% PF 5 ML SYRINGE OTHER ONE (12:00)
--- NOTE | 2017-08-23 13:57 | HHI.PR ---
Subjective Remarks Follow-up abdominal pain. Tolerated EGD results discussed with patient with esophagitis, gastritis and inflammation of the duodenal bulb. Antireflux mechanism was discussed with patient. Tolerated lunch time pain 3 out of 10. Discussed with nursing staff, patient developed hypotension required fluid bolus yesterday. She also received IV morphine at the time. Objective Vitals Vital Signs Date Time Temp Pulse Resp B/P (MAP) Pulse Ox O2 Delivery O2 Flow Rate FiO2 08/23/17 11:32 97.5 63 20 127/60 (82) 98 08/23/17 10:20 97.7 64 18 107/56 (73) 98 08/23/17 10:12 97.7 67 16 105/56 (72) 98 08/23/17 07:54 98.3 65 20 136/63 (87) 97 08/23/17 04:45 98.3 67 17 108/65 (79) 98 08/23/17 00:40 97.8 72 17 105/60 (75) 97 08/22/17 21:30 97.0 68 16 98/58 (71) 97 08/22/17 16:00 97.5 64 18 85/47 (60) 96 I/O 08/22/17 08/22/17 08/22/17 08/23/17 08/23/17 08/23/17 06:59 14:59 22:59 06:59 14:59 22:59 Intake Total 700 ml 875 ml 700 ml 960 ml Balance 700 ml 875 ml 700 ml 960 ml Intake Oral 700 ml 875 ml 700 ml IV Total 960 ml # Voids 2 3 4 1 # Bowel Movements 0 0 0 Result Diagram: 08/23/17 0455 08/23/17 0455 Imaging Last Impressions Cholangiopancreatography MRI 08/20/17 0000 Signed Impressions: Service Date/Time: Sunday, August 20, 2017 15:54 - CONCLUSION: 1. Mildly distended gallbladder. Otherwise, unremarkable MRCP examination. 2. No biliary or pancreatic ductal dilatation or evidence for intraluminal abnormality. Skyler Sabillon MD Hepatobiliary Scan Nuclear Medicine 08/18/17 0000 Signed Impressions: Service Date/Time: Friday, August 18, 2017 13:08 - CONCLUSION: 1. There is a poor gallbladder ejection fraction following Kinevac. Ejection fraction is approximate 5%%. Also, there is some delayed filling of the gallbladder. This can be seen with chronic gallbladder disease. 2. No mechanical biliary tract obstruction. Kam Baker MD Abdomen/Pelvis CT 08/17/17 1512 Signed Impressions: Service Date/Time: Thursday, August 17, 2017 15:34 - CONCLUSION: 1. No acute finding is identified to explain the clinical symptoms. 2. There is a stable mild wall thickening of the distal esophagus. An esophagitis could have this appearance. 3. There is a left ovarian cystic lesion measuring 1.9 cm. It has a simple appearance and is stable. Since the patient is postmenopausal, longer term followup should be performed. Consider transabdominal and transvaginal pelvis ultrasound in 6 months. Mono Britton MD Chest X-Ray 08/17/17 1346 Signed Impressions: Service Date/Time: Thursday, August 17, 2017 13:55 - CONCLUSION: 1. COPD changes. No acute abnormality. Arthur Kaplan MD Objective Remarks GENERAL: NAD, A&Ox3 CARDIOVASCULAR: Regular rate and rhythm without murmurs, gallops, or rubs. RESPIRATORY: Breath sounds equal bilaterally. No accessory muscle use. GASTROINTESTINAL: Abdomen soft, nondistended. Moderate epigastric tenderness without guarding. MUSCULOSKELETAL: No cyanosis, or edema. SKIN: Warm and dry. NEURO: No focal neurological deficits. Procedures EGD A/P Problem List: (1) Pancreatitis ICD Code: K85.90 - Acute pancreatitis without necrosis or infection, unspecified Status: Acute (2) Depression with anxiety ICD Code: F41.8 - Other specified anxiety disorders Status: Chronic (3) Hyponatremia ICD Code: E87.1 - Hypo-osmolality and hyponatremia Status: Acute (4) Alcohol abuse ICD Code: F10.10 - Alcohol abuse, uncomplicated Status: Chronic (5) Smoker ICD Code: F17.200 - Nicotine dependence, unspecified, uncomplicated Status: Chronic (6) Hypokalemia ICD Code: E87.6 - Hypokalemia Assessment and Plan 67-year-old female admitted secondary to acute pancreatitis Acute pancreatitis. Improving Viral versus obstructive Possible alcohol correlation Tolerating regular diet (increases in lipase with increases in diet may represent obstruction) and monitor lipase. EGD today. Continue to Monitor lipase. Continue antiemetics Discontinue IV fluids Continue to monitor lipase GS recommended no surgical intervention GI s/p EGD with the ff: There was LA Class A esophagitis noted; biopsy was performed 2. There was erythematous gastritis in the gastric antrum; biopsy was performed 3. Normal duodenal mucosa in the 2nd part of the duodenum 4. Duodenal inflammation was found in the duodenal bulb 5. Retroflexed views revealed a hiatal hernia RECOMMENDATIONS: 1. Await biopsy results. Biopsy results will not be ready for 7-10 days. If you don't hear from us in two weeks, call our office for biopsy results. 2. Anti-reflux regimen 3. Continue PPI 4. Avoid NSAIDS Hypotension likely related to morphine sulfate. Required fluid bolus. Will discontinue IV hydration and morphine sulfate and monitor. Continue atenolol with hold parameters. Blood counts slightly low but should not cause hypotension. Continue to monitor Left ovarian cyst. Repeat ultrasound in 6 months Depression General anxiety disorder Continue Celexa Hyponatremia Continue to follow sodium levels IV hydration as above Alcohol abuse Patient intends to quit Continue CIWA protocol Nicotine dependence Patient counseled to quit Hypokalemia Monitor potassium levels Replace as needed DVT prophylaxis SCDs Discharge Planning Possible dc in am Problem Qualifiers (1) Pancreatitis: Qualified Codes: K85.20 - Alcohol induced acute pancreatitis without necrosis or infection Chau Wang MD August 23, 2017 13:57
--- NOTE | 2017-08-23 13:59 | HHI.DCPOC ---
Discharge Care Plan Diagnosis: (1) Acute alcoholic pancreatitis (2) Generalized weakness Your Health Problems Are: Difficulty with ADL Exercise Tolerance Goals to Promote Your Health * To prevent worsening of your condition and complications * To maintain your health at the optimal level Directions to Meet Your Goals Take your medications as prescribed Follow your dietary instruction Follow activity as directed Keep your appointments as scheduled Take your immunizations and boosters as scheduled If your symptoms worsen call your PCP, if no PCP go to Urgent Care Center or Emergency Room Smoking is Dangerous to Your Health. Avoid second hand smoke Call the 24-hour hour crisis hotline for domestic abuse at Chau Wang MD August 23, 2017 13:59
--- NOTE | 2017-08-23 14:00 | HHI.FF ---
Face to Face Verification Diagnosis: (1) Acute alcoholic pancreatitis Physical Therapy Order: Evaluate and Treat, Improve ambulation, Strength and gait training I have seen patient Prabha Prieto on 08/23/17. My clinical findings support the need for the requested home health care services because: Deconditioned w/ increased weakness I certify that my clinical findings support that this patient is homebound because: Unsafe to leave home unassisted Need for psychosocial assistance Chau Wang MD August 23, 2017 14:00
[2017-08-23] MEDS ORDERED: SODIUM CHLOR 0.45% 1000 ML INJ 1,000 ML IV SCH (15:15)
[2017-08-23 15:24] VITALS: BP_SYST 100; BP_SYST 86; BP_DIAS 53; PULSE 74; RESP 20; TEMP 98.5; O2SAT 98
[2017-08-23 20:00] VITALS: BP 98/52; PULSE 75; RESP 18; TEMP 97.8; O2SAT 97
[2017-08-24] VITALS: BP 126/58; PULSE 75; RESP 18; TEMP 98; O2SAT 97
[2017-08-24 04:00] VITALS: BP 135/61; PULSE 71; RESP 18; TEMP 98; O2SAT 97
[2017-08-24] MEDS: ACETAMINOPHEN 500 MG CPLT PO PRN ×2 (05:26→09:54)
[2017-08-24 08:00] VITALS: BP 117/62; PULSE 69; RESP 17; TEMP 97.8; O2SAT 98
--- NOTE | 2017-08-24 08:35 | HHI.PR ---
Subjective Remarks Follow-up hypotension. Off IV fluids since midnight. Improved blood pressure. She is asymptomatic ambulating. Objective Vitals Vital Signs Date Time Temp Pulse Resp B/P (MAP) Pulse Ox O2 Delivery O2 Flow Rate FiO2 08/24/17 04:00 98.0 71 18 135/61 (85) 97 08/24/17 00:00 98.0 75 18 126/58 (80) 97 08/23/17 20:00 97.8 75 18 98/52 (67) 97 08/23/17 15:24 98.5 74 20 86/53 (64) 98 100/53 (69) 08/23/17 11:32 97.5 63 20 127/60 (82) 98 08/23/17 10:20 97.7 64 18 107/56 (73) 98 08/23/17 10:12 97.7 67 16 105/56 (72) 98 I/O 08/23/17 08/23/17 08/23/17 08/24/17 08/24/17 08/24/17 07:00 15:00 23:00 07:00 15:00 23:00 Intake Total 700 ml 1060 ml 720 ml 294 ml Balance 700 ml 1060 ml 720 ml 294 ml Intake Oral 700 ml 720 ml IV Total 960 ml 294 ml Other 100 ml # Voids 4 1 4 1 # Bowel Movements 0 0 Result Diagram: 08/23/17 0455 08/23/17 0455 Imaging Last Impressions Cholangiopancreatography MRI 08/20/17 0000 Signed Impressions: Service Date/Time: Sunday, August 20, 2017 15:54 - CONCLUSION: 1. Mildly distended gallbladder. Otherwise, unremarkable MRCP examination. 2. No biliary or pancreatic ductal dilatation or evidence for intraluminal abnormality. Skyler Sabillon MD Hepatobiliary Scan Nuclear Medicine 08/18/17 0000 Signed Impressions: Service Date/Time: Friday, August 18, 2017 13:08 - CONCLUSION: 1. There is a poor gallbladder ejection fraction following Kinevac. Ejection fraction is approximate 5%%. Also, there is some delayed filling of the gallbladder. This can be seen with chronic gallbladder disease. 2. No mechanical biliary tract obstruction. Kam Baker MD Abdomen/Pelvis CT 08/17/17 1512 Signed Impressions: Service Date/Time: Thursday, August 17, 2017 15:34 - CONCLUSION: 1. No acute finding is identified to explain the clinical symptoms. 2. There is a stable mild wall thickening of the distal esophagus. An esophagitis could have this appearance. 3. There is a left ovarian cystic lesion measuring 1.9 cm. It has a simple appearance and is stable. Since the patient is postmenopausal, longer term followup should be performed. Consider transabdominal and transvaginal pelvis ultrasound in 6 months. Mono Britton MD Chest X-Ray 08/17/17 1346 Signed Impressions: Service Date/Time: Thursday, August 17, 2017 13:55 - CONCLUSION: 1. COPD changes. No acute abnormality. Arthur Kaplan MD Objective Remarks GENERAL: NAD, A&Ox3 CARDIOVASCULAR: Regular rate and rhythm without murmurs, gallops, or rubs. RESPIRATORY: Breath sounds equal bilaterally. No accessory muscle use. GASTROINTESTINAL: Abdomen soft, nondistended. Moderate epigastric tenderness without guarding. MUSCULOSKELETAL: No cyanosis, or edema. SKIN: Warm and dry. NEURO: No focal neurological deficits. Procedures EGD A/P Problem List: (1) Pancreatitis ICD Code: K85.90 - Acute pancreatitis without necrosis or infection, unspecified Status: Acute (2) Depression with anxiety ICD Code: F41.8 - Other specified anxiety disorders Status: Chronic (3) Hyponatremia ICD Code: E87.1 - Hypo-osmolality and hyponatremia Status: Acute (4) Alcohol abuse ICD Code: F10.10 - Alcohol abuse, uncomplicated Status: Chronic (5) Smoker ICD Code: F17.200 - Nicotine dependence, unspecified, uncomplicated Status: Chronic (6) Hypokalemia ICD Code: E87.6 - Hypokalemia Assessment and Plan 67-year-old female admitted secondary to acute pancreatitis Acute pancreatitis. Improved Viral versus obstructive Possible alcohol correlation Tolerating regular diet (increases in lipase with increases in diet may represent obstruction) and monitor lipase. EGD today. Continue to Monitor lipase. Continue antiemetics Discontinue IV fluids Continue to monitor lipase GS recommended no surgical intervention GI s/p EGD with the ff: There was LA Class A esophagitis noted; biopsy was performed 2. There was erythematous gastritis in the gastric antrum; biopsy was performed 3. Normal duodenal mucosa in the 2nd part of the duodenum 4. Duodenal inflammation was found in the duodenal bulb 5. Retroflexed views revealed a hiatal hernia RECOMMENDATIONS: 1. Await biopsy results. Biopsy results will not be ready for 7-10 days. If you don't hear from us in two weeks, call our office for biopsy results. 2. Anti-reflux regimen 3. Continue PPI 4. Avoid NSAIDS Hypotension likely related to morphine sulfate. Required fluid bolus. Will discontinue IV hydration and morphine sulfate and monitor. Continue atenolol with hold parameters. Blood counts slightly low but should not cause hypotension. Continue to monitor. Hypotension resolved Left ovarian cyst. Repeat ultrasound in 6 months Depression General anxiety disorder Continue Celexa Hyponatremia Continue to follow sodium levels IV hydration as above Alcohol abuse Patient intends to quit Continue CIWA protocol Nicotine dependence Patient counseled to quit Hypokalemia Monitor potassium levels Replace as needed DVT prophylaxis SCDs Discharge Planning Possible dc in am Problem Qualifiers (1) Pancreatitis: Qualified Codes: K85.20 - Alcohol induced acute pancreatitis without necrosis or infection Chau Wang MD August 24, 2017 08:35
[2017-08-24] MEDS: CITALOPRAM HYDROBROMIDE 20 MG TAB PO SCH (08:43)
[2017-08-24] MEDS: PANTOPRAZOLE SOD 40 MG DELAYED RELEASE TAB PO SCH (08:43)
[2017-08-24] MEDS: ATENOLOL 50 MG TAB PO SCH (08:45)
[2017-08-24] MEDS: SODIUM CHLORIDE 0.9% FLUSH 10 ML FLUSH IV FLUSH SCH (08:45)
[2017-08-24] MEDS: HEPARIN SODIUM - SQ 10,000 UNITS/ML VIAL SQ SCH (08:46)
--- NOTE | 2017-08-24 17:51 | HHI.DS ---
Discharge Summary Admission Date August 17, 2017 at 17:24 Discharge Date: August 24, 2017 Admitting Diagnosis Pancreatitis (1) Pancreatitis ICD Code: K85.90 - Acute pancreatitis without necrosis or infection, unspecified Diagnosis: Principal Status: Acute (2) Depression with anxiety ICD Code: F41.8 - Other specified anxiety disorders Diagnosis: Principal Status: Chronic (3) Hyponatremia ICD Code: E87.1 - Hypo-osmolality and hyponatremia Diagnosis: Principal Status: Acute (4) Alcohol abuse ICD Code: F10.10 - Alcohol abuse, uncomplicated Diagnosis: Principal Status: Chronic (5) Smoker ICD Code: F17.200 - Nicotine dependence, unspecified, uncomplicated Diagnosis: Principal Status: Chronic (6) Hypokalemia ICD Code: E87.6 - Hypokalemia Diagnosis: Principal Procedures EGD Brief History - From Admission 67 Y/O female alcoholic who presented to the ED with complaints of persistent nausea and dry heaving. Patient rpeorts that her symptoms started 2 weeks ago. She reprotedly stopped drinking when she could no longer tolerated alcohol. She has been drinking 2+ glasses of wine daily. She actually denies abdominal pain. No constipation or diarrhea. Workup in the emergency room consistent with pancreatitis. Lipase over a thousand. CBC/BMP: 08/23/17 0455 08/23/17 0455 Significant Findings Laboratory Tests Test 08/22/17 06:50 08/22/17 12:02 08/23/17 04:55 Red Blood Count 3.76 MIL/MM3 (4.00-5.30) 3.32 MIL/MM3 (4.00-5.30) Red Cell Distribution Width 19.0 % (11.6-17.2) 19.1 % (11.6-17.2) Monocytes (%) (Auto) 17.4 % (0.0-8.0) 14.6 % (0.0-8.0) Blood Urea Nitrogen 2 MG/DL (7-18) 6 MG/DL (7-18) Total Protein 5.1 GM/DL (6.4-8.2) 4.9 GM/DL (6.4-8.2) Albumin 2.3 GM/DL (3.4-5.0) 2.2 GM/DL (3.4-5.0) Potassium Level 2.8 MEQ/L (3.5-5.1) Lipase 717 U/L (73-393) 646 U/L (73-393) Hemoglobin 11.2 GM/DL (11.6-15.3) Hematocrit 32.8 % (35.0-46.0) Calcium Level 8.4 MG/DL (8.5-10.1) Estimat Glomerular Filtration Rate 69 ML/MIN (>89) PE at Discharge GENERAL: NAD, A&Ox3 CARDIOVASCULAR: Regular rate and rhythm without murmurs, gallops, or rubs. RESPIRATORY: Breath sounds equal bilaterally. No accessory muscle use. GASTROINTESTINAL: Abdomen soft, nondistended. Moderate epigastric tenderness without guarding. MUSCULOSKELETAL: No cyanosis, or edema. SKIN: Warm and dry. NEURO: No focal neurological deficits. Hospital Course 67-year-old female admitted secondary to acute pancreatitis Acute pancreatitis. Improving Viral versus obstructive Possible alcohol correlation Tolerating regular diet (increases in lipase with increases in diet may represent obstruction) and monitor lipase. EGD today. Continue to Monitor lipase. Continue antiemetics Discontinue IV fluids Continue to monitor lipase GS recommended no surgical intervention GI s/p EGD with the ff: There was LA Class A esophagitis noted; biopsy was performed 2. There was erythematous gastritis in the gastric antrum; biopsy was performed 3. Normal duodenal mucosa in the 2nd part of the duodenum 4. Duodenal inflammation was found in the duodenal bulb 5. Retroflexed views revealed a hiatal hernia RECOMMENDATIONS: 1. Await biopsy results. Biopsy results will not be ready for 7-10 days. If you don't hear from us in two weeks, call our office for biopsy results. 2. Anti-reflux regimen 3. Continue PPI 4. Avoid NSAIDS Hypotension likely related to morphine sulfate. Required fluid bolus. Will discontinue IV hydration and morphine sulfate and monitor. Continue atenolol with hold parameters. Blood counts slightly low but should not cause hypotension. Continue to monitor. Hypotension resolved Left ovarian cyst. Repeat ultrasound in 6 months Depression General anxiety disorder Continue Celexa Hyponatremia Continue to follow sodium levels IV hydration as above Alcohol abuse Patient intends to quit Continue [facility] protocol Nicotine dependence Patient counseled to quit Hypokalemia Monitor potassium levels Replace as needed DVT prophylaxis SCDs Pt Condition on Discharge: Stable Discharge Disposition: Disch w/ Home Health Serv Discharge Time: > 30 minutes Discharge Instructions DIET: Follow Instructions for: Heart Healthy Diet Activities you can perform: Regular-No Restrictions Activities to Avoid: Driving Follow up Referrals: Gastroenterology - 1 Week PCP Follow-up - 1 Week Continued Medications: Atenolol (Atenolol) 50 Mg Tab 50 MG PO DAILY, #30 TAB 5 Refills Citalopram (Celexa) 20 Mg Tab 20 MG PO DAILY, #60 TAB 2 Refills Pantoprazole (Pantoprazole) 40 Mg Tab 40 MG PO DAILY, #30 TAB Chau Wang MD August 24, 2017 17:51
== END 2017-08-24 11:29 | disposition home health service (06) | DRG 439 ==
LOC: NEPD 12:47 → NEDA 17:24 → N05A 19:51
PROVIDERS: ADMIT Internal Medicine; ATTEND Internal Medicine
PROC: 0DB78ZX Excision of Stomach, Pylorus, Via Natural or Artificial Opening Endoscopic, Diagnostic (ICD-10-PCS; 2017-08-23)
PROC: 0DB58ZX Excision of Esophagus, Via Natural or Artificial Opening Endoscopic, Diagnostic (ICD-10-PCS; principal; 2017-08-23 09:50)
DX: K85.20 Alcohol induced acute pancreatitis without necrosis or infection (principal); E87.1 Hypo-osmolality and hyponatremia; I10 Essential (primary) hypertension; E87.6 Hypokalemia; E16.2 Hypoglycemia, unspecified; K86.0 Alcohol-induced chronic pancreatitis; K82.8 Other specified diseases of gallbladder; K20.9 Esophagitis, unspecified; K29.70 Gastritis, unspecified, without bleeding; K29.80 Duodenitis without bleeding; K44.9 Diaphragmatic hernia without obstruction or gangrene; I95.2 Hypotension due to drugs; T40.2X5A Adverse effect of other opioids, initial encounter; N83.202 Unspecified ovarian cyst, left side; F10.10 Alcohol abuse, uncomplicated; F17.210 Nicotine dependence, cigarettes, uncomplicated; F41.8 Other specified anxiety disorders; Y90.9 Presence of alcohol in blood, level not specified; Z88.0 Allergy status to penicillin; Z88.2 Allergy status to sulfonamides; Z88.5 Allergy status to narcotic agent
CPT/HCPCS: 71045; 74177; 74181; 76377; 76937; 78227; 80048; 80053; 80074; 81001; 82150; 82948; 83690; 83735; 84100; 84132; 85025; 88305; 88312; 96361; 96374; A9537; J1644; J2060; J2270; J2405; J2805; J7030; J7040; J7070; J7120; Q9967